=== PATIENT | male | born 1960 | race American Indian/Alaskan Native ===

== ENCOUNTER 2017-04-25 05:25 | Inpatient (IN) | payer SELFPAY ==
[2017-04-25 06:19] LABS: Eosinophils % (Auto) 2.7 % (0.0-4.3); Hematocrit 41.3 % (35.5-45.6); Hemoglobin 13.9 gm/dl (11.8-15.2); Mean Corpuscular HGB Conc 34 % (32-34); Mean Corpuscular Hemoglobin 33 pg (28-32); Mean Corpuscular Volume 97 fl (84-94); Platelet Count 345 K/mm3 (140-440); Red Blood Count 4.27 M/mm3 (3.65-5.03); Red Cell Distribution Width 11.9 % (13.2-15.2); White Blood Count 9.5 K/mm3 (4.5-11.0)
[2017-04-25 06:27] LABS: Calcium 9.4 mg/dL (8.4-10.2); Potassium 4.6 mmol/L (3.6-5.0)
[2017-04-25] MEDS ORDERED: NITRO-BID 2% TP ONE (08:14)
[2017-04-25] MEDS ORDERED: ASPIRIN PO ONE (08:15)
[2017-04-25 08:19] LABS: Creatine Kinase MB 2.9 ng/mL (0.0-4.0)
[2017-04-25 08:20] LABS: Creatine Kinase 372 units/L (55-170)
--- NOTE | 2017-04-25 08:22 | Emergency Department Report ---
HPI - General Chief Complaint: Weakness Time Seen by Provider: 04/25/17 07:59 - HPI HPI: Room 1 The patient is a 56-year-old male presenting with a chief complaint of diaphoresis chest pain and muscle spasms. The patient states last night at approximately 22:00 he had oral pain leading him to take Motrin and Ambesol. The patient states this morning at 04:00 and took his insulin when he came upstairs and noticed he was diaphoretic. The patient states he sat down and noticed muscle spasms in bilateral lower extremities. The patient states he developed substernal chest pain lasts approximately 30 minutes. EMS was called. Patient had a blood sugar of 282. The patient came to the ED and was administered IV fluids which she attributes to the resolution of his leg pain. Patient currently denies complaints stating that he "feel[s] good now." Patient states he's never had a stress test or cardiac catheterization Location: Chest, legs Duration: [See above] Quality: [See above] Severity: [See above] Modifying factors: [see above] Context: [see above] Mode of transportation: [not driving] ED Past Medical Hx - Past Medical History Previous Medical History?: Yes Hx Diabetes: Yes - Surgical History Past Surgical History?: No - Family History Family history: no significant - Social History Smoking Status: Current Some Day Smoker ED Review of Systems ROS: Stated complaint: GENERAL WEAKNESS Other details as noted in HPI Constitutional: diaphoresis Respiratory: denies: shortness of breath Cardiovascular: chest pain Gastrointestinal: denies: nausea, vomiting Musculoskeletal: myalgia Physical Exam - Physical Exam Vital Signs: Vital Signs 04/25/17 05:42 Temperature 98.0 F Pulse Rate 109 H Respiratory 20 Rate Blood Pressure 131/84 [Right] O2 Sat by Pulse 97 Oximetry Physical Exam: GENERAL: The patient is well-developed well-nourished male sitting on stretcher not appearing to be in acute distress. [] HEENT: Normocephalic. Atraumatic. Extraocular motions are intact. Patient has moist mucous membranes. NECK: Supple. Trachea midline CHEST/LUNGS: Clear to auscultation. There is no respiratory distress noted. HEART/CARDIOVASCULAR: Regular. There is tachycardia. There is no gallop rub or murmur. ABDOMEN: Abdomen is soft, nontender. Patient has normal bowel sounds. There is no abdominal distention. SKIN: There is no rash. There is no edema. There is no diaphoresis. NEURO: The patient is awake, alert, and oriented. The patient is cooperative. The patient has normal speech MUSCULOSKELETAL: There is no tenderness to palpation of bilateral calves. There is no evidence of acute injury. ED Course Vital Signs 04/25/17 05:42 Temperature 98.0 F Pulse Rate 109 H Respiratory 20 Rate Blood Pressure 131/84 [Right] O2 Sat by Pulse 97 Oximetry ED Medical Decision Making - Lab Data Result diagrams: 04/25/17 05:59 04/25/17 05:59 Laboratory Tests 04/25/17 04/25/17 04/25/17 05:59 05:59 05:59 WBC 9.5 RBC 4.27 Hgb 13.9 Hct 41.3 MCV 97 H MCH 33 H MCHC 34 RDW 11.9 L Plt Count 345 Lymph % (Auto) 21.5 Sharkey % (Auto) 9.1 H Eos % (Auto) 2.7 Baso % (Auto) 1.0 Lymph # 2.0 Sharkey # 0.9 H Eos # 0.3 Baso # 0.1 Seg Neutrophils % 65.7 Seg Neutrophils # 6.3 Sodium 139 Potassium 4.6 Chloride 97.0 L Carbon Dioxide 26 Anion Gap 21 BUN 17 Creatinine 1.5 Estimated GFR 58 BUN/Creatinine Ratio 11 Glucose 139 H Calcium 9.4 Magnesium 2.00 Total Creatine Kinase CK-MB (CK-2) CK-MB (CK-2) Rel Index Troponin T TSH 2.750 Free T4 1.16 04/25/17 05:59 WBC RBC Hgb Hct MCV MCH MCHC RDW Plt Count Lymph % (Auto) Sharkey % (Auto) Eos % (Auto) Baso % (Auto) Lymph # Sharkey # Eos # Baso # Seg Neutrophils % Seg Neutrophils # Sodium Potassium Chloride Carbon Dioxide Anion Gap BUN Creatinine Estimated GFR BUN/Creatinine Ratio Glucose Calcium Magnesium Total Creatine Kinase 372 H CK-MB (CK-2) 2.9 CK-MB (CK-2) Rel Index 0.7 Troponin T < 0.010 TSH Free T4 - EKG Data -: EKG Interpreted by Me EKG shows normal: sinus rhythm Rate: tachycardia (106 bpm) - EKG Data When compared to previous EKG there are: previous EKG unavailable Interpretation: nonspecific ST-T wave akash (biphasic T waves in leads V2, V3, V4) - Radiology Data Radiology results: image reviewed (chest x-ray) interpreted by me: Chest x-ray-no focal infiltrates, no pneumothorax - Differential Diagnosis ACS, GERD, pericarditis, rhabdomyolysis Critical care attestation.: If time is entered above; I have spent that time in minutes in the direct care of this critically ill patient, excluding procedure time. ED Disposition Clinical Impression: Chest pain, Diaphoresis, Biphasic anterior T wave inversion Disposition: OP ADMIT IP TO THIS HOSP Is pt being admited?: Yes Does the pt Need Aspirin: Yes Condition: Fair Instructions: Chest Pain (ED) Referrals: PRIMARY CARE, [Primary Care Provider] - 3-5 Days Time of Disposition: 09:02 (hospitalist paged)
--- NOTE | 2017-04-25 09:10 | XRay Report ---
AP CHEST: HISTORY: chest pain AP view of the chest demonstrates a normal mediastinal and cardiac contour with clear lungs and normal bony and soft tissue structures. IMPRESSION: Unremarkable AP chest.
[2017-04-25 09:58] LABS: Bacteria,Urine 1+ /HPF (Negative); Mucus,Urine FEW /HPF
[2017-04-25 09:59] LABS: Bilirubin,Urine Negative (Negative); Blood,Urine Small (Negative); Ketones,Urine Negative (Negative)
[2017-04-25 10:00] LABS: Leukocyte Esterase,Urine Moderate (Negative); Nitrite,Urine Negative (Negative); Urobilinogen,Urine < 2.0 mg/dL (<2.0)
[2017-04-25] MEDS ORDERED: DULCOLAX PR PRN (10:08)
[2017-04-25] MEDS ORDERED: TYLENOL PO PRN (10:08)
[2017-04-25] MEDS ORDERED: ZOFRAN IV PRN (10:08)
[2017-04-25] MEDS ORDERED: NITROSTAT SL PRN (10:13)
[2017-04-25] MEDS ORDERED: D50W (25GM) Syringe IV PRN (10:13)
--- NOTE | 2017-04-25 11:17 | Event Note ---
Date: 04/25/17 Cardio note dictated 1.Chest pain 2. Diabetes 3 Hyperlipidemia Will obtain cardiac w/u and follow Thank you Dr ambriz
--- NOTE | 2017-04-25 11:21 | History and Physical Report ---
<ALBERTO GILBERT - Last Filed: 05/09/17 08:24> History of Present Illness Date of examination: 04/25/17 Date of admission: 04/25/17 10:08 Chief complaint: 04/25/1017 History of present illness: Patient is a 56-year-old male with past medical history hypertension and diabetes mellitus who presents to the emergency department with a chief complaint of diaphoresis chest pain and bilateral knee pain. The pain began this morning at approx 4:00 am while the patient was walking at home noticed he was diaphoretic. The patient states he sat down and noticed muscle spasms in bilateral knee. The pain was described as aching and had a gradual onset. The pain continued to gradually increase in severity to an 8/10 today to the point cannot walk without pain. The pain was exacerbated with walking or standing. Patient also experienced left-sided chest pain. He states that the pain began right after the knee pain, intermittent left side chest pain. The pain was located over his substerna somewhat in the left pigastric area . Patient described as, tightness pain. The pain lasted for few minutes and he states that pain was radiating to left arm. Also the patient did experience some tingling and numbness in his left arm after the pain ceased. No exacerbation and no reliving factors. The painful episodes did not increase in intensity or severity during this time. The patient denies chest pain at present time. He denies shortness of breath, and vomiting during these episodes of pain. Patient reported nausea and diaphoresis including feeling clammy. Patient states he's never had a stress test or cardiac catheterization. Past History Past Medical History: diabetes, hypertension, hyperlipidemia Past Surgical History: No surgical history Social history: smoking. denies: alcohol abuse Family history: hypertension Medications and Allergies Allergies Allergy/AdvReac Type Severity Reaction Status Date / Time No Known Allergies Allergy Unverified 04/25/17 05:50 Home Medications Medication Instructions Recorded Confirmed Last Taken Type Aspirin EC [Aspirin Enteric Coated 81 mg PO QDAY #30 tablet.dr 04/26/17 Unknown Rx TAB] Ciprofloxacin HCl [Ciprofloxacin 500 mg PO BID 7 Days tablet 04/26/17 Unknown Rx TAB] Famotidine [Pepcid] 20 mg PO BID #60 tablet 04/26/17 Unknown Rx Fluconazole [Diflucan TAB] 100 mg PO QDAY #7 tablet 04/26/17 Unknown Rx Insulin Glargine,Hum.rec.anlog 10 units SUB-Q HS #3 insuln.pen 04/26/17 Unknown Rx [Lantus Solostar] Insulin Glargine,Hum.rec.anlog 15 units SUB-Q QAM #3 insuln.pen 04/26/17 Unknown Rx [Lantus Solostar] Active Meds: Active Medications Acetaminophen (Tylenol) 650 mg PO Q4H PRN PRN Reason: Pain MILD(1-3)/Fever >100.5/CHRISTIANSON Aspirin (Aspirin) 325 mg PO DAILY KATHY Bisacodyl (Dulcolax) 10 mg [place] QDAY PRN PRN Reason: Constipation unrelieved by [facility] Dextrose (D50w (25gm) Syringe) 50 ml IV PRN PRN PRN Reason: Hypoglycemia Enoxaparin Sodium (Lovenox) 40 mg SUB-Q QDAY KATHY Insulin Aspart (Novolog) 0 units SUB-Q AC KATHY PRN Reason: Protocol Insulin Aspart (Novolog) 0 units SUB-Q QHS KATHY PRN Reason: Protocol Metoprolol Succinate (Toprol Xl) 50 mg PO QDAY KATHY Miscellaneous Medication (Insulin Glargine,Hum.Rec.Anlog [Lantus Solostar]) 10 units SUB-Q HS KATHY Miscellaneous Medication (Insulin Glargine,Hum.Rec.Anlog [Lantus Solostar]) 15 units SUB-Q QAM KATHY Morphine Sulfate (Morphine) 2 mg IV Q4H PRN PRN Reason: Pain, Moderate (4-6) Nitroglycerin (Nitrostat) 0.4 mg SL .Q5MIN PRN PRN Reason: Chest Pain Ondansetron HCl (Zofran) 4 mg IV Q8H PRN PRN Reason: N/V unrelieved by Reglan Review of Systems Constitutional: no weight loss, no weight gain Ears, nose, mouth and throat: no nasal congestion, no nasal discharge, no sinus pressure Cardiovascular: chest pain, no rapid/irregular heart beat, no syncope, no lightheadedness, no shortness of breath Respiratory: no hemoptysis, no shortness of breath, no dyspnea on exertion Gastrointestinal: no constipation, no change in bowel habits, no hematemesis Genitourinary Male: no discharge, no urinary frequency, no urinary hesitancy, no nocturia Rectal: no incontinence, no bleeding Musculoskeletal: other (bilateral knee pain), no low back pain, no shooting leg pain, no leg numbness/tingling Integumentary: no redness, no sores, no wounds, no jaundice Neurological: no numbness, no tingling, no seizures, no syncope Psychiatric: no change in sleep habits, no sleep disturbances, no insomnia Endocrine: no excessive thirst, no polydipsia, no polyuria Hematologic/Lymphatic: no easy bruising, no easy bleeding Allergic/Immunologic: no urticaria, no allergic rhinitis Exam - Constitutional Vitals: Temp Pulse Resp BP Pulse Ox 98.0 F 98 H 18 115/73 97 04/25/17 05:42 04/25/17 10:30 04/25/17 10:30 04/25/17 10:30 04/25/17 10:30 General appearance: Present: no acute distress - EENT Eyes: Present: PERRL ENT: hearing intact - Neck Neck: Present: supple - Respiratory Respiratory effort: normal Respiratory: bilateral: CTA - Cardiovascular Rhythm: regular Heart Sounds: Present: S1 & S2 - Extremities Extremities: no ischemia - Abdominal General gastrointestinal: Present: soft, non-tender Male genitourinary: Present: deferred - Rectal Rectal Exam: deferred - Integumentary Integumentary: Present: clear, warm, dry - Musculoskeletal Musculoskeletal: strength equal bilaterally - Psychiatric Psychiatric: appropriate mood/affect - Neurologic Neurologic: moves all extremities - Allied Health Allied health notes reviewed: nursing Results - Labs CBC & Chem 7: 04/25/17 05:59 04/25/17 05:59 Labs: Laboratory Last Values WBC 9.5 K/mm3 (4.5-11.0) 04/25/17 05:59 RBC 4.27 M/mm3 (3.65-5.03) 04/25/17 05:59 Hgb 13.9 gm/dl (11.8-15.2) 04/25/17 05:59 Hct 41.3 % (35.5-45.6) 04/25/17 05:59 MCV 97 fl (84-94) H 04/25/17 05:59 MCH 33 pg (28-32) H 04/25/17 05:59 MCHC 34 % (32-34) 04/25/17 05:59 RDW 11.9 % (13.2-15.2) L 04/25/17 05:59 Plt Count 345 K/mm3 (140-440) 04/25/17 05:59 Lymph % (Auto) 21.5 % (13.4-35.0) 04/25/17 05:59 [place] % (Auto) 9.1 % (0.0-7.3) H 04/25/17 05:59 Eos % (Auto) 2.7 % (0.0-4.3) 04/25/17 05:59 Baso % (Auto) 1.0 % (0.0-1.8) 04/25/17 05:59 Lymph # 2.0 K/mm3 (1.2-5.4) 04/25/17 05:59 [place] # 0.9 K/mm3 (0.0-0.8) H 04/25/17 05:59 Eos # 0.3 K/mm3 (0.0-0.4) 04/25/17 05:59 Baso # 0.1 K/mm3 (0.0-0.1) 04/25/17 05:59 Seg Neutrophils % 65.7 % (40.0-70.0) 04/25/17 05:59 Seg Neutrophils # 6.3 K/mm3 (1.8-7.7) 04/25/17 05:59 Sodium 139 mmol/L (137-145) 04/25/17 05:59 Potassium 4.6 mmol/L (3.6-5.0) 04/25/17 05:59 Chloride 97.0 mmol/L (98-107) L 04/25/17 05:59 Carbon Dioxide 26 mmol/L (22-30) 04/25/17 05:59 Anion Gap 21 mmol/L 04/25/17 05:59 BUN 17 mg/dL (9-20) 04/25/17 05:59 Creatinine 1.5 mg/dL (0.8-1.5) 04/25/17 05:59 Estimated GFR 58 ml/min 04/25/17 05:59 BUN/Creatinine Ratio 11 % 04/25/17 05:59 Glucose 139 mg/dL (75-100) H 04/25/17 05:59 Calcium 9.4 mg/dL (8.4-10.2) 04/25/17 05:59 Magnesium 2.00 mg/dL (1.7-2.3) 04/25/17 05:59 Total Creatine Kinase 372 units/L (55-170) H 04/25/17 05:59 CK-MB (CK-2) 2.9 ng/mL (0.0-4.0) 04/25/17 05:59 CK-MB (CK-2) Rel Index 0.7 (0-4) 04/25/17 05:59 Troponin T < 0.010 ng/mL (0.00-0.029) 04/25/17 05:59 TSH 2.750 mlU/mL (0.270-4.200) 04/25/17 05:59 Free T4 1.16 ng/dL (0.76-1.46) 04/25/17 05:59 Urine Color Straw (Yellow) 04/25/17 Unknown Urine Turbidity Hazy (Clear) 04/25/17 Unknown Urine pH 5.0 (5.0-7.0) 04/25/17 Unknown Ur Specific [place] 1.015 (1.003-1.030) 04/25/17 Unknown Urine Protein 30 mg/dl mg/dL (Negative) 04/25/17 Unknown Urine Glucose (UA) >500 mg/dL (Negative) 04/25/17 Unknown Urine Ketones Negative mg/dL (Negative) 04/25/17 Unknown Urine Blood Small (Negative) A 04/25/17 Unknown Urine Nitrite Negative (Negative) 04/25/17 Unknown Ur Reducing Substances Not Reportable 04/25/17 Unknown Urine Bilirubin Negative (Negative) 04/25/17 Unknown Urine Ictotest Not Reportable 04/25/17 Unknown Urine Urobilinogen < 2.0 mg/dL (<2.0) 04/25/17 Unknown Ur Leukocyte Esterase Moderate (Negative) 04/25/17 Unknown Urine WBC (Auto) 47.0 /HPF (0.0-6.0) H 04/25/17 Unknown Urine RBC (Auto) 19.0 /HPF (0.0-6.0) 04/25/17 Unknown U Epithel Cells (Auto) 5.0 /HPF (0-13.0) 04/25/17 Unknown Urine Bacteria (Auto) 1+ /HPF (Negative) 04/25/17 Unknown Urine Mucus Few /HPF 04/25/17 Unknown Urine Yeast (Budding) 1+ /HPF 04/25/17 Unknown - Imaging and Cardiology Chest x-ray: image reviewed (unremarkable ) Assessment and Plan Assessment and plan: Patient is a 56-year-old male with past medical history hypertension and diabetes mellitus who presents to the emergency department with a chief complaint of diaphoresis chest pain and bilateral knee pain. Chest Pain We will admit to telemetry floor. EKG normal sinus nonspecific ST-T wave akash (biphasic T waves in leads V2, V3, V4 ) Negative cardiac enzyme X2 Start on aspirin Nitroglycerin when necessary Morphine ordered for pain Stress test ordered. Cardiology consult Diabetes mellitus Accu-Chek before meals and after Sliding-scale insulin/NovoLog We will obtain A1C Hypertension Stable now; patient not on BP medication we ill monitor him and start on antihypertensive medications if needed Closely monitor blood pressure Bilateral knee pain We will obtain Xray of the knee DVT prophylaxis Lovenox Advance Directives: Yes VTE prophylaxis?: Chemical Contraindication Mechanical VTE Prophylaxis: Treatment Not Indicated Plan of care discussed with patient/family: Yes <FLOYD JO - Last Filed: 05/10/17 09:05> History of Present Illness Date of admission: 04/25/17 10:08 Exam - Constitutional Vitals: Temp Pulse Resp BP Pulse Ox 98.2 F 104 H 18 117/77 94 04/26/17 04:15 04/26/17 05:00 04/26/17 04:15 04/26/17 04:15 04/26/17 07:44 Results - Labs CBC & Chem 7: 04/26/17 04:31 04/26/17 04:31 Labs: Laboratory Last Values WBC 9.8 K/mm3 (4.5-11.0) 04/26/17 04:31 RBC 3.96 M/mm3 (3.65-5.03) 04/26/17 04:31 Hgb 12.9 gm/dl (11.8-15.2) 04/26/17 04:31 Hct 38.0 % (35.5-45.6) 04/26/17 04:31 MCV 96 fl (84-94) H 04/26/17 04:31 MCH 32 pg (28-32) 04/26/17 04:31 MCHC 34 % (32-34) 04/26/17 04:31 RDW 12.0 % (13.2-15.2) L 04/26/17 04:31 Plt Count 335 K/mm3 (140-440) 04/26/17 04:31 Lymph % (Auto) 28.4 % (13.4-35.0) 04/26/17 04:31 [place] % (Auto) 7.2 % (0.0-7.3) 04/26/17 04:31 Eos % (Auto) 2.7 % (0.0-4.3) 04/26/17 04:31 Baso % (Auto) 0.4 % (0.0-1.8) 04/26/17 04:31 Lymph # 2.8 K/mm3 (1.2-5.4) 04/26/17 04:31 [place] # 0.7 K/mm3 (0.0-0.8) 04/26/17 04:31 Eos # 0.3 K/mm3 (0.0-0.4) 04/26/17 04:31 Baso # 0.0 K/mm3 (0.0-0.1) 04/26/17 04:31 Seg Neutrophils % 61.3 % (40.0-70.0) 04/26/17 04:31 Seg Neutrophils # 6.0 K/mm3 (1.8-7.7) 04/26/17 04:31 Sodium 137 mmol/L (137-145) 04/26/17 04:31 Potassium 4.2 mmol/L (3.6-5.0) 04/26/17 04:31 Chloride 97.5 mmol/L (98-107) L 04/26/17 04:31 Carbon Dioxide 25 mmol/L (22-30) 04/26/17 04:31 Anion Gap 19 mmol/L 04/26/17 04:31 BUN 13 mg/dL (9-20) 04/26/17 04:31 Creatinine 0.9 mg/dL (0.8-1.5) 04/26/17 04:31 Estimated GFR > 60 ml/min 04/26/17 04:31 BUN/Creatinine Ratio 14 % 04/26/17 04:31 Glucose 248 mg/dL (75-100) H 04/26/17 04:31 POC Glucose 260 (70-105) H 04/26/17 11:41 Hemoglobin A1c 12.2 % (4-6) H 04/26/17 04:31 Calcium 8.7 mg/dL (8.4-10.2) 04/26/17 04:31 Magnesium 2.00 mg/dL (1.7-2.3) 04/25/17 05:59 Total Creatine Kinase 372 units/L (55-170) H 04/25/17 05:59 CK-MB (CK-2) 2.9 ng/mL (0.0-4.0) 04/25/17 05:59 CK-MB (CK-2) Rel Index 0.7 (0-4) 04/25/17 05:59 Troponin T < 0.010 ng/mL (0.00-0.029) 04/25/17 11:44 TSH 2.750 mlU/mL (0.270-4.200) 04/25/17 05:59 Free T4 1.16 ng/dL (0.76-1.46) 04/25/17 05:59 Urine Color Straw (Yellow) 04/25/17 Unknown Urine Turbidity Hazy (Clear) 04/25/17 Unknown Urine pH 5.0 (5.0-7.0) 04/25/17 Unknown Ur Specific [place] 1.015 (1.003-1.030) 04/25/17 Unknown Urine Protein 30 mg/dl mg/dL (Negative) 04/25/17 Unknown Urine Glucose (UA) >500 mg/dL (Negative) 04/25/17 Unknown Urine Ketones Negative mg/dL (Negative) 04/25/17 Unknown Urine Blood Small (Negative) A 04/25/17 Unknown Urine Nitrite Negative (Negative) 04/25/17 Unknown Ur Reducing Substances Not Reportable 04/25/17 Unknown Urine Bilirubin Negative (Negative) 04/25/17 Unknown Urine Ictotest Not Reportable 04/25/17 Unknown Urine Urobilinogen < 2.0 mg/dL (<2.0) 04/25/17 Unknown Ur Leukocyte Esterase Moderate (Negative) 04/25/17 Unknown Urine WBC (Auto) 47.0 /HPF (0.0-6.0) H 04/25/17 Unknown Urine RBC (Auto) 19.0 /HPF (0.0-6.0) 04/25/17 Unknown U Epithel Cells (Auto) 5.0 /HPF (0-13.0) 04/25/17 Unknown Urine Bacteria (Auto) 1+ /HPF (Negative) 04/25/17 Unknown Urine Mucus Few /HPF 04/25/17 Unknown Urine Yeast (Budding) 1+ /HPF 04/25/17 Unknown Assessment and Plan Assessment and plan: I saw and evaluated the patient. I agree with the findings and the plan of care as documented in the Nurse Practitioner's~note,
[2017-04-25] MEDS: NOVOLOG SUB-Q SCH ×2 (13:22→17:13)
--- NOTE | 2017-04-25 13:55 | Consultation ---
HISTORY OF PRESENT ILLNESS: The patient is a 56-year-old gentleman who is originally from [place] who works as an mold worker, comes in complaining about chest discomfort and knee pains. The chest pain is described as a very brief pain and he had 2 episodes associated with some difficulty in breathing and diaphoresis, but no definite precipitation by any of his usual activities. No specific precipitating factors with chest pain. No prior myocardial infarction, congestive heart failure, rheumatic fever. The patient is known to have a longstanding history of diabetes and hyperlipidemia. He has stopped taking medications for hyperlipidemia. REVIEW OF SYSTEMS: HEAD, EYES, EARS, NOSE AND THROAT: No symptoms. ENDOCRINE: Known to have diabetes. RESPIRATORY: No history of recurrent pneumonia, bronchitis or pulmonary tuberculosis. GASTROINTESTINAL: No abdominal pain, nausea, or vomiting. Bowel habits have been regular. GENITOURINARY: No symptoms. CENTRAL NERVOUS SYSTEM: No history of cerebrovascular accident or convulsive disorder. HEMATOLOGY/ONCOLOGY: No symptoms. SKIN: No symptoms. LOCOMOTOR: The patient complains showed bilateral knee pains. PERSONAL HISTORY: Smokes about 1 pack every week. Nonalcoholic. FAMILY HISTORY: Positive for diabetes. Negative for coronary artery disease. PHYSICAL EXAMINATION: GENERAL: Adult male, well built, well nourished, in no acute distress. VITAL SIGNS: Blood pressure 115/73, pulse 98, respirations 18, pulse ox is 97. HEENT: Unremarkable. NECK: Supple. No thyromegaly. Both carotids are palpable and equal. Neck veins are flat. CHEST: Symmetrical. LUNGS: Clear. CARDIOVASCULAR: S1 and S2 are heard well. No S3. No significant murmurs are noted. ABDOMEN: Soft, nontender, no hepatosplenomegaly. EXTREMITIES: No significant edema or calf tenderness. LABORATORY DATA: EKG sinus rhythm, nonspecific T-wave changes. WBC 9.5, hemoglobin 13.9, hematocrit 41.3. Sodium 139, potassium 4.6, BUN 17, creatinine 1.5, blood sugar 139. Her troponin is normal. Free T4 is normal. IMPRESSION: 1. Chest pain, somewhat atypical. 2. Hyperlipidemia. 3. Diabetes. The patient is seen for cardiac evaluation. Chest pain itself is somewhat atypical. Because of his chest pain and difficulty in breathing, I will obtain a stress test and an echocardiogram. The patient will be monitored and followed closely with you. Thank you for allowing me to participate in the care of this gentleman. JOB# [id number] JACKIE/JEAN
[2017-04-25] MEDS: MORPHINE IV PRN ×2 (16:34→22:02)
[2017-04-25] MEDS ORDERED: LEVEMIR SUB-Q SCH (22:00)
[2017-04-25] MEDS ORDERED: NON-FORMULARY (Insulin Glargine,Hum.Rec.Anlog [Lantus Solostar] 10 UNITS) SUB-Q SCH (22:00)
[2017-04-25] MEDS ORDERED: NOVOLOG SUB-Q SCH (22:00)
[2017-04-26 04:46] VITALS: BP 117/77
[2017-04-26 05:46] LABS: Basophils % (Auto) 0.4 % (0.0-1.8); Eosinophils % (Auto) 2.7 % (0.0-4.3); Hemoglobin 12.9 gm/dl (11.8-15.2); Mean Corpuscular HGB Conc 34 % (32-34); Mean Corpuscular Hemoglobin 32 pg (28-32); Mean Corpuscular Volume 96 fl (84-94); Platelet Count 335 K/mm3 (140-440); Red Blood Count 3.96 M/mm3 (3.65-5.03); White Blood Count 9.8 K/mm3 (4.5-11.0)
[2017-04-26 05:50] LABS: Anion Gap 19 mmol/L; BUN/Creatinine Ratio 14; Blood Urea Nitrogen 13 mg/dL (9-20); Calcium 8.7 mg/dL (8.4-10.2); Carbon Dioxide 25 mmol/L (22-30); Chloride 97.5 mmol/L (98-107); Glucose 248 mg/dL (75-100); Potassium 4.2 mmol/L (3.6-5.0); Sodium 137 mmol/L (137-145)
[2017-04-26] MEDS: NOVOLOG SUB-Q SCH ×2 (08:12→11:52)
[2017-04-26] MEDS ORDERED: NON-FORMULARY (Insulin Glargine,Hum.Rec.Anlog [Lantus Solostar] 15 UNITS) SUB-Q SCH (10:00)
[2017-04-26] MEDS ORDERED: LOVENOX SUB-Q SCH (10:00)
[2017-04-26] MEDS ORDERED: TOPROL XL PO SCH (10:00)
[2017-04-26] MEDS ORDERED: LEVEMIR SUB-Q SCH (10:00)
[2017-04-26] MEDS ORDERED: ASPIRIN PO SCH (10:00)
[2017-04-26] MEDS ORDERED: LEVAQUIN 500MG/100ML 500 MG/100 ML BAG IV SCH (10:00)
--- NOTE | 2017-04-26 13:46 | Discharge Summary ---
Providers - Providers Date of Admission: 04/25/17 10:08 Date of discharge: 04/26/17 Attending physician: ASAEL SHEN 04/25/17 10:16 Consult to Physician [CONS] Routine Consulting Provider: DAVID MOORE Reason For Exam: abnormal EKG Place consult to:: Rabia Everett Notified:: Edwin notified her Phone number called:: yes Was contact made?: Yes Primary care physician: SAP PPM CONSULTANT Hospitalization Condition: Fair Disposition: DC-01 TO HOME OR SELFCARE Exam - Constitutional Vitals: Temp Pulse Resp BP Pulse Ox 98.2 F 104 H 18 117/77 94 04/26/17 04:15 04/26/17 05:00 04/26/17 04:15 04/26/17 04:15 04/26/17 07:44 Plan Activity: no restrictions Diet: low fat, low cholesterol, low salt, diabetic Additional Instructions: 1.Follow up with PCP or [facility] in 1 week Follow up with: PRIMARY CARE,MD [Primary Care Provider] - 3-5 Days Prescriptions: Aspirin EC [Aspirin Enteric Coated TAB] 81 mg PO QDAY #30 tablet. Famotidine [Pepcid] 20 mg PO BID #60 tablet Insulin Glargine,Hum.rec.anlog [Lantus Solostar] 15 units SUB-Q QAM #3 insuln.pen Insulin Glargine,Hum.rec.anlog [Lantus Solostar] 10 units SUB-Q HS #3 insuln.pen
--- NOTE | 2017-04-26 14:26 | Progress Note ---
Assessment and Plan Patient is doing well today. He is evaluated for chest pain. His nuclear stress test is noted to be negative for ischemia. Clinically cardiac status is stable. Case discussed with Dr. Chandler. - Patient Problems (1) Chest pain Current Visit: Yes Status: Acute Subjective Date of service: 04/26/17 Interval history: Patient is doing well today no significant chest pain. For stress test today. Objective Vital Signs Temp Pulse Resp BP Pulse Ox 04/26/17 07:44 94 04/26/17 05:00 104 H 04/26/17 04:15 98.2 F 96 H 18 117/77 100 04/26/17 00:01 97.8 F 111 H 18 110/68 100 04/25/17 22:02 20 04/25/17 21:00 111 H 04/25/17 19:53 98.1 F 115 H 18 130/87 95 04/25/17 17:02 98.7 F 107 H 18 135/87 98 - Physical Examination General: Appears Well Neck: Positive: neck supple Cardiac: Positive: Reg Rate and Rhythm Lungs: Positive: clear to auscultation Abdomen: Positive: Soft - Labs and Meds CBC 04/26/17 Range/Units 04:31 WBC 9.8 (4.5-11.0) K/mm3 RBC 3.96 (3.65-5.03) M/mm3 Hgb 12.9 (11.8-15.2) gm/dl Hct 38.0 (35.5-45.6) % Plt Count 335 (140-440) K/mm3 Lymph # 2.8 (1.2-5.4) K/mm3 [place] # 0.7 (0.0-0.8) K/mm3 Eos # 0.3 (0.0-0.4) K/mm3 Baso # 0.0 (0.0-0.1) K/mm3 Comprehensive Metabolic Panel 04/26/17 Range/Units 04:31 Sodium 137 (137-145) mmol/L Potassium 4.2 (3.6-5.0) mmol/L Chloride 97.5 L (98-107) mmol/L Carbon Dioxide 25 (22-30) mmol/L BUN 13 (9-20) mg/dL Creatinine 0.9 (0.8-1.5) mg/dL Glucose 248 H (75-100) mg/dL Calcium 8.7 (8.4-10.2) mg/dL
--- NOTE | 2017-05-15 04:19 | Treadmill Report ---
REFERRING PHYSICIAN: Dr. Sage. PROTOCOL: The patient was brought to the stress lab in a postoperative state, given 10 mCi of technetium 99m at rest. The patient underwent rest imaging. The patient underwent exercise stress test per standard protocol. At peak stress, the patient was given 28 mCi of technetium 99m. Shortly thereafter, the patient underwent stress imaging. Interpretation, mild GI artifact, no significant motion artifact. SPECT imaging examined carefully in horizontal long axis, vertical long axis, short axis views. There is normal homogenous uptake of radioisotope in all reported segments. No evidence of significant fixed or reversible perfusion defects suggestive of prior infarction or ischemia. Gated wall motion reveals normal systolic thickening, calculated ejection fraction of 59%. No TID. CONCLUSIONS: 1. Normal myocardial perfusion scan without evidence of active ischemia or prior infarction. 2. Normal left ventricular systolic performance without evidence of transient ischemic dilatation or stress-induced segmental wall motion abnormalities. 3. Stress portion of the test is reported separately. JOB# [id number] FABIAN/JEAN
== END 2017-04-26 15:18 | disposition home or self-care (01) | DRG 313 ==
LOC: ED 05:25 → 4A 10:08
PROVIDERS: ADMIT Family Medicine; ATTEND Internal Medicine
DX: R07.9 Chest pain, unspecified (principal); F17.200 Nicotine dependence, unspecified, uncomplicated; R61 Generalized hyperhidrosis; E78.5 Hyperlipidemia, unspecified; Z83.3 Family history of diabetes mellitus; Z79.4 Long term (current) use of insulin
CPT/HCPCS: 36415; 71010; 78452; 80048; 81001; 82550; 82553; 82962; 83036; 83735; 84439; 84443; 84484; 85025; 87086; 93005; 93010; 93017; 93306; 96374; 99285; A9502; J1650; J1815; J1818; J1956; J2270

== ENCOUNTER 2018-12-23 08:42 | Emergency (ER) | payer OTHER ==
[2018-12-23 09:28] LABS: Bilirubin,Urine NEG (Negative); Blood,Urine NEG (Negative); Color,Urine Straw (Yellow); Protein,Urine <15 mg/dL mg/dL (Negative); Urobilinogen,Urine < 2.0 mg/dL (<2.0)
[2018-12-23 09:42] LABS: Basophils # (Auto) 0.1 K/mm3 (0.0-0.1); Eosinophils # (Auto) 0.2 K/mm3 (0.0-0.4); Eosinophils % (Auto) 2.2 % (0.0-4.3); Hemoglobin 14.1 gm/dl (11.8-15.2); Lymphocytes # (Auto) 1.2 K/mm3 (1.2-5.4); Mean Corpuscular HGB Conc 34 % (32-34); Mean Corpuscular Volume 99 fl (84-94); Monocytes # (Auto) 0.5 K/mm3 (0.0-0.8); Platelet Count 275 K/mm3 (140-440); Red Blood Count 4.25 M/mm3 (3.65-5.03); Red Cell Distribution Width 12.5 % (13.2-15.2)
[2018-12-23 09:49] LABS: Alanine Aminotransferase 38 units/L (7-56); Albumin 3.7 g/dL (3.9-5); BUN/Creatinine Ratio 13; Blood Urea Nitrogen 13 mg/dL (9-20); Calcium 9.4 mg/dL (8.4-10.2); Hemolysis Index 7
[2018-12-23] MEDS ORDERED: ZOFRAN IV ONE (10:03)
[2018-12-23] MEDS ORDERED: NACL 0.9% 1000 ML 1,000 ML IV ONE ×2 (10:03→11:33)
[2018-12-23] MEDS ORDERED: MORPHINE IV ONE (10:03)
[2018-12-23] MEDS ORDERED: HumuLIN R IV ONE ×2 (10:03→12:58)
--- NOTE | 2018-12-23 10:07 | Emergency Department Report ---
ED Abdominal Pain HPI - General Chief Complaint: Abdominal Pain Stated Complaint: STOMACH PAIN Time Seen by Provider: 12/23/18 09:59 Source: patient Mode of arrival: Ambulatory Limitations: No Limitations - History of Present Illness Initial Comments: Patient is 58 years old male with history of diabetes on insulin. Patient presented to the ER complaining of abdominal pain that started 2 days ago after he fell and hit his abdomen. Patient stated that he lost his balance and time. Patient stated that since then he vomited twice. He denied any fever or chills or diarrhea. Patient also denied any chest pain or shortness of breath. Patient found to have a blood sugar of 559. Patient received normal saline, insulin 10 units, Zofran and morphine for pain. MD Complaint: abdominal pain -: days(s) (2) Location: LLQ, suprapubic Radiation: none Migration to: no migration Severity: moderate Severity scale (0 -10): 5 Quality: cramping - Related Data Previous Rx's Medication Instructions Recorded Last Taken Type Aspirin EC [Halfprin EC] 81 mg PO QDAY #30 tablet. 04/26/17 Unknown Rx Ciprofloxacin HCl [Ciprofloxacin 500 mg PO BID 7 Days tablet 04/26/17 Unknown Rx TAB] Famotidine [Pepcid] 20 mg PO BID #60 tablet 04/26/17 Unknown Rx Fluconazole [Diflucan TAB] 100 mg PO QDAY #7 tablet 04/26/17 Unknown Rx Insulin Glargine,Hum.rec.anlog 10 units SUB-Q HS #3 insuln.pen 04/26/17 Unknown Rx [Lantus Solostar] Insulin Glargine,Hum.rec.anlog 15 units SUB-Q QAM #3 insuln.pen 04/26/17 Unknown Rx [Lantus Solostar] Insulin Glargine [Lantus] 15 unit SUB-Q QHS #1 vial 12/01/18 Unknown Rx Sulfamethoxazole/Trimethoprim 1 each PO BID 7 Days #14 tablet 12/01/18 Unknown Rx [Bactrim DS TAB] cephALEXin [Keflex] 500 mg PO Q6HR 7 Days #28 capsule 12/01/18 Unknown Rx Allergies Allergy/AdvReac Type Severity Reaction Status Date / Time No Known Allergies Allergy Verified 12/01/18 12:05 ED Review of Systems ROS: Stated complaint: STOMACH PAIN Other details as noted in HPI Comment: All other systems reviewed and negative Constitutional: denies: chills, fever Respiratory: denies: cough, shortness of breath, SOB with exertion Cardiovascular: denies: chest pain, palpitations Gastrointestinal: abdominal pain, nausea, vomiting. denies: diarrhea, constipation, hematemesis, melena, hematochezia Musculoskeletal: denies: back pain Neurological: denies: headache, weakness, numbness, paresthesias, confusion, abnormal gait ED Past Medical Hx - Past Medical History Previous Medical History?: Yes Hx Diabetes: Yes - Surgical History Past Surgical History?: No - Social History Smoking Status: Current Every Day Smoker Substance Use Type: None - Medications Home Medications: Home Medications Medication Instructions Recorded Confirmed Last Taken Type Aspirin EC [Halfprin EC] 81 mg PO QDAY #30 tablet.dr 04/26/17 Unknown Rx Ciprofloxacin HCl [Ciprofloxacin 500 mg PO BID 7 Days tablet 04/26/17 Unknown Rx TAB] Famotidine [Pepcid] 20 mg PO BID #60 tablet 04/26/17 Unknown Rx Fluconazole [Diflucan TAB] 100 mg PO QDAY #7 tablet 04/26/17 Unknown Rx Insulin Glargine,Hum.rec.anlog 10 units SUB-Q HS #3 insuln.pen 04/26/17 Unknown Rx [Lantus Solostar] Insulin Glargine,Hum.rec.anlog 15 units SUB-Q QAM #3 insuln.pen 04/26/17 Unknown Rx [Lantus Solostar] Insulin Glargine [Lantus] 15 unit SUB-Q QHS #1 vial 12/01/18 Unknown Rx Sulfamethoxazole/Trimethoprim 1 each PO BID 7 Days #14 tablet 12/01/18 Unknown Rx [Bactrim DS TAB] cephALEXin [Keflex] 500 mg PO Q6HR 7 Days #28 capsule 12/01/18 Unknown Rx ED Physical Exam - General Limitations: No Limitations General appearance: alert, in no apparent distress - Head Head exam: Present: atraumatic, normocephalic, normal inspection - Eye Eye exam: Present: normal appearance, PERRL - ENT ENT exam: Present: normal exam, normal orophraynx, mucous membranes moist - Neck Neck exam: Present: normal inspection, full ROM. Absent: tenderness, meningismus, lymphadenopathy, thyromegaly - Respiratory Respiratory exam: Present: normal lung sounds bilaterally - Cardiovascular Cardiovascular Exam: Present: regular rate, normal rhythm, normal heart sounds - GI/Abdominal GI/Abdominal exam: Present: soft, normal bowel sounds. Absent: distended, tenderness, guarding, rebound, rigid, mass, bruit, pulsatile mass, hernia - Extremities Exam Extremities exam: Present: normal inspection, full ROM, normal capillary refill. Absent: tenderness, pedal edema, calf tenderness - Back Exam Back exam: Present: normal inspection, full ROM. Absent: tenderness, CVA tenderness (R), CVA tenderness (L), muscle spasm, paraspinal tenderness, vertebral tenderness - Neurological Exam Neurological exam: Present: alert, oriented X3, CN II-XII intact, normal gait, reflexes normal - Skin Skin exam: Present: warm, intact, normal color ED Course Vital Signs 12/23/18 12/23/18 12/23/18 08:48 09:57 12:07 Temperature 97.8 F Pulse Rate 100 H 93 H Respiratory 20 17 18 Rate Blood Pressure 110/78 Blood Pressure 111/74 [Left] O2 Sat by Pulse 98 97 Oximetry ED Medical Decision Making - Lab Data Result diagrams: 12/23/18 09:09 12/23/18 09:09 - Radiology Data Radiology results: report reviewed Referring Physician: SUDHAKAR MITTAL Patient Name: ADRI WILSON Date of : 1960 Sex: Male Report Date: 2018-12-23 Report Status: [place] [address] Cat Scan Report Signed Patient: ADRI WILSON MR#: [id number] : 1960 Acct:[id number] Age/Sex: 58 / M ADM Date: 12/23/18 Loc: ED Attending Dr: Ordering Physician: SUDHAKAR MITTAL Date of Service: 12/23/18 Procedure(s): CT abdomen pelvis w con Accession Number(s): [id number] cc: SUDHAKAR MITTAL CT ABDOMEN AND PELVIS WITH CONTRAST HISTORY: Diffuse abdominal pain COMPARISON: None. TECHNIQUE: Axial CT images were obtained through the abdomen and pelvis after 100 cc of Omnipaque 300 intravenously. Sagittal and coronal reformatted images. All CT scans at this location are performed using CT dose reduction for ALARA by means of automated exposure control. FINDINGS: CT ABDOMEN: Lung Bases: Clear. Liver: No significant abnormality. Biliary: No significant abnormality. Spleen: No significant abnormality. Unenlarged. Pancreas: No significant abnormality. Adrenals: No significant abnormality. Kidneys: There are several tiny bilateral renal cysts. A 5 mm calyceal stone is noted at the inferior pole of the right kidney. No hydronephrosis. Lymphatics: No lymphadenopathy. Vasculature: No significant abnormality. Bowel/Peritoneum: There is moderate to large stool throughout the length of the colon. No evidence for bowel obstruction or focal inflammation. The appendix is not confidently identified. CT PELVIS: : No significant abnormality. Osseous Structures: No significant abnormality. Additional Findings: None IMPRESSION: No acute process is identified. Fecal retention. Simple renal cysts. 5 mm right renal stone, nonobstructing. Signer Name: Murali Barker Jr, MD Signed: 12/23/2018 11:30 AM Workstation Name: [id number] Transcribed By: TTR Dictated By: MURALI BARKER JR, MD Electronically Authenticated By: MURALI BARKER JR, MD Signed Date/Time: 12/23/18 1130 DD/ 1128 TD/TT: - Medical Decision Making Patient is 58 years old male with history of diabetes on insulin. Patient presented to the ER complaining of abdominal pain that started 2 days ago after he fell and hit his abdomen. Patient stated that he lost his balance and time. Patient stated that since then he vomited twice. He denied any fever or chills or diarrhea. Patient also denied any chest pain or shortness of breath. Patient found to have a blood sugar of 559. Patient received normal saline, insulin 10 units, Zofran and morphine for pain. Patient's CT abdomen and pelvis is unremarkable except for fecal retention. Patient received 15 units of regular insulin IV. Patient convalesced sugar is 282. Patient stated that he is feeling much better. Patient advised to follow- up with his primary care physician in the next 2-3 days. Patient also counseled about compliant with his medication. Patient advised to return to the ER if symptoms are not improved. Critical care attestation.: If time is entered above; I have spent that time in minutes in the direct care of this critically ill patient, excluding procedure time. ED Disposition Clinical Impression: Hyperglycemia, Abdominal pain Disposition: DC-01 TO HOME OR SELFCARE Is pt being admited?: No Condition: Stable Instructions: Abdominal Pain (ED), Diabetic Hyperglycemia (ED) Referrals: PRIMARY CARE,MD [Primary Care Provider] - 3-5 Days
--- NOTE | 2018-12-23 11:34 | Cat Scan Report ---
CT ABDOMEN AND PELVIS WITH CONTRAST HISTORY: Diffuse abdominal pain COMPARISON: None. TECHNIQUE: Axial CT images were obtained through the abdomen and pelvis after 100 cc of Omnipaque 300 intravenously. Sagittal and coronal reformatted images. All CT scans at this location are performed using CT dose reduction for ALARA by means of automated exposure control. FINDINGS: CT ABDOMEN: Lung Bases: Clear. Liver: No significant abnormality. Biliary: No significant abnormality. Spleen: No significant abnormality. Unenlarged. Pancreas: No significant abnormality. Adrenals: No significant abnormality. Kidneys: There are several tiny bilateral renal cysts. A 5 mm calyceal stone is noted at the inferior pole of the right kidney. No hydronephrosis. Lymphatics: No lymphadenopathy. Vasculature: No significant abnormality. Bowel/Peritoneum: There is moderate to large stool throughout the length of the colon. No evidence fo r bowel obstruction or focal inflammation. The appendix is not confidently identified. CT PELVIS: : No significant abnormality. Osseous Structures: No significant abnormality. Additional Findings: None IMPRESSION: No acute process is identified. Fecal retention. Simple renal cysts. 5 mm right renal stone, nonobstructing. Signer Name: Murali Arnold Jr, MD Signed: 12/23/2018 11:30 AM Workstation Name: [id number]
[2018-12-23 12:08] VITALS: BP 111/74
[2018-12-23] MEDS ORDERED: HumuLIN R ONE (13:01)
== END 2018-12-23 14:04 | disposition home or self-care (01) ==
LOC: ED 08:42
DX: R10.32 Left lower quadrant pain (principal); E11.65 Type 2 diabetes mellitus with hyperglycemia; F17.200 Nicotine dependence, unspecified, uncomplicated; Z79.4 Long term (current) use of insulin
CPT/HCPCS: 36415; 74177; 80053; 81001; 82962; 83690; 85025; 96361; 96374; 96375; 96376; 99284; J2270; J2405; J7030; Q9967; J1815

== ENCOUNTER 2019-02-25 12:11 | Emergency (ER) | payer SELFPAY ==
[2019-02-25] MEDS ORDERED: NACL 0.9% 1000 ML 1,000 ML IV ONE ×2 (12:52→14:41)
--- NOTE | 2019-02-25 12:52 | Emergency Department Report ---
HPI - General Chief Complaint: Abdominal Pain Time Seen by Provider: 02/25/19 12:51 - HPI HPI: 58 YO AA MALE COMES TO ER WITH ABD PAIN AND VOMITING FOR 1 DAYS. ALSO ENDORSES A/C CONSTIPATION. NO PCP RX LANTUS PSH NONE PMH DM LIVES ALONE THIN MALE. NOT ACTIVELY VOMITING. HAS BEEN TREATED IN ER IN PAST FOR GERD. NOT ON PPI. ED Past Medical Hx - Past Medical History Hx Diabetes: Yes Hx GERD: Yes - Surgical History Past Surgical History?: No - Family History Family history: no significant - Social History Smoking Status: Former Smoker Substance Use Type: None - Medications Home Medications: Home Medications Medication Instructions Recorded Confirmed Last Taken Type Aspirin EC [Halfprin EC] 81 mg PO QDAY #30 tablet. 04/26/17 Unknown Rx Insulin Glargine,Hum.rec.anlog 15 units SUB-Q QAM #3 insuln.pen 04/26/17 Unknown Rx [Lantus Solostar] Insulin Glargine [Lantus] 15 unit SUB-Q QHS #1 vial 12/01/18 Unknown Rx Ondansetron [Zofran Odt] 4 mg PO Q8HR PRN #10 tab.rapdis 02/25/19 Unknown Rx Pantoprazole [Protonix] 40 mg PO QDAY #30 tablet 02/25/19 Unknown Rx ED Review of Systems ROS: Stated complaint: ABD PAIN Other details as noted in HPI Comment: All other systems reviewed and negative Physical Exam - Physical Exam Vital Signs: Vital Signs 02/25/19 12:16 Temperature 97.9 F Pulse Rate 108 H Respiratory 20 Rate Blood Pressure 107/70 O2 Sat by Pulse 96 Oximetry Physical Exam: ALERT AND ORIENTED NO FOCAL DEF ABD SNT NO CVA TENDERNESS S1S2 HR 90 LUNGS CTA AMBULATORY TO ER ED Course Vital Signs 02/25/19 12:16 Temperature 97.9 F Pulse Rate 108 H Respiratory 20 Rate Blood Pressure 107/70 O2 Sat by Pulse 96 Oximetry ED Medical Decision Making - Lab Data Result diagrams: 02/25/19 12:46 02/25/19 12:46 - Radiology Data Radiology results: report reviewed, image reviewed - Medical Decision Making Labs 02/25/19 02/25/19 02/25/19 12:27 12:46 12:46 WBC 14.0 H RBC 4.40 Hgb 14.2 Hct 42.8 MCV 97 H MCH 32 MCHC 33 RDW 12.3 L Seg Neutrophils % Wood Heel Attacher VBG pH Sodium 133 L Potassium 5.0 Chloride 87.9 L Carbon Dioxide 24 Anion Gap 26 BUN 17 Creatinine 1.0 Estimated GFR > 60 BUN/Creatinine Ratio 17 Glucose 415 H POC Glucose 365 H Calcium 9.8 Total Bilirubin 1.80 H AST 201 H ALT 94 H Alkaline Phosphatase 288 H Total Protein 7.9 Albumin 4.0 Albumin/Globulin Ratio 1.0 Lipase 12 L Urine Color Urine Turbidity Urine pH Ur Specific [place] Urine Protein Urine Glucose (UA) Urine Ketones Urine Blood Urine Nitrite Urine Bilirubin Urine Urobilinogen Ur Leukocyte Esterase Urine WBC (Auto) Urine RBC (Auto) U Epithel Cells (Auto) Urine Mucus Urine Yeast (Budding) 02/25/19 02/25/19 02/25/19 12:55 15:16 Unknown WBC RBC Hgb Hct MCV MCH MCHC RDW Seg Neutrophils % VBG pH 7.371 Sodium Potassium Chloride Carbon Dioxide Anion Gap BUN Creatinine Estimated GFR BUN/Creatinine Ratio Glucose POC Glucose 302 H Calcium Total Bilirubin AST ALT Alkaline Phosphatase Total Protein Albumin Albumin/Globulin Ratio Lipase Urine Color Yellow Urine Turbidity Clear Urine pH 5.0 Ur Specific [place] 1.030 Urine Protein 30 mg/dl Urine Glucose (UA) >=500 Urine Ketones 20 Urine Blood Neg Urine Nitrite Neg Urine Bilirubin Neg Urine Urobilinogen < 2.0 Ur Leukocyte Esterase Neg Urine WBC (Auto) 4.0 Urine RBC (Auto) 3.0 U Epithel Cells (Auto) 5.0 Urine Mucus Few Urine Yeast (Budding) 1+ Vital Signs 02/25/19 12:16 Temperature 97.9 F Pulse Rate 108 H Respiratory 20 Rate Blood Pressure 107/70 O2 Sat by Pulse 96 Oximetry LABS NOTED A/C CONSTIPATION DM- TAKING INSULIN PH NORMAL TAKING INSULIN NS IN ER ZOFRAN IV PROTONIX IV TAKING PO PIP GIVEN PRIOR TO SCAN RESULTS MG CITRATE FOR CONSTIPATION. WE DISCUSSED HIGH FIBER DIET. CT SCAN NOTED PT HAS NOT HAD EGD OR COLONOSCOPY. DC HOME WITH PCP AND GI FOLLOW UP. PT VERBALIZES UNDERSTANDING. I EXPLAINED TO HIM THAT HE NEEDS TO FOLLOW UP TO BE SURE HIS LFTS IMPROVE. HE HAD NO ABD PAIN ON PALP. HE HAS HAD NO ACTIVE N/V IN ER. Critical care attestation.: If time is entered above; I have spent that time in minutes in the direct care of this critically ill patient, excluding procedure time. ED Disposition Clinical Impression: GERD (gastroesophageal reflux disease), Abdominal pain, Diabetes mellitus type 2 in obese, Hyperglycemia, Constipation Disposition: DC-01 TO HOME OR SELFCARE Is pt being admited?: No Does the pt Need Aspirin: No Condition: Stable Additional Instructions: DIABETIC DIET HYDRATE WELL WITH WATER MEDS ORDERED TODAY HIGH FIBER DIET FOLLOW UP WITH GI REFERRAL BELOW CALL [facility] AND MAKE APPOINTMENT FOLLOW UP PCP REFERRALS BELOW CONTINUE YOUR HOME MEDS Prescriptions: Pantoprazole [Protonix] 40 mg PO QDAY #30 tablet Ondansetron [Zofran Odt] 4 mg PO Q8HR PRN #10 tab.rapdis PRN Reason: Vomiting Referrals: [facility] [Outside] - 3-5 Days DYLLAN LINCOLN MD [Staff Physician] - 3-5 Days SRIRAM SOUSA MD [Staff Physician] - 3-5 Days OBEY VELAZQUEZ MD [Staff Physician] - 3-5 Days Time of Disposition: 15:12
[2019-02-25 13:11] LABS: Hematocrit 42.8 % (35.5-45.6); Hemoglobin 14.2 gm/dl (11.8-15.2); Mean Corpuscular HGB Conc 33 % (32-34); Mean Corpuscular Volume 97 fl (84-94); Red Cell Distribution Width 12.3 % (13.2-15.2)
[2019-02-25] MEDS ORDERED: HumuLIN R IV ONE (13:14)
[2019-02-25] MEDS ORDERED: ZOFRAN IV ONE (13:14)
[2019-02-25] MEDS ORDERED: PROTONIX IV ONE (13:15)
[2019-02-25 13:31] LABS: Alanine Aminotransferase 94 units/L (7-56); BUN/Creatinine Ratio 17; Blood Urea Nitrogen 17 mg/dL (9-20); Calcium 9.8 mg/dL (8.4-10.2); Hemolysis Index 2
[2019-02-25 14:04] LABS: Bilirubin,Urine NEG (Negative); Blood,Urine NEG (Negative); Color,Urine Yellow (Yellow); Mucus,Urine FEW /HPF; Urobilinogen,Urine < 2.0 mg/dL (<2.0)
[2019-02-25] MEDS ORDERED: FLAGYL 500 MG/100 ML 500 MG/100 ML BAG IV ONE (14:40)
[2019-02-25] MEDS ORDERED: ZOSYN/NS 4.5GM/100ML 4.5 GM/100 ML VIAL IV ONE (14:41)
--- NOTE | 2019-02-25 15:03 | Cat Scan Report ---
CT ABDOMEN AND PELVIS WITH CONTRAST HISTORY: Abnormal pain with vomiting. COMPARISON: 12/23/2018 TECHNIQUE: Routine abdominal and pelvic CT exam performed following intravenous contrast administrat ion. 100 cc of Omnipaque 300 was injected intravenously without incident. Consent was obtained prior to the administration of contrast. All CT scans at this location are performed using CT dose reductio n for ALARA by means of automated exposure control. FINDINGS: CT ABDOMEN: Lung Bases: No significant abnormality. Liver: No significant abnormality. Biliary: No significant abnormality. Stomach and duodenum: Prominent enlarged gastric folds are more prominent than on the last exam. Prom inent duodenal folds. No mass or ulcer identified. Spleen: No significant abnormality. Unenlarged. Pancreas: No significant abnormality. Adrenals: No significant abnormality. Kidneys: Small bilateral benign cysts. A nonobstructive 4 mm right lower pole renal calculus. The douglas al collecting systems and ureters are nondilated. Lymphatics: No lymphadenopathy. Vasculature: No significant abnormality. Bowel/Peritoneum: No significant abnormality. No free air. No free fluid. A large volume of stool thr oughout the colon. Appendix not visualized. No pericecal inflammation. CT PELVIC: : Urinary bladder is distended. No bladder calculus or mass. Normal prostate, rectum and sigmoid co sosa. Lymphatics: No lymphadenopathy. Osseous Structures: No aggressive appearing osseous lesions. Additional Findings: None IMPRESSION: 1. Enlargement of the gastric and duodenal folds suggest possible gastritis and duodenitis. 2. No signs of pancreatitis or appendicitis. 3. A nonobstructive right lower pole 4 mm calculus. 4. Distended urinary bladder and otherwise negative pelvis. Signer Name: Jovon Ling MD Signed: 02/25/2019 2:58 PM Workstation Name: [id number]
[2019-02-25] MEDS ORDERED: CITRATE OF MAGNESIA PO ONE (15:10)
[2019-02-25 16:13] VITALS: BP 106/78
[2019-02-25 16:34] LABS: Basophils % (Manual) 0 % (0.0-1.8); Eosinophils % (Manual) 0 % (0.0-4.3); Total Cells Counted 100
[2019-02-25 16:35] LABS: Platelet Estimate Consistent w Auto; RBC Morphology Normal
[2019-02-27 09:22] LABS: Platelet Count 306 K/mm3 (140-440)
== END 2019-02-25 16:08 | disposition home or self-care (01) ==
LOC: ED 12:11
DX: K21.9 Gastro-esophageal reflux disease without esophagitis (principal); R11.10 Vomiting, unspecified; E11.65 Type 2 diabetes mellitus with hyperglycemia; K59.00 Constipation, unspecified; Z79.899 Other long term (current) drug therapy
CPT/HCPCS: 36415; 74177; 80053; 81001; 82805; 82962; 83690; 85007; 85025; 96361; 96365; 96367; 96375; 99284; C9113; J2405; J2543; J7030; Q9967; J1815

== ENCOUNTER 2019-09-16 18:31 | Inpatient (IN) | payer SELFPAY ==
[2019-09-16] MEDS ORDERED: SODIUM CHLORIDE 0.9% 500 ML 500 ML IV ONE (18:50)
[2019-09-16 19:10] LABS: Hematocrit 35.1 % (35.5-45.6); Hemoglobin 10.9 gm/dl (11.8-15.2); Mean Corpuscular HGB Conc 31 % (32-34); Mean Corpuscular Volume 104 fl (84-94); Platelet Count 507 K/mm3 (140-440); Red Blood Count 3.39 M/mm3 (3.65-5.03)
[2019-09-16 19:21] LABS: INR 1.03 (0.87-1.13)
[2019-09-16 19:26] LABS: Alanine Aminotransferase 14 units/L (7-56); Albumin 2.7 g/dL (3.9-5); BUN/Creatinine Ratio 29; Blood Urea Nitrogen 26 mg/dL (9-20); Calcium 8.8 mg/dL (8.4-10.2); Hemolysis Index 0
--- NOTE | 2019-09-16 19:35 | XRay Report ---
CHEST 2 VIEWS INDICATION / CLINICAL INFORMATION: MAIN: possible Sepsis; pt c/o possible infection to right foot. + discoloration noted to right foot. + drainage per pt. pt also c/o elevated blood sugar. + increased thirst. foot hot to touch. BG > 500 . . COMPARISON: Chest radiograph 04/25/2017 FINDINGS: SUPPORT DEVICES: None. HEART / MEDIASTINUM: No significant abnormality. LUNGS / PLEURA: No significant pulmonary or pleural abnormality. No pneumothorax. ADDITIONAL FINDINGS: No significant additional findings. IMPRESSION: No acute finding. Signer Name: Blu Solorio MD Signed: 09/16/2019 7:30 PM Workstation Name: [id number]
[2019-09-16] MEDS ORDERED: SODIUM CHLORIDE 0.9% 1000 ML 1,000 ML ONE (19:50)
[2019-09-16] MEDS ORDERED: SODIUM CHLORIDE 0.9% 1000 ML 1,000 ML IV ONE ×2 (19:53→21:34)
[2019-09-16] MEDS ORDERED: VANCOMYCIN/NS 1 GM/250 ML 1 GM/250 ML BAG IV ONE (20:21)
--- NOTE | 2019-09-16 20:30 | Emergency Department Report ---
HPI - General Chief Complaint: Extremity Injury, Lower Time Seen by Provider: 09/16/19 20:02 - HPI HPI: 58-year-old -[place] male presents to the emergency department with the complaints of a possible right foot infection and elevated blood sugar. Regarding the patient's foot, he says that it was puffy with some type of a blister 2 days ago. At that time he decided to try and peel some of the skin off. Since that time it has started to ulcerate, he has 2 gangrenous necrotic appearing toes (2nd and 4th), and there is purulent discharge coming from the ball of the foot. He denies much pain to this area. The patient does have a history of insulin-dependent diabetes but admits he is not taking his insulin compliantly. He admits to some increased thirst and increased urination. He denies any fever. He has not taken anything for his symptoms prior to presentation today. ED Past Medical Hx - Past Medical History Previous Medical History?: Yes Hx Diabetes: Yes Hx GERD: Yes - Surgical History Past Surgical History?: No - Social History Smoking Status: Never Smoker Substance Use Type: None - Medications Home Medications: Home Medications Medication Instructions Recorded Confirmed Last Taken Type Aspirin EC [Halfprin EC] 81 mg PO QDAY #30 tablet. 04/26/17 Unknown Rx Insulin Glargine,Hum.rec.anlog 15 units SUB-Q QAM #3 insuln.pen 04/26/17 Unknown Rx [Lantus Solostar] Insulin Glargine [Lantus] 15 unit SUB-Q QHS #1 vial 12/01/18 Unknown Rx Ondansetron [Zofran Odt] 4 mg PO Q8HR PRN #10 tab.rapdis 02/25/19 Unknown Rx Pantoprazole [Protonix] 40 mg PO QDAY #30 tablet 02/25/19 Unknown Rx ED Review of Systems ROS: Stated complaint: ELEV GLUCOSE Other details as noted in HPI Comment: All other systems reviewed and negative Constitutional: denies: chills, fever Eyes: denies: eye pain, vision change ENT: denies: ear pain, throat pain Respiratory: denies: cough, shortness of breath Cardiovascular: denies: chest pain, palpitations Endocrine: increased thirst, increased urine Gastrointestinal: denies: abdominal pain, vomiting Genitourinary: frequency. denies: dysuria, discharge Musculoskeletal: joint swelling. denies: back pain Skin: lesions, change in color Neurological: denies: headache, weakness Physical Exam - Physical Exam Vital Signs: Vital Signs 09/16/19 09/16/19 09/16/19 18:41 18:43 19:55 Temperature 98.3 F 98.6 F Pulse Rate 110 H 104 H Respiratory 18 20 25 H Rate Blood Pressure 95/59 95/59 Blood Pressure [left arm] O2 Sat by Pulse 98 64 L Oximetry 09/16/19 19:56 Temperature Pulse Rate Respiratory Rate Blood Pressure Blood Pressure 118/78 [left arm] O2 Sat by Pulse Oximetry Physical Exam: GENERAL: The patient is well-developed well-nourished. HENT: Normocephalic. Atraumatic. Patient has moist mucous membranes. EYES: Extraocular motions are intact. NECK: Supple. Trachea is midline. CHEST/LUNGS: Clear to auscultation. There is no respiratory distress noted. HEART/CARDIOVASCULAR: Regular. There is mild tachycardia. There is no murmur. ABDOMEN: Abdomen is soft, nontender. Patient has normal bowel sounds. SKIN: There is an ulceration of the right dorsal mid and forefoot. The second and fourth toes of the right foot are black and necrotic appearing. The distal plantar right foot is boggy, erythematous and the skin is cracking with purulent discharge. NEURO: The patient is awake, alert, and oriented. The patient is cooperative. The patient has no focal neurologic deficits. Normal speech. MUSCULOSKELETAL: Right-sided dorsalis pedis pulse auscultated with pencil Doppler. He is able to move the foot and toes of the affected right foot. ED Course Vital Signs 09/16/19 09/16/19 09/16/19 18:41 18:43 19:55 Temperature 98.3 F 98.6 F Pulse Rate 110 H 104 H Respiratory 18 20 25 H Rate Blood Pressure 95/59 95/59 Blood Pressure [left arm] O2 Sat by Pulse 98 64 L Oximetry 09/16/19 19:56 Temperature Pulse Rate Respiratory Rate Blood Pressure Blood Pressure 118/78 [left arm] O2 Sat by Pulse Oximetry ED Medical Decision Making - Lab Data Result diagrams: 09/16/19 18:58 09/17/19 01:27 - Radiology Data Radiology results: report reviewed, image reviewed interpreted by me: Chest x-ray does not show any acute process. There are no pleural effusions, obvious pneumonia and there is no pneumothorax. RIGHT FOOT 3 VIEW(S) INDICATION / CLINICAL INFORMATION: Right foot infection is suspected, discoloration and drainage. Patient is diabetic. COMPARISON: None available. FINDINGS: BONES / JOINT(S): No acute fracture or subluxation. Mild/moderate changes of osteoarthrosis at multiple MTP and interphalangeal joints. No clear radiographic changes of acute osteomyelitis. SOFT TISSUES: Numerous small foci of soft tissue gas are present in the forefoot, greatest dorsally and over the fourth toe. ADDITIONAL FINDINGS: None. IMPRESSION: 1. Findings are highly suspicious for a soft tissue infection. 2. No radiographic changes of acute osteomyelitis are present at this time. MRI is able to detect acute osteomyelitis earlier and may be performed if indicated. CTA right lower extremity with contrast INDICATION : MAIN: right foot gangrene, [id number] 100ml . TECHNIQUE: Axial imaging performed through the right lower extremity, with contrast bolus timing set to maximize opacification of the branch arteries of the right lower extremity. 3-plane MIP reformatted images were obtained. All CT scans at this location are performed using CT dose reduction for ALARA by means of automated exposure control. 100 mL of intravenous contrast administered. COMPARISON: FINDINGS: Bolus: Contrast bolus timing is adequate. Arteries: The popliteal and trifurcate arteries are all widely patent with no occlusion or significant atherosclerotic disease. A normal three-vessel runoff is present extending into the foot. Soft tissues: There is diffuse soft tissue swelling in the foot with subcutaneous emphysema extending into the forefoot. Bones: The bones of the second through fourth toes appear sli ghtly mottled, with similar appearance involving the head of the fourth metatarsal where there is also surrounding soft tissue gas. No frieda bone destruction identified. There are degenerative changes throughout the foot with no acute osseous abnormality identified. IMPRESSION: 1. Normal arteries with three-vessel runoff into the foot. 2. Abnormal soft tissues with subcutaneous gas and proximal mild appearance of the bones which may reflect evolving osteomyelitis, although there is no frieda bone destruction at this time. No obvious abscess formation but there is clearly a severe infectious process extending into the foot and immediate surgical consultation is recommended. - Medical Decision Making This patient presents with 2 main issues. Regarding the patient's diabetes and hyperglycemia, the patient is an early diabetic ketoacidosis. His blood sugar is close to 1000. There is an elevation in his anion gap. Currently he does not have any venous acidosis but there are some serum ketones found. The patient started receiving some IV fluid resuscitation as he was initially made a code sepsis, and has received more secondary to the hyperglycemia. He has been started on a insulin drip. Regarding the patient's right foot infection. He has ulceration to the dorsum of the foot. He has 2 necrotic appearing toes. The plantar portion of the foot is boggy, erythematous with purulent discharge. An x-ray was done that shows concern for a soft tissue infection. CT angiography of the right lower extremity did not show any arterial occlusion but once again shows a soft tissue infection and possibly a start of osteomyelitis. The patient was started empirically on vancomycin and Zosyn. He will be admitted to the hospital for further evaluation and treatment and was accepted for admission by the hospitalist, Dr. Dunne. Critical Care Time: Yes Critical care time in (mins) excluding proc time.: 40 Critical care attestation.: If time is entered above; I have spent that time in minutes in the direct care of this critically ill patient, excluding procedure time. Due to the immediate potential for life-threatening deterioration due to underlying metabolic and endocrine conditions, as well as this right foot soft tissue infection, I spent 40 minutes of critical care time with the patient. Critical Care Time: 40 minutes ED Disposition Clinical Impression: Gangrene of right foot Diabetic ketoacidosis Qualifiers: Diabetes mellitus type: type 1 Diabetes mellitus complication detail: without coma Qualified Code(s): E10.10 - Type 1 diabetes mellitus with ketoacidosis without coma Disposition: 09 OP ADMIT IP TO THIS HOSP Is pt being admited?: Yes Condition: Serious Time of Disposition: 23:31
--- NOTE | 2019-09-16 20:58 | XRay Report ---
RIGHT FOOT 3 VIEW(S) INDICATION / CLINICAL INFORMATION: Right foot infection is suspected, discoloration and drainage. Patient is diabetic. COMPARISON: None available. FINDINGS: BONES / JOINT(S): No acute fracture or subluxation. Mild/moderate changes of osteoarthrosis at multip le MTP and interphalangeal joints. No clear radiographic changes of acute osteomyelitis. SOFT TISSUES: Numerous small foci of soft tissue gas are present in the forefoot, greatest dorsally a nd over the fourth toe. ADDITIONAL FINDINGS: None. IMPRESSION: 1. Findings are highly suspicious for a soft tissue infection. 2. No radiographic changes of acute osteomyelitis are present at this time. MRI is able to detect acu te osteomyelitis earlier and may be performed if indicated. Signer Name: Blu Solorio MD Signed: 09/16/2019 8:54 PM Workstation Name: [id number]
[2019-09-16] MEDS ORDERED: INSULIN REGULAR, HUMAN 100 UNITS in SODIUM CHLORIDE 0.9% 99 ML IV SCH (21:00)
[2019-09-16 21:07] LABS: BUN/Creatinine Ratio 27; Blood Urea Nitrogen 24 mg/dL (9-20); Calcium 8.3 mg/dL (8.4-10.2); Hemolysis Index 3
[2019-09-16 21:13] LABS: Basophils % (Manual) 0 % (0.0-1.8); Eosinophils % (Manual) 0 % (0.0-4.3); RBC Morphology Normal; Total Cells Counted 100
[2019-09-16 21:31] LABS: Bacteria,Urine 1+ /HPF (Negative); Bilirubin,Urine NEG (Negative); Blood,Urine NEG (Negative); Color,Urine Colorless (Yellow); Mucus,Urine FEW /HPF; Protein,Urine <15 mg/dL mg/dL (Negative); Urobilinogen,Urine < 2.0 mg/dL (<2.0)
--- NOTE | 2019-09-16 23:20 | Cat Scan Report ---
CTA right lower extremity with contrast INDICATION : MAIN: right foot gangrene, [id number] 100ml . TECHNIQUE: Axial imaging performed through the right lower extremity, with contrast bolus timing set to maximize opacification of the branch arteries of the right lower extremity. 3-plane MIP reformatt ed images were obtained. All CT scans at this location are performed using CT dose reduction for ALA RA by means of automated exposure control. 100 mL of intravenous contrast administered. COMPARISON: FINDINGS: Bolus: Contrast bolus timing is adequate. Arteries: The popliteal and trifurcate arteries are all widely patent with no occlusion or significan t atherosclerotic disease. A normal three-vessel runoff is present extending into the foot. Soft tissues: There is diffuse soft tissue swelling in the foot with subcutaneous emphysema extendin g into the forefoot. Bones: The bones of the second through fourth toes appear slightly mottled, with similar appearance involving the head of the fourth metatarsal where there is also surrounding soft tissue gas. No frieda bone destruction identified. There are degenerative changes throughout the foot with no acute osseou s abnormality identified. IMPRESSION: 1. Normal arteries with three-vessel runoff into the foot. 2. Abnormal soft tissues with subcutaneous gas and proximal mild appearance of the bones which may re flect evolving osteomyelitis, although there is no frieda bone destruction at this time. No obvious ab scess formation but there is clearly a severe infectious process extending into the foot and immediat e surgical consultation is recommended. Signer Name: Vu Alberto MD Signed: 09/16/2019 11:15 PM Workstation Name: [id number]
[2019-09-16 23:23] LABS: BUN/Creatinine Ratio 28; Blood Urea Nitrogen 22 mg/dL (9-20); Calcium 8.4 mg/dL (8.4-10.2); Hemolysis Index 7
[2019-09-16] MEDS ORDERED: PIPERACIL/TAZOBACTA 4.5/NS 100 4.5 GM/100 ML VIAL IV ONE (23:30)
[2019-09-17] MEDS ORDERED: SODIUM CHLORIDE 0.9% 1000 ML 1,000 ML IV SCH ×2 (00:30→14:15)
--- NOTE | 2019-09-17 00:41 | History and Physical Report ---
History of Present Illness Date of examination: 09/16/19 Date of admission: 09/16/19 23:31 Chief complaint: Elevated blood glucose Right foot pain History of present illness: 58-year-old -[place] male with known history of diabetes mellitus presenting to the emergency room today complaining of elevated blood glucose and right foot pain which has been ongoing for the past 2 days. Patient states that his right foot was swollen and puffy with some blisters few days ago and therefore decided to pull of the skin. Thereafter started having some purulent discharge and ulceration over the right foot. He denies any fall or trauma to the foot. He denies any fever or chills, no nausea vomiting and no abdominal pain. Patient admits that he has not been quite compliant with his medications. He has had increased thirst and increased urination lately. Work-up in the emergency room including CT of the right foot were concerning for for possible early osteomyelitis. Past History Past Medical History: diabetes, GERD Past Surgical History: No surgical history Social history: no significant social history Medications and Allergies Allergies Allergy/AdvReac Type Severity Reaction Status Date / Time No Known Allergies Allergy Verified 12/01/18 12:05 Home Medications Medication Instructions Recorded Confirmed Last Taken Type Aspirin EC [Halfprin EC] 81 mg PO QDAY #30 tablet. 04/26/17 Unknown Rx Insulin Glargine,Hum.rec.anlog 15 units SUB-Q QAM #3 insuln.pen 04/26/17 U nknown Rx [Lantus Solostar] Insulin Glargine [Lantus] 15 unit SUB-Q QHS #1 vial 12/01/18 Unknown Rx Ondansetron [Zofran Odt] 4 mg PO Q8HR PRN #10 tab.rapdis 02/25/19 Unknown Rx Pantoprazole [Protonix] 40 mg PO QDAY #30 tablet 02/25/19 Unknown Rx Active Meds: Active Medications Insulin Human Regular 100 (units/ Sodium Chloride) 100 mls @ 1 mls/hr IV TITR KATHY; Protocol Last Admin: 09/16/19 21:12 Dose: 8 units/hr, 8 mls/hr Documented by: Sodium Chloride (Nacl 0.9% 1000 Ml) 1,000 mls @ 250 mls/hr IV ONCE ONE Stop: 09/17/19 01:33 Last Admin: 09/16/19 23:32 Dose: 250 mls/hr Documented by: Sodium Chloride (Nacl 0.9% 1000 Ml) 1,000 mls @ 150 mls/hr IV DIRECT KATHY Potassium Chloride/Dextrose/Sod Cl (D5w/0.45% Nacl/Kcl 20 Meq) 20 meq in 1,000 mls @ 125 mls/hr IV DIRECT KATHY Sodium Chloride (Sodium Chloride Flush Syringe 10 Ml) 10 ml IV BID KATHY Sodium Chloride (Sodium Chloride Flush Syringe 10 Ml) 10 ml IV PRN PRN PRN Reason: LINE FLUSH Review of Systems Constitutional: no fever, no chills Ears, nose, mouth and throat: no headache, no vertigo Cardiovascular: no chest pain, no orthopnea, no palpitations Respiratory: no cough, no shortness of breath Gastrointestinal: no abdominal pain, no nausea, no vomiting, no diarrhea, no constipation Genitourinary Male: no dysuria, no hematuria Musculoskeletal: no neck pain, no low back pain Integumentary: blisters (On right foot), color changes (Over right foot), no francois h, no pruritis Neurological: no weakness, no headaches, no confusion Exam - Constitutional Vitals: Temp Pulse Resp BP Pulse Ox 98.6 F 105 H 19 119/75 97 09/16/19 18:43 09/16/19 22:00 09/16/19 22:00 09/16/19 22:00 09/16/19 22:00 General appearance: Present: no acute distress, well-nourished - EENT Eyes: Present: PERRL, EOM intact ENT: hearing intact, clear oral mucosa, dentition normal - Neck Neck: Present: supple, normal ROM - Respiratory Respiratory effort: normal Respiratory: bilateral: CTA - Cardiovascular Rhythm: regular Heart Sounds: Present: S1 & S2 - Extremities Extremities: pulses intact, No edema, Full ROM Extremity abnormal: ulceration (Appears gangrenous, no tenderness, open wound on the dorsum of the right foot with some puslike discharge between the second and the third toe) - Abdominal General gastrointestinal: Present: soft, non-tender, non-distended, normal bowel sounds - Integumentary Integumentary: Present: clear, warm, dry - Musculoskeletal Musculoskeletal: strength equal bilaterally - Psychiatric Psychiatric: appropriate mood/affect, intact judgment & insight, cooperative - Neurologic Neurologic: CNII-XII intact, moves all extremities Results - Labs CBC & Chem 7: 09/16/19 18:58 09/17/19 04:39 Labs: Abnormal lab results 09/16/19 09/16/19 09/16/19 Range/Units 18:58 18:58 19:02 WBC 16.8 H (4.5-11.0) K/mm3 RBC 3.39 L (3.65-5.03) M/mm3 Hgb 10.9 L (11.8-15.2) gm/dl Hct 35.1 L (35.5-45.6) % MCV 104 H (84-94) fl MCHC 31 L (32-34) % RDW 13.0 L (13.2-15.2) % Plt Count 507 H (140-440) K/mm3 Seg Neuts % (Manual) 92.0 H (40.0-70.0) % Lymphocytes % (Manual) 4.0 L (13.4-35.0) % Seg Neutrophils # Man 15.5 H (1.8-7.7) K/mm3 Lymphocytes # (Manual) 0.7 L (1.2-5.4) K/mm3 Sodium 126 L (137-145) mmol/L Chloride 80.3 L (98-107) mmol/L BUN 26 H (9-20) mg/dL Glucose 997 H* (75-100) mg/dL POC Glucose > 500 H (70-105) Calcium (8.4-10.2) mg/dL Alkaline Phosphatase 192 H (35-129) units/L Albumin 2.7 L (3.9-5) g/dL 09/16/19 09/16/19 Range/Units 20:36 22:53 WBC (4.5-11.0) K/mm3 RBC (3.65-5.03) M/mm3 Hgb (11.8-15.2) gm/dl Hct (35.5-45.6) % MCV (84-94) fl MCHC (32-34) % RDW (13.2-15.2) % Plt Count (140-440) K/mm3 Seg Neuts % (Manual) (40.0-70.0) % Lymphocytes % (Manual) (13.4-35.0) % Seg Neutrophils # Man (1.8-7.7) K/mm3 Lymphocytes # (Manual) (1.2-5.4) K/mm3 Sodium 126 L 128 L (137-145) mmol/L Chloride 85.4 L 84.9 L (98-107) mmol/L BUN 24 H 22 H (9-20) mg/dL Glucose 1054 H* 758 H* (75-100) mg/dL POC Glucose (70-105) Calcium 8.3 L (8.4-10.2) mg/dL Alkaline Phosphatase (35-129) units/L Albumin (3.9-5) g/dL Assessment and Plan - Patient Problems (1) Diabetic ketoacidosis Current Visit: Yes Status: Acute Qualifiers: Diabetes mellitus type: type 1 Diabetes mellitus complication detail: wit maceyut coma Qualified Code(s): E10.10 - Type 1 diabetes mellitus with ketoa cidosis without coma Plan to address problem: Patient has been placed on IV fluid and insulin drip. Will monitor blood glucose closely. We will also check hemoglobin A1c and get dietary consult prior to discharge. (2) Gangrene of right foot Current Visit: Yes Status: Acute Plan to address problem: Patient has been placed on empiric IV antibiotics. We also place a consult to wound care and foot surgeon for further evaluation and recommendation. (3) GERD (gastroesophageal reflux disease) Current Visit: No Status: Acute Plan to address problem: We will resume routine home medications once reconciled. (4) DVT prophylaxis Current Visit: Yes Status: Acute Plan to address problem: Patient will be placed on subcutaneous heparin. (5) Full code status Current Visit: Yes Status: Acute
[2019-09-17] MEDS ORDERED: PIPERACIL/TAZOBACTA 4.5/NS 100 4.5 GM/100 ML VIAL IV ONE ×2 (00:46→06:58)
[2019-09-17] MEDS ORDERED: D5W/0.45% NACL/KCL 20 MEQ 20 MEQ/1,000 ML BAG IV SCH (01:00)
[2019-09-17] MEDS ORDERED: VANCOMYCIN PHARMACY TO DOSE IV SCH (02:00)
[2019-09-17 02:06] LABS: BUN/Creatinine Ratio 26; Blood Urea Nitrogen 18 mg/dL (9-20); Calcium 8.4 mg/dL (8.4-10.2); Hemolysis Index 17
[2019-09-17] MEDS ORDERED: SODIUM CHLORIDE 0.9% 1000 ML 1,000 ML ONE (02:29)
[2019-09-17 04:05] LABS: BUN/Creatinine Ratio 23; Blood Urea Nitrogen 16 mg/dL (9-20); Calcium 8.8 mg/dL (8.4-10.2); Hemolysis Index 7
[2019-09-17] MEDS ORDERED: D5W/0.45% NACL/KCL 20 MEQ 20 MEQ/1,000 ML BAG IV ONE (04:29)
[2019-09-17 05:11] LABS: BUN/Creatinine Ratio 21; Blood Urea Nitrogen 15 mg/dL (9-20); Calcium 8.7 mg/dL (8.4-10.2); Hemolysis Index 10
[2019-09-17 05:43] LABS: Chol/HDL Ratio 5.75 %
[2019-09-17] MEDS ORDERED: PIPERACILLIN/TAZOBACTAM 3.375 3.375 GM/50 ML BAG IV SCH (06:00)
[2019-09-17] MEDS ORDERED: PIPERACIL/TAZOBACTA 4.5/NS 100 4.5 GM/100 ML VIAL IV SCH (07:00)
[2019-09-17 08:06] LABS: BUN/Creatinine Ratio 22; Blood Urea Nitrogen 13 mg/dL (9-20); Calcium 8.7 mg/dL (8.4-10.2); Hemolysis Index 74
[2019-09-17] MEDS ORDERED: VANCOMYCIN/NS 1 GM/250 ML 1 GM/250 ML BAG IV SCH (09:00)
[2019-09-17 09:07] LABS: BUN/Creatinine Ratio 26; Blood Urea Nitrogen 13 mg/dL (9-20); Calcium 8.7 mg/dL (8.4-10.2); Hemolysis Index 3
--- NOTE | 2019-09-17 11:20 | Progress Note ---
Assessment and Plan Assessment and plan: DKA. Patient will be continued on IV insulin drip. We will transition to long- acting insulin once patient's anion gap is closed. Follow-up hemoglobin A1c. Right foot gangrene/osteomyelitis. Continue IV antibiotics. Wound care consultation. CTA reveals abnormal soft tissues with subcutaneous gas and proximal mild appearance of the bones which reflect evolving osteomyelitis. Podiatry consultation pending. ID will also be consulted. Sepsis. Patient meets criteria given the leukocytosis, tachycardia and above diagnosis. Follow-up wound and blood culture. Gastroesophageal reflux disease. Continue home medications. History Interval history: No new issues overnight. Hospitalist Physical - Constitutional Vitals: Temp Pulse Resp BP Pulse Ox 98.6 F 85 17 99/67 97 09/16/19 18:43 09/17/19 08:48 09/17/19 08:48 09/17/19 08:48 09/17/19 08:48 General appearance: Present: no acute distress, well-nourished - EENT Eyes: Present: PERRL, EOM intact ENT: hearing intact, clear oral mucosa, dentition normal - Neck Neck: Present: supple, normal ROM - Respiratory Respiratory effort: normal Respiratory: bilateral: CTA - Cardiovascular Rhythm: regular Heart Sounds: Present: S1 & S2. Absent: gallop, rub - Extremities Extremities: abnormal (Appears gangrenous, no tenderness, open wound on the dorsum of the right foot with some puslike discharge between the second and the third toe) - Abdominal General gastrointestinal: soft, non-tender, non-distended, normal bowel sounds - Integumentary Integumentary: Present: clear, warm, dry - Neurologic Neurologic: CNII-XII intact, moves all extremities Results - Labs CBC & Chem 7: 09/16/19 18:58 09/17/19 08:33 Labs: Laboratory Last Values WBC 16.8 K/mm3 (4.5-11.0) H 09/16/19 18:58 RBC 3.39 M/mm3 (3.65-5.03) L 09/16/19 18:58 Hgb 10.9 gm/dl (11.8-15.2) L 09/16/19 18:58 Hct 35.1 % (35.5-45.6) L 09/16/19 18:58 MCV 104 fl (84-94) H 09/16/19 18:58 MCH 32 pg (28-32) 09/16/19 18:58 MCHC 31 % (32-34) L 09/16/19 18:58 RDW 13.0 % (13.2-15.2) L 09/16/19 18:58 Plt Count 507 K/mm3 (140-440) H 20 18:58 Add Manual Diff Complete 09/16/19 18:58 Total Counted 100 09/16/19 18:58 Seg Neutrophils % Oyster Sorter 09/16/19 18:58 Seg Neuts % (Manual) 92.0 % (40.0-70.0) H 09/16/19 18:58 Band Neutrophils % 0 % 09/16/19 18:58 Lymphocytes % (Manual) 4.0 % (13.4-35.0) L 09/16/19 18:58 Reactive Lymphs % (Man) 0 % 09/16/19 18:58 Monocytes % (Manual) 4.0 % (0.0-7.3) 09/16/19 18:58 Eosinophils % (Manual) 0 % (0.0-4.3) 09/16/19 18:58 Basophils % (Manual) 0 % (0.0-1.8) 09/16/19 18:58 Metamyelocytes % 0 % 09/16/19 18:58 Myelocytes % 0 % 09/16/19 18:58 Promyelocytes % 0 % 09/16/19 18:58 Blast Cells % 0 % 09/16/19 18:58 Nucleated RBC % Not Reportable 09/16/19 18:58 Seg Neutrophils # Man 15.5 K/mm3 (1.8-7.7) H 09/16/19 18:58 Band Neutrophils # 0.0 K/mm3 09/16/19 18:58 Lymphocytes # (Manual) 0.7 K/mm3 (1.2-5.4) L 09/16/19 18:58 Abs React Lymphs (Man) 0.0 K/mm3 09/16/19 18:58 Monocytes # (Manual) 0.7 K/mm3 (0.0-0.8) 09/16/19 18:58 Eosinophils # (Manual) 0.0 K/mm3 (0.0-0.4) 09/16/19 18:58 Basophils # (Manual) 0.0 K/mm3 (0.0-0.1) 09/16/19 18:58 Metamyelocytes # 0.0 K/mm3 09/16/19 18:58 Myelocytes # 0.0 K/mm3 09/16/19 18:58 Promyelocytes # 0.0 K/mm3 09/16/19 18:58 Blast Cells # 0.0 K/mm3 09/16/19 18:58 WBC Morphology Not Reportable 09/16/19 18:58 Hypersegmented Neuts Not Reportable 09/16/19 18:58 Hyposegmented Neuts Not Reportable 09/16/19 18:58 Hypogranular Neuts Not Reportable 09/16/19 18:58 Smudge Cells Not Reportable 09/16/19 18:58 Toxic Granulation Not Reportable 09/16/19 18:58 Toxic Vacuolation Not Reportable 09/16/19 18:58 Dohle Bodies Not Reportable 09/16/19 18:58 Pelger-Huet Anomaly Not Reportable 09/16/19 18:58 Narcisa Rods Not Reportable 09/16/19 18:58 Platelet Estimate Not Reportable 09/16/19 18:58 Clumped Platelets Not Reportable 09/16/19 18:58 Plt Clumps, EDTA Not Reportable 09/16/19 18:58 Large Platelets Not Reportable 09/16/19 18:58 Giant Platelets Not Reportable 09/16/19 18:58 Platelet Satelliting Not Reportable 09/16/19 18:58 Plt Morphology Comment Not Reportable 09/16/19 18:58 RBC Morphology Normal 09/16/19 18:58 Dimorphic RBCs Not Reportable 09/16/19 18:58 Polychromasia Not Reportable 09/16/19 18:58 Hypochromasia Not Reportable 09/16/19 18:58 Poikilocytosis Not Reportable 09/16/19 18:58 Anisocytosis Not Reportable 09/16/19 18:58 Microcytosis Not Reportable 09/16/19 18:58 Macrocytosis Not Reportable 09/16/19 18:58 Spherocytes Not Reportable 09/16/19 18:58 Pappenheimer Bodies Not Reportable 09/16/19 18:58 Sickle Cells Not Reportable 09/16/19 18:58 Target Cells Not Reportable 09/16/19 18:58 Tear Drop Cells Not Reportable 09/16/19 18:58 Ovalocytes Not Reportable 09/16/19 18:58 Helmet Cells Not Reportable 09/16/19 18:58 [place] Bodies Not Reportable 09/16/19 18:58 [place] Rings Not Reportable 09/16/19 18:58 [place] Cells Not Reportable 09/16/19 18:58 Bite Cells Not Reportable 09/16/19 18:58 Crenated Cell Not Reportable 09/16/19 18:58 Elliptocytes Not Reportable 09/16/19 18:58 Acanthocytes (Spur) Not Reportable 09/16/19 18:58 Rouleaux Not Reportable 09/16/19 18:58 Hemoglobin C Crystals Not Reportable 09/16/19 18:58 Schistocytes Not Reportable 09/16/19 18:58 Malaria parasites Not Reportable 09/16/19 18:58 Kyle Bodies Not Reportable 09/16/19 18:58 Hem Pathologist Commnt No 09/16/19 18:58 PT 13.3 Sec. (12.2-14.9) 09/16/19 18:58 INR 1.03 (0.87-1.13) 09/16/19 18:58 VBG pH 7.360 (7.320-7.420) 09/16/19 18:58 Sodium 138 mmol/L (137-145) 09/17/19 08:33 Potassium 3.5 mmol/L (3.6-5.0) L 09/17/19 08:33 Chloride 98.8 mmol/L (98-107) 09/17/19 08:33 Carbon Dioxide 29 mmol/L (22-30) 09/17/19 08:33 Anion Gap 14 mmol/L 09/17/19 08:33 BUN 13 mg/dL (9-20) 09/17/19 08:33 Creatinine 0.5 mg/dL (0.8-1.5) L 09/17/19 08:33 Estimated GFR > 60 ml/min 09/17/19 08:33 BUN/Creatinine Ratio 26 % 09/17/19 08:33 Glucose 147 mg/dL (75-100) H 09/17/19 08:33 POC Glucose 177 (70-105) H 09/17/19 10:17 Hemoglobin A1c 14.7 % (4-6) H 09/17/19 01:27 Ketones Quantitative Small (Negative) 09/16/19 21:55 Lactic Acid 1.50 mmol/L (0.7-2.0) 09/16/19 21:49 Calcium 8.7 mg/dL (8.4-10.2) 09/17/19 08:33 Phosphorus 1.90 mg/dL (2.5-4.5) L 09/17/19 01:27 Magnesium 2.30 mg/dL (1.7-2.3) 09/17/19 01:27 Total Bilirubin 0.60 mg/dL (0.1-1.2) 09/16/19 18:58 AST 12 units/L (5-40) 09/16/19 18:58 ALT 14 units/L (7-56) 09/16/19 18:58 Alkaline Phosphatase 192 units/L (35-129) H 09/16/19 18:58 Total Protein 7.7 g/dL (6.3-8.2) 09/16/19 18:58 Albumin 2.7 g/dL (3.9-5) L 09/16/19 18:58 Albumin/Globulin Ratio 0.5 % 09/16/19 18:58 Triglycerides 189 mg/dL (2-149) H 09/17/19 01:27 Cholesterol 167 mg/dL (50-199) 09/17/19 01:27 LDL Cholesterol Direct 97 mg/dL (50-130) 09/17/19 01:27 HDL Cholesterol 29 mg/dL (40-59) L 09/17/19 01:27 Cholesterol/HDL Ratio 5.75 % 09/17/19 01:27 Urine Color Colorless (Yellow) 09/16/19 Unknown Urine Turbidity Clear (Clear) 09/16/19 Unknown Urine pH 5.0 (5.0-7.0) 09/16/19 Unknown Ur Specific [place] 1.025 (1.003-1.030) 09/16/19 Unknown Urine Protein <15 mg/dl mg/dL (Negative) 09/16/19 Unknown Urine Glucose (UA) >=500 mg/dL (Negative) 09/16/19 Unknown Urine Ketones 20 mg/dL (Negative) 09/16/19 Unknown Urine Blood Neg (Negative) 09/16/19 Unknown Urine Nitrite Neg (Negative) 09/16/19 Unknown Urine Bilirubin Neg (Negative) 09/16/19 Unknown Urine Urobilinogen < 2.0 mg/dL (<2.0) 09/16/19 Unknown Ur Leukocyte Esterase Neg (Negative) 09/16/19 Unknown Urine WBC (Auto) 1.0 /HPF (0.0-6.0) 09/16/19 Unknown Urine RBC (Auto) 7.0 /HPF (0.0-6.0) 09/16/19 Unknown Urine Bacteria (Auto) 1+ /HPF (Negative) 09/16/19 Unknown Urine Mucus Few /HPF 09/16/19 Unknown Urine Yeast (Budding) Few /HPF 09/16/19 Unknown Microbiology: Microbiology 09/16/19 18:58 Peripheral/Venous Blood Culture - Preliminary Culture in Progress 09/16/19 19:05 Peripheral/Venous Blood Culture - Preliminary Culture in Progress Ramirez/IV: IV Catheter Type [right ac] Peripheral IV Active Medications - Current Medications Current Medications: Generic Name Dose Route Start Last Admin Trade Name Freq PRN Reason Stop Dose Admin Heparin Sodium (Porcine) 5,000 unit 09/17/19 14:00 Heparin SUB-Q Q8HR KATHY Insulin Human Regular 100 100 mls @ 1 mls/hr 09/16/19 21:00 09/17/19 10:16 units/ Sodium Chloride IV 2.5 units/hr TITR KATHY 2.5 mls/hr Titration Protocol 1 UNITS/HR Sodium Chloride 1,000 mls @ 150 mls/hr 09/17/19 00:30 09/17/19 02:30 Nacl 0.9% 1000 Ml IV 150 mls/hr DIRECT KATHY Administration Potassium Chloride/Dextrose/Sod Cl 20 meq in 1,000 mls @ 125 mls/hr 09/17/19 01:00 09/17/19 04:28 D5w/0.45% Nacl/Kcl 20 Meq IV 125 mls/hr DIRECT KATHY Administration Piperacillin Sod/Tazobactam Sod 4.5 gm in 100 mls @ 200 mls/hr 09/17/19 07:00 09/17/19 07:03 Zosyn/Ns 4.5gm/100ml IV 200 mls/hr Q8HR KATHY Administration Protocol Vancomycin HCl 1 gm in 250 mls @ 166.667 mls/hr 09/17/19 09:00 09/17/19 09:27 Vancomycin/Ns 1 Gm/250 Ml IV 166.667 mls/hr Q12H KATHY Administration Sodium Chloride 10 ml 09/17/19 10:00 Sodium Chloride Flush Syringe 10 Ml IV BID KATHY Sodium Chloride 10 ml 09/17/19 00:21 Sodium Chloride Flush Syringe 10 Ml IV PRN PRN LINE FLUSH Nutrition/Malnutrition Assess - Dietary Evaluation Nutrition/Malnutrition Findings: Nutrition Notes Start: 09/17/19 09:39 Freq: Status: Active Protocol: Document 09/17/19 09:39 LM (Rec: 09/17/19 09:41 LM [id number]) Nutrition Notes Need for Assessment generated from: MD Order Initial or Follow up Brief Note Current Diagnosis Diabetes Other Pertinent Diagnosis DKA, gangrene of R foot, GERD Current Diet NPO Height 6 ft 4 in Weight 58.967 kg [place] Body Weight (kg) 91.81 BMI 15.8 Subjective/Other Information MD consult for diet education and poor oral intakes. Screen for low BMI. Pt in ED. Nutrition Intervention Follow-Up By: 09/18/19 Additional Comments F/U for assessment, diet ed
--- NOTE | 2019-09-17 12:16 | Consultation ---
History of Present Illness Consult date: 09/17/19 Reason for consult: other (critical care) Past History Past Medical History: diabetes, GERD Past Surgical History: No surgical history Social history: no significant social history Medications and Allergies Allergies Allergy/AdvReac Type Severity Reaction Status Date / Time No Known Allergies Allergy Verified 12/01/18 12:05 Home Medications Medication Instructions Recorded Confirmed Last Taken Type Aspirin EC [Halfprin EC] 81 mg PO QDAY #30 tablet. 04/26/17 Unknown Rx Insulin Glargine,Hum.rec.anlog 15 units SUB-Q QAM #3 insuln.pen 04/26/17 Unknown Rx [Lantus Solostar] Insulin Glargine [Lantus] 15 unit SUB-Q QHS #1 vial 12/01/18 Unknown Rx Ondansetron [Zofran Odt] 4 mg PO Q8HR PRN #10 tab.rapdis 02/25/19 Unknown Rx Pantoprazole [Protonix] 40 mg PO QDAY #30 tablet 02/25/19 Unknown Rx Active Meds: Active Medications Heparin Sodium (Porcine) (Heparin) 5,000 unit SUB-Q Q8HR KATHY Insulin Human Regular 100 (units/ Sodium Chloride) 100 mls @ 1 mls/hr IV TITR KATHY; Protocol Last Titration: 09/17/19 11:26 Dose: 1.5 units/hr, 1.5 mls/hr Documented by: Sodium Chloride (Nacl 0.9% 1000 Ml) 1,000 mls @ 150 mls/hr IV DIRECT KATHY Last Admin: 09/17/19 02:30 Dose: 150 mls/hr Documented by: Potassium Chloride/Dextrose/Sod Cl (D5w/0.45% Nacl/Kcl 20 Meq) 20 meq in 1,000 mls @ 125 mls/hr IV DIRECT KATHY Last Admin: 09/17/19 04:28 Dose: 125 mls/hr Documented by: Piperacillin Sod/Tazobactam Sod (Zosyn/Ns 4.5gm/100ml) 4.5 gm in 100 mls @ 200 mls/hr IV Q8HR KATHY; Protocol Last Admin: 09/17/19 07:03 Dose: 200 mls/hr Documented by: Vancomycin HCl (Vancomycin/Ns 1 Gm/250 Ml) 1 gm in 250 mls @ 166.667 mls/hr IV Q12H KATHY Last Admin: 09/17/19 09:27 Dose: 166.667 mls/hr Documented by: Sodium Chloride (Sodium Chloride Flush Syringe 10 Ml) 10 ml IV BID KATHY Sodium Chloride (Sodium Chloride Flush Syringe 10 Ml) 10 ml IV PRN PRN PRN Reason: LINE FLUSH Physical Examination Vital signs: Vital Signs Temp Pulse Resp BP Pulse Ox 98.3 F 110 H 18 95/59 98 09/16/19 18:41 09/16/19 18:41 09/16/19 18:41 09/16/19 18:41 09/16/19 18:41 Results - Laboratory Findings CBC and BMP: 09/16/19 18:58 09/17/19 08:33 PT/INR, D-dimer PT 13.3 Sec. (12.2-14.9) 09/16/19 18:58 INR 1.03 (0.87-1.13) 09/16/19 18:58 Abnormal lab findings: Abnormal Labs 09/16/19 09/16/19 09/16/19 18:58 18:58 19:02 WBC 16.8 H RBC 3.39 L Hgb 10.9 L Hct 35.1 L MCV 104 H MCHC 31 L RDW 13.0 L Plt Count 507 H Seg Neuts % (Manual) 92.0 H Lymphocytes % (Manual) 4.0 L Seg Neutrophils # Man 15.5 H Lymphocytes # (Manual) 0.7 L Sodium 126 L Potassium Chloride 80.3 L Carbon Dioxide BUN 26 H Creatinine Glucose 997 H* POC Glucose > 500 H Hemoglobin A1c Calcium Phosphorus Alkaline Phosphatase 192 H Albumin 2.7 L Triglycerides HDL Cholesterol 09/16/19 09/16/19 09/17/19 20:36 22:53 00:59 WBC RBC Hgb Hct MCV MCHC RDW Plt Count Seg Neuts % (Manual) Lymphocytes % (Manual) Seg Neutrophils # Man Lymphocytes # (Manual) Sodium 126 L 128 L Potassium Chloride 85.4 L 84.9 L Carbon Dioxide BUN 24 H 22 H Creatinine Glucose 1054 H* 758 H* POC Glucose > 500 H Hemoglobin A1c Calcium 8.3 L Phosphorus Alkaline Phosphatase Albumin Triglycerides HDL Cholesterol 09/17/19 09/17/19 09/17/19 01:27 01:27 01:27 WBC RBC Hgb Hct MCV MCHC RDW Plt Count Seg Neuts % (Manual) Lymphocytes % (Manual) Seg Neutrophils # Man Lymphocytes # (Manual) Sodium Potassium Chloride Carbon Dioxide BUN Creatinine Glucose POC Glucose Hemoglobin A1c 14.7 H Calcium Phosphorus 1.90 L Alkaline Phosphatase Albumin Triglycerides 189 H HDL Cholesterol 29 L 09/17/19 09/17/19 09/17/19 01:27 03:01 03:28 WBC RBC Hgb Hct MCV MCHC RDW Plt Count Seg Neuts % (Manual) Lymphocytes % (Manual) Seg Neutrophils # Man Lymphocytes # (Manual) Sodium 135 L D Potassium Chloride 93.0 L 95.9 L Carbon Dioxide 31 H BUN Creatinine 0.7 L 0.7 L Glucose 469 H 346 H POC Glucose 321 H Hemoglobin A1c Calcium Phosphorus Alkaline Phosphatase Albumin Triglycerides HDL Cholesterol 09/17/19 09/17/19 09/17/19 04:36 04:39 05:37 WBC RBC Hgb Hct MCV MCHC RDW Plt Count Seg Neuts % (Manual) Lymphocytes % (Manual) Seg Neutrophils # Man Lymphocytes # (Manual) Sodium Potassium Chloride Carbon Dioxide BUN Creatinine 0.7 L Glucose 189 H POC Glucose 229 H 183 H Hemoglobin A1c Calcium Phosphorus Alkaline Phosphatase Albumin Triglycerides HDL Cholesterol 09/17/19 09/17/19 09/17/19 06:51 07:08 08:01 WBC RBC Hgb Hct MCV MCHC RDW Plt Count Seg Neuts % (Manual) Lymphocytes % (Manual) Seg Neutrophils # Man Lymphocytes # (Manual) Sodium Potassium Chloride Carbon Dioxide 31 H BUN Creatinine 0.6 L Glucose 149 H POC Glucose 162 H 161 H Hemoglobin A1c Calcium Phosphorus Alkaline Phosphatase Albumin Triglycerides HDL Cholesterol 09/17/19 09/17/19 09/17/19 08:33 09:08 09:10 WBC RBC Hgb Hct MCV MCHC RDW Plt Count Seg Neuts % (Manual) Lymphocytes % (Manual) Seg Neutrophils # Man Lymphocytes # (Manual) Sodium Potassium 3.5 L Chloride Carbon Dioxide BUN Creatinine 0.5 L Glucose 147 H POC Glucose 466 H 134 H Hemoglobin A1c Calcium Phosphorus Alkaline Phosphatase Albumin Triglycerides HDL Cholesterol 09/17/19 09/17/19 09/17/19 10:17 11:27 11:34 WBC RBC Hgb Hct MCV MCHC RDW Plt Count Seg Neuts % (Manual) Lymphocytes % (Manual) Seg Neutrophils # Man Lymphocytes # (Manual) Sodium Potassium Chloride Carbon Dioxide BUN Creatinine Glucose POC Glucose 177 H 360 H 139 H Hemoglobin A1c Calcium Phosphorus Alkaline Phosphatase Albumin Triglycerides HDL Cholesterol
[2019-09-17 12:19] VITALS: BP 113/77
[2019-09-17 13:18] LABS: BUN/Creatinine Ratio 24; Blood Urea Nitrogen 12 mg/dL (9-20); Calcium 8.7 mg/dL (8.4-10.2); Hemolysis Index 11
[2019-09-17] MEDS ORDERED: HEPARIN 5,000 UNIT/1 ML VIAL SUB-Q SCH (14:00)
--- NOTE | 2019-09-17 14:28 | Consultation ---
History of Present Illness Consult date: 09/17/19 - History of present illness History of present illness: 58 yo non-compliant diabetic male with 2 day h/o right foot pain and drainage. No fever or chills. He continues to smoke. Past History Past Medical History: diabetes, GERD Past Surgical History: No surgical history Social history: no significant social history Medications and Allergies Allergies Allergy/AdvReac Type Severity Reaction Status Date / Time No Known Allergies Allergy Verified 12/01/18 12:05 Home Medications Medication Instructions Recorded Confirmed Last Taken Type Aspirin EC [Halfprin EC] 81 mg PO QDAY #30 tablet. 04/26/17 Unknown Rx Insulin Glargine,Hum.rec.anlog 15 units SUB-Q QAM #3 insuln.pen 04/26/17 Unknown Rx [Lantus Solostar] Insulin Glargine [Lantus] 15 unit SUB-Q QHS #1 vial 12/01/18 Unknown Rx Ondansetron [Zofran Odt] 4 mg PO Q8HR PRN #10 tab.rapdis 02/25/19 Unknown Rx Pantoprazole [Protonix] 40 mg PO QDAY #30 tablet 02/25/19 Unknown Rx Active Meds: Active Medications Heparin Sodium (Porcine) (Heparin) 5,000 unit SUB-Q Q8HR KATHY Sodium Chloride (Nacl 0.9% 1000 Ml) 1,000 mls @ 150 mls/hr IV DIRECT KATHY Last Admin: 09/17/19 02:30 Dose: 150 mls/hr Documented by: Potassium Chloride/Dextrose/Sod Cl (D5w/0.45% Nacl/Kcl 20 Meq) 20 meq in 1,000 mls @ 125 mls/hr IV DIRECT KATHY Last Admin: 09/17/19 04:28 Dose: 125 mls/hr Documented by: Piperacillin Sod/Tazobactam Sod (Zosyn/Ns 4.5gm/100ml) 4.5 gm in 100 mls @ 200 mls/hr IV Q8HR KATHY; Protocol Last Admin: 09/17/19 07:03 Dose: 200 mls/hr Documented by: Vancomycin HCl (Vancomycin/Ns 1 Gm/250 Ml) 1 gm in 250 mls @ 166.667 mls/hr IV Q12H KATHY Last Admin: 09/17/19 09:27 Dose: 166.667 mls/hr Documented by: Sodium Chloride (Nacl 0.9% 1000 Ml) 1,000 mls @ 75 mls/hr IV DIRECT KATHY Sodium Chloride (Sodium Chloride Flush Syringe 10 Ml) 10 ml IV BID KATHY Sodium Chloride (Sodium Chloride Flush Syringe 10 Ml) 10 ml IV PRN PRN PRN Reason: LINE FLUSH Review of Systems All systems: negative (none) Exam Vital Signs Temp Pulse Resp BP Pulse Ox 98.3 F 110 H 18 95/59 98 09/16/19 18:41 09/16/19 18:41 09/16/19 18:41 09/16/19 18:41 09/16/19 18:41 - General physical appearance Positive: well developed, well nourished, no distress - Eyes Positive: PERRL, normal occular movement - ENT Positive: normal pinna, normal nares, normal mucosa, no hearing loss, no congestion - Neck Positive: no masses, no bruits, trachea midline, no venous distension - Respiratory Positive: normal expansion, normal respiratory effort, clear to auscultation - Cardiovascular Rhythm: regular Heart Sounds: Present: S1 & S2. Absent: rub, click - Abdomen Abdomen: Present: soft, bowel sounds normal. Absent: tender, distended Hernia: none - Genitourinary Male Genitourinary: deferred - Integumentary other (The right mid-forefoot is gangrenous and the 2nd through 4th toes are involved with wet gangrene. I cannot palpate the right DP pulse. ) - Neurologic Neurologic: alert and oriented to time, place and person, motor strength and sensation are grossly intact - Psychiatric Psychiatric: appropriate mood/affect, intact judgment & insight Results - Labs 09/16/19 18:58 09/17/19 12:28 Abnormal lab results 09/16/19 09/16/19 09/16/19 Range/Units 18:58 18:58 19:02 WBC 16.8 H (4.5-11.0) K/mm3 RBC 3.39 L (3.65-5.03) M/mm3 Hgb 10.9 L (11.8-15.2) gm/dl Hct 35.1 L (35.5-45.6) % MCV 104 H (84-94) fl MCHC 31 L (32-34) % RDW 13.0 L (13.2-15.2) % Plt Count 507 H (140-440) K/mm3 Seg Neuts % (Manual) 92.0 H (40.0-70.0) % Lymphocytes % (Manual) 4.0 L (13.4-35.0) % Seg Neutrophils # Man 15.5 H (1.8-7.7) K/mm3 Lymphocytes # (Manual) 0.7 L (1.2-5.4) K/mm3 Sodium 126 L (137-145) mmol/L Potassium (3.6-5.0) mmol/L Chloride 80.3 L (98-107) mmol/L Carbon Dioxide (22-30) mmol/L BUN 26 H (9-20) mg/dL Creatinine (0.8-1.5) mg/dL Glucose 997 H* (75-100) mg/dL POC Glucose > 500 H (70-105) Hemoglobin A1c (4-6) % Calcium (8.4-10.2) mg/dL Phosphorus (2.5-4.5) mg/dL Alkaline Phosphatase 192 H (35-129) units/L Albumin 2.7 L (3.9-5) g/dL Triglycerides (2-149) mg/dL HDL Cholesterol (40-59) mg/dL 09/16/19 09/16/19 09/17/19 Range/Units 20:36 22:53 00:59 WBC (4.5-11.0) K/mm3 RBC (3.65-5.03) M/mm3 Hgb (11.8-15.2) gm/dl Hct (35.5-45.6) % MCV (84-94) fl MCHC (32-34) % RDW (13.2-15.2) % Plt Count (140-440) K/mm3 Seg Neuts % (Manual) (40.0-70.0) % Lymphocytes % (Manual) (13.4-35.0) % Seg Neutrophils # Man (1.8-7.7) K/mm3 Lymphocytes # (Manual) (1.2-5.4) K/mm3 Sodium 126 L 128 L (137-145) mmol/L Potassium (3.6-5.0) mmol/L Chloride 85.4 L 84.9 L (98-107) mmol/L Carbon Dioxide (22-30) mmol/L BUN 24 H 22 H (9-20) mg/dL Creatinine (0.8-1.5) mg/dL Glucose 1054 H* 758 H* (75-100) mg/dL POC Glucose > 500 H (70-105) Hemoglobin A1c (4-6) % Calcium 8.3 L (8.4-10.2) mg/dL Phosphorus (2.5-4.5) mg/dL Alkaline Phosphatase (35-129) units/L Albumin (3.9-5) g/dL Triglycerides (2-149) mg/dL HDL Cholesterol (40-59) mg/dL 09/17/19 09/17/19 09/17/19 Range/Units 01:27 01:27 01:27 WBC (4.5-11.0) K/mm3 RBC (3.65-5.03) M/mm3 Hgb (11.8-15.2) gm/dl Hct (35.5-45.6) % MCV (84-94) fl MCHC (32-34) % RDW (13.2-15.2) % Plt Count (140-440) K/mm3 Seg Neuts % (Manual) (40.0-70.0) % Lymphocytes % (Manual) (13.4-35.0) % Seg Neutrophils # Man (1.8-7.7) K/mm3 Lymphocytes # (Manual) (1.2-5.4) K/mm3 Sodium (137-145) mmol/L Potassium (3.6-5.0) mmol/L Chloride (98-107) mmol/L Carbon Dioxide (22-30) mmol/L BUN (9-20) mg/dL Creatinine (0.8-1.5) mg/dL Glucose (75-100) mg/dL POC Glucose (70-105) Hemoglobin A1c 14.7 H (4-6) % Calcium (8.4-10.2) mg/dL Phosphorus 1.90 L (2.5-4.5) mg/dL Alkaline Phosphatase (35-129) units/L Albumin (3.9-5) g/dL Triglycerides 189 H (2-149) mg/dL HDL Cholesterol 29 L (40-59) mg/dL 09/17/19 09/17/19 09/17/19 Range/Units 01:27 03:01 03:28 WBC (4.5-11.0) K/mm3 RBC (3.65-5.03) M/mm3 Hgb (11.8-15.2) gm/dl Hct (35.5-45.6) % MCV (84-94) fl MCHC (32-34) % RDW (13.2-15.2) % Plt Count (140-440) K/mm3 Seg Neuts % (Manual) (40.0-70.0) % Lymphocytes % (Manual) (13.4-35.0) % Seg Neutrophils # Man (1.8-7.7) K/mm3 Lymphocytes # (Manual) (1.2-5.4) K/mm3 Sodium 135 L D (137-145) mmol/L Potassium (3.6-5.0) mmol/L Chloride 93.0 L 95.9 L (98-107) mmol/L Carbon Dioxide 31 H (22-30) mmol/L BUN (9-20) mg/dL Creatinine 0.7 L 0.7 L (0.8-1.5) mg/dL Glucose 469 H 346 H (75-100) mg/dL POC Glucose 321 H (70-105) Hemoglobin A1c (4-6) % Calcium (8.4-10.2) mg/dL Phosphorus (2.5-4.5) mg/dL Alkaline Phosphatase (35-129) units/L Albumin (3.9-5) g/dL Triglycerides (2-149) mg/dL HDL Cholesterol (40-59) mg/dL 09/17/19 09/17/19 09/17/19 Range/Units 04:36 04:39 05:37 WBC (4.5-11.0) K/mm3 RBC (3.65-5.03) M/mm3 Hgb (11.8-15.2) gm/dl Hct (35.5-45.6) % MCV (84-94) fl MCHC (32-34) % RDW (13.2-15.2) % Plt Count (140-440) K/mm3 Seg Neuts % (Manual) (40.0-70.0) % Lymphocytes % (Manual) (13.4-35.0) % Seg Neutrophils # Man (1.8-7.7) K/mm3 Lymphocytes # (Manual) (1.2-5.4) K/mm3 Sodium (137-145) mmol/L Potassium (3.6-5.0) mmol/L Chloride (98-107) mmol/L Carbon Dioxide (22-30) mmol/L BUN (9-20) mg/dL Creatinine 0.7 L (0.8-1.5) mg/dL Glucose 189 H (75-100) mg/dL POC Glucose 229 H 183 H (70-105) Hemoglobin A1c (4-6) % Calcium (8.4-10.2) mg/dL Phosphorus (2.5-4.5) mg/dL Alkaline Phosphatase (35-129) units/L Albumin (3.9-5) g/dL Triglycerides (2-149) mg/dL HDL Cholesterol (40-59) mg/dL 09/17/19 09/17/19 09/17/19 Range/Units 06:51 07:08 08:01 WBC (4.5-11.0) K/mm3 RBC (3.65-5.03) M/mm3 Hgb (11.8-15.2) gm/dl Hct (35.5-45.6) % MCV (84-94) fl MCHC (32-34) % RDW (13.2-15.2) % Plt Count (140-440) K/mm3 Seg Neuts % (Manual) (40.0-70.0) % Lymphocytes % (Manual) (13.4-35.0) % Seg Neutrophils # Man (1.8-7.7) K/mm3 Lymphocytes # (Manual) (1.2-5.4) K/mm3 Sodium (137-145) mmol/L Potassium (3.6-5.0) mmol/L Chloride (98-107) mmol/L Carbon Dioxide 31 H (22-30) mmol/L BUN (9-20) mg/dL Creatinine 0.6 L (0.8-1.5) mg/dL Glucose 149 H (75-100) mg/dL POC Glucose 162 H 161 H (70-105) Hemoglobin A1c (4-6) % Calcium (8.4-10.2) mg/dL Phosphorus (2.5-4.5) mg/dL Alkaline Phosphatase (35-129) units/L Albumin (3.9-5) g/dL Triglycerides (2-149) mg/dL HDL Cholesterol (40-59) mg/dL 09/17/19 09/17/19 09/17/19 Range/Units 08:33 09:08 09:10 WBC (4.5-11.0) K/mm3 RBC (3.65-5.03) M/mm3 Hgb (11.8-15.2) gm/dl Hct (35.5-45.6) % MCV (84-94) fl MCHC (32-34) % RDW (13.2-15.2) % Plt Count (140-440) K/mm3 Seg Neuts % (Manual) (40.0-70.0) % Lymphocytes % (Manual) (13.4-35.0) % Seg Neutrophils # Man (1.8-7.7) K/mm3 Lymphocytes # (Manual) (1.2-5.4) K/mm3 Sodium (137-145) mmol/L Potassium 3.5 L (3.6-5.0) mmol/L Chloride (98-107) mmol/L Carbon Dioxide (22-30) mmol/L BUN (9-20) mg/dL Creatinine 0.5 L (0.8-1.5) mg/dL Glucose 147 H (75-100) mg/dL POC Glucose 466 H 134 H (70-105) Hemoglobin A1c (4-6) % Calcium (8.4-10.2) mg/dL Phosphorus (2.5-4.5) mg/dL Alkaline Phosphatase (35-129) units/L Albumin (3.9-5) g/dL Triglycerides (2-149) mg/dL HDL Cholesterol (40-59) mg/dL 09/17/19 09/17/19 09/17/19 Range/Units 10:17 11:27 11:34 WBC (4.5-11.0) K/mm3 RBC (3.65-5.03) M/mm3 Hgb (11.8-15.2) gm/dl Hct (35.5-45.6) % MCV (84-94) fl MCHC (32-34) % RDW (13.2-15.2) % Plt Count (140-440) K/mm3 Seg Neuts % (Manual) (40.0-70.0) % Lymphocytes % (Manual) (13.4-35.0) % Seg Neutrophils # Man (1.8-7.7) K/mm3 Lymphocytes # (Manual) (1.2-5.4) K/mm3 Sodium (137-145) mmol/L Potassium (3.6-5.0) mmol/L Chloride (98-107) mmol/L Carbon Dioxide (22-30) mmol/L BUN (9-20) mg/dL Creatinine (0.8-1.5) mg/dL Glucose (75-100) mg/dL POC Glucose 177 H 360 H 139 H (70-105) Hemoglobin A1c (4-6) % Calcium (8.4-10.2) mg/dL Phosphorus (2.5-4.5) mg/dL Alkaline Phosphatase (35-129) units/L Albumin (3.9-5) g/dL Triglycerides (2-149) mg/dL HDL Cholesterol (40-59) mg/dL 09/17/19 09/17/19 09/17/19 Range/Units 12:28 13:03 13:07 WBC (4.5-11.0) K/mm3 RBC (3.65-5.03) M/mm3 Hgb (11.8-15.2) gm/dl Hct (35.5-45.6) % MCV (84-94) fl MCHC (32-34) % RDW (13.2-15.2) % Plt Count (140-440) K/mm3 Seg Neuts % (Manual) (40.0-70.0) % Lymphocytes % (Manual) (13.4-35.0) % Seg Neutrophils # Man (1.8-7.7) K/mm3 Lymphocytes # (Manual) (1.2-5.4) K/mm3 Sodium (137-145) mmol/L Potassium (3.6-5.0) mmol/L Chloride (98-107) mmol/L Carbon Dioxide (22-30) mmol/L BUN (9-20) mg/dL Creatinine 0.5 L (0.8-1.5) mg/dL Glucose 118 H (75-100) mg/dL POC Glucose 289 H 123 H (70-105) Hemoglobin A1c (4-6) % Calcium (8.4-10.2) mg/dL Phosphorus (2.5-4.5) mg/dL Alkaline Phosphatase (35-129) units/L Albumin (3.9-5) g/dL Triglycerides (2-149) mg/dL HDL Cholesterol (40-59) mg/dL Diabetes panel 09/16/19 09/16/19 09/16/19 Range/Units 18:58 20:36 22:53 Sodium 126 L 126 L 128 L (137-145) mmol/L Potassium 4.8 4.7 4.2 (3.6-5.0) mmol/L Chloride 80.3 L 85.4 L 84.9 L (98-107) mmol/L Carbon Dioxide 24 24 27 (22-30) mmol/L BUN 26 H 24 H 22 H (9-20) mg/dL Creatinine 0.9 0.9 0.8 (0.8-1.5) mg/dL Glucose 997 H* 1054 H* 758 H* (75-100) mg/dL Hemoglobin A1c (4-6) % Calcium 8.8 8.3 L 8.4 (8.4-10.2) mg/dL AST 12 (5-40) units/L ALT 14 (7-56) units/L Alkaline Phosphatase 192 H (35-129) units/L Total Protein 7.7 (6.3-8.2) g/dL Albumin 2.7 L (3.9-5) g/dL Triglycerides (2-149) mg/dL HDL Cholesterol (40-59) mg/dL 09/17/19 09/17/19 09/17/19 Range/Units 01:27 01:27 01:27 Sodium 135 L D (137-145) mmol/L Potassium 3.8 (3.6-5.0) mmol/L Chloride 93.0 L (98-107) mmol/L Carbon Dioxide 30 (22-30) mmol/L BUN 18 (9-20) mg/dL Creatinine 0.7 L (0.8-1.5) mg/dL Glucose 469 H (75-100) mg/dL Hemoglobin A1c 14.7 H (4-6) % Calcium 8.4 (8.4-10.2) mg/dL AST (5-40) units/L ALT (7-56) units/L Alkaline Phosphatase (35-129) units/L Total Protein (6.3-8.2) g/dL Albumin (3.9-5) g/dL Triglycerides 189 H (2-149) mg/dL HDL Cholesterol 29 L (40-59) mg/dL 09/17/19 09/17/19 09/17/19 Range/Units 03:01 04:39 07:08 Sodium 138 140 140 (137-145) mmol/L Potassium 3.7 3.7 4.0 (3.6-5.0) mmol/L Chloride 95.9 L 98.5 99.4 (98-107) mmol/L Carbon Dioxide 31 H 29 31 H (22-30) mmol/L BUN 16 15 13 (9-20) mg/dL Creatinine 0.7 L 0.7 L 0.6 L (0.8-1.5) mg/dL Glucose 346 H 189 H 149 H (75-100) mg/dL Hemoglobin A1c (4-6) % Calcium 8.8 8.7 8.7 (8.4-10.2) mg/dL AST (5-40) units/L ALT (7-56) units/L Alkaline Phosphatase (35-129) units/L Total Protein (6.3-8.2) g/dL Albumin (3.9-5) g/dL Triglycerides (2-149) mg/dL HDL Cholesterol (40-59) mg/dL 09/17/19 09/17/19 Range/Units 08:33 12:28 Sodium 138 139 (137-145) mmol/L Potassium 3.5 L 3.6 (3.6-5.0) mmol/L Chloride 98.8 101.0 (98-107) mmol/L Carbon Dioxide 29 29 (22-30) mmol/L BUN 13 12 (9-20) mg/dL Creatinine 0.5 L 0.5 L (0.8-1.5) mg/dL Glucose 147 H 118 H (75-100) mg/dL Hemoglobin A1c (4-6) % Calcium 8.7 8.7 (8.4-10.2) mg/dL AST (5-40) units/L ALT (7-56) units/L Alkaline Phosphatase (35-129) units/L Total Protein (6.3-8.2) g/dL Albumin (3.9-5) g/dL Triglycerides (2-149) mg/dL HDL Cholesterol (40-59) mg/dL Calcium panel 09/16/19 09/16/19 09/16/19 Range/Units 18:58 20:36 22:53 Calcium 8.8 8.3 L 8.4 (8.4-10.2) mg/dL Phosphorus (2.5-4.5) mg/dL Albumin 2.7 L (3.9-5) g/dL 09/17/19 09/17/19 09/17/19 Range/Units 01:27 01:27 03:01 Calcium 8.4 8.8 (8.4-10.2) mg/dL Phosphorus 1.90 L (2.5-4.5) mg/dL Albumin (3.9-5) g/dL 09/17/19 09/17/19 09/17/19 Range/Units 04:39 07:08 08:33 Calcium 8.7 8.7 8.7 (8.4-10.2) mg/dL Phosphorus (2.5-4.5) mg/dL Albumin (3.9-5) g/dL 09/17/19 Range/Units 12:28 Calcium 8.7 (8.4-10.2) mg/dL Phosphorus (2.5-4.5) mg/dL Albumin (3.9-5) g/dL Pituitary panel 09/16/19 09/16/19 09/16/19 Range/Units 18:58 20:36 22:53 Sodium 126 L 126 L 128 L (137-145) mmol/L Potassium 4.8 4.7 4.2 (3.6-5.0) mmol/L Chloride 80.3 L 85.4 L 84.9 L (98-107) mmol/L Carbon Dioxide 24 24 27 (22-30) mmol/L BUN 26 H 24 H 22 H (9-20) mg/dL Creatinine 0.9 0.9 0.8 (0.8-1.5) mg/dL Glucose 997 H* 1054 H* 758 H* (75-100) mg/dL Calcium 8.8 8.3 L 8.4 (8.4-10.2) mg/dL 09/17/19 09/17/19 09/17/19 Range/Units 01:27 03:01 04:39 Sodium 135 L D 138 140 (137-145) mmol/L Potassium 3.8 3.7 3.7 (3.6-5.0) mmol/L Chloride 93.0 L 95.9 L 98.5 (98-107) mmol/L Carbon Dioxide 30 31 H 29 (22-30) mmol/L BUN 18 16 15 (9-20) mg/dL Creatinine 0.7 L 0.7 L 0.7 L (0.8-1.5) mg/dL Glucose 469 H 346 H 189 H (75-100) mg/dL Calcium 8.4 8.8 8.7 (8.4-10.2) mg/dL 09/17/19 09/17/19 09/17/19 Range/Units 07:08 08:33 12:28 Sodium 140 138 139 (137-145) mmol/L Potassium 4.0 3.5 L 3.6 (3.6-5.0) mmol/L Chloride 99.4 98.8 101.0 (98-107) mmol/L Carbon Dioxide 31 H 29 29 (22-30) mmol/L BUN 13 13 12 (9-20) mg/dL Creatinine 0.6 L 0.5 L 0.5 L (0.8-1.5) mg/dL Glucose 149 H 147 H 118 H (75-100) mg/dL Calcium 8.7 8.7 8.7 (8.4-10.2) mg/dL Adrenal panel 09/16/19 09/16/19 09/16/19 Range/Units 18:58 20:36 22:53 Sodium 126 L 126 L 128 L (137-145) mmol/L Potassium 4.8 4.7 4.2 (3.6-5.0) mmol/L Chloride 80.3 L 85.4 L 84.9 L (98-107) mmol/L Carbon Dioxide 24 24 27 (22-30) mmol/L BUN 26 H 24 H 22 H (9-20) mg/dL Creatinine 0.9 0.9 0.8 (0.8-1.5) mg/dL Glucose 997 H* 1054 H* 758 H* (75-100) mg/dL Calcium 8.8 8.3 L 8.4 (8.4-10.2) mg/dL Total Bilirubin 0.60 (0.1-1.2) mg/dL AST 12 (5-40) units/L ALT 14 (7-56) units/L Alkaline Phosphatase 192 H (35-129) units/L Total Protein 7.7 (6.3-8.2) g/dL Albumin 2.7 L (3.9-5) g/dL 09/17/19 09/17/19 09/17/19 Range/Units 01:27 03:01 04:39 Sodium 135 L D 138 140 (137-145) mmol/L Potassium 3.8 3.7 3.7 (3.6-5.0) mmol/L Chloride 93.0 L 95.9 L 98.5 (98-107) mmol/L Carbon Dioxide 30 31 H 29 (22-30) mmol/L BUN 18 16 15 (9-20) mg/dL Creatinine 0.7 L 0.7 L 0.7 L (0.8-1.5) mg/dL Glucose 469 H 346 H 189 H (75-100) mg/dL Calcium 8.4 8.8 8.7 (8.4-10.2) mg/dL Total Bilirubin (0.1-1.2) mg/dL AST (5-40) units/L ALT (7-56) units/L Alkaline Phosphatase (35-129) units/L Total Protein (6.3-8.2) g/dL Albumin (3.9-5) g/dL 09/17/19 09/17/19 09/17/19 Range/Units 07:08 08:33 12:28 Sodium 140 138 139 (137-145) mmol/L Potassium 4.0 3.5 L 3.6 (3.6-5.0) mmol/L Chloride 99.4 98.8 101.0 (98-107) mmol/L Carbon Dioxide 31 H 29 29 (22-30) mmol/L BUN 13 13 12 (9-20) mg/dL Creatinine 0.6 L 0.5 L 0.5 L (0.8-1.5) mg/dL Glucose 149 H 147 H 118 H (75-100) mg/dL Calcium 8.7 8.7 8.7 (8.4-10.2) mg/dL Total Bilirubin (0.1-1.2) mg/dL AST (5-40) units/L ALT (7-56) units/L Alkaline Phosphatase (35-129) units/L Total Protein (6.3-8.2) g/dL Albumin (3.9-5) g/dL - Imaging Additional studies: See CT of RLE. A1c today was 14.7. Assessment and Plan - Patient Problems (1) Gangrene of right foot Current Visit: Yes Status: Acute Plan to address problem: 1) I recommended, at a minimum, amputation of the right 2nd through 4th toes with a BKA actually being a better option. Pt adamantly refuses any consideration of amputation and says that he will sign out AMA and go to [facility] where he expects [facility] will "get the skin to grow back" on his foot. I have paged Dr. Koenig to inform him of the pt's decision. If the pt decides to stay at [facility], he will need broad spectrum IV antibiotics and RLE arterial dopplers. A vascular consultation will be necessary if indicated by the dopplers. Please let me know if the pt changes his mind regarding amputation. He is very aware that the foot infection could spread up his leg resulting in the possibility of AKA or even .
--- NOTE | 2019-09-21 13:23 | Discharge Summary ---
Providers - Providers Date of Admission: 09/16/19 23:31 Date of discharge: 09/21/19 Attending physician: PRASANNA TITUS 09/17/19 00:22 Consult to Dietitian/Nutrition [CONS] Routine Physician Instructions: Reason For Exam: DKA Reason for Consult: Nutrition Recommendations Reason for Consult: Poor oral intake Consult to Physician [CONS] Routine Comment: Consulting Provider: CAROL MCFARLANE Physician Instructions: Reason For Exam: ?FOOT GANGRENE 09/17/19 00:34 Consult to Wound/ET Nurse [CONS] Routine Reason For Exam: wound eval ON RIGHT FOOT 09/17/19 02:27 Consult to Physician [CONS] Routine Comment: Spoke with Dr. Escobar @ 030 Consulting Provider: JERRELL ESCOBAR Physician Instructions: Reason For Exam: critical care management 09/17/19 11:20 Consult to Physician [CONS] Routine Comment: Consulting Provider: OLIVIA SCHMIDT Physician Instructions: Reason For Exam: osteo 09/17/19 14:00 Consult to Physician [CONS] Routine Comment: Consulting Provider: JAZZMINE MORENO Physician Instructions: evaluate for possible debridement Reason For Exam: right foot and toes gangrene Primary care physician: LAND DEVELOPER Hospitalization Reason for admission: gangrene, sepsis, osteo Condition: Serious Hospital course: 58-year-old -[place] male with known history of diabetes mellitus presenting to the emergency room today complaining of elevated blood glucose and right foot pain which has been ongoing for the past 2 days [employer]CR[employer]IST. Patient was admitted with diagnosis of sepsis secondary to right foot gangrene/osteomyelitis and DKA. Patient was initiated on IV insulin drip and received IV fluid hydration. Patient was seen by podiatry/surgery in consultation and recommendations were to have further debridement and possible amputation. Patient however refused the surgery and treatment otherwise. Patient left AMA. The patient was counseled extensively by the surgeon and nursing with regards to risk of leaving including . Patient voiced understanding but still left AMA. Dedicated discharge time 35 minutes Disposition: DC-07 LEFT AGAINST MED ADVICE Core Measure Documentation - Palliative Care Palliative Care/ Comfort Measures: Not Applicable - Core Measures Any of the following diagnoses?: none Exam - Constitutional Vitals: Temp Pulse Resp BP Pulse Ox 98.6 F 86 16 113/77 98 09/16/19 18:43 09/17/19 12:18 09/17/19 12:18 09/17/19 12:18 09/17/19 12:18 Plan Forms: AMA Form
== END 2019-09-17 15:00 | disposition left against medical advice (07) | DRG 871 ==
LOC: ED 18:31 → CC1 23:31
PROVIDERS: ADMIT Internal Medicine Geriatric Medicine; ATTEND Hospitalist
DX: A41.9 Sepsis, unspecified organism (principal); E10.10 Type 1 diabetes mellitus with ketoacidosis without coma; M86.9 Osteomyelitis, unspecified; E10.52 Type 1 diabetes mellitus with diabetic peripheral angiopathy with gangrene; I70.261 Atherosclerosis of native arteries of extremities with gangrene, right leg; K21.9 Gastro-esophageal reflux disease without esophagitis
CPT/HCPCS: 36415; 71046; 80048; 80053; 80061; 81001; 82010; 82140; 82805; 82962; 83036; 83735; 84100; 85007; 85025; 85610; 87040; 87086; 93005; G0378; J1815; J2543; J3370; J7030; J7040; Q9967

== ENCOUNTER 2019-09-23 17:13 | Inpatient (IN) | payer SELFPAY ==
[2019-09-23] MEDS ORDERED: SODIUM CHLORIDE 0.9% 1000 ML 1,000 ML ONE (17:25)
[2019-09-23] MEDS ORDERED: VANCOMYCIN 1,500 MG in SODIUM CHLORIDE 0.9% 500 ML 500 ML IV ONE (17:32)
[2019-09-23] MEDS ORDERED: SODIUM CHLORIDE 0.9% 1000 ML IV SOLN IV ONE (17:32)
[2019-09-23] MEDS ORDERED: CEFEPIME/NS 2 GM/100 ML 2 GM/100 ML BAG IV ONE (17:43)
[2019-09-23] MEDS: CEFEPIME/NS 2 GM/100 ML 2 GM/100 ML BAG IV SCH (17:49)
[2019-09-23 17:59] LABS: Hematocrit 30.9 % (35.5-45.6); Hemoglobin 8.6 gm/dl (11.8-15.2); Mean Corpuscular HGB Conc 28 % (32-34); Mean Corpuscular Volume 115 fl (84-94); Platelet Count 853 K/mm3 (140-440); Red Cell Distribution Width 15.4 % (13.2-15.2)
[2019-09-23] MEDS ORDERED: VANCOMYCIN PHARMACY TO DOSE IV SCH (18:00)
[2019-09-23 18:15] LABS: Alanine Aminotransferase 11 units/L (7-56); Albumin 2.1 g/dL (3.9-5); BUN/Creatinine Ratio 37; Blood Urea Nitrogen 55 mg/dL (9-20); Calcium 9.7 mg/dL (8.4-10.2); Hemolysis Index 50
--- NOTE | 2019-09-23 18:22 | XRay Report ---
CHEST 1 VIEW 09/23/2019 5:49 PM INDICATION / CLINICAL INFORMATION: found unresponsive, hypoxia. COMPARISON: Chest x-ray on 09/16/2019. FINDINGS: SUPPORT DEVICES: None. HEART / MEDIASTINUM: No significant abnormality. LUNGS / PLEURA: No significant pulmonary or pleural abnormality. No pneumothorax. ADDITIONAL FINDINGS: No significant additional findings. IMPRESSION: 1. No acute findings. Signer Name: Andres Rodarte MD Signed: 09/23/2019 6:18 PM Workstation Name: [id number]
[2019-09-23 18:35] LABS: Band Neutrophils # (Manual) 0.6 K/mm3; Basophils % (Manual) 0 % (0.0-1.8); Eosinophils % (Manual) 0 % (0.0-4.3); Total Cells Counted 100
[2019-09-23 18:36] LABS: Anisocytosis 1+; Burr Cells 2+; Macrocytosis 1+; Platelet Estimate Consistent w Auto; Poikilocytosis 2+; Toxic Granulation 1+; Toxic Vacuolation 1+
[2019-09-23] MEDS ORDERED: SODIUM CHLORIDE 0.9% 1000 ML 1,000 ML IV ONE ×3 (18:47→19:38)
[2019-09-23] MEDS ORDERED: SODIUM BICARB 8.4% 50 MEQ/50 ML SYRINGE IV ONE (18:48)
--- NOTE | 2019-09-23 18:51 | Emergency Department Report ---
- Central Line Placement Left Femoral Consent Obtained: emergent situation Time Out Performed: Yes Patient Placed on Monitor/Pulse Ox: Yes MD Prep: mask, gown, gloves Central Line Prep: Chlorhexidine scrub Local Anesthesia Used: Lidocaine 1% Amount of Anesthesia Used (mls): 5 Ultrasound Used for Placement: No Central Line Lumen Inserted: triple Bloods Obtained for Lab: Yes Central Line Position: good blood return, sutured in place with nyl Dressing Applied: Tegaderm Post Procedure X-Ray: pneumothorax seen Complications: none Additional Comments: pt with hypotension, significant dehydration, Dka, and septic shock. CVL placed for aggressive fluid resuscitation, pressors, and an insulin drip
[2019-09-23 18:58] LABS: Bilirubin,Urine NEG (Negative); Blood,Urine MOD (Negative); Color,Urine Yellow (Yellow); Hyaline Casts,Urine 2 /LPF; Mucus,Urine FEW /HPF
[2019-09-23] MEDS ORDERED: INSULIN REGULAR, HUMAN 100 UNITS in SODIUM CHLORIDE 0.9% 99 ML IV SCH ×2 (19:00→23:00)
[2019-09-23] MEDS ORDERED: D5W/0.45% NACL/KCL 20 MEQ 20 MEQ/1,000 ML BAG IV SCH (19:00)
--- NOTE | 2019-09-23 19:12 | Emergency Department Report ---
ED General Adult HPI - General Chief complaint: Altered Mental Status Stated complaint: ALTERED MENTAL STATUS Time Seen by Provider: 09/23/19 17:31 Source: patient, EMS Mode of arrival: Stretcher Limitations: Altered Mental Status - History of Present Illness Initial comments: Patient is a 59-year-old F [place] male who has a past medical history of di abetes who is presenting with altered mental status. Police found the patient in his home lying in the bathroom. They went there on a well check. Paramedics were called and he was transported to our hospital. Patient is moaning not responding purposefully. He is moving all extremities. No other history is known. - Related Data Previous Rx's Medication Instructions Recorded Last Taken Type Aspirin EC [Halfprin EC] 81 mg PO QDAY #30 tablet. 04/26/17 Unknown Rx Insulin Glargine,Hum.rec.anlog 15 units SUB-Q QAM #3 insuln.pen 04/26/17 Unknown Rx [Lantus Solostar] Insulin Glargine [Lantus] 15 unit SUB-Q QHS #1 vial 12/01/18 Unknown Rx Ondansetron [Zofran Odt] 4 mg PO Q8HR PRN #10 tab.rapdis 02/25/19 Unknown Rx Pantoprazole [Protonix] 40 mg PO QDAY #30 tablet 02/25/19 Unknown Rx Allergies Allergy/AdvReac Type Severity Reaction Status Date / Time No Known Allergies Allergy Verified 12/01/18 12:05 ED Review of Systems ROS: Stated complaint: ALTERED MENTAL STATUS Other details as noted in HPI Comment: Unobtainable due to pts medical conditions ED Past Medical Hx - Past Medical History Previous Medical History?: Yes Hx Diabetes: Yes Hx GERD: Yes - Social History Smoking Status: Never Smoker Substance Use Type: None - Medications Home Medications: Home Medications Medication Instructions Recorded Confirmed Last Taken Type Aspirin EC [Halfprin EC] 81 mg PO QDAY #30 tablet. 04/26/17 Unknown Rx Insulin Glargine,Hum.rec.anlog 15 units SUB-Q QAM #3 insuln.pen 04/26/17 Unknown Rx [Lantus Solostar] Insulin Glargine [Lantus] 15 unit SUB-Q QHS #1 vial 12/01/18 Unknown Rx Ondansetron [Zofran Odt] 4 mg PO Q8HR PRN #10 tab.rapdis 02/25/19 Unknown Rx Pantoprazole [Protonix] 40 mg PO QDAY #30 tablet 02/25/19 Unknown Rx ED Physical Exam - General Limitations: Altered Mental Status General appearance: lethargic, in distress, cachectic - Head Head exam: Present: atraumatic, normocephalic - Eye Eye exam: Present: normal appearance, PERRL, EOMI - ENT ENT exam: Present: mucous membranes dry - Neck Neck exam: Present: normal inspection - Respiratory Respiratory exam: Present: normal lung sounds bilaterally. Absent: respiratory distress, rales - Cardiovascular Cardiovascular Exam: Present: regular rate, normal rhythm. Absent: systolic murmur, diastolic murmur, rubs, gallop - GI/Abdominal GI/Abdominal exam: Present: soft, normal bowel sounds. Absent: distended, tenderness - Rectal Rectal exam: Present: deferred - Extremities Exam Extremities exam: Present: normal inspection, other (Patient has hyperpigmentation and swelling to the right foot with completed dry gangrene to the second digit) - Back Exam Back exam: Present: normal inspection - Neurological Exam Neurological exam: Present: alert, oriented X3 - Psychiatric Psychiatric exam: Present: normal affect, normal mood - Skin Skin exam: Present: warm, dry, intact, normal color. Absent: rash ED Course Vital Signs 09/23/19 09/23/19 09/23/19 17:17 17:24 17:26 Temperature 99.1 F Pulse Rate 60 Respiratory 11 L 14 Rate Blood Pressure O2 Sat by Pulse 100 Oximetry 09/23/19 09/23/19 09/23/19 17:27 17:28 17:30 Temperature Pulse Rate 60 60 60 Respiratory 13 14 11 L Rate Blood Pressure 70/41 70/41 68/39 O2 Sat by Pulse 100 100 100 Oximetry 09/23/19 09/23/19 09/23/19 17:32 17:34 17:35 Temperature Pulse Rate 61 58 L Respiratory 12 12 14 Rate Blood Pressure 68/39 68/39 O2 Sat by Pulse 100 100 100 Oximetry 09/23/19 09/23/19 09/23/19 17:36 17:38 17:40 Temperature Pulse Rate 59 L 56 L 56 L Respiratory 13 14 12 Rate Blood Pressure 68/39 68/39 68/39 O2 Sat by Pulse 100 84 Oximetry 09/23/19 09/23/19 09/23/19 17:42 17:44 17:46 Temperature Pulse Rate 56 L 56 L 56 L Respiratory 13 13 13 Rate Blood Pressure 68/39 68/39 68/29 O2 Sat by Pulse Oximetry 09/23/19 09/23/19 09/23/19 17:48 17:50 17:55 Temperature Pulse Rate 57 L 56 L 55 L Respiratory 13 12 15 Rate Blood Pressure 68/29 72/35 62/31 O2 Sat by Pulse 100 100 Oximetry 09/23/19 09/23/19 09/23/19 18:01 18:05 18:10 Temperature Pulse Rate Respiratory Rate Blood Pressure 63/22 66/34 68/33 O2 Sat by Pulse Oximetry 09/23/19 18:15 Temperature Pulse Rate 56 L Respiratory 14 Rate Blood Pressure 72/36 O2 Sat by Pulse Oximetry - Reevaluation(s) Reevaluation #1: 09/23/19 19:08 The patient's arrival he was altered and hypotensive. Patient was started on sepsis protocol. Broad-spectrum antibiotics been given patient was started on fluids. ED Medical Decision Making - Lab Data Result diagrams: 09/23/19 17:32 09/23/19 17:32 Lab Results 09/23/19 09/23/19 09/23/19 Range/Units 17:25 17:32 17:32 WBC 30.8 H (4.5-11.0) K/mm3 RBC 2.70 L (3.65-5.03) M/mm3 Hgb 8.6 L (11.8-15.2) gm/dl Hct 30.9 L (35.5-45.6) % MCV 115 H (84-94) fl MCH 32 (28-32) pg MCHC 28 L (32-34) % RDW 15.4 H (13.2-15.2) % Plt Count 853 H (140-440) K/mm3 Lymph % (Auto) Sub Arc Operator Beadle % (Auto) Sub Arc Operator Eos % (Auto) Sub Arc Operator Baso % (Auto) Sub Arc Operator Lymph # Sub Arc Operator Beadle # Sub Arc Operator Eos # Sub Arc Operator Baso # Sub Arc Operator Add Manual Diff Complete Total Counted 100 Seg Neutrophils % Sub Arc Operator Seg Neuts % (Manual) 88.0 H (40.0-70.0) % Band Neutrophils % 2.0 % Lymphocytes % (Manual) 5.0 L (13.4-35.0) % Reactive Lymphs % (Man) 0 % Monocytes % (Manual) 1.0 (0.0-7.3) % Eosinophils % (Manual) 0 (0.0-4.3) % Basophils % (Manual) 0 (0.0-1.8) % Metamyelocytes % 4.0 % Myelocytes % 0 % Promyelocytes % 0 % Blast Cells % 0 % Nucleated RBC % Not Reportable Seg Neutrophils # Sub Arc Operator Seg Neutrophils # Man 27.1 H (1.8-7.7) K/mm3 Band Neutrophils # 0.6 K/mm3 Lymphocytes # (Manual) 1.5 (1.2-5.4) K/mm3 Abs React Lymphs (Man) 0.0 K/mm3 Monocytes # (Manual) 0.3 (0.0-0.8) K/mm3 Eosinophils # (Manual) 0.0 (0.0-0.4) K/mm3 Basophils # (Manual) 0.0 (0.0-0.1) K/mm3 Metamyelocytes # 1.2 K/mm3 Myelocytes # 0.0 K/mm3 Promyelocytes # 0.0 K/mm3 Blast Cells # 0.0 K/mm3 WBC Morphology Not Reportable Hypersegmented Neuts Not Reportable Hyposegmented Neuts Not Reportable Hypogranular Neuts Not Reportable Smudge Cells Not Reportable Toxic Granulation 1+ Toxic Vacuolation 1+ Dohle Bodies Not Reportable Pelger-Huet Anomaly Not Reportable Narcisa Rods Not Reportable Platelet Estimate Consistent w auto Clumped Platelets Not Reportable Plt Clumps, EDTA Not Reportable Large Platelets Not Reportable Giant Platelets Not Reportable Platelet Satelliting Not Reportable Plt Morphology Comment Not Reportable RBC Morphology Not Reportable Dimorphic RBCs Not Reportable Polychromasia Not Reportable Hypochromasia Not Reportable Poikilocytosis 2+ Anisocytosis 1+ Microcytosis Not Reportable Macrocytosis 1+ Spherocytes Not Reportable Pappenheimer Bodies Not Reportable Sickle Cells Not Reportable Target Cells Not Reportable Tear Drop Cells Not Reportable Ovalocytes Not Reportable Helmet Cells Not Reportable Dougherty-[place] Bodies Not Reportable Grant Rings Not Reportable Aylin Cells 2+ Bite Cells Not Reportable Crenated Cell Not Reportable Elliptocytes Not Reportable Acanthocytes (Spur) Not Reportable Rouleaux Not Reportable Hemoglobin C Crystals Not Reportable Schistocytes Not Reportable Malaria parasites Not Reportable Kyle Bodies Not Reportable Hem Pathologist Commnt No APTT (24.2-36.6) Sec. VBG pH (7.320-7.420) Sodium (137-145) mmol/L Potassium (3.6-5.0) mmol/L Chloride (98-107) mmol/L Carbon Dioxide (22-30) mmol/L Anion Gap mmol/L BUN (9-20) mg/dL Creatinine (0.8-1.5) mg/dL Estimated GFR ml/min BUN/Creatinine Ratio % Glucose (75-100) mg/dL Lactic Acid 2.80 H* (0.7-2.0) mmol/L Calcium (8.4-10.2) mg/dL Total Bilirubin (0.1-1.2) mg/dL AST (5-40) units/L ALT (7-56) units/L Alkaline Phosphatase (35-129) units/L Troponin T (0.00-0.029) ng/mL Total Protein (6.3-8.2) g/dL Albumin (3.9-5) g/dL Albumin/Globulin Ratio % Urine Color Yellow (Yellow) Urine Turbidity Clear (Clear) Urine pH 5.0 (5.0-7.0) Ur Specific [place] 1.018 (1.003-1.030) Urine Protein 30 mg/dl (Negative) mg/dL Urine Glucose (UA) >=500 (Negative) mg/dL Urine Ketones 80 (Negative) mg/dL Urine Blood Mod (Negative) Urine Nitrite Neg (Negative) Urine Bilirubin Neg (Negative) Urine Urobilinogen 2.0 (<2.0) mg/dL Ur Leukocyte Esterase Neg (Negative) Urine WBC (Auto) 1.0 (0.0-6.0) /HPF Urine RBC (Auto) 3.0 (0.0-6.0) /HPF U Epithel Cells (Auto) 1.0 (0-13.0) /HPF Hyaline Casts 2 /LPF Urine Mucus Few /HPF 09/23/19 09/23/19 09/23/19 Range/Units 17:32 17:32 17:57 WBC (4.5-11.0) K/mm3 RBC (3.65-5.03) M/mm3 Hgb (11.8-15.2) gm/dl Hct (35.5-45.6) % MCV (84-94) fl MCH (28-32) pg MCHC (32-34) % RDW (13.2-15.2) % Plt Count (140-440) K/mm3 Lymph % (Auto) Beadle % (Auto) Eos % (Auto) Baso % (Auto) Lymph # Beadle # Eos # Baso # Add Manual Diff Total Counted Seg Neutrophils % Seg Neuts % (Manual) (40.0-70.0) % Band Neutrophils % % Lymphocytes % (Manual) (13.4-35.0) % Reactive Lymphs % (Man) % Monocytes % (Manual) (0.0-7.3) % Eosinophils % (Manual) (0.0-4.3) % Basophils % (Manual) (0.0-1.8) % Metamyelocytes % % Myelocytes % % Promyelocytes % % Blast Cells % % Nucleated RBC % Seg Neutrophils # Seg Neutrophils # Man (1.8-7.7) K/mm3 Band Neutrophils # K/mm3 Lymphocytes # (Manual) (1.2-5.4) K/mm3 Abs React Lymphs (Man) K/mm3 Monocytes # (Manual) (0.0-0.8) K/mm3 Eosinophils # (Manual) (0.0-0.4) K/mm3 Basophils # (Manual) (0.0-0.1) K/mm3 Metamyelocytes # K/mm3 Myelocytes # K/mm3 Promyelocytes # K/mm3 Blast Cells # K/mm3 WBC Morphology Hypersegmented Neuts Hyposegmented Neuts Hypogranular Neuts Smudge Cells Toxic Granulation Toxic Vacuolation Dohle Bodies Pelger-Huet Anomaly Narcisa Rods Platelet Estimate Clumped Platelets Plt Clumps, EDTA Large Platelets Giant Platelets Platelet Satelliting Plt Morphology Comment RBC Morphology Dimorphic RBCs Polychromasia Hypochromasia Poikilocytosis Anisocytosis Microcytosis Macrocytosis Spherocytes Pappenheimer Bodies Sickle Cells Target Cells Tear Drop Cells Ovalocytes Helmet Cells Dougherty-[place] Bodies Grant Rings Aylin Cells Bite Cells Crenated Cell Elliptocytes Acanthocytes (Spur) Rouleaux Hemoglobin C Crystals Schistocytes Malaria parasites Kyle Bodies Hem Pathologist Commnt APTT 33.7 (24.2-36.6) Sec. VBG pH 6.931 L* (7.320-7.420) Sodium 151 H (137-145) mmol/L Potassium 4.5 (3.6-5.0) mmol/L Chloride 97.7 L (98-107) mmol/L Carbon Dioxide 5 L* (22-30) mmol/L Anion Gap 53 mmol/L BUN 55 H (9-20) mg/dL Creatinine 1.5 (0.8-1.5) mg/dL Estimated GFR 58 ml/min BUN/Creatinine Ratio 37 % Glucose 702 H* (75-100) mg/dL Lactic Acid (0.7-2.0) mmol/L Calcium 9.7 (8.4-10.2) mg/dL Total Bilirubin 0.50 (0.1-1.2) mg/dL AST 29 (5-40) units/L ALT 11 (7-56) units/L Alkaline Phosphatase 251 H (35-129) units/L Troponin T < 0.010 (0.00-0.029) ng/mL Total Protein 8.0 (6.3-8.2) g/dL Albumin 2.1 L (3.9-5) g/dL Albumin/Globulin Ratio 0.4 % Urine Color (Yellow) Urine Turbidity (Clear) Urine pH (5.0-7.0) Ur Specific [place] (1.003-1.030) Urine Protein (Negative) mg/dL Urine Glucose (UA) (Negative) mg/dL Urine Ketones (Negative) mg/dL Urine Blood (Negative) Urine Nitrite (Negative) Urine Bilirubin (Negative) Urine Urobilinogen (<2.0) mg/dL Ur Leukocyte Esterase (Negative) Urine WBC (Auto) (0.0-6.0) /HPF Urine RBC (Auto) (0.0-6.0) /HPF U Epithel Cells (Auto) (0-13.0) /HPF Hyaline Casts /LPF Urine Mucus /HPF - EKG Data -: EKG Interpreted by Id - EKG Data 09/23/19 19:09 EKG shows a sinus rhythm rate of 60. Rillito is normal intervals show a prolonged QT. There is no evidence of any ST segment elevation or depression. Time of interpretation 1730 - Radiology Data [facility] [address] [place] [address] XRay Report Signed Patient: ADRI WILSON MR#: [id number] : 1960 Acct:[id number] Age/Sex: 59 / M ADM Date: 09/23/19 Loc: ED Attending Dr: Ordering Physician: URBANO RIVERA MD Date of Service: 09/23/19 Procedure(s): XR chest 1V ap Accession Number(s): [id number] cc: URBANO RIVERA MD Fluoro Time In Minutes: CHEST 1 VIEW 09/23/2019 5:49 PM INDICATION / CLINICAL INFORMATION: found unresponsive, hypoxia. COMPARISON: Chest x-ray on 09/16/2019. FINDINGS: SUPPORT DEVICES: None. HEART / MEDIASTINUM: No significant abnormality. LUNGS / PLEURA: No significant pulmonary or pleural abnormality. No pneumothorax. ADDITIONAL FINDINGS: No significant additional findings. IMPRESSION: 1. No acute findings. Signer Name: Andres Rodarte MD Signed: 09/23/2019 6:18 PM Workstation Name: [id number] Transcribed By: MEET Dictated By: Andres Rodarte MD Electronically Authenticated By: Andres Rodarte MD Signed Date/Time: 09/23/19 1818 - Medical Decision Making Patient was found to be in diabetic ketoacidosis. Patient was given initial 2 L of normal saline and additional 2 been added. Patient had a central line placed. Patient be started on Levophed since his blood pressure did not adequately increase after the first 2 L bolus. Patient does have ketones in his urine and he is severely acidotic. Patient given amp of sodium bicarb and will be started on insulin drip. Patient does have a possible source of infection for his sepsis as his right foot does appear to be infected. Critical Care Time: Yes (40) Critical care attestation.: If time is entered above; I have spent that time in minutes in the direct care of this critically ill patient, excluding procedure time. ED Disposition Clinical Impression: Septic shock, DKA (diabetic ketoacidoses), Gangrene of right foot, Acute renal failure Disposition: OP ADMIT IP TO THIS HOSP Is pt being admited?: Yes Does the pt Need Aspirin: No Condition: Stable Instructions: Diabetic Ketoacidosis (ED) Referrals: PRIMARY CARE, [Primary Care Provider] - 3-5 Days Time of Disposition: 19:14
[2019-09-23] MEDS: NORepinephrine/NS 4 MG-250 ML 4 MG/250 ML BAG IV SCH (19:25)
[2019-09-23 20:06] LABS: BUN/Creatinine Ratio 36; Blood Urea Nitrogen 51 mg/dL (9-20); Calcium 8.4 mg/dL (8.4-10.2); Hemolysis Index 4
[2019-09-23] MEDS ORDERED: SODIUM CHLORIDE 0.9% 1000 ML 1,000 ML IV SCH (20:30)
[2019-09-23 22:01] LABS: BUN/Creatinine Ratio 38; Blood Urea Nitrogen 50 mg/dL (9-20); Calcium 8.3 mg/dL (8.4-10.2); Hemolysis Index 10
[2019-09-23] MEDS ORDERED: ONDANSETRON 4 MG ODT TAB PO PRN (22:50)
[2019-09-23] MEDS ORDERED: oxyCODONE /ACETAMINOPHEN 5-325MG TAB PO PRN (22:51)
[2019-09-23] MEDS ORDERED: HYDROmorphone 1 MG/1 ML INJ IV PRN (22:51)
[2019-09-23] MEDS ORDERED: ACETAMINOPHEN 325 MG TAB PO PRN (22:51)
[2019-09-23] MEDS ORDERED: ONDANSETRON 4 MG/2 ML INJ IV PRN (22:51)
--- NOTE | 2019-09-23 22:56 | Event Note ---
Date: 09/23/19 See H/p in reports DKA Rt foot gangrene
[2019-09-23] MEDS ORDERED: SODIUM CHLORIDE 0.45% 1000 ML 1,000 ML IV SCH (23:00)
[2019-09-23 23:41] LABS: BUN/Creatinine Ratio 41; Blood Urea Nitrogen 49 mg/dL (9-20); Calcium 8.1 mg/dL (8.4-10.2); Hemolysis Index 8
[2019-09-24] MEDS ORDERED: POTASSIUM CHLORIDE 10 MEQ 10 MEQ/100 ML BAG IV ONE ×2 (00:11→01:35)
[2019-09-24] MEDS ORDERED: SODIUM CHLORIDE 0.9% 1000 ML 1,000 ML ONE ×2 (00:12→06:40)
[2019-09-24] MEDS: POTASSIUM CHLORIDE 10 MEQ 10 MEQ/100 ML BAG IV SCH ×4 (00:15→03:41)
[2019-09-24] MEDS ORDERED: NORepinephrine/NS 4 MG-250 ML 4 MG/250 ML BAG IV ONE ×3 (00:19→09:55)
[2019-09-24] MEDS: NORepinephrine/NS 4 MG-250 ML 4 MG/250 ML BAG IV SCH ×3 (00:29→10:00)
[2019-09-24 01:29] LABS: BUN/Creatinine Ratio 40; Blood Urea Nitrogen 48 mg/dL (9-20); Calcium 8.2 mg/dL (8.4-10.2); Hemolysis Index 11
[2019-09-24] MEDS ORDERED: CEFEPIME/NS 2 GM/100 ML 2 GM/100 ML BAG IV ONE ×2 (01:40→11:06)
[2019-09-24] MEDS: CEFEPIME/NS 2 GM/100 ML 2 GM/100 ML BAG IV SCH ×3 (01:41→17:00)
[2019-09-24] MEDS ORDERED: POTASSIUM CHLORIDE 10 MEQ 20 MEQ/200 ML BAG IV ONE (02:00)
[2019-09-24 03:32] LABS: BUN/Creatinine Ratio 39; Blood Urea Nitrogen 47 mg/dL (9-20); Calcium 7.8 mg/dL (8.4-10.2); Hemolysis Index 9
[2019-09-24] MEDS ORDERED: ACETAMINOPHEN 325 MG RECT SUPP PR ONE (05:51)
[2019-09-24] MEDS: ACETAMINOPHEN 650 MG RECT SUPP PR ONE ×2 (05:56→05:58)
[2019-09-24] MEDS: SODIUM CHLORIDE 0.9% 500 ML 500 ML IV ONE ×2 (05:56→05:59)
[2019-09-24 06:29] LABS: BUN/Creatinine Ratio 35; Blood Urea Nitrogen 45 mg/dL (9-20); Calcium 7.8 mg/dL (8.4-10.2); Hemolysis Index 2
[2019-09-24] MEDS ORDERED: SODIUM CHLORIDE 0.45% 1000 ML 1,000 ML IV ONE (07:32)
[2019-09-24] MEDS ORDERED: INSULIN NPH/REGULAR 70/30 INJ SUB-Q SCH (08:00)
--- NOTE | 2019-09-24 08:29 | Consultation ---
History of Present Illness - Reason for Consult Consult date: 09/24/19 Right foot gangrene - History of Present Illness Patient with a history of peripheral vascular disease, diabetes and right foot gangrene who previously presented 1 week ago for evaluation. The patient left AMA stating that he was going to [place] however, no interventions have been performed on his right foot. Patient has a large gangrenous eschar extending across the dorsum of the foot from the midfoot distally. The toes are nonviable. Between the digits, there is serosanguineous exudate. Patient is altered mental status and unable to interact, only moaning. CT performed 1 week ago demonstrates gas extending to the metatarsals. Past History Past Medical History: diabetes, PVD Medications and Allergies Allergies Allergy/AdvReac Type Severity Reaction Status Date / Time No Known Allergies Allergy Verified 12/01/18 12:05 Home Medications Medication Instructions Recorded Confirmed Last Taken Type Aspirin EC [Halfprin EC] 81 mg PO QDAY #30 tablet. 04/26/17 Unknown Rx Insulin Glargine,Hum.rec.anlog 15 units SUB-Q QAM #3 insuln.pen 04/26/17 Unknown Rx [Lantus Solostar] Insulin Glargine [Lantus] 15 unit SUB-Q QHS #1 vial 12/01/18 Unknown Rx Ondansetron [Zofran Odt] 4 mg PO Q8HR PRN #10 tab.rapdis 02/25/19 Unknown Rx Pantoprazole [Protonix] 40 mg PO QDAY #30 tablet 02/25/19 Unknown Rx Active Meds: Active Medications Acetaminophen (Tylenol) 650 mg PO Q4H PRN PRN Reason: Pain MILD(1-3)/Fever >100.5/[facility] Aspirin (Halfprin Ec) 81 mg PO QDAY KATHY Hydromorphone HCl (Dilaudid) 0.5 mg IV Q3H PRN PRN Reason: Pain , Severe (7-10) Cefepime HCl (Cefepime/Ns 2 Gm/100 Ml) 2 gm in 100 mls @ 200 mls/hr IV Q8H KATHY; Protocol Last Admin: 09/24/19 01:41 Dose: 200 mls/hr Documented by: Vancomycin HCl (Vancomycin/Ns 1 Gm/250 Ml) 1 gm in 250 mls @ 166.667 mls/hr IV Q24H KATHY Norepinephrine (Levophed Drip 4 Mg/Ns 250 Ml) 4 mg in 250 mls @ 7.5 mls/hr IV TITR KATHY; Protocol Last Admin: 09/24/19 04:18 Dose: 3.73 mcg/min, 14 mls/hr Documented by: Insulin Human Regular 100 (units/ Sodium Chloride) 100 mls @ 1 mls/hr IV TITR KATHY; Protocol Last Titration: 09/24/19 08:02 Dose: 3 units/hr, 3 mls/hr Documented by: Sodium Chloride (Nacl 0.45% 1000 Ml) 1,000 mls @ 150 mls/hr IV DIRECT KATHY Last Admin: 09/24/19 00:32 Dose: 150 mls/hr Documented by: Insulin Human Isoph/Insulin Regular (Humulin 70/30) 15 unit SUB-Q BIDDIAB KATHY Ondansetron HCl (Zofran Odt) 4 mg PO Q8H PRN PRN Reason: Vomiting Ondansetron HCl (Zofran) 4 mg IV Q8H PRN PRN Reason: Nausea And Vomiting Oxycodone/Acetaminophen (Percocet 5/325) 1 tab PO Q6H PRN PRN Reason: Pain, Moderate (4-6) Pantoprazole Sodium (Protonix) 40 mg PO QDAY KATHY Sodium Chloride (Sodium Chloride Flush Syringe 10 Ml) 10 ml IV BID KATHY Sodium Chloride (Sodium Chloride Flush Syringe 10 Ml) 10 ml IV PRN PRN PRN Reason: LINE FLUSH Review of Systems ROS unobtainable: due to mental status Exam - Constitutional Vitals: Temp Pulse Resp BP Pulse Ox 99.4 F 113 H 26 H 113/71 100 09/24/19 07:39 09/24/19 07:39 09/24/19 07:39 09/24/19 07:39 09/24/19 07:39 General appearance: Present: mild distress - Neck Neck: Present: normal ROM - Respiratory Respiratory effort: normal - Extremities Extremities: abnormal Peripheral Pulses: abnormal (Patient with palpable femoral pulses bilaterally. Unable to palpate his popliteal or pedal pulses.) - Abdominal General gastrointestinal: Present: deferred - Rectal Rectal Exam: deferred - Neurologic Neurologic: moves all extremities Results - Labs CBC & Chem 7: 09/23/19 17:32 09/24/19 05:25 Labs: Abnormal lab results 09/23/19 09/23/19 09/23/19 Range/Units 17:25 17:32 17:32 WBC 30.8 H (4.5-11.0) K/mm3 RBC 2.70 L (3.65-5.03) M/mm3 Hgb 8.6 L (11.8-15.2) gm/dl Hct 30.9 L (35.5-45.6) % MCV 115 H (84-94) fl MCHC 28 L (32-34) % RDW 15.4 H (13.2-15.2) % Plt Count 853 H (140-440) K/mm3 Seg Neuts % (Manual) 88.0 H (40.0-70.0) % Lymphocytes % (Manual) 5.0 L (13.4-35.0) % Seg Neutrophils # Man 27.1 H (1.8-7.7) K/mm3 VBG pH (7.320-7.420) Sodium 151 H (137-145) mmol/L Chloride 97.7 L (98-107) mmol/L Carbon Dioxide 5 L* (22-30) mmol/L BUN 55 H (9-20) mg/dL Glucose 702 H* (75-100) mg/dL POC Glucose (70-105) Hemoglobin A1c (4-6) % Lactic Acid 2.80 H* (0.7-2.0) mmol/L Calcium (8.4-10.2) mg/dL Phosphorus (2.5-4.5) mg/dL Alkaline Phosphatase 251 H (35-129) units/L Albumin 2.1 L (3.9-5) g/dL 09/23/19 09/23/19 09/23/19 Range/Units 17:57 19:24 19:24 WBC (4.5-11.0) K/mm3 RBC (3.65-5.03) M/mm3 Hgb (11.8-15.2) gm/dl Hct (35.5-45.6) % MCV (84-94) fl MCHC (32-34) % RDW (13.2-15.2) % Plt Count (140-440) K/mm3 Seg Neuts % (Manual) (40.0-70.0) % Lymphocytes % (Manual) (13.4-35.0) % Seg Neutrophils # Man (1.8-7.7) K/mm3 VBG pH 6.931 L* (7.320-7.420) Sodium (137-145) mmol/L Chloride (98-107) mmol/L Carbon Dioxide (22-30) mmol/L BUN (9-20) mg/dL Glucose (75-100) mg/dL POC Glucose (70-105) Hemoglobin A1c (4-6) % Lactic Acid 2.10 H* (0.7-2.0) mmol/L Calcium (8.4-10.2) mg/dL Phosphorus 6.90 H (2.5-4.5) mg/dL Alkaline Phosphatase (35-129) units/L Albumin (3.9-5) g/dL 09/23/19 09/23/19 09/23/19 Range/Units 19:24 20:15 21:00 WBC (4.5-11.0) K/mm3 RBC (3.65-5.03) M/mm3 Hgb (11.8-15.2) gm/dl Hct (35.5-45.6) % MCV (84-94) fl MCHC (32-34) % RDW (13.2-15.2) % Plt Count (140-440) K/mm3 Seg Neuts % (Manual) (40.0-70.0) % Lymphocytes % (Manual) (13.4-35.0) % Seg Neutrophils # Man (1.8-7.7) K/mm3 VBG pH (7.320-7.420) Sodium 152 H 151 H (137-145) mmol/L Chloride 107.8 H (98-107) mmol/L Carbon Dioxide 3 L* 5 L* (22-30) mmol/L BUN 51 H 50 H (9-20) mg/dL Glucose 670 H* 557 H* (75-100) mg/dL POC Glucose > 500 H (70-105) Hemoglobin A1c (4-6) % Lactic Acid (0.7-2.0) mmol/L Calcium 8.3 L (8.4-10.2) mg/dL Phosphorus (2.5-4.5) mg/dL Alkaline Phosphatase (35-129) units/L Albumin (3.9-5) g/dL 09/23/19 09/23/19 09/23/19 Range/Units 21:15 21:34 22:52 WBC (4.5-11.0) K/mm3 RBC (3.65-5.03) M/mm3 Hgb (11.8-15.2) gm/dl Hct (35.5-45.6) % MCV (84-94) fl MCHC (32-34) % RDW (13.2-15.2) % Plt Count (140-440) K/mm3 Seg Neuts % (Manual) (40.0-70.0) % Lymphocytes % (Manual) (13.4-35.0) % Seg Neutrophils # Man (1.8-7.7) K/mm3 VBG pH (7.320-7.420) Sodium (137-145) mmol/L Chloride (98-107) mmol/L Carbon Dioxide (22-30) mmol/L BUN (9-20) mg/dL Glucose (75-100) mg/dL POC Glucose > 500 H 490 H (70-105) Hemoglobin A1c (4-6) % Lactic Acid 2.20 H* (0.7-2.0) mmol/L Calcium (8.4-10.2) mg/dL Phosphorus (2.5-4.5) mg/dL Alkaline Phosphatase (35-129) units/L Albumin (3.9-5) g/dL 09/23/19 09/23/19 09/23/19 Range/Units 22:58 22:58 23:05 WBC (4.5-11.0) K/mm3 RBC (3.65-5.03) M/mm3 Hgb (11.8-15.2) gm/dl Hct (35.5-45.6) % MCV (84-94) fl MCHC (32-34) % RDW (13.2-15.2) % Plt Count (140-440) K/mm3 Seg Neuts % (Manual) (40.0-70.0) % Lymphocytes % (Manual) (13.4-35.0) % Seg Neutrophils # Man (1.8-7.7) K/mm3 VBG pH (7.320-7.420) Sodium 151 H (137-145) mmol/L Chloride 108.0 H (98-107) mmol/L Carbon Dioxide 5 L* (22-30) mmol/L BUN 49 H (9-20) mg/dL Glucose 510 H* (75-100) mg/dL POC Glucose (70-105) Hemoglobin A1c 14.0 H (4-6) % Lactic Acid (0.7-2.0) mmol/L Calcium 8.1 L (8.4-10.2) mg/dL Phosphorus 5.60 H (2.5-4.5) mg/dL Alkaline Phosphatase (35-129) units/L Albumin (3.9-5) g/dL 09/24/19 09/24/19 09/24/19 Range/Units 00:22 00:34 01:24 WBC (4.5-11.0) K/mm3 RBC (3.65-5.03) M/mm3 Hgb (11.8-15.2) gm/dl Hct (35.5-45.6) % MCV (84-94) fl MCHC (32-34) % RDW (13.2-15.2) % Plt Count (140-440) K/mm3 Seg Neuts % (Manual) (40.0-70.0) % Lymphocytes % (Manual) (13.4-35.0) % Seg Neutrophils # Man (1.8-7.7) K/mm3 VBG pH (7.320-7.420) Sodium 153 H (137-145) mmol/L Chloride 109.4 H (98-107) mmol/L Carbon Dioxide 7 L* (22-30) mmol/L BUN 48 H (9-20) mg/dL Glucose 461 H (75-100) mg/dL POC Glucose 453 H 418 H (70-105) Hemoglobin A1c (4-6) % Lactic Acid (0.7-2.0) mmol/L Calcium 8.2 L (8.4-10.2) mg/dL Phosphorus (2.5-4.5) mg/dL Alkaline Phosphatase (35-129) units/L Albumin (3.9-5) g/dL 09/24/19 09/24/19 09/24/19 Range/Units 02:54 03:02 04:04 WBC (4.5-11.0) K/mm3 RBC (3.65-5.03) M/mm3 Hgb (11.8-15.2) gm/dl Hct (35.5-45.6) % MCV (84-94) fl MCHC (32-34) % RDW (13.2-15.2) % Plt Count (140-440) K/mm3 Seg Neuts % (Manual) (40.0-70.0) % Lymphocytes % (Manual) (13.4-35.0) % Seg Neutrophils # Man (1.8-7.7) K/mm3 VBG pH (7.320-7.420) Sodium 155 H (137-145) mmol/L Chloride 114.8 H (98-107) mmol/L Carbon Dioxide 10 L (22-30) mmol/L BUN 47 H (9-20) mg/dL Glucose 337 H (75-100) mg/dL POC Glucose 357 H 380 H (70-105) Hemoglobin A1c (4-6) % Lactic Acid (0.7-2.0) mmol/L Calcium 7.8 L (8.4-10.2) mg/dL Phosphorus (2.5-4.5) mg/dL Alkaline Phosphatase (35-129) units/L Albumin (3.9-5) g/dL 09/24/19 09/24/19 09/24/19 Range/Units 05:25 05:34 07:00 WBC (4.5-11.0) K/mm3 RBC (3.65-5.03) M/mm3 Hgb (11.8-15.2) gm/dl Hct (35.5-45.6) % MCV (84-94) fl MCHC (32-34) % RDW (13.2-15.2) % Plt Count (140-440) K/mm3 Seg Neuts % (Manual) (40.0-70.0) % Lymphocytes % (Manual) (13.4-35.0) % Seg Neutrophils # Man (1.8-7.7) K/mm3 VBG pH (7.320-7.420) Sodium 156 H (137-145) mmol/L Chloride 119.5 H (98-107) mmol/L Carbon Dioxide 15 L (22-30) mmol/L BUN 45 H (9-20) mg/dL Glucose 275 H (75-100) mg/dL POC Glucose 296 H 257 H (70-105) Hemoglobin A1c (4-6) % Lactic Acid (0.7-2.0) mmol/L Calcium 7.8 L (8.4-10.2) mg/dL Phosphorus (2.5-4.5) mg/dL Alkaline Phosphatase (35-129) units/L Albumin (3.9-5) g/dL 09/24/19 Range/Units 08:11 WBC (4.5-11.0) K/mm3 RBC (3.65-5.03) M/mm3 Hgb (11.8-15.2) gm/dl Hct (35.5-45.6) % MCV (84-94) fl MCHC (32-34) % RDW (13.2-15.2) % Plt Count (140-440) K/mm3 Seg Neuts % (Manual) (40.0-70.0) % Lymphocytes % (Manual) (13.4-35.0) % Seg Neutrophils # Man (1.8-7.7) K/mm3 VBG pH (7.320-7.420) Sodium (137-145) mmol/L Chloride (98-107) mmol/L Carbon Dioxide (22-30) mmol/L BUN (9-20) mg/dL Glucose (75-100) mg/dL POC Glucose 199 H (70-105) Hemoglobin A1c (4-6) % Lactic Acid (0.7-2.0) mmol/L Calcium (8.4-10.2) mg/dL Phosphorus (2.5-4.5) mg/dL Alkaline Phosphatase (35-129) units/L Albumin (3.9-5) g/dL Assessment and Plan Patient need to be evaluated by wound care for possible amputation. We will obtain a arterial duplex of his legs to determine the level at which the amputation would be viable and if any arterial intervention would be necessary prior to amputation. Patient currently septic and on pressors.
[2019-09-24] MEDS ORDERED: FAMOTIDINE 20 MG/2 ML INJ IV SCH (10:00)
[2019-09-24] MEDS ORDERED: ASPIRIN EC 81 MG TAB PO SCH (10:00)
[2019-09-24] MEDS ORDERED: D5W/0.45% NACL/KCL 20 MEQ 20 MEQ/1,000 ML BAG IV ONE (10:12)
[2019-09-24] MEDS: PANTOPRAZOLE 40 MG TAB PO SCH (10:46)
--- NOTE | 2019-09-24 11:08 | History and Physical Report ---
CHIEF COMPLAINT: Altered mental status for 1 day. HISTORY OF PRESENT ILLNESS: A 59-year-old -[place] male with history of diabetes and GERD, sent in for altered mental status. The patient was long lying in the bathroom. Police went on the well check because the family informed them to check on him. The patient is moaning and not responding properly. Moving all extremities. Very lethargic. No history could be gained. The patient lives alone. The patient is on insulin, but has not been taking insulin as per family. PAST MEDICAL HISTORY: Significant for insulin-dependent diabetes and GERD. SOCIAL HISTORY: Does not smoke. PAST SURGICAL HISTORY: Not available. FAMILY HISTORY: Hypertension. REVIEW OF SYSTEMS: Significant for altered mental status and confusion. CURRENT MEDICATIONS: Lantus 15 units b.i.d. Aspirin 81 mg once a day. Pantoprazole 40 mg once a day. PHYSICAL EXAMINATION: GENERAL: Elderly male, cachectic and disheveled, confused. VITAL SIGNS: Initial temperature was 99.1, later it was 100.3. Pulse was 106 and initial blood pressure was 70/41. HEENT: Dry mucous membranes. NECK: Supple, no lymphadenopathy, no thyromegaly. LUNGS: Clear to auscultation and percussion. Good air entry. CARDIOVASCULAR: S1, S2 heard. No gallop, no murmur, no rub. Apical impulse in left fifth intercostal space and midclavicular line. ABDOMEN: Soft and benign. No hepatosplenomegaly. No guarding, no rigidity. Hernial orifices are normal. EXTREMITIES: Right foot gangrene present. The entire foot after the mid tarsal joints is gangrenous. Dry gangrene. Left foot, discoloration of the dorsum of the foot present, but no gangrene. No open wounds. CENTRAL NERVOUS SYSTEM: Altered sensorium and confused, unable to answer questions properly. LABORATORY DATA: Significant for white count of 30,800, H and H of 8.6 and 30.9, platelet count is 853,000. Venous pH is 6.93. Sodium is 152, potassium is 4.3, bicarbonate is 3.1, glucose is 670. Lactic acid is 2.30. Phosphorus is 6.9. AST and ALT are normal. Albumin is 2.1. Urine shows ketones of 80. Glucose more than 500. Chest x-ray shows no acute findings. ASSESSMENT AND PLAN: 1. Acute encephalopathy secondary to diabetic ketoacidosis and sepsis. Treat the sepsis and DKA. IV antibiotics for now. IV insulin and DKA protocol. 2. Sepsis with hypotension. IV pressors and IV fluids. IV antibiotics. ID consult requested for antibiotic choice. 3. Right foot gangrene. Vascular Surgery consult requested. The patient may end up needing TMA or BKA. 4. Diabetic ketoacidosis. DKA protocol initiated. 5. Metabolic acidosis, severe. Elevated lactic acid secondary to sepsis. 6. Severe malnutrition. Dietitian consult requested. 7. Deep venous thrombosis prophylaxis. Heparin 5000 q. 12. 8. Hypernatremia. Half normal saline initiated. Critical care consult and ID consult and Vascular Surgery consult requested. In summary, the patient has acute encephalopathy, sepsis, DKA, right foot gangrene, metabolic acidosis, elevated lactic acid, hypernatremia. Critical care time is 48 minutes. The high probability OF a clinically significant sudden or life-threatening deterioration of the cardiorespiratory system and endocrine system required my full and direct attention, intervention and postoperative management. The aggregate critical care time was 48 minutes. The time is in addition to time spent performing reported procedures but includes the followin: Data review and interpretation 2: Patient assessment and monitoring of vital signs 3: Documentation 4:: Medication orders and management JOB# [id number] CASA/JEAN FARIA
--- NOTE | 2019-09-24 12:57 | Consultation ---
History of Present Illness - Reason for Consult Consult date: 09/24/19 right foot gangrene Requesting physician: SEMAJ MUÑIZ - History of Present Illness 59 years old male with history of diabetes, peripheral artery disease and right foot gas gangrene, was recently admitted from 09/15/2021 - 09/21/2019 and left AMA after refusing amputation, readmitted on 09/23/2019 due to be found unresponsive on his bathroom. Police found the patient on the floor off the bathroom. Patient is currently very altered, lethargic, unable to provide any history. Of note, he was evaluated by Dr. Claudio during recent admission and was recommended to have amputation. CTA capital right leg showed normal arteries but abnormal soft tissue edema with gas as well as possible early osteomyelitis from the second to the fourth toes. On arrival, temperature 99.1, went up to 101. HR 60, RR 11, O2 sat 100, BP 70/41. Initial WBC 30.8. Hemoglobin 8.6. Platelets 853. Creatinine 1.5. Sodium 151. Glucose 702. Lactate 2.8. Urinalysis negative. Chest x-ray no infiltrates. Review of Systems: Unable to obtain Past History Past Medical History: diabetes, PVD Medications and Allergies Allergies Allergy/AdvReac Type Severity Reaction Status Date / Time No Known Allergies Allergy Verified 12/01/18 12:05 Home Medications Medication Instructions Recorded Confirmed Last Taken Type Aspirin EC [Halfprin EC] 81 mg PO QDAY #30 tablet. 04/26/17 Unknown Rx Insulin Glargine,Hum.rec.anlog 15 units SUB-Q QAM #3 insuln.pen 04/26/17 Unknown Rx [Lantus Solostar] Insulin Glargine [Lantus] 15 unit SUB-Q QHS #1 vial 12/01/18 Unknown Rx Ondansetron [Zofran Odt] 4 mg PO Q8HR PRN #10 tab.rapdis 02/25/19 Unknown Rx Pantoprazole [Protonix] 40 mg PO QDAY #30 tablet 02/25/19 Unknown Rx Active Meds: Active Medications Acetaminophen (Tylenol) 650 mg PO Q4H PRN PRN Reason: Pain MILD(1-3)/Fever >100.5/CHRISTIANSON Aspirin (Halfprin Ec) 81 mg PO QDAY KATHY Last Admin: 09/24/19 10:46 Dose: Not Given Documented by: Hydromorphone HCl (Dilaudid) 0.5 mg IV Q3H PRN PRN Reason: Pain , Severe (7-10) Cefepime HCl (Cefepime/Ns 2 Gm/100 Ml) 2 gm in 100 mls @ 200 mls/hr IV Q8H KATHY; Protocol Last Admin: 09/24/19 10:10 Dose: 200 mls/hr Documented by: Vancomycin HCl (Vancomycin/Ns 1 Gm/250 Ml) 1 gm in 250 mls @ 166.667 mls/hr IV Q24H KATHY Norepinephrine (Levophed Drip 4 Mg/Ns 250 Ml) 4 mg in 250 mls @ 7.5 mls/hr IV TITR KATHY; Protocol Last Admin: 09/24/19 10:00 Dose: 14 mcg/min, 52.5 mls/hr Documented by: Insulin Human Regular 100 (units/ Sodium Chloride) 100 mls @ 1 mls/hr IV TITR KATHY; Protocol Last Titration: 09/24/19 12:03 Dose: 0 units/hr, 0 mls/hr Documented by: Sodium Chloride (Nacl 0.45% 1000 Ml) 1,000 mls @ 150 mls/hr IV DIRECT KATHY Last Admin: 09/24/19 00:32 Dose: 150 mls/hr Documented by: Clindamycin HCl (Cleocin 900 Mg/50 Ml) 900 mg in 50 mls @ 100 mls/hr IV Q8H KATHY; Protocol Last Admin: 09/24/19 10:13 Dose: 100 mls/hr Documented by: Insulin Human Isoph/Insulin Regular (Humulin 70/30) 15 unit SUB-Q BIDDIAB KATHY Ondansetron HCl (Zofran Odt) 4 mg PO Q8H PRN PRN Reason: Vomiting Ondansetron HCl (Zofran) 4 mg IV Q8H PRN PRN Reason: Nausea And Vomiting Oxycodone/Acetaminophen (Percocet 5/325) 1 tab PO Q6H PRN PRN Reason: Pain, Moderate (4-6) Pantoprazole Sodium (Protonix) 40 mg PO QDAY KATHY Last Admin: 09/24/19 10:46 Dose: Not Given Documented by: Sodium Chloride (Sodium Chloride Flush Syringe 10 Ml) 10 ml IV BID KATHY Last Admin: 09/24/19 10:47 Dose: 10 ml Documented by: Sodium Chloride (Sodium Chloride Flush Syringe 10 Ml) 10 ml IV PRN PRN PRN Reason: LINE FLUSH Physical Examination - Physical Exam Narrative exam: General appearance: Lethargic, nonverbal, in no acute distress Eyes: anicteric sclerae, moist conjunctivae; no lid-lag; PERRLA HENT: Atraumatic; oropharynx limited Lungs: CTA bilaterally CV: RRR Abdomen: Soft, non-tender Extremities: Right foot edema and Marked right foot discoloration with eschar there on fourth toes Skin: No rash. Psych: Nonagitated Neuro: Lethargic - Constitutional Vitals: Vital Signs Temp Pulse Resp BP Pulse Ox 99.4 F 107 H 16 122/77 100 09/24/19 07:39 09/24/19 10:45 09/24/19 10:45 09/24/19 10:45 09/24/19 10:00 Temperature -Last 24 Hours Temperature 99.4 F Temperature 101.3 F Temperature 98.3 F Temperature 93.3 F Temperature 89.5 F Temperature 84.5 F Temperature 92.8 F Temperature 99.1 F Results - Labs CBC & Chem 7: 09/23/19 17:32 09/24/19 05:25 Labs: Abnormal lab results 09/23/19 09/23/19 09/23/19 Range/Units 17:25 17:32 17:32 WBC 30.8 H (4.5-11.0) K/mm3 RBC 2.70 L (3.65-5.03) M/mm3 Hgb 8.6 L (11.8-15.2) gm/dl Hct 30.9 L (35.5-45.6) % MCV 115 H (84-94) fl MCHC 28 L (32-34) % RDW 15.4 H (13.2-15.2) % Plt Count 853 H (140-440) K/mm3 Seg Neuts % (Manual) 88.0 H (40.0-70.0) % Lymphocytes % (Manual) 5.0 L (13.4-35.0) % Seg Neutrophils # Man 27.1 H (1.8-7.7) K/mm3 VBG pH (7.320-7.420) Sodium 151 H (137-145) mmol/L Chloride 97.7 L (98-107) mmol/L Carbon Dioxide 5 L* (22-30) mmol/L BUN 55 H (9-20) mg/dL Glucose 702 H* (75-100) mg/dL POC Glucose (70-105) Hemoglobin A1c (4-6) % Lactic Acid 2.80 H* (0.7-2.0) mmol/L Calcium (8.4-10.2) mg/dL Phosphorus (2.5-4.5) mg/dL Alkaline Phosphatase 251 H (35-129) units/L Albumin 2.1 L (3.9-5) g/dL 09/23/19 09/23/19 09/23/19 Range/Units 17:57 19:24 19:24 WBC (4.5-11.0) K/mm3 RBC (3.65-5.03) M/mm3 Hgb (11.8-15.2) gm/dl Hct (35.5-45.6) % MCV (84-94) fl MCHC (32-34) % RDW (13.2-15.2) % Plt Count (140-440) K/mm3 Seg Neuts % (Manual) (40.0-70.0) % Lymphocytes % (Manual) (13.4-35.0) % Seg Neutrophils # Man (1.8-7.7) K/mm3 VBG pH 6.931 L* (7.320-7.420) Sodium (137-145) mmol/L Chloride (98-107) mmol/L Carbon Dioxide (22-30) mmol/L BUN (9-20) mg/dL Glucose (75-100) mg/dL POC Glucose (70-105) Hemoglobin A1c (4-6) % Lactic Acid 2.10 H* (0.7-2.0) mmol/L Calcium (8.4-10.2) mg/dL Phosphorus 6.90 H (2.5-4.5) mg/dL Alkaline Phosphatase (35-129) units/L Albumin (3.9-5) g/dL 09/23/19 09/23/19 09/23/19 Range/Units 19:24 20:15 21:00 WBC (4.5-11.0) K/mm3 RBC (3.65-5.03) M/mm3 Hgb (11.8-15.2) gm/dl Hct (35.5-45.6) % MCV (84-94) fl MCHC (32-34) % RDW (13.2-15.2) % Plt Count (140-440) K/mm3 Seg Neuts % (Manual) (40.0-70.0) % Lymphocytes % (Manual) (13.4-35.0) % Seg Neutrophils # Man (1.8-7.7) K/mm3 VBG pH (7.320-7.420) Sodium 152 H 151 H (137-145) mmol/L Chloride 107.8 H (98-107) mmol/L Carbon Dioxide 3 L* 5 L* (22-30) mmol/L BUN 51 H 50 H (9-20) mg/dL Glucose 670 H* 557 H* (75-100) mg/dL POC Glucose > 500 H (70-105) Hemoglobin A1c (4-6) % Lactic Acid (0.7-2.0) mmol/L Calcium 8.3 L (8.4-10.2) mg/dL Phosphorus (2.5-4.5) mg/dL Alkaline Phosphatase (35-129) units/L Albumin (3.9-5) g/dL 09/23/19 09/23/19 09/23/19 Range/Units 21:15 21:34 22:52 WBC (4.5-11.0) K/mm3 RBC (3.65-5.03) M/mm3 Hgb (11.8-15.2) gm/dl Hct (35.5-45.6) % MCV (84-94) fl MCHC (32-34) % RDW (13.2-15.2) % Plt Count (140-440) K/mm3 Seg Neuts % (Manual) (40.0-70.0) % Lymphocytes % (Manual) (13.4-35.0) % Seg Neutrophils # Man (1.8-7.7) K/mm3 VBG pH (7.320-7.420) Sodium (137-145) mmol/L Chloride (98-107) mmol/L Carbon Dioxide (22-30) mmol/L BUN (9-20) mg/dL Glucose (75-100) mg/dL POC Glucose > 500 H 490 H (70-105) Hemoglobin A1c (4-6) % Lactic Acid 2.20 H* (0.7-2.0) mmol/L Calcium (8.4-10.2) mg/dL Phosphorus (2.5-4.5) mg/dL Alkaline Phosphatase (35-129) units/L Albumin (3.9-5) g/dL 09/23/19 09/23/19 09/23/19 Range/Units 22:58 22:58 23:05 WBC (4.5-11.0) K/mm3 RBC (3.65-5.03) M/mm3 Hgb (11.8-15.2) gm/dl Hct (35.5-45.6) % MCV (84-94) fl MCHC (32-34) % RDW (13.2-15.2) % Plt Count (140-440) K/mm3 Seg Neuts % (Manual) (40.0-70.0) % Lymphocytes % (Manual) (13.4-35.0) % Seg Neutrophils # Man (1.8-7.7) K/mm3 VBG pH (7.320-7.420) Sodium 151 H (137-145) mmol/L Chloride 108.0 H (98-107) mmol/L Carbon Dioxide 5 L* (22-30) mmol/L BUN 49 H (9-20) mg/dL Glucose 510 H* (75-100) mg/dL POC Glucose (70-105) Hemoglobin A1c 14.0 H (4-6) % Lactic Acid (0.7-2.0) mmol/L Calcium 8.1 L (8.4-10.2) mg/dL Phosphorus 5.60 H (2.5-4.5) mg/dL Alkaline Phosphatase (35-129) units/L Albumin (3.9-5) g/dL 09/24/19 09/24/19 09/24/19 Range/Units 00:22 00:34 01:24 WBC (4.5-11.0) K/mm3 RBC (3.65-5.03) M/mm3 Hgb (11.8-15.2) gm/dl Hct (35.5-45.6) % MCV (84-94) fl MCHC (32-34) % RDW (13.2-15.2) % Plt Count (140-440) K/mm3 Seg Neuts % (Manual) (40.0-70.0) % Lymphocytes % (Manual) (13.4-35.0) % Seg Neutrophils # Man (1.8-7.7) K/mm3 VBG pH (7.320-7.420) Sodium 153 H (137-145) mmol/L Chloride 109.4 H (98-107) mmol/L Carbon Dioxide 7 L* (22-30) mmol/L BUN 48 H (9-20) mg/dL Glucose 461 H (75-100) mg/dL POC Glucose 453 H 418 H (70-105) Hemoglobin A1c (4-6) % Lactic Acid (0.7-2.0) mmol/L Calcium 8.2 L (8.4-10.2) mg/dL Phosphorus (2.5-4.5) mg/dL Alkaline Phosphatase (35-129) units/L Albumin (3.9-5) g/dL 09/24/19 09/24/19 09/24/19 Range/Units 02:54 03:02 04:04 WBC (4.5-11.0) K/mm3 RBC (3.65-5.03) M/mm3 Hgb (11.8-15.2) gm/dl Hct (35.5-45.6) % MCV (84-94) fl MCHC (32-34) % RDW (13.2-15.2) % Plt Count (140-440) K/mm3 Seg Neuts % (Manual) (40.0-70.0) % Lymphocytes % (Manual) (13.4-35.0) % Seg Neutrophils # Man (1.8-7.7) K/mm3 VBG pH (7.320-7.420) Sodium 155 H (137-145) mmol/L Chloride 114.8 H (98-107) mmol/L Carbon Dioxide 10 L (22-30) mmol/L BUN 47 H (9-20) mg/dL Glucose 337 H (75-100) mg/dL POC Glucose 357 H 380 H (70-105) Hemoglobin A1c (4-6) % Lactic Acid (0.7-2.0) mmol/L Calcium 7.8 L (8.4-10.2) mg/dL Phosphorus (2.5-4.5) mg/dL Alkaline Phosphatase (35-129) units/L Albumin (3.9-5) g/dL 09/24/19 09/24/19 09/24/19 Range/Units 05:25 05:34 07:00 WBC (4.5-11.0) K/mm3 RBC (3.65-5.03) M/mm3 Hgb (11.8-15.2) gm/dl Hct (35.5-45.6) % MCV (84-94) fl MCHC (32-34) % RDW (13.2-15.2) % Plt Count (140-440) K/mm3 Seg Neuts % (Manual) (40.0-70.0) % Lymphocytes % (Manual) (13.4-35.0) % Seg Neutrophils # Man (1.8-7.7) K/mm3 VBG pH (7.320-7.420) Sodium 156 H (137-145) mmol/L Chloride 119.5 H (98-107) mmol/L Carbon Dioxide 15 L (22-30) mmol/L BUN 45 H (9-20) mg/dL Glucose 275 H (75-100) mg/dL POC Glucose 296 H 257 H (70-105) Hemoglobin A1c (4-6) % Lactic Acid (0.7-2.0) mmol/L Calcium 7.8 L (8.4-10.2) mg/dL Phosphorus (2.5-4.5) mg/dL Alkaline Phosphatase (35-129) units/L Albumin (3.9-5) g/dL 09/24/19 09/24/19 09/24/19 Range/Units 08:11 09:18 10:47 WBC (4.5-11.0) K/mm3 RBC (3.65-5.03) M/mm3 Hgb (11.8-15.2) gm/dl Hct (35.5-45.6) % MCV (84-94) fl MCHC (32-34) % RDW (13.2-15.2) % Plt Count (140-440) K/mm3 Seg Neuts % (Manual) (40.0-70.0) % Lymphocytes % (Manual) (13.4-35.0) % Seg Neutrophils # Man (1.8-7.7) K/mm3 VBG pH (7.320-7.420) Sodium (137-145) mmol/L Chloride (98-107) mmol/L Carbon Dioxide (22-30) mmol/L BUN (9-20) mg/dL Glucose (75-100) mg/dL POC Glucose 199 H 212 H 149 H (70-105) Hemoglobin A1c (4-6) % Lactic Acid (0.7-2.0) mmol/L Calcium (8.4-10.2) mg/dL Phosphorus (2.5-4.5) mg/dL Alkaline Phosphatase (35-129) units/L Albumin (3.9-5) g/dL Assessment and Plan Cultures: Blood cultures 09/23/2019 no growth so far Assessment: 59 years old male with history of diabetes, peripheral artery disease and right foot gas gangrene, was recently admitted from 09/15/2021 - 09/21/2019 and left AMA after refusing amputation, readmitted on 09/23/2019 due to be found unresponsive on his bathroom: #Severe sepsis with septic shock: Present on admission with fever, hypotension, elevated lactate, ALFONSO and acute encephalopathy; likely due to right foot gas gangrene. #Right diabetic foot infection with gas gangrene with 3rd-4th toes osteomy elitis: This is most likely bacterial infection. Recent CTA of the legs show overall normal arteries. Blood cultures during previous admission were negative. #Diabetes mellitus: Uncontrolled. #Acute kidney injury: Likely due to sepsis #Acute encephalopathy: Likely due to severe sepsis Recommendations: Likely needs urgent right lower extremity amputation Follow-up blood cultures Continue with cefepime 2 g IV every 12 hours Continue clindamycin 900 g IV every 8 hours Continue vancomycin with PK consult, keep vancomycin trough 10-20 for now Prognosis guarded Will follow. Yanni Younger MD Infectious Diseases [employer] [facility], [place], [facility] M [phone] O [phone]
[2019-09-24 13:37] LABS: Hematocrit 24.5 % (35.5-45.6); Hemoglobin 7.6 gm/dl (11.8-15.2); Mean Corpuscular HGB Conc 31 % (32-34); Mean Corpuscular Volume 100 fl (84-94); Platelet Count 695 K/mm3 (140-440); Red Blood Count 2.46 M/mm3 (3.65-5.03); Red Cell Distribution Width 13.8 % (13.2-15.2)
[2019-09-24 13:52] LABS: BUN/Creatinine Ratio 45; Blood Urea Nitrogen 36 mg/dL (9-20); Calcium 7.6 mg/dL (8.4-10.2); Hemolysis Index 17
[2019-09-24] MEDS ORDERED: DEXTROSE 5% IN WATER 1,000 ML IV SCH (15:00)
[2019-09-24] MEDS: DEXTROSE 5% IN WATER 1,000 ML IV SCH (15:15)
[2019-09-24] MEDS: VANCOMYCIN/NS 1 GM/250 ML 1 GM/250 ML BAG IV SCH (15:42)
--- NOTE | 2019-09-24 17:36 | Vascular Lab Report ---
DUPLEX DOPPLER LOWER EXTREMITY ARTERIAL, BILATERAL INDICATION: gangrene. TECHNIQUE: Arterial duplex examination of both lower extremities performed using B-mode, color flow and spectral Doppler assessment. FINDINGS: RIGHT: Common Femoral Artery: PSV 90 cm/sec. Triphasic waveform. Proximal SFA: PSV 106 cm/sec. Triphasic waveform. Mid SFA: PSV 169 cm/sec. Triphasic waveform. Distal SFA: PSV 136 cm/sec. Triphasic waveform. Popliteal artery: PSV 127 cm/sec. Biphasic waveform. Posterior tibial artery: PSV 104 cm/sec. Biphasic waveform. Dorsalis Pedis Artery: PSV 63 cm/sec. Monophasic waveform. LEFT: Common Femoral Artery: PSV 104 cm/sec. Triphasic waveform. Proximal SFA: PSV 84 cm/sec. Triphasic waveform. Mid SFA: PSV 133 cm/sec. Triphasic waveform. Distal SFA: PSV 125 cm/sec. Triphasic waveform. Popliteal artery: PSV 65 cm/sec. Biphasic waveform. Posterior tibial artery: PSV 64 cm/sec. Triphasic waveform. Dorsalis Pedis Artery: PSV 41 cm/sec. Biphasic waveform. Right MIGUEL: 1.01. Left MIGUEL: 1.04. IMPRESSION: 1. Hemodynamically significant peripheral arterial disease in both calves based on Doppler waveform t ransition. 2. Normal MIGUEL values. Ankle-Brachial Index (MIGUEL): * Calcified arteries > 1.4 * Normal = 0.9-1.4 * Mild PAD = 0.7-0.89 * Moderate PAD = 0.51-0.69 * Severe PAD < 0.5 Doppler Waveform: * Triphasic is normal. * Biphasic is abnormal if clear transition from triphasic signal along vascular tree. * Monophasic is abnormal. Signer Name: Andres Rodarte MD Signed: 09/24/2019 5:32 PM Workstation Name: [email or web address]
[2019-09-24 18:52] LABS: BUN/Creatinine Ratio 46; Blood Urea Nitrogen 32 mg/dL (9-20); Hemolysis Index 2
--- NOTE | 2019-09-24 19:15 | Progress Note ---
Assessment and Plan The high probability OF a clinically significant sudden or life-threatening deterioration of the cardiorespiratory system and endocrine system required my full and direct attention, intervention and postoperative management. The aggregate critical care time was 40 minutes. The time is in addition to time spent performing reported procedures but includes the followin: Data review and interpretation 2: Patient assessment and monitoring of vital signs 3: Documentation 4:: Medication orders and management - Patient Problems (1) Sepsis Current Visit: Yes Status: Acute Qualifiers: Sepsis type: sepsis due to unspecified organism Plan to address problem: Sepsis as evidenced by fever tachycardia and hypotension and elevated lactic acid IV cefepime and vancomycin and IV clindamycin. (2) Gangrene of right foot Current Visit: Yes Status: Acute Plan to address problem: Patient is amputation below right knee. Patient refused amputation last time Continue IV antibiotics Peripheral arterial duplex scan had a good flow except soft tissue swelling from last visit Vascular surgery consulted (3) Diabetic ketoacidosis Current Visit: Yes Status: Acute Qualifiers: Diabetes mellitus type: type 2 Plan to address problem: DKA protocol Insulin drip IV fluids IV antibiotics (4) Hypernatremia Current Visit: Yes Status: Acute Plan to address problem: Continue half-normal saline and recheck sodium (5) DVT prophylaxis Current Visit: No Status: Acute Plan to address problem: Heparin subcu and GI prophylaxis Subjective Date of service: 09/24/19 Principal diagnosis: Sepsis, DKA, right foot gangrene Interval history: 59 years old male with history of severe peripheral artery disease right foot gangrene and diabetes admitted for altered mental status and decreased responsiveness. Patient was recently discharged on 09/21/2019. Patient refused right leg amputation. Patient left AMA. Patient being readmitted for found for being found unresponsive at home. Patient is very altered and lethargic and unable to provide history. With history of diabetes, peripheral artery disease and right foot gas gangrene, was recently admitted from 09/15/2021 - 09/21/2019 and left AMA after refusing amputation, readmitted on 09/23/2019 due to be found unresponsive on his bathroom. Police found the patient on the floor off the bathroom. Patient is currently very altered, lethargic, unable to provide any h istory. CT angiogram of the right leg showed normal arteries but abnormal soft tissue edema with gas as well as possible early osteomyelitis of the second third and fourth toes. Patient also has a high glucose of 102 and sodium of 151 at the time of admission. Patient is decreased responsive. Objective - Constitutional Vitals: Vital Signs - 12hr 09/24/19 09/24/19 09/24/19 07:39 07:50 08:00 Temperature 99.4 F Pulse Rate 113 H 115 H 115 H Respiratory 26 H 24 24 Rate Blood Pressure 107/77 118/71 Blood Pressure 113/71 [Right] O2 Sat by Pulse 100 100 100 Oximetry 09/24/19 09/24/19 09/24/19 08:10 08:20 08:30 Temperature Pulse Rate 114 H 112 H 111 H Respiratory 18 20 19 Rate Blood Pressure 118/71 116/72 114/71 Blood Pressure 118/71 [Right] O2 Sat by Pulse 100 98 100 Oximetry 09/24/19 09/24/19 09/24/19 08:40 08:50 09:00 Temperature Pulse Rate 112 H 111 H 110 H Respiratory 19 17 16 Rate Blood Pressure 114/71 114/71 119/74 Blood Pressure 118/74 [Right] O2 Sat by Pulse 100 100 100 Oximetry 09/24/19 09/24/19 09/24/19 09:10 09:20 09:30 Temperature Pulse Rate 111 H 111 H 113 H Respiratory 18 19 19 Rate Blood Pressure 119/74 118/74 94/57 Blood Pressure 94/57 [Right] O2 Sat by Pulse 100 100 100 Oximetry 09/24/19 09/24/19 09/24/19 09:40 09:50 10:00 Temperature Pulse Rate 117 H 114 H 115 H Respiratory 21 22 19 Rate Blood Pressure 94/57 89/61 107/71 Blood Pressure 107/71 [Right] O2 Sat by Pulse 100 100 100 Oximetry 09/24/19 09/24/19 09/24/19 10:10 10:20 10:30 Temperature Pulse Rate 112 H 110 H 109 H Respiratory 22 18 23 Rate Blood Pressure 122/77 128/79 120/75 Blood Pressure [Right] O2 Sat by Pulse 100 100 100 Oximetry 09/24/19 09/24/19 09/24/19 10:40 10:45 10:50 Temperature Pulse Rate 107 H 107 H 107 H Respiratory 21 16 17 Rate Blood Pressure 120/75 122/77 Blood Pressure 122/77 [Right] O2 Sat by Pulse 100 100 Oximetry 05/09/24/19 09/24/19 11:00 11:10 11:20 Temperature Pulse Rate 108 H 108 H 112 H Respiratory 18 18 20 Rate Blood Pressure 127/79 127/79 129/79 Blood Pressure [Right] O2 Sat by Pulse 99 100 100 Oximetry 09/24/19 09/24/19 09/24/19 11:30 11:40 11:50 Temperature Pulse Rate 110 H 114 H 108 H Respiratory 23 20 16 Rate Blood Pressure 127/77 127/77 127/79 Blood Pressure [Right] O2 Sat by Pulse 100 98 100 Oximetry 09/24/19 09/24/19 09/24/19 12:00 12:10 13:09 Temperature Pulse Rate 108 H 110 H 107 H Respiratory 14 16 16 Rate Blood Pressure 124/76 124/76 Blood Pressure [Right] O2 Sat by Pulse 100 100 99 Oximetry 09/24/19 09/24/19 09/24/19 13:10 13:20 13:30 Temperature Pulse Rate 107 H 107 H 107 H Respiratory 15 16 19 Rate Blood Pressure Blood Pressure [Right] O2 Sat by Pulse 100 98 98 Oximetry 09/24/19 09/24/19 09/24/19 13:40 13:50 14:00 Temperature Pulse Rate 107 H 106 H 105 H Respiratory 15 16 14 Rate Blood Pressure 121/78 Blood Pressure [Right] O2 Sat by Pulse 96 95 100 Oximetry 09/24/19 09/24/19 09/24/19 14:10 14:20 14:30 Temperature Pulse Rate 106 H 105 H 105 H Respiratory 16 12 18 Rate Blood Pressure 121/78 110/77 110/77 Blood Pressure [Right] O2 Sat by Pulse 99 96 100 Oximetry 09/24/19 09/24/19 09/24/19 14:40 14:50 15:00 Temperature Pulse Rate 107 H 107 H 104 H Respiratory 18 20 17 Rate Blood Pressure 110/77 110/77 114/75 Blood Pressure [Right] O2 Sat by Pulse 100 100 99 Oximetry 09/24/19 09/24/19 09/24/19 15:10 15:20 15:30 Temperature Pulse Rate 106 H 107 H 108 H Respiratory 17 17 16 Rate Blood Pressure 114/75 119/77 110/75 Blood Pressure [Right] O2 Sat by Pulse 100 100 100 Oximetry 09/24/19 09/24/19 09/24/19 15:40 15:50 16:00 Temperature Pulse Rate 109 H 108 H 109 H Respiratory 16 16 19 Rate Blood Pressure 110/75 104/68 104/68 Blood Pressure [Right] O2 Sat by Pulse 99 94 99 Oximetry 09/24/19 09/24/19 09/24/19 16:10 16:20 16:30 Temperature Pulse Rate 110 H 109 H 107 H Respiratory 15 19 18 Rate Blood Pressure 97/64 97/64 97/64 Blood Pressure [Right] O2 Sat by Pulse 100 100 95 Oximetry 09/24/19 09/24/19 09/24/19 16:40 16:50 17:00 Temperature Pulse Rate 109 H 107 H 109 H Respiratory 20 18 17 Rate Blood Pressure 97/64 104/67 107/68 Blood Pressure [Right] O2 Sat by Pulse 96 100 100 Oximetry 09/24/19 09/24/19 09/24/19 17:10 17:20 17:30 Temperature Pulse Rate 109 H 109 H 107 H Respiratory 16 15 15 Rate Blood Pressure 107/68 109/68 108/68 Blood Pressure [Right] O2 Sat by Pulse 99 93 91 Oximetry 09/24/19 09/24/19 09/24/19 17:40 17:50 18:00 Temperature Pulse Rate 107 H 107 H 109 H Respiratory 19 18 19 Rate Blood Pressure 108/68 113/72 111/75 Blood Pressure [Right] O2 Sat by Pulse 100 94 94 Oximetry 09/24/19 09/24/19 09/24/19 18:10 18:20 18:30 Temperature Pulse Rate 107 H 110 H 107 H Respiratory 17 20 18 Rate Blood Pressure 109/68 101/66 97/68 Blood Pressure [Right] O2 Sat by Pulse 91 92 91 Oximetry 09/24/19 18:40 Temperature Pulse Rate Respiratory Rate Blood Pressure 97/68 Blood Pressure [Right] O2 Sat by Pulse 89 Oximetry General appearance: Present: mild distress, well-nourished - EENT Eyes: PERRL, EOM intact ENT: hearing intact, clear oral mucosa Ears: bilateral: normal - Neck Neck: supple, normal ROM - Respiratory Respiratory effort: normal Respiratory: bilateral: CTA - Breasts Breasts: normal - Cardiovascular Heart rate: 98 Rhythm: regular Heart Sounds: Present: S1 & S2. Absent: gallop, rub Extremities: pulses intact, No edema, normal color, Full ROM, abnormal (Right foot gangrene present. Left foot discoloration present.) Extremity abnormal: other (Right foot gangrene) - Gastrointestinal General gastrointestinal: Present: soft, non-tender, non-distended, normal bowel sounds - Genitourinary Male genitourinary: normal - Integumentary Integumentary: clear, warm, dry - Musculoskeletal Musculoskeletal: 1, strength equal bilaterally - Neurologic Neurologic: moves all extremities - Psychiatric Psychiatric: memory intact, appropriate mood/affect, intact judgment & insight - Labs CBC & Chem 7: 09/24/19 13:28 09/24/19 17:59 Labs: Abnormal lab results 09/23/19 09/23/19 09/23/19 Range/Units 19:24 19:24 19:24 WBC (4.5-11.0) K/mm3 RBC (3.65-5.03) M/mm3 Hgb (11.8-15.2) gm/dl Hct (35.5-45.6) % MCV (84-94) fl MCHC (32-34) % Plt Count (140-440) K/mm3 Sodium 152 H (137-145) mmol/L Chloride 107.8 H (98-107) mmol/L Carbon Dioxide 3 L* (22-30) mmol/L BUN 51 H (9-20) mg/dL Creatinine (0.8-1.5) mg/dL Glucose 670 H* (75-100) mg/dL POC Glucose (70-105) Hemoglobin A1c (4-6) % Lactic Acid 2.10 H* (0.7-2.0) mmol/L Calcium (8.4-10.2) mg/dL Phosphorus 6.90 H (2.5-4.5) mg/dL 09/23/19 09/23/19 09/23/19 Range/Units 20:15 21:00 21:15 WBC (4.5-11.0) K/mm3 RBC (3.65-5.03) M/mm3 Hgb (11.8-15.2) gm/dl Hct (35.5-45.6) % MCV (84-94) fl MCHC (32-34) % Plt Count (140-440) K/mm3 Sodium 151 H (137-145) mmol/L Chloride (98-107) mmol/L Carbon Dioxide 5 L* (22-30) mmol/L BUN 50 H (9-20) mg/dL Creatinine (0.8-1.5) mg/dL Glucose 557 H* (75-100) mg/dL POC Glucose > 500 H (70-105) Hemoglobin A1c (4-6) % Lactic Acid 2.20 H* (0.7-2.0) mmol/L Calcium 8.3 L (8.4-10.2) mg/dL Phosphorus (2.5-4.5) mg/dL 09/23/19 09/23/19 09/23/19 Range/Units 21:34 22:52 22:58 WBC (4.5-11.0) K/mm3 RBC (3.65-5.03) M/mm3 Hgb (11.8-15.2) gm/dl Hct (35.5-45.6) % MCV (84-94) fl MCHC (32-34) % Plt Count (140-440) K/mm3 Sodium 151 H (137-145) mmol/L Chloride 108.0 H (98-107) mmol/L Carbon Dioxide 5 L* (22-30) mmol/L BUN 49 H (9-20) mg/dL Creatinine (0.8-1.5) mg/dL Glucose 510 H* (75-100) mg/dL POC Glucose > 500 H 490 H (70-105) Hemoglobin A1c (4-6) % Lactic Acid (0.7-2.0) mmol/L Calcium 8.1 L (8.4-10.2) mg/dL Phosphorus (2.5-4.5) mg/dL 09/23/19 09/23/19 09/24/19 Range/Units 22:58 23:05 00:22 WBC (4.5-11.0) K/mm3 RBC (3.65-5.03) M/mm3 Hgb (11.8-15.2) gm/dl Hct (35.5-45.6) % MCV (84-94) fl MCHC (32-34) % Plt Count (140-440) K/mm3 Sodium (137-145) mmol/L Chloride (98-107) mmol/L Carbon Dioxide (22-30) mmol/L BUN (9-20) mg/dL Creatinine (0.8-1.5) mg/dL Glucose (75-100) mg/dL POC Glucose 453 H (70-105) Hemoglobin A1c 14.0 H (4-6) % Lactic Acid (0.7-2.0) mmol/L Calcium (8.4-10.2) mg/dL Phosphorus 5.60 H (2.5-4.5) mg/dL 09/24/19 09/24/19 09/24/19 Range/Units 00:34 01:24 02:54 WBC (4.5-11.0) K/mm3 RBC (3.65-5.03) M/mm3 Hgb (11.8-15.2) gm/dl Hct (35.5-45.6) % MCV (84-94) fl MCHC (32-34) % Plt Count (140-440) K/mm3 Sodium 153 H (137-145) mmol/L Chloride 109.4 H (98-107) mmol/L Carbon Dioxide 7 L* (22-30) mmol/L BUN 48 H (9-20) mg/dL Creatinine (0.8-1.5) mg/dL Glucose 461 H (75-100) mg/dL POC Glucose 418 H 357 H (70-105) Hemoglobin A1c (4-6) % Lactic Acid (0.7-2.0) mmol/L Calcium 8.2 L (8.4-10.2) mg/dL Phosphorus (2.5-4.5) mg/dL 09/24/19 09/24/19 09/24/19 Range/Units 03:02 04:04 05:25 WBC (4.5-11.0) K/mm3 RBC (3.65-5.03) M/mm3 Hgb (11.8-15.2) gm/dl Hct (35.5-45.6) % MCV (84-94) fl MCHC (32-34) % Plt Count (140-440) K/mm3 Sodium 155 H 156 H (137-145) mmol/L Chloride 114.8 H 119.5 H (98-107) mmol/L Carbon Dioxide 10 L 15 L (22-30) mmol/L BUN 47 H 45 H (9-20) mg/dL Creatinine (0.8-1.5) mg/dL Glucose 337 H 275 H (75-100) mg/dL POC Glucose 380 H (70-105) Hemoglobin A1c (4-6) % Lactic Acid (0.7-2.0) mmol/L Calcium 7.8 L 7.8 L (8.4-10.2) mg/dL Phosphorus (2.5-4.5) mg/dL 09/24/19 09/24/19 09/24/19 Range/Units 05:34 07:00 08:11 WBC (4.5-11.0) K/mm3 RBC (3.65-5.03) M/mm3 Hgb (11.8-15.2) gm/dl Hct (35.5-45.6) % MCV (84-94) fl MCHC (32-34) % Plt Count (140-440) K/mm3 Sodium (137-145) mmol/L Chloride (98-107) mmol/L Carbon Dioxide (22-30) mmol/L BUN (9-20) mg/dL Creatinine (0.8-1.5) mg/dL Glucose (75-100) mg/dL POC Glucose 296 H 257 H 199 H (70-105) Hemoglobin A1c (4-6) % Lactic Acid (0.7-2.0) mmol/L Calcium (8.4-10.2) mg/dL Phosphorus (2.5-4.5) mg/dL 09/24/19 09/24/19 09/24/19 Range/Units 09:18 10:47 13:20 WBC (4.5-11.0) K/mm3 RBC (3.65-5.03) M/mm3 Hgb (11.8-15.2) gm/dl Hct (35.5-45.6) % MCV (84-94) fl MCHC (32-34) % Plt Count (140-440) K/mm3 Sodium (137-145) mmol/L Chloride (98-107) mmol/L Carbon Dioxide (22-30) mmol/L BUN (9-20) mg/dL Creatinine (0.8-1.5) mg/dL Glucose (75-100) mg/dL POC Glucose 212 H 149 H 248 H (70-105) Hemoglobin A1c (4-6) % Lactic Acid (0.7-2.0) mmol/L Calcium (8.4-10.2) mg/dL Phosphorus (2.5-4.5) mg/dL 09/24/19 09/24/19 09/24/19 Range/Units 13:28 13:28 14:27 WBC 24.8 H (4.5-11.0) K/mm3 RBC 2.46 L (3.65-5.03) M/mm3 Hgb 7.6 L (11.8-15.2) gm/dl Hct 24.5 L D (35.5-45.6) % MCV 100 H (84-94) fl MCHC 31 L (32-34) % Plt Count 695 H (140-440) K/mm3 Sodium 153 H (137-145) mmol/L Chloride 120.7 H (98-107) mmol/L Carbon Dioxide (22-30) mmol/L BUN 36 H (9-20) mg/dL Creatinine (0.8-1.5) mg/dL Glucose 324 H (75-100) mg/dL POC Glucose 229 H (70-105) Hemoglobin A1c (4-6) % Lactic Acid (0.7-2.0) mmol/L Calcium 7.6 L (8.4-10.2) mg/dL Phosphorus (2.5-4.5) mg/dL 09/24/19 09/24/19 09/24/19 Range/Units 15:10 15:25 16:28 WBC (4.5-11.0) K/mm3 RBC (3.65-5.03) M/mm3 Hgb (11.8-15.2) gm/dl Hct (35.5-45.6) % MCV (84-94) fl MCHC (32-34) % Plt Count (140-440) K/mm3 Sodium (137-145) mmol/L Chloride (98-107) mmol/L Carbon Dioxide (22-30) mmol/L BUN (9-20) mg/dL Creatinine (0.8-1.5) mg/dL Glucose (75-100) mg/dL POC Glucose > 500 H 321 H 329 H (70-105) Hemoglobin A1c (4-6) % Lactic Acid (0.7-2.0) mmol/L Calcium (8.4-10.2) mg/dL Phosphorus (2.5-4.5) mg/dL 09/24/19 09/24/19 Range/Units 17:49 17:59 WBC (4.5-11.0) K/mm3 RBC (3.65-5.03) M/mm3 Hgb (11.8-15.2) gm/dl Hct (35.5-45.6) % MCV (84-94) fl MCHC (32-34) % Plt Count (140-440) K/mm3 Sodium 157 H (137-145) mmol/L Chloride 120.2 H (98-107) mmol/L Carbon Dioxide (22-30) mmol/L BUN 32 H (9-20) mg/dL Creatinine 0.7 L (0.8-1.5) mg/dL Glucose (75-100) mg/dL POC Glucose 124 H (70-105) Hemoglobin A1c (4-6) % Lactic Acid (0.7-2.0) mmol/L Calcium 8.0 L (8.4-10.2) mg/dL Phosphorus (2.5-4.5) mg/dL HEART Score - HEART Score Troponin: Troponin T < 0.010 ng/mL (0.00-0.029) 09/23/19 17:32
--- NOTE | 2019-09-24 19:49 | Event Note ---
Date: 09/24/19 Attempted to contact the patient's emergency contact for consent for a right above the ankle guillotine amputation however there has been no answer at the number provided and the nurse stated that no one has been able to contact any family since his admission. Will hold off on the operation until family is contacted, the patient's mental status improves so the he can consent himself, or he becomes septic and requires emergent treatment that justifies proceeding without the consent of the patient or his family.
[2019-09-24] MEDS ORDERED: DEXTROSE 50% IN WATER (25GM) 50 ML SYRINGE IV ONE ×2 (20:19→20:29)
[2019-09-24] MEDS: INSULIN LISPRO 100 UNIT/ML SUB-Q SCH (22:35)
[2019-09-25 00:53] LABS: BUN/Creatinine Ratio 45; Blood Urea Nitrogen 27 mg/dL (9-20); Calcium 8.2 mg/dL (8.4-10.2); Hemolysis Index 3
[2019-09-25] MEDS: DEXTROSE 5% IN WATER 1,000 ML IV SCH (02:10)
[2019-09-25] MEDS: CEFEPIME/NS 2 GM/100 ML 2 GM/100 ML BAG IV SCH ×3 (02:11→17:04)
[2019-09-25] MEDS: INSULIN LISPRO 100 UNIT/ML SUB-Q SCH ×6 (02:11→22:24)
[2019-09-25] MEDS: VANCOMYCIN/NS 1 GM/250 ML 1 GM/250 ML BAG IV SCH ×2 (04:44→16:50)
[2019-09-25 06:50] LABS: Hematocrit 21.8 % (35.5-45.6); Hemoglobin 7.1 gm/dl (11.8-15.2); Mean Corpuscular HGB Conc 33 % (32-34); Mean Corpuscular Volume 98 fl (84-94); Platelet Count 511 K/mm3 (140-440); Red Blood Count 2.22 M/mm3 (3.65-5.03)
[2019-09-25 07:17] LABS: Alanine Aminotransferase 29 units/L (7-56); BUN/Creatinine Ratio 42; Blood Urea Nitrogen 21 mg/dL (9-20); Calcium 7.8 mg/dL (8.4-10.2); Hemolysis Index 3
[2019-09-25] MEDS ORDERED: POTASSIUM CHLORIDE ER 20 MEQ TAB PO NR (08:06)
--- NOTE | 2019-09-25 08:57 | Progress Note ---
Assessment and Plan Cultures: Blood cultures 09/23/2019 no growth so far Assessment: 59 years old male with history of diabetes, peripheral artery disease and right foot gas gangrene, was recently admitted from 09/15/2021 - 09/21/2019 and left AMA after refusing amputation, readmitted on 09/23/2019 due to be found unresponsive on his bathroom: #Severe sepsis with septic shock: off pressors today, leukocytosis better; likely due to right foot gas gangrene. 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 Recent CTA of the legs show overall normal arteries. Art US +PVD. #Diabetes mellitus: Uncontrolled. #Acute kidney injury: Likely due to sepsis #Acute encephalopathy: Likely due to severe sepsis Recommendations: Needs urgent right lower extremity amputation due to septic shock, vascular on board awaiting for consent Follow-up blood cultures Continue with cefepime 2 g IV every 12 hours Continue clindamycin 900 g IV every 8 hours Continue vancomycin with PK consult, keep vancomycin trough 10-20 for now Prognosis guarded I am covering the weekend Will follow. Yanni Younger MD Infectious Diseases [place] [facility] ([facility]) M [phone] O [phone] Subjective Date of service: 09/25/19 Principal diagnosis: Sepsis, DKA, right foot gangrene Interval history: Feels better, talking, tmax 101.3, off pressors. Objective - Exam Narrative Exam: General appearance: alert , in no acute distress Eyes: anicteric sclerae, moist conjunctivae; no lid-lag; PERRLA HENT: Atraumatic; oropharynx limited Lungs: CTA bilaterally CV: RRR Abdomen: Soft, non-tender Extremities: Right foot edema and Marked right foot discoloration with eschar there on fourth toes Skin: No rash. Psych: Nonagitated Neuro:alert oriented - Constitutional Vitals: Vital Signs Temp Pulse Resp BP Pulse Ox 97.6 F 112 H 17 101/68 91 09/25/19 03:30 09/25/19 07:15 09/25/19 07:15 09/25/19 07:15 09/25/19 07:15 Temperature -Last 24 Hours Temperature 97.6 F Temperature 98.4 F Temperature 98.1 F - Labs CBC & Chem 7: 09/25/19 06:00 09/25/19 06:00 Labs: Abnormal lab results 09/24/19 09/24/19 09/24/19 Range/Units 09:18 10:47 13:20 WBC (4.5-11.0) K/mm3 RBC (3.65-5.03) M/mm3 Hgb (11.8-15.2) gm/dl Hct (35.5-45.6) % MCV (84-94) fl MCHC (32-34) % Plt Count (140-440) K/mm3 Sodium (137-145) mmol/L Potassium (3.6-5.0) mmol/L Chloride (98-107) mmol/L BUN (9-20) mg/dL Creatinine (0.8-1.5) mg/dL Glucose (75-100) mg/dL POC Glucose 212 H 149 H 248 H (70-105) Calcium (8.4-10.2) mg/dL Total Bilirubin (0.1-1.2) mg/dL AST (5-40) units/L Alkaline Phosphatase (35-129) units/L Total Protein (6.3-8.2) g/dL Albumin (3.9-5) g/dL 09/24/19 09/24/19 09/24/19 Range/Units 13:28 13:28 14:27 WBC 24.8 H (4.5-11.0) K/mm3 RBC 2.46 L (3.65-5.03) M/mm3 Hgb 7.6 L (11.8-15.2) gm/dl Hct 24.5 L D (35.5-45.6) % MCV 100 H (84-94) fl MCHC 31 L (32-34) % Plt Count 695 H (140-440) K/mm3 Sodium 153 H (137-145) mmol/L Potassium (3.6-5.0) mmol/L Chloride 120.7 H (98-107) mmol/L BUN 36 H (9-20) mg/dL Creatinine (0.8-1.5) mg/dL Glucose 324 H (75-100) mg/dL POC Glucose 229 H (70-105) Calcium 7.6 L (8.4-10.2) mg/dL Total Bilirubin (0.1-1.2) mg/dL AST (5-40) units/L Alkaline Phosphatase (35-129) units/L Total Protein (6.3-8.2) g/dL Albumin (3.9-5) g/dL 09/24/19 09/24/19 09/24/19 Range/Units 15:10 15:25 16:28 WBC (4.5-11.0) K/mm3 RBC (3.65-5.03) M/mm3 Hgb (11.8-15.2) gm/dl Hct (35.5-45.6) % MCV (84-94) fl MCHC (32-34) % Plt Count (140-440) K/mm3 Sodium (137-145) mmol/L Potassium (3.6-5.0) mmol/L Chloride (98-107) mmol/L BUN (9-20) mg/dL Creatinine (0.8-1.5) mg/dL Glucose (75-100) mg/dL POC Glucose > 500 H 321 H 329 H (70-105) Calcium (8.4-10.2) mg/dL Total Bilirubin (0.1-1.2) mg/dL AST (5-40) units/L Alkaline Phosphatase (35-129) units/L Total Protein (6.3-8.2) g/dL Albumin (3.9-5) g/dL 09/24/19 09/24/19 09/24/19 Range/Units 17:49 17:59 20:29 WBC (4.5-11.0) K/mm3 RBC (3.65-5.03) M/mm3 Hgb (11.8-15.2) gm/dl Hct (35.5-45.6) % MCV (84-94) fl MCHC (32-34) % Plt Count (140-440) K/mm3 Sodium 157 H (137-145) mmol/L Potassium (3.6-5.0) mmol/L Chloride 120.2 H (98-107) mmol/L BUN 32 H (9-20) mg/dL Creatinine 0.7 L (0.8-1.5) mg/dL Glucose (75-100) mg/dL POC Glucose 124 H 50 L (70-105) Calcium 8.0 L (8.4-10.2) mg/dL Total Bilirubin (0.1-1.2) mg/dL AST (5-40) units/L Alkaline Phosphatase (35-129) units/L Total Protein (6.3-8.2) g/dL Albumin (3.9-5) g/dL 09/24/19 09/24/19 09/25/19 Range/Units 20:55 22:30 00:14 WBC (4.5-11.0) K/mm3 RBC (3.65-5.03) M/mm3 Hgb (11.8-15.2) gm/dl Hct (35.5-45.6) % MCV (84-94) fl MCHC (32-34) % Plt Count (140-440) K/mm3 Sodium 151 H (137-145) mmol/L Potassium 3.1 L (3.6-5.0) mmol/L Chloride 113.8 H (98-107) mmol/L BUN 27 H (9-20) mg/dL Creatinine 0.6 L (0.8-1.5) mg/dL Glucose 242 H (75-100) mg/dL POC Glucose 245 H 280 H (70-105) Calcium 8.2 L (8.4-10.2) mg/dL Total Bilirubin (0.1-1.2) mg/dL AST (5-40) units/L Alkaline Phosphatase (35-129) units/L Total Protein (6.3-8.2) g/dL Albumin (3.9-5) g/dL 09/25/19 09/25/19 09/25/19 Range/Units 02:10 06:00 06:00 WBC 23.6 H (4.5-11.0) K/mm3 RBC 2.22 L (3.65-5.03) M/mm3 Hgb 7.1 L (11.8-15.2) gm/dl Hct 21.8 L (35.5-45.6) % MCV 98 H (84-94) fl MCHC (32-34) % Plt Count 511 H (140-440) K/mm3 Sodium 152 H (137-145) mmol/L Potassium 3.0 L (3.6-5.0) mmol/L Chloride 116.0 H (98-107) mmol/L BUN 21 H (9-20) mg/dL Creatinine 0.5 L (0.8-1.5) mg/dL Glucose 203 H (75-100) mg/dL POC Glucose 261 H (70-105) Calcium 7.8 L (8.4-10.2) mg/dL Total Bilirubin 1.30 H (0.1-1.2) mg/dL AST 54 H (5-40) units/L Alkaline Phosphatase 231 H (35-129) units/L Total Protein 5.9 L D (6.3-8.2) g/dL Albumin 2.0 L (3.9-5) g/dL 09/25/19 Range/Units 06:14 WBC (4.5-11.0) K/mm3 RBC (3.65-5.03) M/mm3 Hgb (11.8-15.2) gm/dl Hct (35.5-45.6) % MCV (84-94) fl MCHC (32-34) % Plt Count (140-440) K/mm3 Sodium (137-145) mmol/L Potassium (3.6-5.0) mmol/L Chloride (98-107) mmol/L BUN (9-20) mg/dL Creatinine (0.8-1.5) mg/dL Glucose (75-100) mg/dL POC Glucose 234 H (70-105) Calcium (8.4-10.2) mg/dL Total Bilirubin (0.1-1.2) mg/dL AST (5-40) units/L Alkaline Phosphatase (35-129) units/L Total Protein (6.3-8.2) g/dL Albumin (3.9-5) g/dL
[2019-09-25] MEDS: POTASSIUM CHLORIDE 40 MEQ in DEXTROSE 5% IN WATER 1,000 ML IV SCH ×2 (09:48→22:13)
[2019-09-25] MEDS: PANTOPRAZOLE 40 MG TAB PO SCH (09:51)
[2019-09-25 09:58] LABS: Band Neutrophils # (Manual) 0.7 K/mm3; Basophils % (Manual) 0 % (0.0-1.8); Eosinophils % (Manual) 0 % (0.0-4.3); Total Cells Counted 100
[2019-09-25 09:59] LABS: RBC Morphology Normal
[2019-09-25 10:00] LABS: Platelet Estimate Consistent w Auto; Toxic Granulation 1+
--- NOTE | 2019-09-25 10:22 | Progress Note ---
Assessment and Plan 59 y/o male with sepsis from gangrenous foot, needing amputation and severe free water depletion. 1. Changed D5w to D5W with K 2. Gave oral K supplements 3. Reviewed ID note and appreciate their help 4. Await vascular surgery reassessment. Feel patient is oriented enough to have adequate judgement with proper information about procedure. If two physician consent is needed, I am willing to sign. Subjective Date of service: 09/25/19 Principal diagnosis: Sepsis, DKA, right foot gangrene Interval history: Sodium better, K is low. BUN is improving and mental state is better. Room reeks of his foot from the gangrene. Patient is estranged from all family members but is relatively coherent. Objective - Constitutional Vitals: Vital Signs - 12hr 09/24/19 09/24/19 09/24/19 22:30 22:45 23:00 Temperature Pulse Rate 108 H 109 H 107 H Pulse Rate [ From Monitor] Respiratory 14 18 15 Rate Blood Pressure 114/70 113/74 118/76 O2 Sat by Pulse 99 100 99 Oximetry 09/24/19 09/24/19 09/24/19 23:12 23:15 23:30 Temperature 98.4 F Pulse Rate 106 H 108 H Pulse Rate [ From Monitor] Respiratory 14 14 Rate Blood Pressure 120/72 113/70 O2 Sat by Pulse 90 100 Oximetry 09/24/19 09/25/19 09/25/19 23:45 00:00 00:16 Temperature Pulse Rate 109 H 109 H 108 H Pulse Rate [ 108 H From Monitor] Respiratory 14 15 15 Rate Blood Pressure 110/64 112/71 113/70 O2 Sat by Pulse 94 92 92 Oximetry 09/25/19 09/25/19 09/25/19 00:30 00:45 01:00 Temperature Pulse Rate 108 H 108 H 108 H Pulse Rate [ From Monitor] Respiratory 14 18 16 Rate Blood Pressure 118/72 111/74 112/71 O2 Sat by Pulse 92 94 92 Oximetry 09/25/19 09/25/19 09/25/19 01:15 01:30 01:45 Temperature Pulse Rate 108 H 111 H 108 H Pulse Rate [ From Monitor] Respiratory 16 18 20 Rate Blood Pressure 112/74 114/68 118/75 O2 Sat by Pulse 100 93 89 Oximetry 05/22/20 05/22/20 05/22/20 02:00 02:15 02:30 Temperature Pulse Rate 111 H 108 H 108 H Pulse Rate [ From Monitor] Respiratory 20 18 16 Rate Blood Pressure 118/71 109/71 O2 Sat by Pulse 100 100 97 Oximetry 09/25/19 09/25/19 09/25/19 02:45 03:00 03:15 Temperature Pulse Rate 108 H 110 H 106 H Pulse Rate [ From Monitor] Respiratory 20 20 17 Rate Blood Pressure 116/71 109/63 105/61 O2 Sat by Pulse 91 97 100 Oximetry 09/25/19 09/25/19 09/25/19 03:30 03:45 04:00 Temperature 97.6 F Pulse Rate 108 H 109 H 110 H Pulse Rate [ 111 H From Monitor] Respiratory 14 21 18 Rate Blood Pressure 113/62 114/72 115/71 O2 Sat by Pulse 92 94 100 Oximetry 09/25/19 09/25/19 09/25/19 04:15 04:30 04:45 Temperature Pulse Rate 110 H 110 H 108 H Pulse Rate [ From Monitor] Respiratory 17 14 17 Rate Blood Pressure 110/69 110/69 117/67 O2 Sat by Pulse 89 98 100 Oximetry 09/25/19 09/25/19 09/25/19 05:00 05:15 05:30 Temperature Pulse Rate 113 H 115 H 111 H Pulse Rate [ From Monitor] Respiratory 16 20 11 L Rate Blood Pressure 118/61 118/73 105/70 O2 Sat by Pulse 95 94 88 Oximetry 09/25/19 09/25/19 09/25/19 05:46 06:00 06:16 Temperature Pulse Rate 114 H 112 H 112 H Pulse Rate [ From Monitor] Respiratory 21 21 15 Rate Blood Pressure 124/80 125/81 115/79 O2 Sat by Pulse 97 87 91 Oximetry 09/25/19 09/25/19 09/25/19 06:30 06:45 07:00 Temperature Pulse Rate 113 H 113 H 111 H Pulse Rate [ From Monitor] Respiratory 14 22 17 Rate Blood Pressure 107/78 111/75 111/75 O2 Sat by Pulse 93 89 96 Oximetry 09/25/19 07:15 Temperature Pulse Rate 112 H Pulse Rate [ From Monitor] Respiratory 17 Rate Blood Pressure 101/68 O2 Sat by Pulse 91 Oximetry General appearance: Present: no acute distress, disheveled, other (thin and frail) - EENT Eyes: PERRL ENT: hearing intact, poor dentition, other (dry mucosa) - Respiratory Respiratory effort: normal Respiratory: bilateral: CTA - Cardiovascular Rhythm: other (sinus tach) Extremities: abnormal - Labs CBC & Chem 7: 09/25/19 06:00 09/25/19 06:00 Labs: Abnormal lab results 09/24/19 09/24/19 09/24/19 Range/Units 10:47 13:20 13:28 WBC (4.5-11.0) K/mm3 RBC (3.65-5.03) M/mm3 Hgb (11.8-15.2) gm/dl Hct (35.5-45.6) % MCV (84-94) fl MCHC (32-34) % Plt Count (140-440) K/mm3 Seg Neuts % (Manual) (40.0-70.0) % Lymphocytes % (Manual) (13.4-35.0) % Nucleated RBC % (0.0-0.9) % Seg Neutrophils # Man (1.8-7.7) K/mm3 Sodium 153 H (137-145) mmol/L Potassium (3.6-5.0) mmol/L Chloride 120.7 H (98-107) mmol/L BUN 36 H (9-20) mg/dL Creatinine (0.8-1.5) mg/dL Glucose 324 H (75-100) mg/dL POC Glucose 149 H 248 H (70-105) Calcium 7.6 L (8.4-10.2) mg/dL Total Bilirubin (0.1-1.2) mg/dL AST (5-40) units/L Alkaline Phosphatase (35-129) units/L Total Protein (6.3-8.2) g/dL Albumin (3.9-5) g/dL 09/24/19 09/24/19 09/24/19 Range/Units 13:28 14:27 15:10 WBC 24.8 H (4.5-11.0) K/mm3 RBC 2.46 L (3.65-5.03) M/mm3 Hgb 7.6 L (11.8-15.2) gm/dl Hct 24.5 L D (35.5-45.6) % MCV 100 H (84-94) fl MCHC 31 L (32-34) % Plt Count 695 H (140-440) K/mm3 Seg Neuts % (Manual) (40.0-70.0) % Lymphocytes % (Manual) (13.4-35.0) % Nucleated RBC % (0.0-0.9) % Seg Neutrophils # Man (1.8-7.7) K/mm3 Sodium (137-145) mmol/L Potassium (3.6-5.0) mmol/L Chloride (98-107) mmol/L BUN (9-20) mg/dL Creatinine (0.8-1.5) mg/dL Glucose (75-100) mg/dL POC Glucose 229 H > 500 H (70-105) Calcium (8.4-10.2) mg/dL Total Bilirubin (0.1-1.2) mg/dL AST (5-40) units/L Alkaline Phosphatase (35-129) units/L Total Protein (6.3-8.2) g/dL Albumin (3.9-5) g/dL 09/24/19 09/24/19 09/24/19 Range/Units 15:25 16:28 17:49 WBC (4.5-11.0) K/mm3 RBC (3.65-5.03) M/mm3 Hgb (11.8-15.2) gm/dl Hct (35.5-45.6) % MCV (84-94) fl MCHC (32-34) % Plt Count (140-440) K/mm3 Seg Neuts % (Manual) (40.0-70.0) % Lymphocytes % (Manual) (13.4-35.0) % Nucleated RBC % (0.0-0.9) % Seg Neutrophils # Man (1.8-7.7) K/mm3 Sodium (137-145) mmol/L Potassium (3.6-5.0) mmol/L Chloride (98-107) mmol/L BUN (9-20) mg/dL Creatinine (0.8-1.5) mg/dL Glucose (75-100) mg/dL POC Glucose 321 H 329 H 124 H (70-105) Calcium (8.4-10.2) mg/dL Total Bilirubin (0.1-1.2) mg/dL AST (5-40) units/L Alkaline Phosphatase (35-129) units/L Total Protein (6.3-8.2) g/dL Albumin (3.9-5) g/dL 09/24/19 09/24/19 09/24/19 Range/Units 17:59 20:29 20:55 WBC (4.5-11.0) K/mm3 RBC (3.65-5.03) M/mm3 Hgb (11.8-15.2) gm/dl Hct (35.5-45.6) % MCV (84-94) fl MCHC (32-34) % Plt Count (140-440) K/mm3 Seg Neuts % (Manual) (40.0-70.0) % Lymphocytes % (Manual) (13.4-35.0) % Nucleated RBC % (0.0-0.9) % Seg Neutrophils # Man (1.8-7.7) K/mm3 Sodium 157 H (137-145) mmol/L Potassium (3.6-5.0) mmol/L Chloride 120.2 H (98-107) mmol/L BUN 32 H (9-20) mg/dL Creatinine 0.7 L (0.8-1.5) mg/dL Glucose (75-100) mg/dL POC Glucose 50 L 245 H (70-105) Calcium 8.0 L (8.4-10.2) mg/dL Total Bilirubin (0.1-1.2) mg/dL AST (5-40) units/L Alkaline Phosphatase (35-129) units/L Total Protein (6.3-8.2) g/dL Albumin (3.9-5) g/dL 09/24/19 09/25/19 09/25/19 Range/Units 22:30 00:14 02:10 WBC (4.5-11.0) K/mm3 RBC (3.65-5.03) M/mm3 Hgb (11.8-15.2) gm/dl Hct (35.5-45.6) % MCV (84-94) fl MCHC (32-34) % Plt Count (140-440) K/mm3 Seg Neuts % (Manual) (40.0-70.0) % Lymphocytes % (Manual) (13.4-35.0) % Nucleated RBC % (0.0-0.9) % Seg Neutrophils # Man (1.8-7.7) K/mm3 Sodium 151 H (137-145) mmol/L Potassium 3.1 L (3.6-5.0) mmol/L Chloride 113.8 H (98-107) mmol/L BUN 27 H (9-20) mg/dL Creatinine 0.6 L (0.8-1.5) mg/dL Glucose 242 H (75-100) mg/dL POC Glucose 280 H 261 H (70-105) Calcium 8.2 L (8.4-10.2) mg/dL Total Bilirubin (0.1-1.2) mg/dL AST (5-40) units/L Alkaline Phosphatase (35-129) units/L Total Protein (6.3-8.2) g/dL Albumin (3.9-5) g/dL 09/25/19 09/25/19 09/25/19 Range/Units 06:00 06:00 06:14 WBC 23.6 H (4.5-11.0) K/mm3 RBC 2.22 L (3.65-5.03) M/mm3 Hgb 7.1 L (11.8-15.2) gm/dl Hct 21.8 L (35.5-45.6) % MCV 98 H (84-94) fl MCHC (32-34) % Plt Count 511 H (140-440) K/mm3 Seg Neuts % (Manual) 90.0 H (40.0-70.0) % Lymphocytes % (Manual) 5.0 L (13.4-35.0) % Nucleated RBC % 1.0 H (0.0-0.9) % Seg Neutrophils # Man 21.2 H (1.8-7.7) K/mm3 Sodium 152 H (137-145) mmol/L Potassium 3.0 L (3.6-5.0) mmol/L Chloride 116.0 H (98-107) mmol/L BUN 21 H (9-20) mg/dL Creatinine 0.5 L (0.8-1.5) mg/dL Glucose 203 H (75-100) mg/dL POC Glucose 234 H (70-105) Calcium 7.8 L (8.4-10.2) mg/dL Total Bilirubin 1.30 H (0.1-1.2) mg/dL AST 54 H (5-40) units/L Alkaline Phosphatase 231 H (35-129) units/L Total Protein 5.9 L D (6.3-8.2) g/dL Albumin 2.0 L (3.9-5) g/dL Medications & Allergies - Medications Allergies/Adverse Reactions: Allergies No Known Allergies Allergy (Verified 12/01/18 12:05) Home Medications: Home Medications Medication Instructions Recorded Confirmed Last Taken Type Aspirin EC [Halfprin EC] 81 mg PO QDAY #30 tablet.dr 04/26/17 09/24/19 Unknown Rx Insulin Glargine,Hum.rec.anlog 15 units SUB-Q QAM #3 insuln.pen 04/26/17 Unknown Rx [Lantus Solostar] Insulin Glargine [Lantus] 15 unit SUB-Q QHS #1 vial 12/01/18 09/24/19 Unknown Rx Ondansetron [Zofran Odt] 4 mg PO Q8HR PRN #10 tab.rapdis 02/25/19 09/24/19 Unknown Rx Pantoprazole [Protonix] 40 mg PO QDAY #30 tablet 02/25/19 09/24/19 Unknown Rx Active Medications: Generic Name Dose Route Start Last Admin Trade Name Freq PRN Reason Stop Dose Admin Acetaminophen 650 mg 09/23/19 22:51 Tylenol PO Q4H PRN Pain MILD(1-3)/Fever >100.5/CHRISTIANSON Hydromorphone HCl 0.5 mg 09/23/19 22:51 Dilaudid IV Q3H PRN Pain , Severe (7-10) Cefepime HCl 2 gm in 100 mls @ 200 mls/hr 09/23/19 17:32 09/25/19 02:11 Cefepime/Ns 2 Gm/100 Ml IV 200 mls/hr Q8H KATHY Administration Protocol Vancomycin HCl 1 gm in 250 mls @ 166.667 mls/hr 09/24/19 16:00 09/25/19 04:44 Vancomycin/Ns 1 Gm/250 Ml IV 166.667 mls/hr Q12H KATHY Administration Norepinephrine 4 mg in 250 mls @ 7.5 mls/hr 09/23/19 19:20 09/24/19 15:37 Levophed Drip 4 Mg/Ns 250 Ml IV 0 mcg/min TITR KATHY 0 mls/hr Titration Protocol 2 MCG/MIN Clindamycin HCl 900 mg in 50 mls @ 100 mls/hr 09/24/19 10:00 09/25/19 09:50 Cleocin 900 Mg/50 Ml IV 100 mls/hr Q8H KATHY Administration Protocol Potassium Chloride 40 meq/ 1,020 mls @ 125 mls/hr 09/25/19 09:00 09/25/19 09:48 Dextrose IV 125 mls/hr DIRECT KATHY Administration Insulin Human Isoph/Insulin Regular 15 unit 09/24/19 08:00 Humulin 70/30 SUB-Q BIDDIAB KATHY Insulin Human Lispro 0 unit 09/24/19 22:00 09/25/19 06:20 Humalog SUB-Q 3 unit Q4HR KATHY Administration Protocol Ondansetron HCl 4 mg 09/23/19 22:50 Zofran Odt PO Q8H PRN Vomiting Ondansetron HCl 4 mg 09/23/19 22:51 Zofran IV Q8H PRN Nausea And Vomiting Oxycodone/Acetaminophen 1 tab 09/23/19 22:51 Percocet 5/325 PO Q6H PRN Pain, Moderate (4-6) Pantoprazole Sodium 40 mg 09/24/19 10:00 09/25/19 09:51 Protonix PO 40 mg QDAY KATHY Administration Sodium Chloride 10 ml 09/24/19 10:00 09/24/19 22:36 Sodium Chloride Flush Syringe 10 Ml IV 10 ml BID KATHY Administration Sodium Chloride 10 ml 09/23/19 22:51 Sodium Chloride Flush Syringe 10 Ml IV PRN PRN LINE FLUSH HEART Score - HEART Score Troponin: Troponin T < 0.010 ng/mL (0.00-0.029) 09/23/19 17:32
[2019-09-25] MEDS ORDERED: SODIUM CHLORIDE 0.9% 500 ML 500 ML IV SCH (10:30)
--- NOTE | 2019-09-25 10:33 | Event Note ---
Date: 09/25/19 Patient's mental status has significantly improved today after antibiotics and fluid resuscitation. I explained his overall situation with him including his sepsis secondary to his diabetic foot infection. He stated that he was aware that his right foot was making him sick and that it was life over limb. He explained that he left the Emergency Department 1 week ago because "people" told him he needed to get a second opinion however he realizes that he now requires the amputation to save his life. I explained the risk, benefits, and alt ernatives of the guillotine amputation. He expressed understanding and wishes to proceed.
--- NOTE | 2019-09-25 11:15 | Anesthesia Consultation ---
Anesthesia Consult and Med Hx Date of service: 09/25/19 - Airway Anesthetic Teeth Evaluation: Edentulous ROM Head & Neck: Adequate Mental/Hyoid Distance: Adequate Mallampati Class: Class II Intubation Access Assessment: Probably Good - Pulmonary Exam CTA: Yes - Cardiac Exam Cardiac Exam: RRR - Pre-Operative Health Status ASA Pre-Surgery Classification: ASA3, Emergency Proposed Anesthetic Plan: General - Pulmonary Hx Pneumonia: No - Gastrointestinal Hx Gastroesophageal Reflux Disease: Yes - Endocrine Hx Insulin Dependent Diabetes: Yes - Additional Comments Anesthesia Medical History Comments: Pt obtunded yesterday. Now rehydrated, no pressors, ICU monitoring, septic foot, alert and oriented currently, understands high risk of anesthesia with current conditions but need for urgent need for amputation. electrolytes are not ideal but need for amputation to help correct lytes, hgb now 7.1, T and C for a unit at this point, will give in OR if not finished by the the time of OR.
--- NOTE | 2019-09-25 11:16 | Anesthesia Day of Surgery ---
Anesthesia Day of Surgery - Day of Surgery Patient Examined: Yes Patient H&P Reviewed: Yes Patient is NPO: Yes
[2019-09-25 11:58] LABS: BUN/Creatinine Ratio 53; Blood Urea Nitrogen 21 mg/dL (9-20); Calcium 8.1 mg/dL (8.4-10.2); Hemolysis Index 3
[2019-09-25] MEDS ORDERED: propofoL 200 MG/20 ML VIAL IV ONE (13:26)
[2019-09-25] MEDS ORDERED: fentaNYL 100 MCG/2 ML INJ ONE (13:26)
[2019-09-25] MEDS ORDERED: LIDOCAINE MPF (2%) 20 MG/1 ML VIAL 5 ML ONE (13:27)
[2019-09-25] MEDS ORDERED: BUPIVACAINE-EPINEPHRINE/PF 0.5%-1:200,000 (30 ML) VIAL INFILTRATI ONE ×2 (13:38→15:25)
[2019-09-25] MEDS ORDERED: ONDANSETRON 4 MG/2 ML INJ IV PRN (15:16)
[2019-09-25] MEDS ORDERED: HYDROmorphone 1 MG/1 ML INJ IV PRN ×2 (15:16)
[2019-09-25] MEDS ORDERED: SODIUM CHLORIDE 0.9% IRR 1,000 ML BOTTLE IR ONE (15:26)
[2019-09-25] MEDS ORDERED: PHENYLEPHRINE/NS 1,000 MCG/10 ML SYRINGE (OR USE) IV ONE (15:34)
[2019-09-25] MEDS ORDERED: ONDANSETRON 4 MG/2 ML INJ ONE (15:34)
--- NOTE | 2019-09-25 15:37 | Operative Report ---
Operative Report Operative Report: Date of Procedure: 09/25/2019 Pre-operative Diagnosis: Sepsis Secondary to Right Diabetic Foot Ulcer With Wet Gangrene Post-operative Diagnosis: Same Procedure(s): 1. Right above Ankle Guillotine Amputation Surgeon: Gerson Maloney M.D. Speech Writer: None Anesthesia: General Endotracheal Anesthesia EBL: Minimal Counts: Correct Complications: None Condition: Stable Findings: No evidence of purulence in the remaining tissue and all remaining tissue appeared viable and healthy. Specimen: Right foot was sent to pathology. Indication: The patient is a 59-year-old male with a history of diabetes who initially presented to the hospital approximately 1 week ago with a diabetic foot ulcer of his right foot with radiographic evidence of gas tracking in the soft tissue. An amputation was recommended at that time however the patient signed out AMA and said he was going to [facility] for second opinion. He was later found down at his home after police were called for a well check visit. He was brought here and found to be septic and in severe DKA secondary to worsening of his foot wound. He has since been started on antibiotics and resuscitated and was able to be stabilized from his initial severe septic presentation. He was given the risk, benefits, and alternative procedures of a guillotine amputation of his right foot and consented to the operation. Description of Procedure: The patient was brought to the operating room and after a timeout was performed his right leg was prepped and draped in normal sterile fashion. A tourniquet was applied to the right thigh and inflated to 300 mmHg and then a circumferential incision was created just above the ankle and carried down to the soft tissue using a 10 blade. Cautery was then used to divide all the muscle and soft tissue until the tibia and fibula were exposed. Periosteal elevators were then used to elevate the periosteum from the tibia and fibula. The oscillating saw was then used to divide the tibia and fibula and then cautery was used to divide the remainder of the muscle and soft tissue until the foot was completely amputated and was passed off as a specimen. All neurovascular bundles were identified and suture ligated. Once this was done the tourniquet was deflated with a total inflation time of 8 minutes. There was no significant bleeding identified so the wound was copiously irrigated and anesthetized with 0.5% Marcaine with epinephrine. The wound was then dressed with a Xeroform gauze, fluffs, and ABD pad, a Kerlix roll, and a 4 inch Jose Elias bandage. The patient tolerated the procedure well. All sponge, needle, and instrument counts were correct. The patient was taken to the recovery area in stable condition.
[2019-09-25] MEDS ORDERED: MORPHINE 4 MG/1 ML INJ IV PRN (15:38)
[2019-09-25] MEDS ORDERED: SODIUM CHLORIDE 0.9% 1000 ML 1,000 ML ONE ×2 (15:39)
--- NOTE | 2019-09-25 16:10 | Post Anesthesia Evaluation ---
- Post Anesthesia Evaluation Patient Participated: Yes Airway Patent: Yes Stable Respiratory Function: Yes Nausea/Vomiting: No Temp > 96.8F: Yes Pain Manageable: Yes Adequeate Hydration: Yes Anesthesia Complications: No
[2019-09-25] MEDS ORDERED: INSULIN LISPRO 100 UNIT/ML SUB-Q ONE (16:14)
[2019-09-26] MEDS: INSULIN LISPRO 100 UNIT/ML SUB-Q SCH ×7 (02:56→23:07)
[2019-09-26] MEDS: CEFEPIME/NS 2 GM/100 ML 2 GM/100 ML BAG IV SCH ×3 (03:07→17:56)
[2019-09-26] MEDS: VANCOMYCIN/NS 1 GM/250 ML 1 GM/250 ML BAG IV SCH ×2 (05:07→17:56)
[2019-09-26 06:38] LABS: Mean Corpuscular HGB Conc 33 % (32-34); Mean Corpuscular Volume 98 fl (84-94); Platelet Count 437 K/mm3 (140-440); Red Blood Count 1.81 M/mm3 (3.65-5.03); Red Cell Distribution Width 14.3 % (13.2-15.2)
[2019-09-26 06:49] LABS: BUN/Creatinine Ratio 55; Blood Urea Nitrogen 22 mg/dL (9-20); Calcium 7.5 mg/dL (8.4-10.2); Hemolysis Index 12
[2019-09-26 07:09] LABS: Hematocrit 17.7 % (35.5-45.6); Hemoglobin 5.8 gm/dl (11.8-15.2)
--- NOTE | 2019-09-26 10:20 | Progress Note ---
Assessment and Plan 59 y/o male with sepsis from gangrenous foot, needing amputation and severe free water depletion. 1. IV and oral k replacement 2. Stat Mag level 3. Encourage more oral intake 4. Na has improved greatly, agree with not needing D5 anymore. 5. let vascular see and after that should be stable for transfer to floor. Will repeat H/H stat. Subjective Date of service: 09/26/19 Principal diagnosis: Sepsis, DKA, right foot gangrene Interval history: had AKA done yesterday. Tolerated well. H/H low this am. K low at 2.7. IMS stopped fluids in the night but did not restart something with K. Secondary to elevated sugars per documentation. Objective - Constitutional Vitals: Vital Signs - 12hr 09/25/19 09/25/19 09/25/19 22:30 22:45 23:00 Temperature Pulse Rate 96 H 92 H 91 H Pulse Rate [ From Monitor] Respiratory 10 L 17 15 Rate Blood Pressure 107/70 104/66 111/67 O2 Sat by Pulse 94 100 100 Oximetry 09/25/19 09/25/19 09/25/19 23:10 23:15 23:30 Temperature 98.2 F Pulse Rate 94 H 96 H Pulse Rate [ From Monitor] Respiratory 11 L 18 Rate Blood Pressure 102/63 96/60 O2 Sat by Pulse 100 100 Oximetry 09/25/19 09/26/19 09/26/19 23:45 00:00 00:15 Temperature Pulse Rate 100 H 97 H 95 H Pulse Rate [ 98 H From Monitor] Respiratory 16 13 10 L Rate Blood Pressure 101/63 101/64 102/63 O2 Sat by Pulse 98 97 Oximetry 09/26/19 09/26/19 09/26/19 00:30 00:45 01:00 Temperature Pulse Rate 97 H 98 H 96 H Pulse Rate [ From Monitor] Respiratory 23 12 16 Rate Blood Pressure 102/66 99/61 97/61 O2 Sat by Pulse 89 82 L Oximetry 09/26/19 09/26/19 09/26/19 01:15 01:30 01:45 Temperature Pulse Rate 96 H 97 H 100 H Pulse Rate [ From Monitor] Respiratory 14 13 14 Rate Blood Pressure 97/63 97/58 93/49 O2 Sat by Pulse 96 58 L Oximetry 05/23/20 05/23/20 05/23/20 01:49 02:00 02:15 Temperature Pulse Rate 98 H 102 H 104 H Pulse Rate [ From Monitor] Respiratory 13 16 Rate Blood Pressure 99/68 99/68 O2 Sat by Pulse 83 L Oximetry 09/26/19 09/26/19 09/26/19 02:30 02:46 03:00 Temperature Pulse Rate 103 H 112 H 101 H Pulse Rate [ From Monitor] Respiratory 17 15 12 Rate Blood Pressure 92/68 98/64 O2 Sat by Pulse 83 L 85 93 Oximetry 09/26/19 09/26/19 09/26/19 03:15 03:21 03:30 Temperature 98.7 F Pulse Rate 96 H 100 H Pulse Rate [ From Monitor] Respiratory 13 15 Rate Blood Pressure 87/59 87/59 O2 Sat by Pulse 98 81 L Oximetry 09/26/19 09/26/19 09/26/19 03:45 04:00 04:15 Temperature Pulse Rate 95 H 95 H 96 H Pulse Rate [ 95 H From Monitor] Respiratory 13 14 15 Rate Blood Pressure 75/41 75/43 74/43 O2 Sat by Pulse 100 100 98 Oximetry 09/26/19 09/26/19 09/26/19 04:30 04:45 05:00 Temperature Pulse Rate 94 H 94 H 105 H Pulse Rate [ From Monitor] Respiratory 15 15 16 Rate Blood Pressure 86/41 70/39 74/43 O2 Sat by Pulse 100 100 93 Oximetry 09/26/19 09/26/19 09/26/19 05:15 05:30 05:45 Temperature Pulse Rate 97 H 97 H 93 H Pulse Rate [ From Monitor] Respiratory 15 17 11 L Rate Blood Pressure 89/55 85/53 84/49 O2 Sat by Pulse 95 89 95 Oximetry 09/26/19 09/26/19 09/26/19 06:00 06:15 06:30 Temperature Pulse Rate 93 H 96 H 94 H Pulse Rate [ From Monitor] Respiratory 16 13 17 Rate Blood Pressure 80/49 87/54 81/49 O2 Sat by Pulse 99 97 Oximetry 09/26/19 09/26/19 09/26/19 06:45 07:00 07:15 Temperature Pulse Rate 94 H 99 H 98 H Pulse Rate [ From Monitor] Respiratory 17 14 17 Rate Blood Pressure 81/48 84/54 82/51 O2 Sat by Pulse 100 100 Oximetry General appearance: Present: no acute distress, disheveled - EENT Eyes: EOM intact ENT: hearing intact - Neck Neck: supple, normal ROM - Respiratory Respiratory effort: normal Respiratory: bilateral: CTA - Cardiovascular Rhythm: regular Heart Sounds: Present: S1 & S2 - Gastrointestinal General gastrointestinal: Present: soft - Musculoskeletal Musculoskeletal: other (AKA) - Labs CBC & Chem 7: 09/26/19 05:00 09/26/19 05:00 Labs: Abnormal lab results 09/25/19 09/25/19 09/25/19 Range/Units 10:48 11:15 11:15 WBC (4.5-11.0) K/mm3 RBC (3.65-5.03) M/mm3 Hgb (11.8-15.2) gm/dl Hct (35.5-45.6) % MCV (84-94) fl Sodium 148 H (137-145) mmol/L Potassium 3.2 L (3.6-5.0) mmol/L Chloride 111.8 H (98-107) mmol/L BUN 21 H (9-20) mg/dL Creatinine 0.4 L (0.8-1.5) mg/dL Glucose 200 H (75-100) mg/dL POC Glucose 190 H (70-105) Calcium 8.1 L (8.4-10.2) mg/dL Crossmatch See Detail 09/25/19 09/25/19 09/25/19 Range/Units 14:19 16:18 17:48 WBC (4.5-11.0) K/mm3 RBC (3.65-5.03) M/mm3 Hgb (11.8-15.2) gm/dl Hct (35.5-45.6) % MCV (84-94) fl Sodium (137-145) mmol/L Potassium (3.6-5.0) mmol/L Chloride (98-107) mmol/L BUN (9-20) mg/dL Creatinine (0.8-1.5) mg/dL Glucose (75-100) mg/dL POC Glucose 250 H 267 H 267 H (70-105) Calcium (8.4-10.2) mg/dL Crossmatch 09/25/19 09/26/19 09/26/19 Range/Units 22:34 01:49 05:00 WBC (4.5-11.0) K/mm3 RBC (3.65-5.03) M/mm3 Hgb (11.8-15.2) gm/dl Hct (35.5-45.6) % MCV (84-94) fl Sodium (137-145) mmol/L Potassium 2.7 L* (3.6-5.0) mmol/L Chloride (98-107) mmol/L BUN 22 H (9-20) mg/dL Creatinine 0.4 L (0.8-1.5) mg/dL Glucose 217 H (75-100) mg/dL POC Glucose 377 H 278 H (70-105) Calcium 7.5 L (8.4-10.2) mg/dL Crossmatch 09/26/19 09/26/19 09/26/19 Range/Units 05:00 05:07 10:08 WBC 11.3 H (4.5-11.0) K/mm3 RBC 1.81 L (3.65-5.03) M/mm3 Hgb 5.8 L* (11.8-15.2) gm/dl Hct 17.7 L* (35.5-45.6) % MCV 98 H (84-94) fl Sodium (137-145) mmol/L Potassium (3.6-5.0) mmol/L Chloride (98-107) mmol/L BUN (9-20) mg/dL Creatinine (0.8-1.5) mg/dL Glucose (75-100) mg/dL POC Glucose 252 H 204 H (70-105) Calcium (8.4-10.2) mg/dL Crossmatch Medications & Allergies - Medications Allergies/Adverse Reactions: Allergies No Known Allergies Allergy (Verified 12/01/18 12:05) Home Medications: Home Medications Medication Instructions Recorded Confirmed Last Taken Type Aspirin EC [Halfprin EC] 81 mg PO QDAY #30 tablet. 04/26/17 09/24/19 Unknown Rx Insulin Glargine,Hum.rec.anlog 15 units SUB-Q QAM #3 insuln.pen 04/26/17 09/24/19 Unknown Rx [Lantus Solostar] Insulin Glargine [Lantus] 15 unit SUB-Q QHS #1 vial 12/01/18 09/24/19 Unknown Rx Ondansetron [Zofran Odt] 4 mg PO Q8HR PRN #10 tab.rapdis 02/25/19 09/24/19 Unknown Rx Pantoprazole [Protonix] 40 mg PO QDAY #30 tablet 02/25/19 09/24/19 Unknown Rx Active Medications: Generic Name Dose Route Start Last Admin Trade Name Freq PRN Reason Stop Dose Admin Acetaminophen 650 mg 09/23/19 22:51 Tylenol PO Q4H PRN Pain MILD(1-3)/Fever >100.5/CHRISTIANSON Hydromorphone HCl 0.5 mg 09/23/19 22:51 Dilaudid IV Q3H PRN Pain , Severe (7-10) Cefepime HCl 2 gm in 100 mls @ 200 mls/hr 09/23/19 17:32 09/26/19 03:07 Cefepime/Ns 2 Gm/100 Ml IV 200 mls/hr Q8H KATHY Administration Protocol Vancomycin HCl 1 gm in 250 mls @ 166.667 mls/hr 09/24/19 16:00 09/26/19 05:07 Vancomycin/Ns 1 Gm/250 Ml IV 166.7 mls/hr Q12H KATHY Administration Norepinephrine 4 mg in 250 mls @ 7.5 mls/hr 09/23/19 19:20 09/24/19 15:37 Levophed Drip 4 Mg/Ns 250 Ml IV 0 mcg/min TITR KATHY 0 mls/hr Titration Protocol 2 MCG/MIN Clindamycin HCl 900 mg in 50 mls @ 100 mls/hr 09/24/19 10:00 09/26/19 02:56 Cleocin 900 Mg/50 Ml IV 100 mls/hr Q8H KATHY Administration Protocol Potassium Chloride 10 meq in 100 mls @ 100 mls/hr 09/26/19 11:00 Kcl 10meq/100ml IV 09/26/19 14:59 Q1H KATHY Insulin Human Isoph/Insulin Regular 15 unit 09/24/19 08:00 Humulin 70/30 SUB-Q BIDDIAB KATHY Insulin Human Lispro 0 unit 09/24/19 22:00 09/26/19 02:56 Humalog SUB-Q 4 unit Q4HR AKTHY Administration Protocol Morphine Sulfate 3 mg 09/25/19 15:38 Morphine IV Q3H PRN Pain , Severe (7-10) Ondansetron HCl 4 mg 09/23/19 22:50 Zofran Odt PO Q8H PRN Vomiting Ondansetron HCl 4 mg 09/23/19 22:51 Zofran IV Q8H PRN Nausea And Vomiting Oxycodone/Acetaminophen 1 tab 09/23/19 22:51 Percocet 5/325 PO Q6H PRN Pain, Moderate (4-6) Pantoprazole Sodium 40 mg 09/24/19 10:00 09/25/19 09:51 Protonix PO 40 mg QDAY KATHY Administration Potassium Chloride 40 meq 09/26/19 10:14 K-Dur PO 09/26/19 10:15 ONCE ONE Sodium Chloride 10 ml 09/24/19 10:00 09/25/19 22:13 Sodium Chloride Flush Syringe 10 Ml IV 10 ml BID KATHY Administration Sodium Chloride 10 ml 09/23/19 22:51 Sodium Chloride Flush Syringe 10 Ml IV PRN PRN LINE FLUSH HEART Score - HEART Score Troponin: Troponin T < 0.010 ng/mL (0.00-0.029) 09/23/19 17:32
[2019-09-26 10:41] LABS: Band Neutrophils # (Manual) 0.2 K/mm3; Basophils % (Manual) 0 % (0.0-1.8); Eosinophils % (Manual) 0 % (0.0-4.3); Hypochromasia 1+; Large Platelets Few; Platelet Estimate Consistent w Auto; Target Cells 1+; Total Cells Counted 100
--- NOTE | 2019-09-26 10:55 | Progress Note ---
Assessment and Plan The high probability OF a clinically significant sudden or life-threatening deterioration of the cardiorespiratory system and endocrine system required my full and direct attention, intervention and postoperative management. The aggregate critical care time was 40 minutes. The time is in addition to time spent performing reported procedures but includes the followin: Data review and interpretation 2: Patient assessment and monitoring of vital signs 3: Documentation 4:: Medication orders and management - Patient Problems (1) Status post below knee amputation of right lower extremity Current Visit: Yes Status: Acute Plan to address problem: Rt BKA today (2) Sepsis Current Visit: Yes Status: Acute Qualifiers: Sepsis type: sepsis due to unspecified organism Plan to address problem: Sepsis as evidenced by fever tachycardia and hypotension and elevated lactic acid IV cefepime and vancomycin and IV clindamycin. (3) Gangrene of right foot Current Visit: Yes Status: Acute Plan to address problem: Patient is amputation below right knee. Patient refused amputation last time Continue IV antibiotics Peripheral arterial duplex scan had a good flow except soft tissue swelling from last visit Vascular surgery consulted Had Rt BKA today (4) Diabetic ketoacidosis Current Visit: Yes Status: Acute Qualifiers: Diabetes mellitus type: type 2 Plan to address problem: DKA protocol Insulin drip IV fluids IV antibiotics (5) Hypernatremia Current Visit: Yes Status: Acute Plan to address problem: Continue half-normal saline and recheck sodium (6) DVT prophylaxis Current Visit: No Status: Acute Plan to address problem: Heparin subcu and GI prophylaxis Subjective Date of service: 09/25/19 Principal diagnosis: Sepsis, DKA, right foot gangrene Interval history: 59 years old male with history of severe peripheral artery disease right foot gangrene and diabetes admitted for altered mental status and decreased responsiveness. Patient was recently discharged on 09/21/2019. Patient refused right leg amputation. Patient left AMA. Patient being readmitted for found for being found unresponsive at home. Patient is very altered and lethargic and unable to provide history. With history of diabetes, peripheral artery disease and right foot gas gangrene, was recently admitted from 09/15/2021 - 09/21/2019 and left AMA after refusing amputation, readmitted on 09/23/2019 due to be found unresponsive on his bathroom. Police found the patient on the floor off the bathroom. Patient is currently very altered, lethargic, unable to provide any history. CT angiogram of the right leg showed normal arteries but abnormal soft tissue edema with gas as well as possible early osteomyelitis of the second third and fourth toes. Patient also has a high glucose of 102 and sodium of 151 at the time of admission. Patient is decreased responsive. S/p Rt BKA today Objective - Constitutional Vitals: Vital Signs - 12hr 09/25/19 09/25/19 09/25/19 23:00 23:10 23:15 Temperature 98.2 F Pulse Rate 91 H 94 H Pulse Rate [ From Monitor] Respiratory 15 11 L Rate Blood Pressure 111/67 102/63 O2 Sat by Pulse 100 100 Oximetry 09/25/19 09/25/19 09/26/19 23:30 23:45 00:00 Temperature Pulse Rate 96 H 100 H 97 H Pulse Rate [ 98 H From Monitor] Respiratory 18 16 13 Rate Blood Pressure 96/60 101/63 101/64 O2 Sat by Pulse 100 98 97 Oximetry 09/26/19 09/26/19 09/26/19 00:15 00:30 00:45 Temperature Pulse Rate 95 H 97 H 98 H Pulse Rate [ From Monitor] Respiratory 10 L 23 12 Rate Blood Pressure 102/63 102/66 99/61 O2 Sat by Pulse 89 82 L Oximetry 09/26/19 09/26/19 09/26/19 01:00 01:15 01:30 Temperature Pulse Rate 96 H 96 H 97 H Pulse Rate [ From Monitor] Respiratory 16 14 13 Rate Blood Pressure 97/61 97/63 97/58 O2 Sat by Pulse 96 Oximetry 09/26/19 09/26/19 09/26/19 01:45 01:49 02:00 Temperature Pulse Rate 100 H 98 H 102 H Pulse Rate [ From Monitor] Respiratory 14 13 Rate Blood Pressure 93/49 99/68 O2 Sat by Pulse 58 L Oximetry 09/26/19 09/26/19 09/26/19 02:15 02:30 02:46 Temperature Pulse Rate 104 H 103 H 112 H Pulse Rate [ From Monitor] Respiratory 16 17 15 Rate Blood Pressure 99/68 92/68 O2 Sat by Pulse 83 L 83 L 85 Oximetry 09/26/19 09/26/19 09/26/19 03:00 03:15 03:21 Temperature 98.7 F Pulse Rate 101 H 96 H Pulse Rate [ From Monitor] Respiratory 12 13 Rate Blood Pressure 98/64 87/59 O2 Sat by Pulse 93 98 Oximetry 09/26/19 09/26/19 09/26/19 03:30 03:45 04:00 Temperature Pulse Rate 100 H 95 H 95 H Pulse Rate [ 95 H From Monitor] Respiratory 15 13 14 Rate Blood Pressure 87/59 75/41 75/43 O2 Sat by Pulse 81 L 100 100 Oximetry 09/26/19 09/26/19 09/26/19 04:15 04:30 04:45 Temperature Pulse Rate 96 H 94 H 94 H Pulse Rate [ From Monitor] Respiratory 15 15 15 Rate Blood Pressure 74/43 86/41 70/39 O2 Sat by Pulse 98 100 100 Oximetry 09/26/19 09/26/19 09/26/19 05:00 05:15 05:30 Temperature Pulse Rate 105 H 97 H 97 H Pulse Rate [ From Monitor] Respiratory 16 15 17 Rate Blood Pressure 74/43 89/55 85/53 O2 Sat by Pulse 93 95 89 Oximetry 09/26/19 09/26/19 09/26/19 05:45 06:00 06:15 Temperature Pulse Rate 93 H 93 H 96 H Pulse Rate [ From Monitor] Respiratory 11 L 16 13 Rate Blood Pressure 84/49 80/49 87/54 O2 Sat by Pulse 95 99 Oximetry 09/26/19 09/26/19 09/26/19 06:30 06:45 07:00 Temperature Pulse Rate 94 H 94 H 99 H Pulse Rate [ From Monitor] Respiratory 17 17 14 Rate Blood Pressure 81/49 81/48 84/54 O2 Sat by Pulse 97 100 Oximetry 09/26/19 09/26/19 09/26/19 07:15 07:30 07:45 Temperature Pulse Rate 98 H 101 H 97 H Pulse Rate [ From Monitor] Respiratory 17 14 14 Rate Blood Pressure 82/51 96/63 86/52 O2 Sat by Pulse 100 86 87 Oximetry 09/26/19 09/26/19 09/26/19 08:00 08:16 08:30 Temperature Pulse Rate 98 H 101 H 109 H Pulse Rate [ From Monitor] Respiratory 14 15 15 Rate Blood Pressure 84/51 90/54 96/63 O2 Sat by Pulse 88 Oximetry 09/26/19 09/26/19 09/26/19 08:46 09:00 09:16 Temperature Pulse Rate 110 H 114 H 113 H Pulse Rate [ From Monitor] Respiratory 15 14 12 Rate Blood Pressure 92/53 92/53 91/67 O2 Sat by Pulse 85 97 Oximetry 09/26/19 09/26/19 09/26/19 09:30 09:45 10:00 Temperature Pulse Rate 105 H 101 H 99 H Pulse Rate [ From Monitor] Respiratory 15 15 16 Rate Blood Pressure 80/53 85/56 82/47 O2 Sat by Pulse 71 L Oximetry 09/26/19 09/26/19 10:15 10:30 Temperature Pulse Rate 97 H 97 H Pulse Rate [ From Monitor] Respiratory 13 14 Rate Blood Pressure 80/48 80/47 O2 Sat by Pulse 100 Oximetry General appearance: Present: no acute distress, well-nourished - EENT Eyes: PERRL, EOM intact ENT: hearing intact, clear oral mucosa Ears: bilateral: normal - Neck Neck: supple, normal ROM - Respiratory Respiratory effort: normal Respiratory: bilateral: CTA - Breasts Breasts: normal - Cardiovascular Rhythm: regular Heart Sounds: Present: S1 & S2. Absent: gallop, rub Extremities: pulses intact, No edema, normal color, Full ROM, abnormal (S/p R BKA) - Gastrointestinal General gastrointestinal: Present: soft, non-tender, non-distended, normal bowel sounds - Genitourinary Male genitourinary: normal - Integumentary Integumentary: clear, warm, dry - Musculoskeletal Musculoskeletal: 1, strength equal bilaterally - Neurologic Neurologic: moves all extremities - Psychiatric Psychiatric: memory intact, appropriate mood/affect, intact judgment & insight - Labs CBC & Chem 7: 09/26/19 05:00 09/26/19 05:00 Labs: Abnormal lab results 09/25/19 09/25/19 09/25/19 Range/Units 10:48 11:15 11:15 WBC (4.5-11.0) K/mm3 RBC (3.65-5.03) M/mm3 Hgb (11.8-15.2) gm/dl Hct (35.5-45.6) % MCV (84-94) fl Seg Neuts % (Manual) (40.0-70.0) % Lymphocytes % (Manual) (13.4-35.0) % Nucleated RBC % (0.0-0.9) % Seg Neutrophils # Man (1.8-7.7) K/mm3 Lymphocytes # (Manual) (1.2-5.4) K/mm3 Sodium 148 H (137-145) mmol/L Potassium 3.2 L (3.6-5.0) mmol/L Chloride 111.8 H (98-107) mmol/L BUN 21 H (9-20) mg/dL Creatinine 0.4 L (0.8-1.5) mg/dL Glucose 200 H (75-100) mg/dL POC Glucose 190 H (70-105) Calcium 8.1 L (8.4-10.2) mg/dL Crossmatch See Detail 09/25/19 09/25/19 09/25/19 Range/Units 14:19 16:18 17:48 WBC (4.5-11.0) K/mm3 RBC (3.65-5.03) M/mm3 Hgb (11.8-15.2) gm/dl Hct (35.5-45.6) % MCV (84-94) fl Seg Neuts % (Manual) (40.0-70.0) % Lymphocytes % (Manual) (13.4-35.0) % Nucleated RBC % (0.0-0.9) % Seg Neutrophils # Man (1.8-7.7) K/mm3 Lymphocytes # (Manual) (1.2-5.4) K/mm3 Sodium (137-145) mmol/L Potassium (3.6-5.0) mmol/L Chloride (98-107) mmol/L BUN (9-20) mg/dL Creatinine (0.8-1.5) mg/dL Glucose (75-100) mg/dL POC Glucose 250 H 267 H 267 H (70-105) Calcium (8.4-10.2) mg/dL Crossmatch 09/25/19 09/26/19 09/26/19 Range/Units 22:34 01:49 05:00 WBC (4.5-11.0) K/mm3 RBC (3.65-5.03) M/mm3 Hgb (11.8-15.2) gm/dl Hct (35.5-45.6) % MCV (84-94) fl Seg Neuts % (Manual) (40.0-70.0) % Lymphocytes % (Manual) (13.4-35.0) % Nucleated RBC % (0.0-0.9) % Seg Neutrophils # Man (1.8-7.7) K/mm3 Lymphocytes # (Manual) (1.2-5.4) K/mm3 Sodium (137-145) mmol/L Potassium 2.7 L* (3.6-5.0) mmol/L Chloride (98-107) mmol/L BUN 22 H (9-20) mg/dL Creatinine 0.4 L (0.8-1.5) mg/dL Glucose 217 H (75-100) mg/dL POC Glucose 377 H 278 H (70-105) Calcium 7.5 L (8.4-10.2) mg/dL Crossmatch 09/26/19 09/26/19 09/26/19 Range/Units 05:00 05:07 10:08 WBC 11.3 H (4.5-11.0) K/mm3 RBC 1.81 L (3.65-5.03) M/mm3 Hgb 5.8 L* (11.8-15.2) gm/dl Hct 17.7 L* (35.5-45.6) % MCV 98 H (84-94) fl Seg Neuts % (Manual) 90.0 H (40.0-70.0) % Lymphocytes % (Manual) 5.0 L (13.4-35.0) % Nucleated RBC % 1.0 H (0.0-0.9) % Seg Neutrophils # Man 10.2 H (1.8-7.7) K/mm3 Lymphocytes # (Manual) 0.6 L (1.2-5.4) K/mm3 Sodium (137-145) mmol/L Potassium (3.6-5.0) mmol/L Chloride (98-107) mmol/L BUN (9-20) mg/dL Creatinine (0.8-1.5) mg/dL Glucose (75-100) mg/dL POC Glucose 252 H 204 H (70-105) Calcium (8.4-10.2) mg/dL Crossmatch HEART Score - HEART Score Troponin: Troponin T < 0.010 ng/mL (0.00-0.029) 09/23/19 17:32
[2019-09-26] MEDS: PANTOPRAZOLE 40 MG TAB PO SCH (10:57)
[2019-09-26] MEDS: POTASSIUM CHLORIDE 10 MEQ 10 MEQ/100 ML BAG IV SCH ×4 (10:59→17:51)
[2019-09-26] MEDS ORDERED: POTASSIUM CHLORIDE ER 20 MEQ TAB PO ONE (11:00)
--- NOTE | 2019-09-26 11:06 | Progress Note ---
Assessment and Plan The high probability OF a clinically significant sudden or life-threatening deterioration of the cardiorespiratory system and endocrine system required my full and direct attention, intervention and postoperative management. The aggregate critical care time was 40 minutes. The time is in addition to time spent performing reported procedures but includes the followin: Data review and interpretation 2: Patient assessment and monitoring of vital signs 3: Documentation 4:: Medication orders and management - Patient Problems (1) Status post below knee amputation of right lower extremity Current Visit: Yes Status: Acute Plan to address problem: Rt BKA today (2) Sepsis Current Visit: Yes Status: Acute Qualifiers: Sepsis type: sepsis due to unspecified organism Plan to address problem: Sepsis as evidenced by fever tachycardia and hypotension and elevated lactic acid IV cefepime and vancomycin and IV clindamycin. (3) Gangrene of right foot Current Visit: Yes Status: Acute Plan to address problem: Patient is amputation below right knee. Patient refused amputation last time Continue IV antibiotics Peripheral arterial duplex scan had a good flow except soft tissue swelling from last visit Vascular surgery consulted Had Rt BKA yesterday (4) Diabetic ketoacidosis Current Visit: Yes Status: Acute Qualifiers: Diabetes mellitus type: type 2 Plan to address problem: DKA protocol Insulin drip--discontinued IV fluids IV antibiotics DKA resolved (5) Hypernatremia Current Visit: Yes Status: Acute Plan to address problem: Continue half-normal saline and recheck sodium Sodium levels are improved (6) Postoperative anemia Current Visit: Yes Status: Acute Plan to address problem: Patient to be transfused 2 units of packed red blood cells (7) DVT prophylaxis Current Visit: No Status: Acute Plan to address problem: Heparin subcu and GI prophylaxis Subjective Date of service: 09/26/19 Principal diagnosis: Sepsis, DKA, right foot gangrene Interval history: 59 years old male with history of severe peripheral artery disease right foot gangrene and diabetes admitted for altered mental status and decreased responsiveness. Patient was recently discharged on 09/21/2019. Patient refused right leg amputation. Patient left AMA. Patient being readmitted for found for being found unresponsive at home. Patient is very altered and lethargic and unable to provide history. With history of diabetes, peripheral artery disease and right foot gas gangrene, was recently admitted from 09/15/2021 - 09/21/2019 and left AMA after refusing amputation, readmitted on 09/23/2019 due to be found unresponsive on his bathroom. Police found the patient on the floor off the bathroom. Patient is currently very altered, lethargic, unable to provide any history. CT angiogram of the right leg showed normal arteries but abnormal soft tissue edema with gas as well as possible early osteomyelitis of the second t hird and fourth toes. Patient also has a high glucose of 102 and sodium of 151 at the time of admission. Patient is decreased responsive. S/p Rt BKA today Objective - Constitutional Vitals: Vital Signs - 12hr 09/25/19 09/25/19 09/25/19 23:10 23:15 23:30 Temperature 98.2 F Pulse Rate 94 H 96 H Pulse Rate [ From Monitor] Respiratory 11 L 18 Rate Blood Pressure 102/63 96/60 O2 Sat by Pulse 100 100 Oximetry 09/25/19 09/26/19 09/26/19 23:45 00:00 00:15 Temperature Pulse Rate 100 H 97 H 95 H Pulse Rate [ 98 H From Monitor] Respiratory 16 13 10 L Rate Blood Pressure 101/63 101/64 102/63 O2 Sat by Pulse 98 97 Oximetry 09/26/19 09/26/19 09/26/19 00:30 00:45 01:00 Temperature Pulse Rate 97 H 98 H 96 H Pulse Rate [ From Monitor] Respiratory 23 12 16 Rate Blood Pressure 102/66 99/61 97/61 O2 Sat by Pulse 89 82 L Oximetry 09/26/19 09/26/19 09/26/19 01:15 01:30 01:45 Temperature Pulse Rate 96 H 97 H 100 H Pulse Rate [ From Monitor] Respiratory 14 13 14 Rate Blood Pressure 97/63 97/58 93/49 O2 Sat by Pulse 96 58 L Oximetry 09/26/19 09/26/19 09/26/19 01:49 02:00 02:15 Temperature Pulse Rate 98 H 102 H 104 H Pulse Rate [ From Monitor] Respiratory 13 16 Rate Blood Pressure 99/68 99/68 O2 Sat by Pulse 83 L Oximetry 09/26/19 09/26/19 09/26/19 02:30 02:46 03:00 Temperature Pulse Rate 103 H 112 H 101 H Pulse Rate [ From Monitor] Respiratory 17 15 12 Rate Blood Pressure 92/68 98/64 O2 Sat by Pulse 83 L 85 93 Oximetry 05/09/26/19 09/26/19 03:15 03:21 03:30 Temperature 98.7 F Pulse Rate 96 H 100 H Pulse Rate [ From Monitor] Respiratory 13 15 Rate Blood Pressure 87/59 87/59 O2 Sat by Pulse 98 81 L Oximetry 09/26/19 09/26/19 09/26/19 03:45 04:00 04:15 Temperature Pulse Rate 95 H 95 H 96 H Pulse Rate [ 95 H From Monitor] Respiratory 13 14 15 Rate Blood Pressure 75/41 75/43 74/43 O2 Sat by Pulse 100 100 98 Oximetry 09/26/19 09/26/19 09/26/19 04:30 04:45 05:00 Temperature Pulse Rate 94 H 94 H 105 H Pulse Rate [ From Monitor] Respiratory 15 15 16 Rate Blood Pressure 86/41 70/39 74/43 O2 Sat by Pulse 100 100 93 Oximetry 09/26/19 09/26/19 09/26/19 05:15 05:30 05:45 Temperature Pulse Rate 97 H 97 H 93 H Pulse Rate [ From Monitor] Respiratory 15 17 11 L Rate Blood Pressure 89/55 85/53 84/49 O2 Sat by Pulse 95 89 95 Oximetry 09/26/19 09/26/19 09/26/19 06:00 06:15 06:30 Temperature Pulse Rate 93 H 96 H 94 H Pulse Rate [ From Monitor] Respiratory 16 13 17 Rate Blood Pressure 80/49 87/54 81/49 O2 Sat by Pulse 99 97 Oximetry 09/26/19 09/26/19 09/26/19 06:45 07:00 07:15 Temperature Pulse Rate 94 H 99 H 98 H Pulse Rate [ From Monitor] Respiratory 17 14 17 Rate Blood Pressure 81/48 84/54 82/51 O2 Sat by Pulse 100 100 Oximetry 09/26/19 09/26/19 09/26/19 07:30 07:45 08:00 Temperature Pulse Rate 101 H 97 H 98 H Pulse Rate [ From Monitor] Respiratory 14 14 14 Rate Blood Pressure 96/63 86/52 84/51 O2 Sat by Pulse 86 87 88 Oximetry 09/26/19 09/26/19 09/26/19 08:16 08:30 08:46 Temperature Pulse Rate 101 H 109 H 110 H Pulse Rate [ From Monitor] Respiratory 15 15 15 Rate Blood Pressure 90/54 96/63 92/53 O2 Sat by Pulse 85 Oximetry 09/26/19 09/26/19 09/26/19 09:00 09:16 09:30 Temperature Pulse Rate 114 H 113 H 105 H Pulse Rate [ From Monitor] Respiratory 14 12 15 Rate Blood Pressure 92/53 91/67 80/53 O2 Sat by Pulse 97 71 L Oximetry 09/26/19 09/26/19 09/26/19 09:45 10:00 10:15 Temperature Pulse Rate 101 H 99 H 97 H Pulse Rate [ From Monitor] Respiratory 15 16 13 Rate Blood Pressure 85/56 82/47 80/48 O2 Sat by Pulse Oximetry 09/26/19 10:30 Temperature Pulse Rate 97 H Pulse Rate [ From Monitor] Respiratory 14 Rate Blood Pressure 80/47 O2 Sat by Pulse 100 Oximetry - Labs CBC & Chem 7: 09/26/19 10:50 09/26/19 10:50 Labs: Abnormal lab results 09/25/19 09/25/19 09/25/19 Range/Units 10:48 11:15 11:15 WBC (4.5-11.0) K/mm3 RBC (3.65-5.03) M/mm3 Hgb (11.8-15.2) gm/dl Hct (35.5-45.6) % MCV (84-94) fl Seg Neuts % (Manual) (40.0-70.0) % Lymphocytes % (Manual) (13.4-35.0) % Nucleated RBC % (0.0-0.9) % Seg Neutrophils # Man (1.8-7.7) K/mm3 Lymphocytes # (Manual) (1.2-5.4) K/mm3 Sodium 148 H (137-145) mmol/L Potassium 3.2 L (3.6-5.0) mmol/L Chloride 111.8 H (98-107) mmol/L BUN 21 H (9-20) mg/dL Creatinine 0.4 L (0.8-1.5) mg/dL Glucose 200 H (75-100) mg/dL POC Glucose 190 H (70-105) Calcium 8.1 L (8.4-10.2) mg/dL Crossmatch See Detail 09/25/19 09/25/19 09/25/19 Range/Units 14:19 16:18 17:48 WBC (4.5-11.0) K/mm3 RBC (3.65-5.03) M/mm3 Hgb (11.8-15.2) gm/dl Hct (35.5-45.6) % MCV (84-94) fl Seg Neuts % (Manual) (40.0-70.0) % Lymphocytes % (Manual) (13.4-35.0) % Nucleated RBC % (0.0-0.9) % Seg Neutrophils # Man (1.8-7.7) K/mm3 Lymphocytes # (Manual) (1.2-5.4) K/mm3 Sodium (137-145) mmol/L Potassium (3.6-5.0) mmol/L Chloride (98-107) mmol/L BUN (9-20) mg/dL Creatinine (0.8-1.5) mg/dL Glucose (75-100) mg/dL POC Glucose 250 H 267 H 267 H (70-105) Calcium (8.4-10.2) mg/dL Crossmatch 09/25/19 09/26/19 09/26/19 Range/Units 22:34 01:49 05:00 WBC (4.5-11.0) K/mm3 RBC (3.65-5.03) M/mm3 Hgb (11.8-15.2) gm/dl Hct (35.5-45.6) % MCV (84-94) fl Seg Neuts % (Manual) (40.0-70.0) % Lymphocytes % (Manual) (13.4-35.0) % Nucleated RBC % (0.0-0.9) % Seg Neutrophils # Man (1.8-7.7) K/mm3 Lymphocytes # (Manual) (1.2-5.4) K/mm3 Sodium (137-145) mmol/L Potassium 2.7 L* (3.6-5.0) mmol/L Chloride (98-107) mmol/L BUN 22 H (9-20) mg/dL Creatinine 0.4 L (0.8-1.5) mg/dL Glucose 217 H (75-100) mg/dL POC Glucose 377 H 278 H (70-105) Calcium 7.5 L (8.4-10.2) mg/dL Crossmatch 09/26/19 09/26/19 09/26/19 Range/Units 05:00 05:07 10:08 WBC 11.3 H (4.5-11.0) K/mm3 RBC 1.81 L (3.65-5.03) M/mm3 Hgb 5.8 L* (11.8-15.2) gm/dl Hct 17.7 L* (35.5-45.6) % MCV 98 H (84-94) fl Seg Neuts % (Manual) 90.0 H (40.0-70.0) % Lymphocytes % (Manual) 5.0 L (13.4-35.0) % Nucleated RBC % 1.0 H (0.0-0.9) % Seg Neutrophils # Man 10.2 H (1.8-7.7) K/mm3 Lymphocytes # (Manual) 0.6 L (1.2-5.4) K/mm3 Sodium (137-145) mmol/L Potassium (3.6-5.0) mmol/L Chloride (98-107) mmol/L BUN (9-20) mg/dL Creatinine (0.8-1.5) mg/dL Glucose (75-100) mg/dL POC Glucose 252 H 204 H (70-105) Calcium (8.4-10.2) mg/dL Crossmatch HEART Score - HEART Score Troponin: Troponin T < 0.010 ng/mL (0.00-0.029) 09/23/19 17:32
[2019-09-26] MEDS ORDERED: INSULIN NPH/REGULAR 70/30 INJ SUB-Q SCH (11:12)
[2019-09-26 11:29] LABS: Mean Corpuscular HGB Conc 34 % (32-34); Mean Corpuscular Volume 97 fl (84-94); Platelet Count 428 K/mm3 (140-440); Red Blood Count 1.76 M/mm3 (3.65-5.03)
[2019-09-26] MEDS ORDERED: SODIUM CHLORIDE 0.9% 1000 ML 1,000 ML IV ONE (11:47)
[2019-09-26 12:37] LABS: Hematocrit 17.2 % (35.5-45.6); Hemoglobin 5.9 gm/dl (11.8-15.2)
[2019-09-26 13:25] LABS: BUN/Creatinine Ratio 58; Blood Urea Nitrogen 23 mg/dL (9-20); Calcium 7.4 mg/dL (8.4-10.2); Hemolysis Index 3
--- NOTE | 2019-09-26 21:42 | Progress Note ---
Assessment and Plan s/p right leg guillotine amputation. Anemia, however the patient had little to no blood loss during the procedure, with the use of a tourniquet and his dressing is not saturated with blood. He refuses transfusion so I started Ferrous sulfate and Vit C. He is tachycardic but otherwise stable. 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 He is otherwise stable for transfer to Telemetry. Subjective Date of service: 09/26/19 Principal diagnosis: Sepsis, DKA, right foot gangrene Interval history: Sitting comfortably in bed. No complaints at this time. Objective - Constitutional Vitals: Vital Signs - 12hr 09/26/19 09/26/19 09/26/19 09:45 10:00 10:15 Temperature Pulse Rate 101 H 99 H 97 H Pulse Rate [ From Monitor] Respiratory 15 16 13 Rate Blood Pressure 85/56 82/47 80/48 O2 Sat by Pulse Oximetry 09/26/19 09/26/19 09/26/19 10:30 10:45 11:00 Temperature Pulse Rate 97 H 103 H 103 H Pulse Rate [ From Monitor] Respiratory 14 12 15 Rate Blood Pressure 80/47 79/47 88/50 O2 Sat by Pulse 100 89 98 Oximetry 09/26/19 09/26/19 09/26/19 11:15 11:30 11:45 Temperature Pulse Rate 102 H 101 H 101 H Pulse Rate [ From Monitor] Respiratory 19 15 13 Rate Blood Pressure 93/53 88/52 85/49 O2 Sat by Pulse 98 97 97 Oximetry 09/26/19 09/26/19 09/26/19 12:00 12:15 12:30 Temperature Pulse Rate 105 H 108 H 109 H Pulse Rate [ 105 H From Monitor] Respiratory 17 17 14 Rate Blood Pressure 90/51 87/50 87/52 O2 Sat by Pulse 96 98 99 Oximetry 09/26/19 09/26/19 09/26/19 12:45 13:00 13:16 Temperature Pulse Rate 117 H 118 H 116 H Pulse Rate [ From Monitor] Respiratory 12 19 13 Rate Blood Pressure 101/62 101/65 101/65 O2 Sat by Pulse 98 98 98 Oximetry 09/26/19 09/26/19 09/26/19 13:30 13:46 14:00 Temperature Pulse Rate 115 H 111 H 110 H Pulse Rate [ From Monitor] Respiratory 13 10 L 18 Rate Blood Pressure 101/65 82/49 100/58 O2 Sat by Pulse 96 99 99 Oximetry 09/26/19 09/26/19 09/26/19 14:15 14:30 14:45 Temperature Pulse Rate 109 H 101 H 100 H Pulse Rate [ From Monitor] Respiratory 17 15 20 Rate Blood Pressure 91/55 86/50 92/54 O2 Sat by Pulse 99 98 96 Oximetry 09/26/19 09/26/19 09/26/19 15:00 15:15 15:30 Temperature Pulse Rate 102 H 101 H 108 H Pulse Rate [ From Monitor] Respiratory 15 13 21 Rate Blood Pressure 92/55 90/53 93/60 O2 Sat by Pulse 99 99 99 Oximetry 09/26/19 09/26/19 09/26/19 15:45 16:00 16:15 Temperature Pulse Rate 101 H 104 H 105 H Pulse Rate [ 104 H From Monitor] Respiratory 12 16 17 Rate Blood Pressure 97/58 95/59 92/53 O2 Sat by Pulse 98 98 95 Oximetry 09/26/19 09/26/19 09/26/19 16:30 16:45 17:00 Temperature Pulse Rate 108 H 106 H 109 H Pulse Rate [ From Monitor] Respiratory 20 16 17 Rate Blood Pressure 92/53 86/49 91/55 O2 Sat by Pulse 94 99 99 Oximetry 09/26/19 09/26/19 09/26/19 17:15 17:30 17:45 Temperature Pulse Rate 105 H 102 H 107 H Pulse Rate [ From Monitor] Respiratory 14 16 15 Rate Blood Pressure 88/49 82/47 83/46 O2 Sat by Pulse 99 97 99 Oximetry 09/26/19 09/26/19 09/26/19 18:00 18:15 18:30 Temperature Pulse Rate 104 H 105 H 116 H Pulse Rate [ From Monitor] Respiratory 15 16 12 Rate Blood Pressure 83/46 94/61 94/61 O2 Sat by Pulse 98 100 99 Oximetry 09/26/19 09/26/19 09/26/19 18:46 19:00 19:16 Temperature Pulse Rate 120 H 120 H 118 H Pulse Rate [ From Monitor] Respiratory 12 18 13 Rate Blood Pressure 111/60 111/60 117/60 O2 Sat by Pulse 99 100 98 Oximetry 09/26/19 20:00 Temperature 98.4 F Pulse Rate Pulse Rate [ From Monitor] Respiratory Rate Blood Pressure O2 Sat by Pulse Oximetry General appearance: Present: no acute distress - Respiratory Respiratory effort: normal - Cardiovascular Heart rate: 106 Rhythm: regular Extremities: abnormal (right leg dressing clean without evidence of active bleeding) - Labs CBC & Chem 7: 09/26/19 10:50 09/26/19 10:50 Labs: Abnormal lab results 09/25/19 09/26/19 09/26/19 Range/Units 22:34 01:49 05:00 WBC (4.5-11.0) K/mm3 RBC (3.65-5.03) M/mm3 Hgb (11.8-15.2) gm/dl Hct (35.5-45.6) % MCV (84-94) fl MCH (28-32) pg Seg Neuts % (Manual) (40.0-70.0) % Lymphocytes % (Manual) (13.4-35.0) % Nucleated RBC % (0.0-0.9) % Seg Neutrophils # Man (1.8-7.7) K/mm3 Lymphocytes # (Manual) (1.2-5.4) K/mm3 Potassium 2.7 L* (3.6-5.0) mmol/L BUN 22 H (9-20) mg/dL Creatinine 0.4 L (0.8-1.5) mg/dL Glucose 217 H (75-100) mg/dL POC Glucose 377 H 278 H (70-105) Calcium 7.5 L (8.4-10.2) mg/dL Magnesium (1.7-2.3) mg/dL 09/26/19 09/26/19 09/26/19 Range/Units 05:00 05:07 10:08 WBC 11.3 H (4.5-11.0) K/mm3 RBC 1.81 L (3.65-5.03) M/mm3 Hgb 5.8 L* (11.8-15.2) gm/dl Hct 17.7 L* (35.5-45.6) % MCV 98 H (84-94) fl MCH (28-32) pg Seg Neuts % (Manual) 90.0 H (40.0-70.0) % Lymphocytes % (Manual) 5.0 L (13.4-35.0) % Nucleated RBC % 1.0 H (0.0-0.9) % Seg Neutrophils # Man 10.2 H (1.8-7.7) K/mm3 Lymphocytes # (Manual) 0.6 L (1.2-5.4) K/mm3 Potassium (3.6-5.0) mmol/L BUN (9-20) mg/dL Creatinine (0.8-1.5) mg/dL Glucose (75-100) mg/dL POC Glucose 252 H 204 H (70-105) Calcium (8.4-10.2) mg/dL Magnesium (1.7-2.3) mg/dL 09/26/19 09/26/19 09/26/19 Range/Units 10:50 10:50 10:50 WBC (4.5-11.0) K/mm3 RBC 1.76 L (3.65-5.03) M/mm3 Hgb 5.9 L* (11.8-15.2) gm/dl Hct 17.2 L* (35.5-45.6) % MCV 97 H (84-94) fl MCH 33 H (28-32) pg Seg Neuts % (Manual) (40.0-70.0) % Lymphocytes % (Manual) (13.4-35.0) % Nucleated RBC % (0.0-0.9) % Seg Neutrophils # Man (1.8-7.7) K/mm3 Lymphocytes # (Manual) (1.2-5.4) K/mm3 Potassium 3.4 L D (3.6-5.0) mmol/L BUN 23 H (9-20) mg/dL Creatinine 0.4 L (0.8-1.5) mg/dL Glucose 241 H (75-100) mg/dL POC Glucose (70-105) Calcium 7.4 L (8.4-10.2) mg/dL Magnesium 1.40 L (1.7-2.3) mg/dL Medications & Allergies - Medications Allergies/Adverse Reactions: Allergies No Known Allergies Allergy (Verified 12/01/18 12:05) Home Medications: Home Medications Medication Instructions Recorded Confirmed Last Taken Type Aspirin EC [Halfprin EC] 81 mg PO QDAY #30 tablet. 04/26/17 09/24/19 Unknown Rx Insulin Glargine,Hum.rec.anlog 15 units SUB-Q QAM #3 insuln.pen 04/26/17 09/24/19 Unknown Rx [Lantus Solostar] Insulin Glargine [Lantus] 15 unit SUB-Q QHS #1 vial 12/01/18 09/24/19 Unknown Rx Ondansetron [Zofran Odt] 4 mg PO Q8HR PRN #10 tab.rapdis 02/25/19 09/24/19 Unknown Rx Pantoprazole [Protonix] 40 mg PO QDAY #30 tablet 02/25/19 09/24/19 Unknown Rx Active Medications: Generic Name Dose Route Start Last Admin Trade Name Freq PRN Reason Stop Dose Admin Acetaminophen 650 mg 09/23/19 22:51 Tylenol PO Q4H PRN Pain MILD(1-3)/Fever >100.5/CHRISTIANSON Ascorbic Acid 1,000 mg 09/26/19 22:00 Vitamin C PO BID KATHY Ferrous Sulfate 325 mg 09/27/19 08:00 Feosol PO TID KATHY Hydromorphone HCl 0.5 mg 09/23/19 22:51 Dilaudid IV Q3H PRN Pain , Severe (7-10) Cefepime HCl 2 gm in 100 mls @ 200 mls/hr 09/23/19 17:32 09/26/19 17:56 Cefepime/Ns 2 Gm/100 Ml IV 200 mls/hr Q8H KATHY Administration Protocol Vancomycin HCl 1 gm in 250 mls @ 166.667 mls/hr 09/24/19 16:00 09/26/19 17:56 Vancomycin/Ns 1 Gm/250 Ml IV 166.7 mls/hr Q12H KATHY Administration Norepinephrine 4 mg in 250 mls @ 7.5 mls/hr 09/23/19 19:20 09/24/19 15:37 Levophed Drip 4 Mg/Ns 250 Ml IV 0 mcg/min TITR KATHY 0 mls/hr Titration Protocol 2 MCG/MIN Clindamycin HCl 900 mg in 50 mls @ 100 mls/hr 09/24/19 10:00 09/26/19 20:22 Cleocin 900 Mg/50 Ml IV 100 mls/hr Q8H KATHY Administration Protocol Insulin Human Isoph/Insulin Regular 22 unit 09/26/19 11:12 Humulin 70/30 SUB-Q BIDDIAB KATHY Insulin Human Lispro 0 unit 09/24/19 22:00 09/26/19 17:55 Humalog SUB-Q 8 unit Q4HR KATHY Administration Protocol Morphine Sulfate 3 mg 09/25/19 15:38 Morphine IV Q3H PRN Pain , Severe (7-10) Ondansetron HCl 4 mg 09/23/19 22:50 Zofran Odt PO Q8H PRN Vomiting Ondansetron HCl 4 mg 09/23/19 22:51 Zofran IV Q8H PRN Nausea And Vomiting Oxycodone/Acetaminophen 1 tab 09/23/19 22:51 Percocet 5/325 PO Q6H PRN Pain, Moderate (4-6) Pantoprazole Sodium 40 mg 09/24/19 10:00 09/26/19 10:57 Protonix PO 40 mg QDAY KATHY Administration Sodium Chloride 10 ml 09/24/19 10:00 09/26/19 10:05 Sodium Chloride Flush Syringe 10 Ml IV 10 ml BID KATHY Administration Sodium Chloride 10 ml 09/23/19 22:51 Sodium Chloride Flush Syringe 10 Ml IV PRN PRN LINE FLUSH HEART Score - HEART Score Troponin: Troponin T < 0.010 ng/mL (0.00-0.029) 09/23/19 17:32
[2019-09-26] MEDS: ASCORBIC ACID 500 MG TAB PO SCH (22:57)
[2019-09-27] MEDS: CEFEPIME/NS 2 GM/100 ML 2 GM/100 ML BAG IV SCH ×2 (02:30→09:47)
[2019-09-27] MEDS: INSULIN LISPRO 100 UNIT/ML SUB-Q SCH ×7 (02:48→22:02)
[2019-09-27] MEDS: VANCOMYCIN/NS 1 GM/250 ML 1 GM/250 ML BAG IV SCH (03:02)
[2019-09-27 03:30] LABS: Basophils # (Auto) 0.1 K/mm3 (0.0-0.1); Basophils % (Auto) 0.5 % (0.0-1.8); Eosinophils % (Auto) 0.4 % (0.0-4.3); Lymphocytes # (Auto) 1.2 K/mm3 (1.2-5.4); Lymphocytes % (Auto) 11.3 % (13.4-35.0); Mean Corpuscular HGB Conc 33 % (32-34); Mean Corpuscular Volume 98 fl (84-94); Monocytes # (Auto) 0.6 K/mm3 (0.0-0.8); Monocytes % (Auto) 5.7 % (0.0-7.3); Platelet Count 444 K/mm3 (140-440); Red Blood Count 1.77 M/mm3 (3.65-5.03); Red Cell Distribution Width 14.3 % (13.2-15.2)
[2019-09-27 03:52] LABS: Alanine Aminotransferase 24 units/L (7-56); BUN/Creatinine Ratio 44; Blood Urea Nitrogen 22 mg/dL (9-20); Calcium 7.8 mg/dL (8.4-10.2); Hemolysis Index 1
[2019-09-27 04:07] LABS: Hematocrit 17.3 % (35.5-45.6); Hemoglobin 5.8 gm/dl (11.8-15.2)
[2019-09-27] MEDS: FERROUS SULFATE 325 MG TAB PO SCH ×3 (08:14→20:09)
[2019-09-27] MEDS: PANTOPRAZOLE 40 MG TAB PO SCH (09:46)
[2019-09-27] MEDS: ASCORBIC ACID 500 MG TAB PO SCH ×2 (09:46→21:59)
--- NOTE | 2019-09-27 10:05 | Progress Note ---
Assessment and Plan 59 y/o male with sepsis from gangrenous foot, needing amputation and severe free water depletion. 1. stable for transfer 2. Will order more food. 3. Will sign off once out of unit. Subjective Date of service: 09/27/19 Principal diagnosis: Sepsis, DKA, right foot gangrene Interval history: No acute events. Wants food. BP stable. Objective - Constitutional Vitals: Vital Signs - 12hr 09/26/19 09/26/19 09/26/19 22:00 22:15 22:30 Temperature Pulse Rate 108 H 104 H 106 H Pulse Rate [ From Monitor] Respiratory 19 13 17 Rate Blood Pressure 100/68 90/60 97/67 O2 Sat by Pulse 89 70 L 80 L Oximetry 09/26/19 09/26/19 09/26/19 22:45 23:00 23:02 Temperature 98.8 F Pulse Rate 101 H 102 H Pulse Rate [ From Monitor] Respiratory 13 15 20 Rate Blood Pressure 97/64 93/63 O2 Sat by Pulse 88 Oximetry 09/26/19 09/26/19 09/26/19 23:15 23:30 23:45 Temperature Pulse Rate 99 H 99 H 111 H Pulse Rate [ From Monitor] Respiratory 13 16 18 Rate Blood Pressure 101/69 101/68 100/63 O2 Sat by Pulse 100 68 L Oximetry 09/27/19 09/27/19 09/27/19 00:00 00:02 00:15 Temperature Pulse Rate 109 H 105 H Pulse Rate [ 113 H From Monitor] Respiratory 16 20 19 Rate Blood Pressure 105/71 108/76 O2 Sat by Pulse 59 L 98 Oximetry 09/27/19 09/27/19 09/27/19 00:30 00:45 01:00 Temperature Pulse Rate 99 H 99 H 98 H Pulse Rate [ From Monitor] Respiratory 16 17 17 Rate Blood Pressure 86/60 96/66 93/65 O2 Sat by Pulse 100 100 100 Oximetry 09/27/19 09/27/19 09/27/19 01:15 01:30 01:45 Temperature Pulse Rate 100 H 97 H 96 H Pulse Rate [ From Monitor] Respiratory 20 16 17 Rate Blood Pressure 98/67 88/61 95/63 O2 Sat by Pulse 100 100 100 Oximetry 09/27/19 09/27/19 09/27/19 02:00 02:15 02:30 Temperature Pulse Rate 94 H 95 H 96 H Pulse Rate [ From Monitor] Respiratory 17 14 14 Rate Blood Pressure 95/63 99/67 100/69 O2 Sat by Pulse 100 100 100 Oximetry 09/27/19 09/27/19 09/27/19 02:45 03:00 03:15 Temperature Pulse Rate 95 H 97 H 104 H Pulse Rate [ From Monitor] Respiratory 13 16 14 Rate Blood Pressure 97/68 98/70 107/72 O2 Sat by Pulse 100 100 73 L Oximetry 09/27/19 09/27/19 09/27/19 03:29 03:30 03:45 Temperature 98.2 F Pulse Rate 102 H 93 H Pulse Rate [ From Monitor] Respiratory 16 11 L Rate Blood Pressure 110/78 95/66 O2 Sat by Pulse 100 100 Oximetry 09/27/19 09/27/19 09/27/19 04:00 04:15 04:30 Temperature Pulse Rate 97 H 100 H 98 H Pulse Rate [ 113 H From Monitor] Respiratory 18 13 12 Rate Blood Pressure 93/63 101/70 89/62 O2 Sat by Pulse 100 100 100 Oximetry 09/27/19 09/27/19 09/27/19 04:45 05:00 05:16 Temperature Pulse Rate 96 H 96 H 109 H Pulse Rate [ From Monitor] Respiratory 11 L 13 20 Rate Blood Pressure 86/58 88/60 88/60 O2 Sat by Pulse 99 100 Oximetry - Labs CBC & Chem 7: 09/27/19 02:25 09/27/19 02:25 Labs: Abnormal lab results 09/26/19 09/26/19 09/26/19 Range/Units 05:00 10:08 10:50 RBC (3.65-5.03) M/mm3 Hgb (11.8-15.2) gm/dl Hct (35.5-45.6) % MCV (84-94) fl MCH (28-32) pg Plt Count (140-440) K/mm3 Lymph % (Auto) (13.4-35.0) % Seg Neutrophils % (40.0-70.0) % Seg Neuts % (Manual) 90.0 H (40.0-70.0) % Lymphocytes % (Manual) 5.0 L (13.4-35.0) % Nucleated RBC % 1.0 H (0.0-0.9) % Seg Neutrophils # (1.8-7.7) K/mm3 Seg Neutrophils # Man 10.2 H (1.8-7.7) K/mm3 Lymphocytes # (Manual) 0.6 L (1.2-5.4) K/mm3 Potassium 3.4 L D (3.6-5.0) mmol/L Carbon Dioxide (22-30) mmol/L BUN 23 H (9-20) mg/dL Creatinine 0.4 L (0.8-1.5) mg/dL Glucose 241 H (75-100) mg/dL POC Glucose 204 H (70-105) Calcium 7.4 L (8.4-10.2) mg/dL Magnesium (1.7-2.3) mg/dL Alkaline Phosphatase (35-129) units/L Total Protein (6.3-8.2) g/dL Albumin (3.9-5) g/dL 09/26/19 09/26/19 09/26/19 Range/Units 10:50 10:50 14:22 RBC 1.76 L (3.65-5.03) M/mm3 Hgb 5.9 L* (11.8-15.2) gm/dl Hct 17.2 L* (35.5-45.6) % MCV 97 H (84-94) fl MCH 33 H (28-32) pg Plt Count (140-440) K/mm3 Lymph % (Auto) (13.4-35.0) % Seg Neutrophils % (40.0-70.0) % Seg Neuts % (Manual) (40.0-70.0) % Lymphocytes % (Manual) (13.4-35.0) % Nucleated RBC % (0.0-0.9) % Seg Neutrophils # (1.8-7.7) K/mm3 Seg Neutrophils # Man (1.8-7.7) K/mm3 Lymphocytes # (Manual) (1.2-5.4) K/mm3 Potassium (3.6-5.0) mmol/L Carbon Dioxide (22-30) mmol/L BUN (9-20) mg/dL Creatinine (0.8-1.5) mg/dL Glucose (75-100) mg/dL POC Glucose 360 H (70-105) Calcium (8.4-10.2) mg/dL Magnesium 1.40 L (1.7-2.3) mg/dL Alkaline Phosphatase (35-129) units/L Total Protein (6.3-8.2) g/dL Albumin (3.9-5) g/dL 09/26/19 09/26/19 09/27/19 Range/Units 17:13 22:32 02:17 RBC (3.65-5.03) M/mm3 Hgb (11.8-15.2) gm/dl Hct (35.5-45.6) % MCV (84-94) fl MCH (28-32) pg Plt Count (140-440) K/mm3 Lymph % (Auto) (13.4-35.0) % Seg Neutrophils % (40.0-70.0) % Seg Neuts % (Manual) (40.0-70.0) % Lymphocytes % (Manual) (13.4-35.0) % Nucleated RBC % (0.0-0.9) % Seg Neutrophils # (1.8-7.7) K/mm3 Seg Neutrophils # Man (1.8-7.7) K/mm3 Lymphocytes # (Manual) (1.2-5.4) K/mm3 Potassium (3.6-5.0) mmol/L Carbon Dioxide (22-30) mmol/L BUN (9-20) mg/dL Creatinine (0.8-1.5) mg/dL Glucose (75-100) mg/dL POC Glucose 328 H 221 H 176 H (70-105) Calcium (8.4-10.2) mg/dL Magnesium (1.7-2.3) mg/dL Alkaline Phosphatase (35-129) units/L Total Protein (6.3-8.2) g/dL Albumin (3.9-5) g/dL 09/27/19 09/27/19 09/27/19 Range/Units 02:25 02:25 05:43 RBC 1.77 L (3.65-5.03) M/mm3 Hgb 5.8 L* (11.8-15.2) gm/dl Hct 17.3 L* (35.5-45.6) % MCV 98 H (84-94) fl MCH 33 H (28-32) pg Plt Count 444 H (140-440) K/mm3 Lymph % (Auto) 11.3 L (13.4-35.0) % Seg Neutrophils % 82.1 H (40.0-70.0) % Seg Neuts % (Manual) (40.0-70.0) % Lymphocytes % (Manual) (13.4-35.0) % Nucleated RBC % (0.0-0.9) % Seg Neutrophils # 8.7 H (1.8-7.7) K/mm3 Seg Neutrophils # Man (1.8-7.7) K/mm3 Lymphocytes # (Manual) (1.2-5.4) K/mm3 Potassium (3.6-5.0) mmol/L Carbon Dioxide 31 H (22-30) mmol/L BUN 22 H (9-20) mg/dL Creatinine 0.5 L (0.8-1.5) mg/dL Glucose 144 H (75-100) mg/dL POC Glucose 262 H (70-105) Calcium 7.8 L (8.4-10.2) mg/dL Magnesium (1.7-2.3) mg/dL Alkaline Phosphatase 184 H (35-129) units/L Total Protein 6.0 L (6.3-8.2) g/dL Albumin 2.0 L (3.9-5) g/dL Medications & Allergies - Medications Allergies/Adverse Reactions: Allergies No Known Allergies Allergy (Verified 12/01/18 12:05) Home Medications: Home Medications Medication Instructions Recorded Confirmed Last Taken Type Aspirin EC [Halfprin EC] 81 mg PO QDAY #30 tablet. 04/26/17 09/24/19 Unknown Rx Insulin Glargine,Hum.rec.anlog 15 units SUB-Q QAM #3 insuln.pen 04/26/17 09/24/19 Unknown Rx [Lantus Solostar] Insulin Glargine [Lantus] 15 unit SUB-Q QHS #1 vial 12/01/18 09/24/19 Unknown Rx Ondansetron [Zofran Odt] 4 mg PO Q8HR PRN #10 tab.rapdis 02/25/19 09/24/19 Unknown Rx Pantoprazole [Protonix] 40 mg PO QDAY #30 tablet 02/25/19 09/24/19 Unknown Rx Active Medications: Generic Name Dose Route Start Last Admin Trade Name Freq PRN Reason Stop Dose Admin Acetaminophen 650 mg 09/23/19 22:51 09/26/19 23:02 Tylenol PO 650 mg Q4H PRN Administration Pain MILD(1-3)/Fever >100.5/CHRISTIANSON Ascorbic Acid 1,000 mg 09/26/19 22:00 09/27/19 09:46 Vitamin C PO 1,000 mg BID KATHY Administration Ferrous Sulfate 325 mg 09/27/19 08:00 09/27/19 08:14 Feosol PO 325 mg TID [facility] Administration Hydromorphone HCl 0.5 mg 09/23/19 22:51 Dilaudid IV Q3H PRN Pain , Severe (7-10) Cefepime HCl 2 gm in 100 mls @ 200 mls/hr 09/23/19 17:32 09/27/19 09:47 Cefepime/Ns 2 Gm/100 Ml IV 200 mls/hr Q8H [facility] Administration Protocol Vancomycin HCl 1 gm in 250 mls @ 166.667 mls/hr 09/24/19 16:00 09/27/19 03:02 Vancomycin/Ns 1 Gm/250 Ml IV 166.7 mls/hr Q12H [facility] Administration Norepinephrine 4 mg in 250 mls @ 7.5 mls/hr 09/23/19 19:20 09/24/19 15:37 Levophed Drip 4 Mg/Ns 250 Ml IV 0 mcg/min TITR KATHY 0 mls/hr Titration Protocol 2 MCG/MIN Clindamycin HCl 900 mg in 50 mls @ 100 mls/hr 09/24/19 10:00 09/27/19 09:47 Cleocin 900 Mg/50 Ml IV 100 mls/hr Q8H [facility] Administration Protocol Insulin Human Isoph/Insulin Regular 22 unit 09/26/19 11:12 Humulin 70/30 SUB-Q BIDDIAB [facility] Insulin Human Lispro 0 unit 09/24/19 22:00 09/27/19 06:01 Humalog SUB-Q 6 unit Q4HR [facility] Administration Protocol Morphine Sulfate 3 mg 09/25/19 15:38 Morphine IV Q3H PRN Pain , Severe (7-10) Ondansetron HCl 4 mg 09/23/19 22:50 Zofran Odt PO Q8H PRN Vomiting Ondansetron HCl 4 mg 09/23/19 22:51 Zofran IV Q8H PRN Nausea And Vomiting Oxycodone/Acetaminophen 1 tab 09/23/19 22:51 Percocet 5/325 PO Q6H PRN Pain, Moderate (4-6) Pantoprazole Sodium 40 mg 09/24/19 10:00 09/27/19 09:46 Protonix PO 40 mg QDAY KATHY Administration Sodium Chloride 10 ml 09/24/19 10:00 09/27/19 09:47 Sodium Chloride Flush Syringe 10 Ml IV 10 ml BID KATHY Administration Sodium Chloride 10 ml 09/23/19 22:51 Sodium Chloride Flush Syringe 10 Ml IV PRN PRN LINE FLUSH HEART Score - HEART Score Troponin: Troponin T < 0.010 ng/mL (0.00-0.029) 09/23/19 17:32
[2019-09-27] MEDS ORDERED: INSULIN NPH/REGULAR 70/30 INJ SUB-Q SCH (11:00)
--- NOTE | 2019-09-27 12:09 | Progress Note ---
Assessment and Plan Cultures: Blood cultures 09/23/2019 no growth so far Assessment: 59 years old male with history of diabetes, peripheral artery disease and right foot gas gangrene, was recently admitted from 09/15/2021 - 09/21/2019 and left AMA after refusing amputation, readmitted on 09/23/2019 due to be found unresponsive on his bathroom: #Severe sepsis with septic shock: off pressors today, leukocytosis better; likely due to right foot gas gangrene. 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 Recent CTA of the legs show overall normal arteries. Art US +PVD. S/p Right above Ankle Guillotine Amputation with dressings on 09/24 #Diabetes mellitus: Uncontrolled. #Acute kidney injury: Likely due to sepsis #Acute encephalopathy: Likely due to severe sepsis Recommendations: Needs urgent right lower extremity amputation due to septic shock, vascular on board awaiting for consent Stop cefepime, clindamycin and vancomycin Monitor off abx I am covering the weekend Will follow. Yanni Younger MD Infectious Diseases [employer] Developer [facility] ([facility]) M [phone] O [phone] Subjective Date of service: 09/27/19 Principal diagnosis: Sepsis, DKA, right foot gangrene Interval history: Feels better, no fever, no pressors Objective - Exam Narrative Exam: General appearance: alert , in no acute distress Eyes: anicteric sclerae, moist conjunctivae; no lid-lag; PERRLA HENT: Atraumatic; oropharynx limited Lungs: CTA bilaterally CV: RRR Abdomen: Soft, non-tender Extremities: Right above Ankle Guillotine Amputation with dressings Skin: No rash. Psych: Nonagitated Neuro:alert oriented - Constitutional Vitals: Vital Signs Temp Pulse Resp BP Pulse Ox 98.2 F 108 H 13 84/63 100 09/27/19 03:29 09/27/19 11:30 09/27/19 11:30 09/27/19 11:30 09/27/19 11:15 Temperature -Last 24 Hours Temperature 98.2 F Temperature 98.8 F Temperature 98.4 F - Labs CBC & Chem 7: 09/27/19 02:25 09/27/19 02:25 Labs: Abnormal lab results 09/26/19 09/26/19 09/26/19 Range/Units 10:50 10:50 14:22 RBC 1.76 L (3.65-5.03) M/mm3 Hgb 5.9 L* (11.8-15.2) gm/dl Hct 17.2 L* (35.5-45.6) % MCV (84-94) fl MCH (28-32) pg Plt Count (140-440) K/mm3 Lymph % (Auto) (13.4-35.0) % Seg Neutrophils % (40.0-70.0) % Seg Neutrophils # (1.8-7.7) K/mm3 Potassium 3.4 L D (3.6-5.0) mmol/L Carbon Dioxide (22-30) mmol/L BUN 23 H (9-20) mg/dL Creatinine 0.4 L (0.8-1.5) mg/dL Glucose 241 H (75-100) mg/dL POC Glucose 360 H (70-105) Calcium 7.4 L (8.4-10.2) mg/dL Alkaline Phosphatase (35-129) units/L Total Protein (6.3-8.2) g/dL Albumin (3.9-5) g/dL 09/26/19 09/26/19 09/27/19 Range/Units 17:13 22:32 02:17 RBC (3.65-5.03) M/mm3 Hgb (11.8-15.2) gm/dl Hct (35.5-45.6) % MCV (84-94) fl MCH (28-32) pg Plt Count (140-440) K/mm3 Lymph % (Auto) (13.4-35.0) % Seg Neutrophils % (40.0-70.0) % Seg Neutrophils # (1.8-7.7) K/mm3 Potassium (3.6-5.0) mmol/L Carbon Dioxide (22-30) mmol/L BUN (9-20) mg/dL Creatinine (0.8-1.5) mg/dL Glucose (75-100) mg/dL POC Glucose 328 H 221 H 176 H (70-105) Calcium (8.4-10.2) mg/dL Alkaline Phosphatase (35-129) units/L Total Protein (6.3-8.2) g/dL Albumin (3.9-5) g/dL 09/27/19 09/27/19 09/27/19 Range/Units 02:25 02:25 05:43 RBC 1.77 L (3.65-5.03) M/mm3 Hgb 5.8 L* (11.8-15.2) gm/dl Hct 17.3 L* (35.5-45.6) % MCV 98 H (84-94) fl MCH 33 H (28-32) pg Plt Count 444 H (140-440) K/mm3 Lymph % (Auto) 11.3 L (13.4-35.0) % Seg Neutrophils % 82.1 H (40.0-70.0) % Seg Neutrophils # 8.7 H (1.8-7.7) K/mm3 Potassium (3.6-5.0) mmol/L Carbon Dioxide 31 H (22-30) mmol/L BUN 22 H (9-20) mg/dL Creatinine 0.5 L (0.8-1.5) mg/dL Glucose 144 H (75-100) mg/dL POC Glucose 262 H (70-105) Calcium 7.8 L (8.4-10.2) mg/dL Alkaline Phosphatase 184 H (35-129) units/L Total Protein 6.0 L (6.3-8.2) g/dL Albumin 2.0 L (3.9-5) g/dL
[2019-09-27] MEDS: INSULIN NPH/REGULAR 70/30 INJ SUB-Q SCH ×2 (17:34→19:22)
[2019-09-27] MEDS: DOCUSATE SODIUM 100 MG CAP PO SCH ×2 (19:22→21:59)
--- NOTE | 2019-09-27 19:56 | Progress Note ---
Assessment and Plan The high probability OF a clinically significant sudden or life-threatening deterioration of the cardiorespiratory system and endocrine system required my full and direct attention, intervention and postoperative management. The aggregate critical care time was 40 minutes. The time is in addition to time spent performing reported procedures but includes the followin: Data review and interpretation 2: Patient assessment and monitoring of vital signs 3: Documentation 4:: Medication orders and management - Patient Problems (1) Status post below knee amputation of right lower extremity Current Visit: Yes Status: Acute Plan to address problem: Rt BKA today (2) Sepsis Current Visit: Yes Status: Acute Qualifiers: Sepsis type: sepsis due to unspecified organism Plan to address problem: Sepsis as evidenced by fever tachycardia and hypotension and elevated lactic acid IV cefepime and vancomycin and IV clindamycin. (3) Gangrene of right foot Current Visit: Yes Status: Acute Plan to address problem: Patient is amputation below right knee. Patient refused amputation last time Continue IV antibiotics Peripheral arterial duplex scan had a good flow except soft tissue swelling from last visit Vascular surgery consulted Had Rt BKA yesterday (4) Diabetic ketoacidosis Current Visit: Yes Status: Acute Qualifiers: Diabetes mellitus type: type 2 Plan to address problem: DKA protocol Insulin drip--discontinued IV fluids IV antibiotics DKA resolved (5) Hypernatremia Current Visit: Yes Status: Acute Plan to address problem: Continue half-normal saline and recheck sodium Sodium levels are improved (6) Postoperative anemia Current Visit: Yes Status: Acute Plan to address problem: Patient to be transfused 2 units of packed red blood cells Refuses blood transfusion b/c of being a Jehav's witness (7) DVT prophylaxis Current Visit: No Status: Acute Plan to address problem: Heparin subcu and GI prophylaxis Subjective Date of service: 09/27/19 Principal diagnosis: Sepsis, DKA, right foot gangrene Interval history: 59 years old male with history of severe peripheral artery disease right foot gangrene and diabetes admitted for altered mental status and decreased responsiveness. Patient was recently discharged on 09/21/2019. Patient refused right leg amputation. Patient left AMA. Patient being readmitted for found for being found unresponsive at home. Patient is very altered and lethargic and unable to provide history. With history of diabetes, peripheral artery disease and right foot gas gangrene, was recently admitted from 09/15/2021 - 09/21/2019 and left AMA after refusing amputation, readmitted on 09/23/2019 due to be found unresponsive on his bathroom. Police found the patient on the floor off the bathroom. Patient is currently very altered, lethargic, unable to provide any h istory. CT angiogram of the right leg showed normal arteries but abnormal soft tissue edema with gas as well as possible early osteomyelitis of the second third and fourth toes. Patient also has a high glucose of 102 and sodium of 151 at the time of admission. Patient is decreased responsive. S/p Rt BKA today Objective - Constitutional Vitals: Vital Signs - 12hr 09/27/19 09/27/19 09/27/19 08:00 08:15 08:30 Temperature Pulse Rate 97 H 104 H 112 H Pulse Rate [ 97 H From Monitor] Respiratory 15 11 L 19 Rate Blood Pressure 78/49 93/66 101/74 O2 Sat by Pulse 100 100 100 Oximetry 09/27/19 09/27/19 09/27/19 08:45 09:00 09:15 Temperature Pulse Rate 112 H 108 H 110 H Pulse Rate [ From Monitor] Respiratory 13 19 18 Rate Blood Pressure 101/74 97/64 95/61 O2 Sat by Pulse 98 Oximetry 09/27/19 09/27/19 09/27/19 09:30 09:45 10:00 Temperature Pulse Rate 109 H 105 H 109 H Pulse Rate [ From Monitor] Respiratory 20 19 15 Rate Blood Pressure 86/66 91/62 93/63 O2 Sat by Pulse 91 100 92 Oximetry 09/27/19 09/27/19 09/27/19 10:15 10:30 10:45 Temperature Pulse Rate 110 H 108 H 105 H Pulse Rate [ From Monitor] Respiratory 19 18 17 Rate Blood Pressure 111/72 104/70 95/60 O2 Sat by Pulse 100 87 100 Oximetry 09/27/19 09/27/19 09/27/19 11:00 11:15 11:30 Temperature Pulse Rate 99 H 100 H 108 H Pulse Rate [ From Monitor] Respiratory 15 14 13 Rate Blood Pressure 72/46 81/53 84/63 O2 Sat by Pulse 100 100 Oximetry 09/27/19 09/27/19 09/27/19 11:41 11:51 12:00 Temperature Pulse Rate 102 H 102 H 107 H Pulse Rate [ From Monitor] Respiratory 15 19 18 Rate Blood Pressure 84/63 87/57 91/59 O2 Sat by Pulse Oximetry 09/27/19 09/27/19 09/27/19 12:11 12:21 12:30 Temperature Pulse Rate 100 H 99 H 98 H Pulse Rate [ From Monitor] Respiratory 13 12 15 Rate Blood Pressure 91/59 86/56 85/56 O2 Sat by Pulse Oximetry 09/27/19 09/27/19 09/27/19 12:40 12:51 13:00 Temperature Pulse Rate 115 H 110 H 110 H Pulse Rate [ From Monitor] Respiratory 25 H 15 16 Rate Blood Pressure 85/56 106/72 110/72 O2 Sat by Pulse Oximetry 09/27/19 09/27/19 09/27/19 13:11 13:21 16:13 Temperature 99.4 F Pulse Rate 108 H 109 H 107 H Pulse Rate [ From Monitor] Respiratory 11 L 18 20 Rate Blood Pressure 110/72 110/76 70/40 O2 Sat by Pulse 98 Oximetry General appearance: Present: no acute distress, well-nourished - EENT Eyes: PERRL, EOM intact ENT: hearing intact, clear oral mucosa Ears: bilateral: normal - Neck Neck: supple, normal ROM - Respiratory Respiratory effort: normal Respiratory: bilateral: CTA - Breasts Breasts: normal - Cardiovascular Rhythm: regular Heart Sounds: Present: S1 & S2. Absent: gallop, rub Extremities: pulses intact, No edema, normal color, Full ROM - Gastrointestinal General gastrointestinal: Present: soft, non-tender, non-distended, normal bowel sounds - Genitourinary Male genitourinary: normal - Integumentary Integumentary: clear, warm, dry - Musculoskeletal Musculoskeletal: 1, strength equal bilaterally - Neurologic Neurologic: moves all extremities - Psychiatric Psychiatric: memory intact, appropriate mood/affect, intact judgment & insight - Labs CBC & Chem 7: 09/27/19 02:25 09/27/19 02:25 Labs: Abnormal lab results 09/26/19 09/26/19 09/26/19 Range/Units 14:22 17:13 22:32 RBC (3.65-5.03) M/mm3 Hgb (11.8-15.2) gm/dl Hct (35.5-45.6) % MCV (84-94) fl MCH (28-32) pg Plt Count (140-440) K/mm3 Lymph % (Auto) (13.4-35.0) % Seg Neutrophils % (40.0-70.0) % Seg Neutrophils # (1.8-7.7) K/mm3 Carbon Dioxide (22-30) mmol/L BUN (9-20) mg/dL Creatinine (0.8-1.5) mg/dL Glucose (75-100) mg/dL POC Glucose 360 H 328 H 221 H (70-105) Calcium (8.4-10.2) mg/dL Alkaline Phosphatase (35-129) units/L Total Protein (6.3-8.2) g/dL Albumin (3.9-5) g/dL 09/27/19 09/27/19 09/27/19 Range/Units 02:17 02:25 02:25 RBC 1.77 L (3.65-5.03) M/mm3 Hgb 5.8 L* (11.8-15.2) gm/dl Hct 17.3 L* (35.5-45.6) % MCV 98 H (84-94) fl MCH 33 H (28-32) pg Plt Count 444 H (140-440) K/mm3 Lymph % (Auto) 11.3 L (13.4-35.0) % Seg Neutrophils % 82.1 H (40.0-70.0) % Seg Neutrophils # 8.7 H (1.8-7.7) K/mm3 Carbon Dioxide 31 H (22-30) mmol/L BUN 22 H (9-20) mg/dL Creatinine 0.5 L (0.8-1.5) mg/dL Glucose 144 H (75-100) mg/dL POC Glucose 176 H (70-105) Calcium 7.8 L (8.4-10.2) mg/dL Alkaline Phosphatase 184 H (35-129) units/L Total Protein 6.0 L (6.3-8.2) g/dL Albumin 2.0 L (3.9-5) g/dL 09/27/19 09/27/19 09/27/19 Range/Units 05:43 10:04 11:50 RBC (3.65-5.03) M/mm3 Hgb (11.8-15.2) gm/dl Hct (35.5-45.6) % MCV (84-94) fl MCH (28-32) pg Plt Count (140-440) K/mm3 Lymph % (Auto) (13.4-35.0) % Seg Neutrophils % (40.0-70.0) % Seg Neutrophils # (1.8-7.7) K/mm3 Carbon Dioxide (22-30) mmol/L BUN (9-20) mg/dL Creatinine (0.8-1.5) mg/dL Glucose (75-100) mg/dL POC Glucose 262 H 123 H 224 H (70-105) Calcium (8.4-10.2) mg/dL Alkaline Phosphatase (35-129) units/L Total Protein (6.3-8.2) g/dL Albumin (3.9-5) g/dL 09/27/19 Range/Units 16:44 RBC (3.65-5.03) M/mm3 Hgb (11.8-15.2) gm/dl Hct (35.5-45.6) % MCV (84-94) fl MCH (28-32) pg Plt Count (140-440) K/mm3 Lymph % (Auto) (13.4-35.0) % Seg Neutrophils % (40.0-70.0) % Seg Neutrophils # (1.8-7.7) K/mm3 Carbon Dioxide (22-30) mmol/L BUN (9-20) mg/dL Creatinine (0.8-1.5) mg/dL Glucose (75-100) mg/dL POC Glucose 401 H (70-105) Calcium (8.4-10.2) mg/dL Alkaline Phosphatase (35-129) units/L Total Protein (6.3-8.2) g/dL Albumin (3.9-5) g/dL HEART Score - HEART Score Troponin: Troponin T < 0.010 ng/mL (0.00-0.029) 09/23/19 17:32
[2019-09-27] MEDS ORDERED: SODIUM CHLORIDE 0.9% 1000 ML 1,000 ML IV ONE (20:00)
[2019-09-27] MEDS ORDERED: INSULIN NPH/REGULAR 70/30 INJ SUB-Q ONE (22:00)
[2019-09-28] MEDS: INSULIN LISPRO 100 UNIT/ML SUB-Q SCH ×4 (08:38→21:33)
[2019-09-28] MEDS: INSULIN NPH/REGULAR 70/30 INJ SUB-Q SCH (08:38)
[2019-09-28] MEDS: ASCORBIC ACID 500 MG TAB PO SCH ×2 (09:02→21:32)
[2019-09-28] MEDS: DOCUSATE SODIUM 100 MG CAP PO SCH ×2 (09:02→21:32)
[2019-09-28] MEDS: PANTOPRAZOLE 40 MG TAB PO SCH (09:03)
[2019-09-28] MEDS: FERROUS SULFATE 325 MG TAB PO SCH ×3 (09:03→21:33)
[2019-09-29] MEDS: INSULIN NPH/REGULAR 70/30 INJ SUB-Q SCH ×3 (07:29→16:39)
--- NOTE | 2019-09-29 07:44 | Progress Note ---
Assessment and Plan The high probability OF a clinically significant sudden or life-threatening deterioration of the cardiorespiratory system and endocrine system required my full and direct attention, intervention and postoperative management. The aggregate critical care time was 40 minutes. The time is in addition to time spent performing reported procedures but includes the followin: Data review and interpretation 2: Patient assessment and monitoring of vital signs 3: Documentation 4:: Medication orders and management - Patient Problems (1) Status post below knee amputation of right lower extremity Current Visit: Yes Status: Acute Plan to address problem: Rt BKA today (2) Sepsis Current Visit: Yes Status: Acute Qualifiers: Sepsis type: sepsis due to unspecified organism Plan to address problem: Sepsis as evidenced by fever tachycardia and hypotension and elevated lactic acid IV cefepime and vancomycin and IV clindamycin. (3) Gangrene of right foot Current Visit: Yes Status: Acute Plan to address problem: Patient is amputation below right knee. Patient refused amputation last time Continue IV antibiotics Peripheral arterial duplex scan had a good flow except soft tissue swelling from last visit Vascular surgery consulted Had Rt BKA yesterday (4) Diabetic ketoacidosis Current Visit: Yes Status: Acute Qualifiers: Diabetes mellitus type: type 2 Plan to address problem: DKA protocol Insulin drip--discontinued IV fluids IV antibiotics DKA resolved (5) Hypernatremia Current Visit: Yes Status: Acute Plan to address problem: Continue half-normal saline and recheck sodium Sodium levels are improved (6) Postoperative anemia Current Visit: Yes Status: Acute Plan to address problem: Patient to be transfused 2 units of packed red blood cells Refuses blood transfusion b/c of being a Jehav's witness (7) DVT prophylaxis Current Visit: No Status: Acute Plan to address problem: Heparin subcu and GI prophylaxis (8) Discharge planning issues Current Visit: Yes Status: Acute Plan to address problem: Probable discharge tomorrow with home health for PT and wound care Subjective Date of service: 09/28/19 Principal diagnosis: Sepsis, DKA, right foot gangrene Interval history: 59 years old male with history of severe peripheral artery disease right foot gangrene and diabetes admitted for altered mental status and decreased responsiveness. Patient was recently discharged on 09/21/2019. Patient refused right leg amputation. Patient left AMA. Patient being readmitted for found for being found unresponsive at home. Patient is very altered and lethargic and unable to provide history. With history of diabetes, peripheral artery disease and right foot gas gangrene, was recently admitted from 09/15/2021 - 09/21/2019 and left AMA after refusing amputation, readmitted on 09/23/2019 due to be found unresponsive on his bathroom. Police found the patient on the floor off the bathroom. Patient is currently very altered, lethargic, unable to provide any history. CT angiogram of the right leg showed normal arteries but abnormal soft tissue edema with gas as well as possible early osteomyelitis of the second third and fourth toes. Patient also has a high glucose of 102 and sodium of 151 at the time of admission. Patient is decreased responsive. S/p Rt BKA Alert and oriented Able to make decisions Refuses Blood transfusion Objective - Constitutional Vitals: Vital Signs - 12hr 09/28/19 09/28/19 09/28/19 19:47 19:54 22:00 Temperature 98.5 F Pulse Rate 107 H 104 H Pulse Rate [ 107 H Apical] Pulse Rate [ 107 H From Monitor] Respiratory 18 18 Rate Blood Pressure 100/59 O2 Sat by Pulse 91 98 Oximetry 09/28/19 09/29/19 09/29/19 23:08 03:35 07:30 Temperature 99.3 F 99.1 F Pulse Rate 25 L 103 H Pulse Rate [ 107 H Apical] Pulse Rate [ 107 H From Monitor] Respiratory 16 18 18 Rate Blood Pressure 106/65 119/64 O2 Sat by Pulse 80 L 100 98 Oximetry General appearance: Present: no acute distress, well-nourished - EENT Eyes: PERRL, EOM intact ENT: hearing intact, clear oral mucosa Ears: bilateral: normal - Neck Neck: supple, normal ROM - Respiratory Respiratory effort: normal Respiratory: bilateral: CTA - Breasts Breasts: normal - Cardiovascular Heart rate: 78 Rhythm: regular Heart Sounds: Present: S1 & S2. Absent: gallop, rub Extremities: pulses intact, No edema, normal color, Full ROM, abnormal (Rt BKA) Extremity abnormal: other (Rt BKA) - Gastrointestinal General gastrointestinal: Present: deferred, soft, non-tender, non-distended, normal bowel sounds - Genitourinary Male genitourinary: normal - Integumentary Integumentary: clear, warm, dry - Musculoskeletal Musculoskeletal: 1, strength equal bilaterally - Neurologic Neurologic: moves all extremities - Psychiatric Psychiatric: memory intact, appropriate mood/affect, intact judgment & insight - Labs CBC & Chem 7: 09/27/19 02:25 09/27/19 02:25 Labs: Abnormal lab results 09/25/19 09/28/19 09/28/19 Range/Units 11:15 07:58 11:41 POC Glucose 243 H 383 H (70-105) Crossmatch See Detail 09/28/19 09/28/19 Range/Units 16:47 21:33 POC Glucose 153 H 312 H (70-105) Crossmatch HEART Score - HEART Score Troponin: Troponin T < 0.010 ng/mL (0.00-0.029) 09/23/19 17:32
[2019-09-29] MEDS: INSULIN LISPRO 100 UNIT/ML SUB-Q SCH ×4 (08:30→22:03)
[2019-09-29] MEDS: FERROUS SULFATE 325 MG TAB PO SCH ×3 (08:31→22:04)
[2019-09-29 09:02] LABS: Mean Corpuscular HGB Conc 32 % (32-34); Mean Corpuscular Volume 102 fl (84-94); Platelet Count 504 K/mm3 (140-440); Red Blood Count 1.78 M/mm3 (3.65-5.03); Red Cell Distribution Width 14.7 % (13.2-15.2)
[2019-09-29 09:06] LABS: Hematocrit 18.2 % (35.5-45.6); Hemoglobin 5.8 gm/dl (11.8-15.2)
[2019-09-29 09:13] LABS: Alanine Aminotransferase 21 units/L (7-56); Albumin 2.2 g/dL (3.9-5); BUN/Creatinine Ratio 50; Blood Urea Nitrogen 25 mg/dL (9-20); Hemolysis Index 1
[2019-09-29 10:09] LABS: Anisocytosis 1+; Band Neutrophils # (Manual) 0.2 K/mm3; Basophils % (Manual) 0 % (0.0-1.8); Macrocytosis 1+; Total Cells Counted 100
[2019-09-29 10:10] LABS: Hypochromasia 1+; Platelet Estimate Consistent w Auto; Poikilocytosis 1+; Target Cells 1+
[2019-09-29] MEDS: PANTOPRAZOLE 40 MG TAB PO SCH (10:50)
[2019-09-29] MEDS: ASCORBIC ACID 500 MG TAB PO SCH ×2 (10:50→22:03)
[2019-09-29] MEDS: DOCUSATE SODIUM 100 MG CAP PO SCH ×2 (10:50→22:04)
--- NOTE | 2019-09-29 13:48 | Progress Note ---
Assessment and Plan 59-year-old male with history of septic foot requiring right guillotine amputation for resolution of sepsis. Patient will need a definitive right below-knee amputation. However, his hemoglobin is too low to proceed with below-knee amputation at this time. He is a Yarsanism. I discussed with him that I recommend blood transfusions, but he has declined them at this time. He wants time to think about it. He understands there is a risk of morbidity and mortality if he does not proceed with transfusions given his low hemoglobin, and need for further operative procedures. Recommend hematology consult for iron infusions to increase his hemoglobin. He will need a hemoglobin of at least 7-8 prior to definitive right BKA as he will lose blood in the operation. Subjective Date of service: 09/29/19 Principal diagnosis: Sepsis, DKA, right foot gangrene Interval history: Status post right ankle guillotine amputation for infection control. Patient appears hemodynamically improved with improvement of white count. Hemoglobin is still low. Objective - Constitutional Vitals: Vital Signs - 12hr 09/29/19 09/29/19 09/29/19 03:35 07:25 07:30 Temperature 99.1 F 98.2 F Pulse Rate 103 H Pulse Rate [ 107 H Apical] Pulse Rate [ 107 H From Monitor] Respiratory 18 18 18 Rate Blood Pressure 119/64 102/61 O2 Sat by Pulse 100 98 Oximetry 09/29/19 10:00 Temperature Pulse Rate 105 H Pulse Rate [ Apical] Pulse Rate [ From Monitor] Respiratory Rate Blood Pressure O2 Sat by Pulse Oximetry General appearance: Present: no acute distress - EENT Eyes: EOM intact ENT: hearing intact - Respiratory Respiratory effort: normal Extremities: normal temperature, normal color, abnormal (Right BKA guillotine amputation. No strikethrough bleeding on Jose Elias wrap.) - Psychiatric Psychiatric: appropriate mood/affect, cooperative - Labs CBC & Chem 7: 09/29/19 08:49 09/29/19 08:49 Labs: Abnormal lab results 09/28/19 09/28/19 09/28/19 Range/Units 07:58 11:41 16:47 RBC (3.65-5.03) M/mm3 Hgb (11.8-15.2) gm/dl Hct (35.5-45.6) % MCV (84-94) fl MCH (28-32) pg Plt Count (140-440) K/mm3 Seg Neuts % (Manual) (40.0-70.0) % Potassium (3.6-5.0) mmol/L BUN (9-20) mg/dL Creatinine (0.8-1.5) mg/dL Glucose (75-100) mg/dL POC Glucose 243 H 383 H 153 H (70-105) Calcium (8.4-10.2) mg/dL Alkaline Phosphatase (35-129) units/L Albumin (3.9-5) g/dL 09/28/19 09/29/19 09/29/19 Range/Units 21:33 08:49 08:49 RBC 1.78 L (3.65-5.03) M/mm3 Hgb 5.8 L* (11.8-15.2) gm/dl Hct 18.2 L* (35.5-45.6) % MCV 102 H (84-94) fl MCH 33 H (28-32) pg Plt Count 504 H (140-440) K/mm3 Seg Neuts % (Manual) 74.0 H (40.0-70.0) % Potassium 3.4 L (3.6-5.0) mmol/L BUN 25 H (9-20) mg/dL Creatinine 0.5 L (0.8-1.5) mg/dL Glucose 286 H (75-100) mg/dL POC Glucose 312 H (70-105) Calcium 8.0 L (8.4-10.2) mg/dL Alkaline Phosphatase 185 H (35-129) units/L Albumin 2.2 L (3.9-5) g/dL Medications & Allergies - Medications Allergies/Adverse Reactions: Allergies No Known Allergies Allergy (Verified 12/01/18 12:05) Home Medications: Home Medications Medication Instructions Recorded Confirmed Last Taken Type Aspirin EC [Halfprin EC] 81 mg PO QDAY #30 tablet. 04/26/17 09/24/19 Unknown Rx Insulin Glargine,Hum.rec.anlog 15 units SUB-Q QAM #3 insuln.pen 04/26/17 09/24/19 Unknown Rx [Lantus Solostar] Insulin Glargine [Lantus] 15 unit SUB-Q QHS #1 vial 12/01/18 09/24/19 Unknown Rx Ondansetron [Zofran Odt] 4 mg PO Q8HR PRN #10 tab.rapdis 02/25/19 09/24/19 Unknown Rx Pantoprazole [Protonix] 40 mg PO QDAY #30 tablet 02/25/19 09/24/19 Unknown Rx Active Medications: Generic Name Dose Route Start Last Admin Trade Name Freq PRN Reason Stop Dose Admin Acetaminophen 650 mg 09/23/19 22:51 09/26/19 23:02 Tylenol PO 650 mg Q4H PRN Administration Pain MILD(1-3)/Fever >100.5/CHRISTIANSON Ascorbic Acid 1,000 mg 09/26/19 22:00 09/29/19 10:50 Vitamin C PO 1,000 mg BID KATHY Administration Docusate Sodium 100 mg 09/27/19 13:00 09/29/19 10:50 Colace PO 100 mg BID KATHY Administration Ferrous Sulfate 325 mg 09/27/19 08:00 09/29/19 08:31 Feosol PO 325 mg TID KATHY Administration Hydromorphone HCl 0.5 mg 09/23/19 22:51 Dilaudid IV Q3H PRN Pain , Severe (7-10) Insulin Human Isoph/Insulin Regular 22 unit 09/27/19 11:00 09/29/19 08:31 Humulin 70/30 SUB-Q 22 unit BIDDIAB KATHY Administration Insulin Human Lispro 0 unit 09/27/19 11:30 09/29/19 11:45 Humalog SUB-Q 10 unit ACHS KATHY Administration Protocol Morphine Sulfate 3 mg 09/25/19 15:38 Morphine IV Q3H PRN Pain , Severe (7-10) Ondansetron HCl 4 mg 09/23/19 22:50 Zofran Odt PO Q8H PRN Vomiting Ondansetron HCl 4 mg 09/23/19 22:51 Zofran IV Q8H PRN Nausea And Vomiting Oxycodone/Acetaminophen 1 tab 09/23/19 22:51 Percocet 5/325 PO Q6H PRN Pain, Moderate (4-6) Pantoprazole Sodium 40 mg 09/24/19 10:00 09/29/19 10:50 Protonix PO 40 mg QDAY KATHY Administration Sodium Chloride 10 ml 09/24/19 10:00 09/29/19 10:52 Sodium Chloride Flush Syringe 10 Ml IV 10 ml BID KATHY Administration Sodium Chloride 10 ml 09/23/19 22:51 09/28/19 21:33 Sodium Chloride Flush Syringe 10 Ml IV 10 ml PRN PRN Administration LINE FLUSH HEART Score - HEART Score Troponin: Troponin T < 0.010 ng/mL (0.00-0.029) 09/23/19 17:32
--- NOTE | 2019-09-29 14:14 | Progress Note ---
Assessment and Plan Cultures: Blood cultures 09/23/2019 no growth so far Assessment: 59 years old male with history of diabetes, peripheral artery disease and right foot gas gangrene, was recently admitted from 09/15/2021 - 09/21/2019 and left AMA after refusing amputation, readmitted on 09/23/2019 due to be found unresponsive on his bathroom: #Severe sepsis with septic shock: resolved; likely due to right foot gas gangrene. #Right diabetic foot infection with gas gangrene with 3rd-4th toes osteomyelit is: This is most likely bacterial infection. Recent CTA of the legs show overall normal arteries. Art US +PVD. S/p Right above Ankle Guillotine Amputation with dressings on 09/24 #Diabetes mellitus: Uncontrolled. #Acute kidney injury: Likely due to sepsis #Acute encephalopathy: Likely due to severe sepsis Recommendations: Needs a definitive right below-knee amputation, needs blood transfusion but Taoist. vascular discussed with him but he has declined them at this time. Monitor fever off abx Will follow. Yanni Younger MD Infectious Diseases [employer] Dispatcher [facility], [place], [facility] ([facility]) M [phone] O [phone] Subjective Date of service: 09/29/19 Principal diagnosis: Sepsis, DKA, right foot gangrene Interval history: Feels better, tmax 100.5 yesterday, no pressors Objective - Exam Narrative Exam: General appearance: alert , in no acute distress Eyes: anicteric sclerae, moist conjunctivae; no lid-lag; PERRLA HENT: Atraumatic; oropharynx limited Lungs: CTA bilaterally CV: RRR Abdomen: Soft, non-tender Extremities: Right above Ankle Guillotine Amputation with dressings Skin: No rash. Psych: Nonagitated Neuro:alert oriented - Constitutional Vitals: Vital Signs Temp Pulse Resp BP Pulse Ox 98.2 F 105 H 18 102/61 98 09/29/19 07:25 09/29/19 10:00 09/29/19 07:30 09/29/19 07:25 09/29/19 07:30 Temperature -Last 24 Hours Temperature 98.2 F Temperature 99.1 F Temperature 99.3 F Temperature 98.5 F Temperature 98.2 F - Labs CBC & Chem 7: 09/29/19 08:49 09/29/19 08:49 Labs: Abnormal lab results 09/28/19 09/28/19 09/28/19 Range/Units 07:58 11:41 16:47 RBC (3.65-5.03) M/mm3 Hgb (11.8-15.2) gm/dl Hct (35.5-45.6) % MCV (84-94) fl MCH (28-32) pg Plt Count (140-440) K/mm3 Seg Neuts % (Manual) (40.0-70.0) % Potassium (3.6-5.0) mmol/L BUN (9-20) mg/dL Creatinine (0.8-1.5) mg/dL Glucose (75-100) mg/dL POC Glucose 243 H 383 H 153 H (70-105) Calcium (8.4-10.2) mg/dL Alkaline Phosphatase (35-129) units/L Albumin (3.9-5) g/dL 09/28/19 09/29/19 09/29/19 Range/Units 21:33 08:49 08:49 RBC 1.78 L (3.65-5.03) M/mm3 Hgb 5.8 L* (11.8-15.2) gm/dl Hct 18.2 L* (35.5-45.6) % MCV 102 H (84-94) fl MCH 33 H (28-32) pg Plt Count 504 H (140-440) K/mm3 Seg Neuts % (Manual) 74.0 H (40.0-70.0) % Potassium 3.4 L (3.6-5.0) mmol/L BUN 25 H (9-20) mg/dL Creatinine 0.5 L (0.8-1.5) mg/dL Glucose 286 H (75-100) mg/dL POC Glucose 312 H (70-105) Calcium 8.0 L (8.4-10.2) mg/dL Alkaline Phosphatase 185 H (35-129) units/L Albumin 2.2 L (3.9-5) g/dL
--- NOTE | 2019-09-29 18:31 | Progress Note ---
Assessment and Plan Day # 7 Alert and oriented Able to make decisions efuses Blood transfusions - Patient Problems (1) Status post below knee amputation of right lower extremity Current Visit: Yes Status: Acute Plan to address problem: S/p Rt BKA septic foot requiring right guillotine amputation for resolution of sepsis. Patient will need a definitive right below-knee amputation. However, his hemoglobin is too low to proceed with below-knee amputation at this time. He is a [employer]ian[employer]. Recommended blood transfusions, but he has declined them at this time. He wants time to think about it. He understands there is a risk of morbidity and mortality if he does not proceed with transfusions given his low hemoglobin, and need for further operative procedures. Will arrange hematology consult for iron infusions to increase his hemoglobin. He will need a hemoglobin of at least 7-8 prior to definitive right BKA as he will lose blood in the operation. Will refer to [place] [facility] (2) Sepsis Current Visit: Yes Status: Acute Qualifiers: Sepsis type: sepsis due to unspecified organism Plan to address problem: Sepsis as evidenced by fever tachycardia and hypotension and elevated lactic acid IV cefepime and vancomycin and IV clindamycin. (3) Gangrene of right foot Current Visit: Yes Status: Acute Plan to address problem: Patient is amputation below right knee. Patient refused amputation last time Continue IV antibiotics Peripheral arterial duplex scan had a good flow except soft tissue swelling from last visit Vascular surgery consulted Had Rt BKA yesterday (4) Diabetic ketoacidosis Current Visit: Yes Status: Acute Qualifiers: Diabetes mellitus type: type 2 Plan to address problem: DKA protocol Insulin drip--discontinued IV fluids IV antibiotics DKA resolved (5) Hypernatremia Current Visit: Yes Status: Acute Plan to address problem: Continue half-normal saline and recheck sodium Sodium levels are improved (6) Postoperative anemia Current Visit: Yes Status: Acute Plan to address problem: Patient to be transfused 2 units of packed red blood cells Refuses blood transfusion b/c of being a Jehovas witness (7) DVT prophylaxis Current Visit: No Status: Acute Plan to address problem: Heparin subcu and GI prophylaxis (8) Discharge planning issues Current Visit: Yes Status: Acute Plan to address problem: Probable discharge tomorrow with home health for PT and wound care Subjective Date of service: 09/29/19 Principal diagnosis: Sepsis, DKA, right foot gangrene Interval history: 59 years old male with history of severe peripheral artery disease right foot gangrene and diabetes admitted for altered mental status and decreased responsiveness. Patient was recently discharged on 09/21/2019. Patient refused right leg amputation. Patient left AMA. Patient being readmitted for found for being found unresponsive at home. Patient is very altered and lethargic and unable to provide history. With history of diabetes, peripheral artery disease and right foot gas gangrene, was recently admitted from 09/15/2021 - 09/21/2019 and left AMA after refusing amputation, readmitted on 09/23/2019 due to be found unresponsive on his bathroom. Police found the patient on the floor off the bathroom. Patient is currently very altered, lethargic, unable to provide any history. CT angiogram of the right leg showed normal arteries but abnormal soft tissue edema with gas as well as possible early osteomyelitis of the second third and fourth toes. Patient also has a high glucose of 102 and sodium of 151 at the time of admission. Patient is decreased responsive. S/p Rt BKA Alert and oriented Able to make decisions Refuses Blood transfusion Objective - Constitutional Vitals: Vital Signs - 12hr 09/29/19 09/29/19 09/29/19 07:25 07:30 10:00 Temperature 98.2 F Pulse Rate 105 H Pulse Rate [ 107 H Apical] Pulse Rate [ 107 H From Monitor] Respiratory 18 18 Rate Blood Pressure 102/61 O2 Sat by Pulse 98 Oximetry General appearance: Present: no acute distress, well-nourished - EENT Eyes: PERRL, EOM intact ENT: hearing intact, clear oral mucosa Ears: bilateral: normal - Neck Neck: supple, normal ROM - Respiratory Respiratory effort: normal Respiratory: bilateral: CTA - Breasts Breasts: normal - Cardiovascular Rhythm: regular Heart Sounds: Present: S1 & S2. Absent: gallop, rub Extremities: pulses intact, No edema, normal color, Full ROM, abnormal (Rt BKA) - Gastrointestinal General gastrointestinal: Present: soft, non-tender, non-distended, normal bowel sounds - Genitourinary Male genitourinary: normal - Integumentary Integumentary: clear, warm, dry - Musculoskeletal Musculoskeletal: 1, strength equal bilaterally - Neurologic Neurologic: moves all extremities - Psychiatric Psychiatric: memory intact, appropriate mood/affect, intact judgment & insight - Labs CBC & Chem 7: 09/29/19 08:49 09/29/19 08:49 Labs: Abnormal lab results 09/28/19 09/28/19 09/28/19 Range/Units 07:58 11:41 16:47 RBC (3.65-5.03) M/mm3 Hgb (11.8-15.2) gm/dl Hct (35.5-45.6) % MCV (84-94) fl MCH (28-32) pg Plt Count (140-440) K/mm3 Seg Neuts % (Manual) (40.0-70.0) % Potassium (3.6-5.0) mmol/L BUN (9-20) mg/dL Creatinine (0.8-1.5) mg/dL Glucose (75-100) mg/dL POC Glucose 243 H 383 H 153 H (70-105) Calcium (8.4-10.2) mg/dL Alkaline Phosphatase (35-129) units/L Albumin (3.9-5) g/dL 09/28/19 09/29/19 09/29/19 Range/Units 21:33 07:38 08:49 RBC 1.78 L (3.65-5.03) M/mm3 Hgb 5.8 L* (11.8-15.2) gm/dl Hct 18.2 L* (35.5-45.6) % MCV 102 H (84-94) fl MCH 33 H (28-32) pg Plt Count 504 H (140-440) K/mm3 Seg Neuts % (Manual) 74.0 H (40.0-70.0) % Potassium (3.6-5.0) mmol/L BUN (9-20) mg/dL Creatinine (0.8-1.5) mg/dL Glucose (75-100) mg/dL POC Glucose 312 H 356 H (70-105) Calcium (8.4-10.2) mg/dL Alkaline Phosphatase (35-129) units/L Albumin (3.9-5) g/dL 09/29/19 09/29/19 09/29/19 Range/Units 08:49 11:35 16:38 RBC (3.65-5.03) M/mm3 Hgb (11.8-15.2) gm/dl Hct (35.5-45.6) % MCV (84-94) fl MCH (28-32) pg Plt Count (140-440) K/mm3 Seg Neuts % (Manual) (40.0-70.0) % Potassium 3.4 L (3.6-5.0) mmol/L BUN 25 H (9-20) mg/dL Creatinine 0.5 L (0.8-1.5) mg/dL Glucose 286 H (75-100) mg/dL POC Glucose 364 H 185 H (70-105) Calcium 8.0 L (8.4-10.2) mg/dL Alkaline Phosphatase 185 H (35-129) units/L Albumin 2.2 L (3.9-5) g/dL HEART Score - HEART Score Troponin: Troponin T < 0.010 ng/mL (0.00-0.029) 09/23/19 17:32
[2019-09-30] MEDS: INSULIN NPH/REGULAR 70/30 INJ SUB-Q SCH ×2 (08:49→18:04)
[2019-09-30] MEDS: FERROUS SULFATE 325 MG TAB PO SCH ×3 (08:49→21:39)
[2019-09-30] MEDS: INSULIN LISPRO 100 UNIT/ML SUB-Q SCH ×4 (08:50→23:00)
[2019-09-30] MEDS: DOCUSATE SODIUM 100 MG CAP PO SCH ×2 (09:38→21:40)
[2019-09-30] MEDS: ASCORBIC ACID 500 MG TAB PO SCH ×2 (09:38→21:39)
[2019-09-30] MEDS: PANTOPRAZOLE 40 MG TAB PO SCH (09:38)
--- NOTE | 2019-09-30 15:57 | Discharge Summary ---
Providers - Providers Date of Admission: 09/23/19 22:51 Date of discharge: 09/30/19 Attending physician: SEMAJ MUÑIZ 09/23/19 22:57 Consult to Physician [CONS] Routine Comment: Consulting Provider: CHARLEEN GALVAN Physician Instructions: Reason For Exam: Gangrene and PAD 09/24/19 09:19 Consult to Physician [CONS] Routine Comment: Consulting Provider: KIANA SCHMITT Physician Instructions: Reason For Exam: Rt foot gangrene--Abx choice 09/24/19 17:54 Consult to Wound/ET Nurse [CONS] Stat Reason For Exam: wound eval right leg gangrene 09/28/19 12:37 Consult to Wound/ET Nurse [CONS] Stat Reason For Exam: sacral ulcer Primary care physician: WOODS RIDER Hospitalization Condition: Stable Hospital course: Day #8 Patient is a 59-year-old F [place] male who has a past medical history of diabetes who is presenting with altered mental status. Police found the patient in his home lying in the bathroom. They went there on a well check. Paramedics were called and he was transported to our hospital. Patient is moaning not responding purposefully. He is moving all extremities. No other history is known. Hospital course: Patient was admitted for sepsis and gangrene of right foot. Vascular surgery consult was requested and patient was treated for DKA hypernatremia sepsis and right foot gangrene. DKA and sodium are controlled. Patient went in for good guillotine right BKA. Postop patient was persistently with low hemoglobin and hematocrit but patient continued to refuse blood transfusions. Patient is a Restorationist. Today's hemoglobin is 5.8 and hematocrit 18.2.. Patient still refused blood transfusions. Patient is otherwise alert and oriented and knows his limitations. Patient says he will go home to a friend's place. Apparently the friend will come in late evening and pick him up. Patient needs a final BKA revision so that stump can be made and patient can fit for orthotics. (1) Status post below knee amputation of right lower extremity Current Visit: Yes Status: Acute Plan to address problem: S/p Rt BKA septic foot requiring right guillotine amputation for resolution of sepsis. Patient will need a definitive right below-knee amputation. However, his hemoglobin is too low to proceed with below-knee amputation at this time. He is a Restorationist. Recommended blood transfusions, but he has declined them at this time. He wants time to think about it. He understands there is a risk of morbidity and mortality if he does not proceed with transfusions given his low hemoglobin, and need for further operative procedures. Will arrange hematology consult for iron infusions as outpatient to increase his hemoglobin. He will need a hemoglobin of at least 7-8 prior to definitive right BKA as he will lose blood in the operation. Will refer to [place] [facility] (2) Sepsis Current Visit: Yes Status: Acute Qualifiers: Sepsis type: sepsis due to unspecified organism Plan to address problem: Sepsis as evidenced by fever tachycardia and hypotension and elevated lactic acid IV cefepime and vancomycin and IV clindamycin. (3) Gangrene of right foot Current Visit: Yes Status: Acute Plan to address problem: Patient is amputation below right knee. Patient refused amputation last time Continue IV antibiotics Peripheral arterial duplex scan had a good flow except soft tissue swelling from last visit Vascular surgery consulted Had Rt BKA yesterday (4) Diabetic ketoacidosis and insulin-dependent diabetes Current Visit: Yes Status: Acute Qualifiers: Diabetes mellitus type: type 2 Plan to address problem: DKA protocol Insulin drip--discontinued IV fluids IV antibiotics DKA resolved Insulin dosage adjusted at the time of discharge. (5) Hypernatremia Current Visit: Yes Status: Acute Plan to address problem: Continue half-normal saline and recheck sodium Sodium levels are improved (6) Postoperative anemia Current Visit: Yes Status: Acute Plan to address problem: Patient to be transfused 2 units of packed red blood cells Refuses blood transfusion b/c of being a Jehovas witness Disposition: DC-01 TO HOME OR SELFCARE Time spent for discharge: 40 minutes - Discharge Diagnoses (1) Status post below knee amputation of right lower extremity Status: Acute (2) Sepsis Status: Acute Qualifiers: Sepsis type: sepsis due to unspecified organism (3) Gangrene of right foot Status: Acute (4) Diabetic ketoacidosis Status: Acute Qualifiers: Diabetes mellitus type: type 2 (5) Hypernatremia Status: Acute (6) Postoperative anemia Status: Acute (7) DVT prophylaxis Status: Acute (8) Discharge planning issues Status: Acute Core Measure Documentation - Palliative Care Palliative Care/ Comfort Measures: Not Applicable - Core Measures Any of the following diagnoses?: none Exam - Constitutional Vitals: Temp Pulse Resp BP Pulse Ox 98.0 F 99 H 20 120/72 100 09/30/19 11:35 09/30/19 11:36 09/30/19 11:35 09/30/19 11:35 09/30/19 11:36 General appearance: Present: no acute distress, well-nourished - EENT Eyes: Present: PERRL ENT: hearing intact, clear oral mucosa - Neck Neck: Present: supple, normal ROM - Respiratory Respiratory effort: normal Respiratory: bilateral: CTA - Cardiovascular Heart rate: 78 Rhythm: regular Heart Sounds: Present: S1 & S2. Absent: rub, click - Extremities Extremities: pulses symmetrical, No edema, abnormal (Right BKA) Extremity abnormal: other (Right BKA) Peripheral Pulses: within normal limits - Abdominal General gastrointestinal: Present: deferred, soft, non-tender, non-distended, normal bowel sounds Male genitourinary: Present: normal - Rectal Rectal Exam: deferred - Integumentary Integumentary: Present: clear, warm, dry - Musculoskeletal Musculoskeletal: gait normal, strength equal bilaterally - Psychiatric Psychiatric: appropriate mood/affect, intact judgment & insight - Neurologic Neurologic: CNII-XII intact, moves all extremities - Allied Health Allied health notes reviewed: nursing, case management Plan Weight Bearing Status: Weight Bear as Tolerated Diet: diabetic Follow up with: SERA YOUSIF MD [Primary Care Provider] - 3-5 Days PLACIDO GÓMEZ MD [Staff Physician] - 7 Days
--- NOTE | 2019-09-30 16:30 | Progress Note ---
Assessment and Plan Cultures: Blood cultures 09/23/2019 no growth so far Assessment: 59 years old male with history of diabetes, peripheral artery disease and right foot gas gangrene, was recently admitted from 09/15/2021 - 09/21/2019 and left AMA after refusing amputation, readmitted on 09/23/2019 due to be found unresponsive on his bathroom: #Severe sepsis with septic shock: resolved; likely due to right foot gas gangrene. #Right diabetic foot infection with gas gangrene with 3rd-4th toes osteomyelit is: This is most likely bacterial infection. Recent CTA of the legs show overall normal arteries. Art US +PVD. S/p Right above Ankle Guillotine Amputation with dressings on 09/24 #Diabetes mellitus: Uncontrolled. #Acute kidney injury: Likely due to sepsis #Acute encephalopathy: Likely due to severe sepsis Recommendations: Needs a definitive right below-knee amputation, needs blood transfusion but Islam. Vascular discussed with him but he has declined them at this time. Monitor fever off abx Severe anemia, Hg at a dangerous level, educated, refused transfusion Will follow. Yanni Younger MD Infectious Diseases Trade Manager [facility] ([facility]) M [phone] O [phone] Subjective Date of service: 09/30/19 Principal diagnosis: Sepsis, DKA, right foot gangrene Interval history: Feels better, no fever Objective - Exam Narrative Exam: General appearance: alert , in no acute distress Eyes: anicteric sclerae, moist conjunctivae; no lid-lag; PERRLA HENT: Atraumatic; oropharynx limited Lungs: CTA bilaterally CV: RRR Abdomen: Soft, non-tender Extremities: Right above Ankle Guillotine Amputation with dressings Skin: No rash. Psych: Nonagitated Neuro:alert oriented - Constitutional Vitals: Vital Signs Temp Pulse Resp BP Pulse Ox 98.0 F 99 H 20 120/72 100 09/30/19 11:35 09/30/19 11:36 09/30/19 11:35 09/30/19 11:35 09/30/19 11:36 Temperature -Last 24 Hours Temperature 98.0 F Temperature 98.1 F Temperature 98.4 F Temperature 98.4 F Temperature 99.0 F Temperature 98.0 F - Labs CBC & Chem 7: 09/29/19 08:49 09/29/19 08:49 Labs: Abnormal lab results 09/29/19 09/29/19 09/29/19 Range/Units 07:38 11:35 16:38 POC Glucose 356 H 364 H 185 H (70-105) 09/29/19 09/30/19 Range/Units 21:06 11:50 POC Glucose 112 H 443 H (70-105)
[2019-10-01] MEDS: INSULIN LISPRO 100 UNIT/ML SUB-Q SCH ×4 (07:30→21:38)
[2019-10-01 10:23] LABS: ABG Base Excess 5.1 mmol/L (-2.0-3.0); ABG HCO3 29.2 mmol/L (20.0-26.0); ABG Methemoglobin 0.4 % (0.0-1.5); ABG Oxygen Saturation 97.9 % (95.0-99.0); ABG PCO2 41.2 mm Hg; ABG PH 7.468 pH Units (7.350-7.450); ABG PO2 103.7 mm Hg (80.0-90.0)
--- NOTE | 2019-10-01 10:49 | Progress Note ---
Assessment and Plan Assessment and plan: Acute hypoxemic respiratory failure. Pulmonary consultation. F/U CXR and ABG. Toxic metabolic encephalopathy. Continue to treat underlying causes. Patient has been transferred to ICU for closer monitoring. Follow-up labs. Sepsis. Etiology secondary to right foot gas gangrene. Right diabetic foot infection with gas gangrene third/fourth toes/osteomyelitis. Patient is s/p right above ankle guillotine amputation. PVD. As above. Vascular following. Diabetes mellitus type 2. Continue Accu-Cheks and sliding scale insulin. Acute kidney injury. Etiology secondary to sepsis. Severe anemia. Patient is a [employer] and refusing blood transfusion. Patient per chart has been educated. I discussed the issue with next of kin listed--Mrs. Schmitz who stated she could not authorize administering blood. The high probability of a clinically significant, sudden or life threatening deterioration of the [neurological] system(s) required my full and direct attention, intervention and personal management. The aggregate critical care time was [32] minutes. This time is in addition to time spent performing reported procedures but includes the following: [x] Data Review and interpretation [x] Patient assessment and monitoring of vital signs [x] Documentation [x] Medication orders and management History Interval history: Patient was noted to be hyper responsive this morning. Patient responded to painful stimuli/sternal rub. Patient transferred to ICU. Hospitalist Physical - Constitutional Vitals: Temp Pulse Resp BP Pulse Ox 97.5 F L 59 L 20 102/55 100 10/01/19 05:17 10/01/19 05:17 10/01/19 05:17 10/01/19 05:17 10/01/19 05:17 General appearance: Present: no acute distress, well-nourished - EENT Eyes: Present: PERRL, EOM intact ENT: hearing intact, clear oral mucosa, dentition normal - Neck Neck: Present: supple, normal ROM - Respiratory Respiratory effort: normal Respiratory: bilateral: CTA - Cardiovascular Rhythm: regular Heart Sounds: Present: S1 & S2. Absent: gallop, rub - Extremities Extremity abnormal: other (Right BKA dressing clean dry and intact) - Abdominal General gastrointestinal: soft, non-tender, non-distended, normal bowel sounds - Integumentary Integumentary: Present: clear, warm, dry - Neurologic Neurologic: other (Lethargic and hyper responsive.) HEART Score - HEART Score Troponin: Troponin T < 0.010 ng/mL (0.00-0.029) 09/23/19 17:32 Results - Labs CBC & Chem 7: 10/01/19 10:38 10/01/19 10:38 Labs: Laboratory Last Values WBC 10.3 K/mm3 (4.5-11.0) 09/29/19 08:49 RBC 1.78 M/mm3 (3.65-5.03) L 09/29/19 08:49 Hgb 5.8 gm/dl (11.8-15.2) L* 09/29/19 08:49 Hct 18.2 % (35.5-45.6) L* 09/29/19 08:49 MCV 102 fl (84-94) H 09/29/19 08:49 MCH 33 pg (28-32) H 09/29/19 08:49 MCHC 32 % (32-34) 09/29/19 08:49 RDW 14.7 % (13.2-15.2) 09/29/19 08:49 Plt Count 504 K/mm3 (140-440) H 09/29/19 08:49 Lymph % (Auto) 11.3 % (13.4-35.0) L 09/27/19 02:25 [place] % (Auto) 5.7 % (0.0-7.3) 09/27/19 02:25 Eos % (Auto) 0.4 % (0.0-4.3) 09/27/19 02:25 Baso % (Auto) 0.5 % (0.0-1.8) 09/27/19 02:25 Lymph # 1.2 K/mm3 (1.2-5.4) 09/27/19 02:25 [place] # 0.6 K/mm3 (0.0-0.8) 09/27/19 02:25 Eos # 0.0 K/mm3 (0.0-0.4) 09/27/19 02:25 Baso # 0.1 K/mm3 (0.0-0.1) 09/27/19 02:25 Add Manual Diff Complete 09/29/19 08:49 Total Counted 100 09/29/19 08:49 Seg Neutrophils % 82.1 % (40.0-70.0) H 09/27/19 02:25 Seg Neuts % (Manual) 74.0 % (40.0-70.0) H 09/29/19 08:49 Band Neutrophils % 2.0 % 09/29/19 08:49 Lymphocytes % (Manual) 18.0 % (13.4-35.0) 09/29/19 08:49 Reactive Lymphs % (Man) 0 % 09/29/19 08:49 Monocytes % (Manual) 4.0 % (0.0-7.3) 09/29/19 08:49 Eosinophils % (Manual) 1.0 % (0.0-4.3) 09/29/19 08:49 Basophils % (Manual) 0 % (0.0-1.8) 09/29/19 08:49 Metamyelocytes % 1.0 % 09/29/19 08:49 Myelocytes % 0 % 09/29/19 08:49 Promyelocytes % 0 % 09/29/19 08:49 Blast Cells % 0 % 09/29/19 08:49 Nucleated RBC % Not Reportable 09/29/19 08:49 Seg Neutrophils # 8.7 K/mm3 (1.8-7.7) H 09/27/19 02:25 Seg Neutrophils # Man 7.6 K/mm3 (1.8-7.7) 09/29/19 08:49 Band Neutrophils # 0.2 K/mm3 09/29/19 08:49 Lymphocytes # (Manual) 1.9 K/mm3 (1.2-5.4) 09/29/19 08:49 Abs React Lymphs (Man) 0.0 K/mm3 09/29/19 08:49 Monocytes # (Manual) 0.4 K/mm3 (0.0-0.8) 09/29/19 08:49 Eosinophils # (Manual) 0.1 K/mm3 (0.0-0.4) 09/29/19 08:49 Basophils # (Manual) 0.0 K/mm3 (0.0-0.1) 09/29/19 08:49 Metamyelocytes # 0.1 K/mm3 09/29/19 08:49 Myelocytes # 0.0 K/mm3 09/29/19 08:49 Promyelocytes # 0.0 K/mm3 09/29/19 08:49 Blast Cells # 0.0 K/mm3 09/29/19 08:49 WBC Morphology Not Reportable 09/29/19 08:49 Hypersegmented Neuts Not Reportable 09/29/19 08:49 Hyposegmented Neuts Not Reportable 09/29/19 08:49 Hypogranular Neuts Not Reportable 09/29/19 08:49 Smudge Cells Not Reportable 09/29/19 08:49 Toxic Granulation Not Reportable 09/29/19 08:49 Toxic Vacuolation Not Reportable 09/29/19 08:49 Dohle Bodies Not Reportable 09/29/19 08:49 Pelger-Huet Anomaly Not Reportable 09/29/19 08:49 Narcisa Rods Not Reportable 09/29/19 08:49 Platelet Estimate Consistent w auto 09/29/19 08:49 Clumped Platelets Not Reportable 09/29/19 08:49 Plt Clumps, EDTA Not Reportable 09/29/19 08:49 Large Platelets Not Reportable 09/29/19 08:49 Giant Platelets Not Reportable 09/29/19 08:49 Platelet Satelliting Not Reportable 09/29/19 08:49 Plt Morphology Comment Not Reportable 09/29/19 08:49 RBC Morphology Not Reportable 09/29/19 08:49 Dimorphic RBCs Not Reportable 09/29/19 08:49 Polychromasia Few 09/29/19 08:49 Hypochromasia 1+ 09/29/19 08:49 Poikilocytosis 1+ 09/29/19 08:49 Anisocytosis 1+ 09/29/19 08:49 Microcytosis Not Reportable 09/29/19 08:49 Macrocytosis 1+ 09/29/19 08:49 Spherocytes Not Reportable 09/29/19 08:49 Pappenheimer Bodies Not Reportable 09/29/19 08:49 Sickle Cells Not Reportable 09/29/19 08:49 Target Cells 1+ 09/29/19 08:49 Tear Drop Cells Not Reportable 09/29/19 08:49 Ovalocytes Not Reportable 09/29/19 08:49 Helmet Cells Not Reportable 09/29/19 08:49 [place] Bodies Not Reportable 09/29/19 08:49 [place] Rings Not Reportable 09/29/19 08:49 [place] Cells Not Reportable 09/29/19 08:49 Bite Cells Not Reportable 09/29/19 08:49 Crenated Cell Not Reportable 09/29/19 08:49 Elliptocytes Not Reportable 09/29/19 08:49 Acanthocytes (Spur) Not Reportable 09/29/19 08:49 Rouleaux Not Reportable 09/29/19 08:49 Hemoglobin C Crystals Not Reportable 09/29/19 08:49 Schistocytes Not Reportable 09/29/19 08:49 Malaria parasites Not Reportable 09/29/19 08:49 Kyle Bodies Not Reportable 09/29/19 08:49 Hem Pathologist Commnt No 09/29/19 08:49 APTT 33.7 Sec. (24.2-36.6) 09/23/19 17:32 ABG pH 7.468 pH Units (7.350-7.450) H 10/01/19 10:14 ABG pCO2 41.2 mm Hg 10/01/19 10:14 ABG pO2 103.7 mm Hg (80.0-90.0) H 10/01/19 10:14 ABG HCO3 29.2 mmol/L (20.0-26.0) H 10/01/19 10:14 ABG O2 Saturation 97.9 % (95.0-99.0) 10/01/19 10:14 ABG O2 Content 7.7 (0.0-44) 10/01/19 10:14 ABG Base Excess 5.1 mmol/L (-2.0-3.0) H 10/01/19 10:14 ABG Hemoglobin 5.5 gm/dl (14.0-18.0) L 10/01/19 10:14 ABG Carboxyhemoglobin 2.1 % (0.0-5.0) 10/01/19 10:14 ABG Methemoglobin 0.4 % (0.0-1.5) 10/01/19 10:14 VBG pH 6.931 (7.320-7.420) L* 09/23/19 17:57 Oxyhemoglobin 95.5 % (95.0-99.0) 10/01/19 10:14 FiO2 100 % 10/01/19 10:14 Sodium 141 mmol/L (137-145) 09/29/19 08:49 Potassium 3.4 mmol/L (3.6-5.0) L 09/29/19 08:49 Chloride 103.9 mmol/L (98-107) 09/29/19 08:49 Carbon Dioxide 27 mmol/L (22-30) 09/29/19 08:49 Anion Gap 14 mmol/L 09/29/19 08:49 BUN 25 mg/dL (9-20) H 09/29/19 08:49 Creatinine 0.5 mg/dL (0.8-1.5) L 09/29/19 08:49 Estimated GFR > 60 ml/min 09/29/19 08:49 BUN/Creatinine Ratio 50 % 09/29/19 08:49 Glucose 286 mg/dL (75-100) H 09/29/19 08:49 POC Glucose 198 (70-105) H 10/01/19 09:32 Hemoglobin A1c 14.0 % (4-6) H 09/23/19 22:58 Lactic Acid 1.80 mmol/L (0.7-2.0) 09/24/19 00:34 Calcium 8.0 mg/dL (8.4-10.2) L 09/29/19 08:49 Phosphorus 5.60 mg/dL (2.5-4.5) H 09/23/19 23:05 Magnesium 1.40 mg/dL (1.7-2.3) L 09/26/19 10:50 Total Bilirubin 0.30 mg/dL (0.1-1.2) 09/29/19 08:49 AST 21 units/L (5-40) 09/29/19 08:49 ALT 21 units/L (7-56) 09/29/19 08:49 Alkaline Phosphatase 185 units/L (35-129) H 09/29/19 08:49 Troponin T < 0.010 ng/mL (0.00-0.029) 09/23/19 17:32 Total Protein 6.6 g/dL (6.3-8.2) 09/29/19 08:49 Albumin 2.2 g/dL (3.9-5) L 09/29/19 08:49 Albumin/Globulin Ratio 0.5 % 09/29/19 08:49 Urine Color Yellow (Yellow) 09/23/19 17:32 Urine Turbidity Clear (Clear) 09/23/19 17:32 Urine pH 5.0 (5.0-7.0) 09/23/19 17:32 Ur Specific [place] 1.018 (1.003-1.030) 09/23/19 17:32 Urine Protein 30 mg/dl mg/dL (Negative) 09/23/19 17:32 Urine Glucose (UA) >=500 mg/dL (Negative) 09/23/19 17:32 Urine Ketones 80 mg/dL (Negative) 09/23/19 17:32 Urine Blood Mod (Negative) 09/23/19 17:32 Urine Nitrite Neg (Negative) 09/23/19 17:32 Urine Bilirubin Neg (Negative) 09/23/19 17: Urine Urobilinogen 2.0 mg/dL (<2.0) 09/23/19 17:32 Ur Leukocyte Esterase Neg (Negative) 09/23/19 17:32 Urine WBC (Auto) 1.0 /HPF (0.0-6.0) 09/23/19 17:32 Urine RBC (Auto) 3.0 /HPF (0.0-6.0) 09/23/19 17:32 U Epithel Cells (Auto) 1.0 /HPF (0-13.0) 09/23/19 17:32 Hyaline Casts 2 /LPF 09/23/19 17:32 Urine Mucus Few /HPF 09/23/19 17:32 Vancomycin Trough 13.1 ug/mL (5.0-20.0) 09/27/19 02:25 Blood Type B POSITIVE 09/25/19 11:15 Antibody Screen Negative 09/25/19 11:15 Crossmatch See Detail 09/25/19 11:15 Ramirez/IV: Voiding Method Condom Catheter IV Catheter Type [Right Peripheral IV Forearm] IV Catheter Type [Left Forearm Peripheral IV ] IV Catheter Type [Left Femoral Triple Lumen Cath ] Active Medications - Current Medications Current Medications: Generic Name Dose Route Start Last Admin Trade Name Freq PRN Reason Stop Dose Admin Acetaminophen 650 mg 09/23/19 22:51 09/26/19 23:02 Tylenol PO 650 mg Q4H PRN Administration Pain MILD(1-3)/Fever >100.5/CHRISTIANSON Ascorbic Acid 1,000 mg 09/26/19 22:00 09/30/19 21:39 Vitamin C PO 1,000 mg BID KATHY Administration Docusate Sodium 100 mg 09/27/19 13:00 09/30/19 21:40 Colace PO 100 mg BID KATHY Administration Ferrous Sulfate 325 mg 09/27/19 08:00 09/30/19 21:39 Feosol PO 325 mg TID KATHY Administration Hydromorphone HCl 0.5 mg 09/23/19 22:51 Dilaudid IV Q3H PRN Pain , Severe (7-10) Insulin Human Isoph/Insulin Regular 22 unit 09/27/19 11:00 09/30/19 18:04 Humulin 70/30 SUB-Q 22 unit BIDDIAB KATHY Administration Insulin Human Lispro 0 unit 09/27/19 11:30 10/01/19 07:30 Humalog SUB-Q Not Given ACHS [facility] Protocol Morphine Sulfate 3 mg 09/25/19 15:38 Morphine IV Q3H PRN Pain , Severe (7-10) Ondansetron HCl 4 mg 09/23/19 22:50 Zofran Odt PO Q8H PRN Vomiting Ondansetron HCl 4 mg 09/23/19 22:51 Zofran IV Q8H PRN Nausea And Vomiting Oxycodone/Acetaminophen 1 tab 09/23/19 22:51 Percocet 5/325 PO Q6H PRN Pain, Moderate (4-6) Pantoprazole Sodium 40 mg 09/24/19 10:00 09/30/19 09:38 Protonix PO 40 mg QDAY KATHY Administration Sodium Chloride 10 ml 09/24/19 10:00 10/01/19 00:37 Sodium Chloride Flush Syringe 10 Ml IV 10 ml BID KATHY Administration Sodium Chloride 10 ml 09/23/19 22:51 09/28/19 21:33 Sodium Chloride Flush Syringe 10 Ml IV 10 ml PRN PRN Administration LINE FLUSH Nutrition/Malnutrition Assess - Dietary Evaluation Nutrition/Malnutrition Findings: Nutrition Notes Start: 09/24/19 08:29 Freq: Status: Active Protocol: Document 09/30/19 12:06 LM (Rec: 09/30/19 12:15 LM [id number]) Nutrition Notes Initial or Follow up Reassessment Current Diagnosis Acute Kidney Injury,Diabetes, Sepsis Other Pertinent Diagnosis S/P L BKA Current Diet consistent CHO Labs/Tests Reviewed Pertinent Medications Reviewed Height 5 ft 8 in Weight 69.4 kg [place] Body Weight (kg) 70.00 BMI 23.2 Weight Status Appropriate Subjective/Other Information Pt ate most of breakfast tray this AM. Percent of energy/protein needs met: 88%/78% Burn Absent Current % PO Good (75-100%) Minimum of two criteria Yes Interpretation of Weight Loss (severe) >5% in 1 month Body Fat Depletion Moderate depletion (severe) Muscle Mass Moderate Depletion (severe) Reduced [employer]ent [employer]st Strength Measurably Reduced (severe) #3 Nutrition Diagnosis Malnutrition Diagnosis Progress(for reassessment Continues documentation) #2 Nutrition Diagnosis Increased nutrient needs ( specify in comment below) Diagnosis Progress(for reassessment Continues documentation) #1 Nutrition Diagnosis Inadequate oral intake As Evidenced by Signs and Symptoms Pt eating 75% Diagnosis Progress(for reassessment Resolved documentation) Is patient on ventilator? No Is Patient Ambulatory and/or Out of Bed No REE-([facility]-confined to bed) 2876.132 Calculation Used for Recommendations [facility] Additional Notes Protein needs are 87-104g (1. 25-1.5g/kg) Fluid needs are 1ml/kcal Nutrition Intervention Change Diet Order: Continue Add Supplement/Snack (indicate name/kcal Glucerna TID vanilla /protein ) Provides kCal: 660 Provides Protein (gm) 60 Goal #1 Meet at least 80% of kcal and protein needs Goal #2 Wound healing Goal #3 Weight gain/ maintenance Anticipated Discharge Needs: Consistent CHO with ONS BID Follow-Up By: 10/06/19 Additional Comments F/U for stable intakes
[2019-10-01 11:25] LABS: Mean Corpuscular HGB Conc 31 % (32-34); Mean Corpuscular Volume 107 fl (84-94); Platelet Count 556 K/mm3 (140-440); Red Blood Count 1.75 M/mm3 (3.65-5.03)
[2019-10-01 11:35] LABS: Hematocrit 18.6 % (35.5-45.6); Hemoglobin 5.8 gm/dl (11.8-15.2)
[2019-10-01 11:50] LABS: BUN/Creatinine Ratio 50; Blood Urea Nitrogen 30 mg/dL (9-20); Hemolysis Index 10
[2019-10-01 12:39] LABS: Anisocytosis 1+; Band Neutrophils # (Manual) 0.7 K/mm3; Basophils % (Manual) 0 % (0.0-1.8); Eosinophils % (Manual) 0 % (0.0-4.3); Hypochromasia 1+; Macrocytosis 1+; Myelocytes # (Manual) 0.1 K/mm3; Platelet Estimate Consistent w Auto; Total Cells Counted 100
[2019-10-01] MEDS: ASCORBIC ACID 500 MG TAB PO SCH ×2 (13:11→22:16)
[2019-10-01] MEDS: DOCUSATE SODIUM 100 MG CAP PO SCH ×2 (13:11→22:16)
[2019-10-01] MEDS: PANTOPRAZOLE 40 MG TAB PO SCH (13:11)
--- NOTE | 2019-10-01 14:35 | Progress Note ---
Assessment and Plan Cultures: Blood cultures 09/23/2019 no growth so far Assessment: 59 years old male with history of diabetes, peripheral artery disease and right foot gas gangrene, was recently admitted from 09/15/2021 - 09/21/2019 and left AMA after refusing amputation, readmitted on 09/23/2019 due to be found unresponsive on his bathroom: #Severe sepsis with septic shock: resolved; likely due to right foot gas gangrene. #Right diabetic foot infection with gas gangrene with 3rd-4th toes osteomyelit is: This is most likely bacterial infection. Recent CTA of the legs show overall normal arteries. Art US +PVD. S/p Right above Ankle Guillotine Amputation with dressings on 09/24 #Diabetes mellitus: Uncontrolled. #Acute kidney injury: Likely due to sepsis #Acute encephalopathy: Likely due to severe sepsis, worsening #Acute respiratory failure: now on NR mask: likely relate to severe anemia Recommendations: CXR x 1 Pulmonary consult Needs a definitive right below-knee amputation, needs blood transfusion but Christianity. Vascular discussed with him but he has declined them at this time. Monitor fever off abx Severe anemia, Hg at a dangerous level, educated, refused transfusion Will follow. Yanni Younger MD Infectious Diseases [facility] M [phone] O [phone] Subjective Date of service: 10/01/19 Principal diagnosis: Sepsis, DKA, right foot gangrene Interval history: Patient is somnolent non verbal, NR mask, no fever Objective - Exam Narrative Exam: General appearance: somnolent in no acute distress on NR mask Eyes: anicteric sclerae, moist conjunctivae; no lid-lag; PERRLA HENT: Atraumatic; oropharynx limited Lungs: CTA bilaterally CV: RRR Abdomen: Soft, non-tender Extremities: Right above Ankle Guillotine Amputation with dressings Skin: No rash. Psych: Nonagitated Neuro:alert oriented - Constitutional Vitals: Vital Signs Temp Pulse Resp BP Pulse Ox 97.9 F 105 H 19 107/64 100 10/01/19 12:00 10/01/19 12:21 10/01/19 12:21 10/01/19 12:21 10/01/19 12:21 Temperature -Last 24 Hours Temperature 97.9 F Temperature 98.0 F Temperature 97.5 F Temperature 98.6 F Temperature 98.5 F Temperature 98.4 F - Labs CBC & Chem 7: 10/01/19 10:38 10/01/19 10:38 Labs: Abnormal lab results 09/30/19 09/30/19 10/01/19 Range/Units 17:58 23:09 08:10 RBC (3.65-5.03) M/mm3 Hgb (11.8-15.2) gm/dl Hct (35.5-45.6) % MCV (84-94) fl MCH (28-32) pg MCHC (32-34) % RDW (13.2-15.2) % Plt Count (140-440) K/mm3 Seg Neuts % (Manual) (40.0-70.0) % Nucleated RBC % (0.0-0.9) % ABG pH (7.350-7.450) pH Units ABG pO2 (80.0-90.0) mm Hg ABG HCO3 (20.0-26.0) mmol/L ABG Base Excess (-2.0-3.0) mmol/L ABG Hemoglobin (14.0-18.0) gm/dl BUN (9-20) mg/dL Creatinine (0.8-1.5) mg/dL Glucose (75-100) mg/dL POC Glucose 433 H 230 H 130 H (70-105) Calcium (8.4-10.2) mg/dL 10/01/19 10/01/19 10/01/19 Range/Units 09:32 10:14 10:38 RBC 1.75 L (3.65-5.03) M/mm3 Hgb 5.8 L* (11.8-15.2) gm/dl Hct 18.6 L* (35.5-45.6) % MCV 107 H (84-94) fl MCH 33 H (28-32) pg MCHC 31 L (32-34) % RDW 18.0 H (13.2-15.2) % Plt Count 556 H (140-440) K/mm3 Seg Neuts % (Manual) 72.0 H (40.0-70.0) % Nucleated RBC % 1.0 H (0.0-0.9) % ABG pH 7.468 H (7.350-7.450) pH Units ABG pO2 103.7 H (80.0-90.0) mm Hg ABG HCO3 29.2 H (20.0-26.0) mmol/L ABG Base Excess 5.1 H (-2.0-3.0) mmol/L ABG Hemoglobin 5.5 L (14.0-18.0) gm/dl BUN (9-20) mg/dL Creatinine (0.8-1.5) mg/dL Glucose (75-100) mg/dL POC Glucose 198 H (70-105) Calcium (8.4-10.2) mg/dL 10/01/19 10/01/19 Range/Units 10:38 12:00 RBC (3.65-5.03) M/mm3 Hgb (11.8-15.2) gm/dl Hct (35.5-45.6) % MCV (84-94) fl MCH (28-32) pg MCHC (32-34) % RDW (13.2-15.2) % Plt Count (140-440) K/mm3 Seg Neuts % (Manual) (40.0-70.0) % Nucleated RBC % (0.0-0.9) % ABG pH (7.350-7.450) pH Units ABG pO2 (80.0-90.0) mm Hg ABG HCO3 (20.0-26.0) mmol/L ABG Base Excess (-2.0-3.0) mmol/L ABG Hemoglobin (14.0-18.0) gm/dl BUN 30 H (9-20) mg/dL Creatinine 0.6 L (0.8-1.5) mg/dL Glucose 198 H (75-100) mg/dL POC Glucose 275 H (70-105) Calcium 8.0 L (8.4-10.2) mg/dL
--- NOTE | 2019-10-01 15:20 | XRay Report ---
CHEST 1 VIEW 10/01/2019 2:13 PM INDICATION / CLINICAL INFORMATION: hypoxia. COMPARISON: 09/23/2019 FINDINGS: SUPPORT DEVICES: None. HEART / MEDIASTINUM: No significant abnormality. LUNGS / PLEURA: There has been development of bilateral perihilar and lower lung parenchymal opacific ation. No pneumothorax. ADDITIONAL FINDINGS: No significant additional findings. IMPRESSION: 1. Interval development of bilateral perihilar and lower lung parenchymal opacification that could re present infection or developing edema. Signer Name: Andres Rodarte MD Signed: 10/01/2019 3:16 PM Workstation Name: [id number]
[2019-10-01] MEDS: INSULIN NPH/REGULAR 70/30 INJ SUB-Q SCH (18:49)
[2019-10-01] MEDS: FERROUS SULFATE 325 MG TAB PO SCH ×2 (18:57→21:56)
[2019-10-01] MEDS ORDERED: DEXTROSE 50% IN WATER (25GM) 50 ML SYRINGE IV ONE (21:47)
[2019-10-01] MEDS ORDERED: SODIUM CHLORIDE 0.9% 500 ML IVPB IV ONE (21:52)
[2019-10-02] MEDS: SODIUM CHLORIDE 0.9% 1000 ML 1,000 ML IV SCH ×2 (01:01→21:00)
[2019-10-02] MEDS ORDERED: DEXTROSE 50% IN WATER (25GM) 50 ML SYRINGE IV ONE ×2 (04:24→22:04)
[2019-10-02] MEDS: INSULIN LISPRO 100 UNIT/ML SUB-Q SCH ×3 (07:50→23:43)
[2019-10-02] MEDS: INSULIN NPH/REGULAR 70/30 INJ SUB-Q SCH ×2 (10:49→22:10)
[2019-10-02] MEDS: PANTOPRAZOLE 40 MG TAB PO SCH (10:51)
[2019-10-02] MEDS: DOCUSATE SODIUM 100 MG CAP PO SCH ×2 (10:51→21:52)
[2019-10-02] MEDS: ASCORBIC ACID 500 MG TAB PO SCH ×2 (10:51→21:52)
[2019-10-02] MEDS: FERROUS SULFATE 325 MG TAB PO SCH ×3 (10:51→21:52)
[2019-10-02] MEDS ORDERED: SODIUM CHLORIDE 0.9% 500 ML 500 ML IV NR (10:53)
--- NOTE | 2019-10-02 12:17 | Progress Note ---
Assessment and Plan Assessment and plan: Acute hypoxemic respiratory failure. Pulmonary consultation. F/U CXR and ABG. Toxic metabolic encephalopathy. Continue to treat underlying causes. Patient has been transferred to ICU for closer monitoring. Follow-up labs. Sepsis. Etiology secondary to right foot gas gangrene. Right diabetic foot infection with gas gangrene third/fourth toes/osteomyelitis. Patient is s/p right above ankle guillotine amputation. PVD. As above. Vascular following. Diabetes mellitus type 2. Continue Accu-Cheks and sliding scale insulin. Acute kidney injury. Etiology secondary to sepsis. Severe anemia. Patient is a [employer] and refusing blood transfusion. Patient per chart has been educated. 10/02/2019. Despite patient being a Jehovah witness, patient is now agreeable to PRBC. 3 units PRBCs ordered. ID to monitor patient off antibiotics. Patient with significant hypotension. The high probability of a clinically significant, sudden or life threatening deterioration of the [neurological] system(s) required my full and direct attention, intervention and personal management. The aggregate critical care time was [31] minutes. This time is in addition to time spent performing rep orted procedures but includes the following: [x] Data Review and interpretation [x] Patient assessment and monitoring of vital signs [x] Documentation [x] Medication orders and management History Interval history: Patient was noted to be hyporesponsive yesterday morning. Patient is much more responsive today. Patient also reports to me that he is agreeable to blood transfusion despite his Episcopal status. Hospitalist Physical - Constitutional Vitals: Temp Pulse Resp BP Pulse Ox 97.6 F 95 H 16 104/71 93 10/02/19 08:00 10/02/19 07:15 10/02/19 07:15 10/02/19 07:15 10/02/19 10:45 General appearance: Present: no acute distress, well-nourished - EENT Eyes: Present: PERRL, EOM intact ENT: hearing intact, clear oral mucosa, dentition normal - Neck Neck: Present: supple, normal ROM - Respiratory Respiratory effort: normal Respiratory: bilateral: CTA - Cardiovascular Rhythm: regular Heart Sounds: Present: S1 & S2. Absent: gallop, rub - Extremities Extremities: no ischemia, No edema, Full ROM - Abdominal General gastrointestinal: soft, non-tender, non-distended, normal bowel sounds - Integumentary Integumentary: Present: clear, warm, dry - Neurologic Neurologic: CNII-XII intact, moves all extremities HEART Score - HEART Score Troponin: Troponin T < 0.010 ng/mL (0.00-0.029) 09/23/19 17:32 Results - Labs CBC & Chem 7: 10/01/19 10:38 10/01/19 10:38 Labs: Laboratory Last Values WBC 9.3 K/mm3 (4.5-11.0) 10/01/19 10:38 RBC 1.75 M/mm3 (3.65-5.03) L 10/01/19 10:38 Hgb 5.8 gm/dl (11.8-15.2) L* 10/01/19 10:38 Hct 18.6 % (35.5-45.6) L* 10/01/19 10:38 MCV 107 fl (84-94) H 10/01/19 10:38 MCH 33 pg (28-32) H 10/01/19 10:38 MCHC 31 % (32-34) L 10/01/19 10:38 RDW 18.0 % (13.2-15.2) H 10/01/19 10:38 Plt Count 556 K/mm3 (140-440) H 10/01/19 10:38 Lymph % (Auto) 11.3 % (13.4-35.0) L 09/27/19 02:25 [place] % (Auto) 5.7 % (0.0-7.3) 09/27/19 02:25 Eos % (Auto) 0.4 % (0.0-4.3) 09/27/19 02:25 Baso % (Auto) 0.5 % (0.0-1.8) 09/27/19 02:25 Lymph # 1.2 K/mm3 (1.2-5.4) 09/27/19 02:25 [place] # 0.6 K/mm3 (0.0-0.8) 09/27/19 02:25 Eos # 0.0 K/mm3 (0.0-0.4) 09/27/19 02:25 Baso # 0.1 K/mm3 (0.0-0.1) 09/27/19 02:25 Add Manual Diff Complete 10/01/19 10:38 Total Counted 100 10/01/19 10:38 Seg Neutrophils % 82.1 % (40.0-70.0) H 09/27/19 02:25 Seg Neuts % (Manual) 72.0 % (40.0-70.0) H 10/01/19 10:38 Band Neutrophils % 8.0 % 10/01/19 10:38 Lymphocytes % (Manual) 16.0 % (13.4-35.0) 10/01/19 10:38 Reactive Lymphs % (Man) 0 % 10/01/19 10:38 Monocytes % (Manual) 1.0 % (0.0-7.3) 10/01/19 10:38 Eosinophils % (Manual) 0 % (0.0-4.3) 10/01/19 10:38 Basophils % (Manual) 0 % (0.0-1.8) 10/01/19 10:38 Metamyelocytes % 2.0 % 10/01/19 10:38 Myelocytes % 1.0 % 10/01/19 10:38 Promyelocytes % 0 % 10/01/19 10:38 Blast Cells % 0 % 10/01/19 10:38 Nucleated RBC % 1.0 % (0.0-0.9) H 10/01/19 10:38 Seg Neutrophils # 8.7 K/mm3 (1.8-7.7) H 09/27/19 02:25 Seg Neutrophils # Man 6.7 K/mm3 (1.8-7.7) 10/01/19 10:38 Band Neutrophils # 0.7 K/mm3 10/01/19 10:38 Lymphocytes # (Manual) 1.5 K/mm3 (1.2-5.4) 10/01/19 10:38 Abs React Lymphs (Man) 0.0 K/mm3 10/01/19 10:38 Monocytes # (Manual) 0.1 K/mm3 (0.0-0.8) 10/01/19 10:38 Eosinophils # (Manual) 0.0 K/mm3 (0.0-0.4) 10/01/19 10:38 Basophils # (Manual) 0.0 K/mm3 (0.0-0.1) 10/01/19 10:38 Metamyelocytes # 0.2 K/mm3 10/01/19 10:38 Myelocytes # 0.1 K/mm3 10/01/19 10:38 Promyelocytes # 0.0 K/mm3 10/01/19 10:38 Blast Cells # 0.0 K/mm3 10/01/19 10:38 WBC Morphology Not Reportable 10/01/19 10:38 Hypersegmented Neuts Not Reportable 10/01/19 10:38 Hyposegmented Neuts Not Reportable 10/01/19 10:38 Hypogranular Neuts Not Reportable 10/01/19 10:38 Smudge Cells Not Reportable 10/01/19 10:38 Toxic Granulation Not Reportable 10/01/19 10:38 Toxic Vacuolation Not Reportable 10/01/19 10:38 Dohle Bodies Not Reportable 10/01/19 10:38 Pelger-Huet Anomaly Not Reportable 10/01/19 10:38 Narcisa Rods Not Reportable 10/01/19 10:38 Platelet Estimate Consistent w auto 10/01/19 10:38 Clumped Platelets Not Reportable 10/01/19 10:38 Plt Clumps, EDTA Not Reportable 10/01/19 10:38 Large Platelets Not Reportable 10/01/19 10:38 Giant Platelets Not Reportable 10/01/19 10:38 Platelet Satelliting Not Reportable 10/01/19 10:38 Plt Morphology Comment Not Reportable 10/01/19 10:38 RBC Morphology Not Reportable 10/01/19 10:38 Dimorphic RBCs Not Reportable 10/01/19 10:38 Polychromasia 1+ 10/01/19 10:38 Hypochromasia 1+ 10/01/19 10:38 Poikilocytosis Not Reportable 10/01/19 10:38 Anisocytosis 1+ 10/01/19 10:38 Microcytosis Not Reportable 10/01/19 10:38 Macrocytosis 1+ 10/01/19 10:38 Spherocytes Not Reportable 10/01/19 10:38 Pappenheimer Bodies Not Reportable 10/01/19 10:38 Sickle Cells Not Reportable 10/01/19 10:38 Target Cells Not Reportable 10/01/19 10:38 Tear Drop Cells Not Reportable 10/01/19 10:38 Ovalocytes Not Reportable 10/01/19 10:38 Helmet Cells Not Reportable 10/01/19 10:38 [place] Bodies Not Reportable 10/01/19 10:38 Brokaw Rings Not Reportable 10/01/19 10:38 Aylin Cells Not Reportable 10/01/19 10:38 Bite Cells Not Reportable 10/01/19 10:38 Crenated Cell Not Reportable 10/01/19 10:38 Elliptocytes Not Reportable 10/01/19 10:38 Acanthocytes (Spur) Not Reportable 10/01/19 10:38 Rouleaux Not Reportable 10/01/19 10:38 Hemoglobin C Crystals Not Reportable 10/01/19 10:38 Schistocytes Not Reportable 10/01/19 10:38 Malaria parasites Not Reportable 10/01/19 10:38 Kyle Bodies Not Reportable 10/01/19 10:38 Hem Pathologist Commnt No 10/01/19 10:38 APTT 33.7 Sec. (24.2-36.6) 09/23/19 17:32 D-Dimer 4919.49 ng/mlDDU (0-234) H 10/01/19 14:52 ABG pH 7.468 pH Units (7.350-7.450) H 10/01/19 10:14 ABG pCO2 41.2 mm Hg 10/01/19 10:14 ABG pO2 103.7 mm Hg (80.0-90.0) H 10/01/19 10:14 ABG HCO3 29.2 mmol/L (20.0-26.0) H 10/01/19 10:14 ABG O2 Saturation 97.9 % (95.0-99.0) 10/01/19 10:14 ABG O2 Content 7.7 (0.0-44) 10/01/19 10:14 ABG Base Excess 5.1 mmol/L (-2.0-3.0) H 10/01/19 10:14 ABG Hemoglobin 5.5 gm/dl (14.0-18.0) L 10/01/19 10:14 ABG Carboxyhemoglobin 2.1 % (0.0-5.0) 10/01/19 10:14 ABG Methemoglobin 0.4 % (0.0-1.5) 10/01/19 10:14 VBG pH 6.931 (7.320-7.420) L* 09/23/19 17:57 Oxyhemoglobin 95.5 % (95.0-99.0) 10/01/19 10:14 FiO2 100 % 10/01/19 10:14 Sodium 141 mmol/L (137-145) 10/01/19 10:38 Potassium 4.3 mmol/L (3.6-5.0) D 10/01/19 10:38 Chloride 104.4 mmol/L (98-107) 10/01/19 10:38 Carbon Dioxide 28 mmol/L (22-30) 10/01/19 10:38 Anion Gap 13 mmol/L 10/01/19 10:38 BUN 30 mg/dL (9-20) H 10/01/19 10:38 Creatinine 0.6 mg/dL (0.8-1.5) L 10/01/19 10:38 Estimated GFR > 60 ml/min 10/01/19 10:38 BUN/Creatinine Ratio 50 % 10/01/19 10:38 Glucose 198 mg/dL (75-100) H 10/01/19 10:38 POC Glucose 171 (70-105) H 10/02/19 09:16 Hemoglobin A1c 14.0 % (4-6) H 09/23/19 22:58 Lactic Acid 1.80 mmol/L (0.7-2.0) 09/24/19 00:34 Calcium 8.0 mg/dL (8.4-10.2) L 10/01/19 10:38 Phosphorus 5.60 mg/dL (2.5-4.5) H 09/23/19 23:05 Magnesium 1.40 mg/dL (1.7-2.3) L 09/26/19 10:50 Ferritin 748.7 ng/mL (13.0-400.0) H 10/01/19 14:52 Total Bilirubin 0.30 mg/dL (0.1-1.2) 09/29/19 08:49 AST 21 units/L (5-40) 09/29/19 08:49 ALT 21 units/L (7-56) 09/29/19 08:49 Alkaline Phosphatase 185 units/L (35-129) H 09/29/19 08:49 Lactate Dehydrogenase 345 units/L (91-180) H 10/01/19 14:52 Troponin T < 0.010 ng/mL (0.00-0.029) 09/23/19 17:32 C-Reactive Protein 4.10 mg/dL (0.00-1.30) H 10/01/19 14:52 Total Protein 6.6 g/dL (6.3-8.2) 09/29/19 08:49 Albumin 2.2 g/dL (3.9-5) L 09/29/19 08:49 Albumin/Globulin Ratio 0.5 % 09/29/19 08:49 Urine Color Yellow (Yellow) 09/23/19 17:32 Urine Turbidity Clear (Clear) 09/23/19 17: Urine pH 5.0 (5.0-7.0) 09/23/19 17:32 Ur Specific [place] 1.018 (1.003-1.030) 09/23/19 17: Urine Protein 30 mg/dl mg/dL (Negative) 09/23/19 17:32 Urine Glucose (UA) >=500 mg/dL (Negative) 09/23/19 17:32 Urine Ketones 80 mg/dL (Negative) 09/23/19 17:32 Urine Blood Mod (Negative) 09/23/19 17: Urine Nitrite Neg (Negative) 09/23/19 17:32 Urine Bilirubin Neg (Negative) 09/23/19 17:32 Urine Urobilinogen 2.0 mg/dL (<2.0) 09/23/19 17:32 Ur Leukocyte Esterase Neg (Negative) 09/23/19 17:32 Urine WBC (Auto) 1.0 /HPF (0.0-6.0) 09/23/19 17:32 Urine RBC (Auto) 3.0 /HPF (0.0-6.0) 09/23/19 17:32 U Epithel Cells (Auto) 1.0 /HPF (0-13.0) 09/23/19 17:32 Hyaline Casts 2 /LPF 09/23/19 17:32 Urine Mucus Few /HPF 09/23/19 17:32 Vancomycin Trough 13.1 ug/mL (5.0-20.0) 09/27/19 02:25 Blood Type B POSITIVE 10/02/19 09:23 Antibody Screen Negative 10/02/19 09:23 Crossmatch See Detail 10/02/19 09:23 Ramirez/IV: Voiding Method Condom Catheter IV Catheter Type [Right Peripheral IV Forearm] IV Catheter Type [Left Forearm Peripheral IV ] IV Catheter Type [Left Femoral Triple Lumen Cath ] Active Medications - Current Medications Current Medications: Generic Name Dose Route Start Last Admin Trade Name Freq PRN Reason Stop Dose Admin Acetaminophen 650 mg 09/23/19 22:51 09/26/19 23:02 Tylenol PO 650 mg Q4H PRN Administration Pain MILD(1-3)/Fever >100.5/CHRISTIANSON Ascorbic Acid 1,000 mg 09/26/19 22:00 10/02/19 10:51 Vitamin C PO 1,000 mg BID KATHY Administration Docusate Sodium 100 mg 09/27/19 13:00 10/02/19 10:51 Colace PO 100 mg BID KATHY Administration Ferrous Sulfate 325 mg 09/27/19 08:00 10/02/19 10:51 Feosol PO 325 mg TID KATHY Administration Hydromorphone HCl 0.5 mg 09/23/19 22:51 Dilaudid IV Q3H PRN Pain , Severe (7-10) Sodium Chloride 1,000 mls @ 125 mls/hr 10/02/19 00:45 10/02/19 01:01 Nacl 0.9% 1000 Ml IV 125 mls/hr DIRECT KATHY Administration Sodium Chloride 500 mls @ 0 mls/hr 10/02/19 10:53 Nacl 0.9% 500 Ml IV 10/02/19 23:59 ONCE NR As Directed Insulin Human Isoph/Insulin Regular 22 unit 09/27/19 11:00 10/02/19 10:49 Humulin 70/30 SUB-Q 22 unit BIDDIAB KATHY Administration Insulin Human Lispro 0 unit 09/27/19 11:30 10/01/19 21:38 Humalog SUB-Q Not Given ACHS [facility] Protocol Morphine Sulfate 3 mg 09/25/19 15:38 Morphine IV Q3H PRN Pain , Severe (7-10) Ondansetron HCl 4 mg 09/23/19 22:50 Zofran Odt PO Q8H PRN Vomiting Ondansetron HCl 4 mg 09/23/19 22:51 Zofran IV Q8H PRN Nausea And Vomiting Oxycodone/Acetaminophen 1 tab 09/23/19 22:51 Percocet 5/325 PO Q6H PRN Pain, Moderate (4-6) Pantoprazole Sodium 40 mg 09/24/19 10:00 10/02/19 10:51 Protonix PO 40 mg QDAY KATHY Administration Sodium Chloride 10 ml 09/24/19 10:00 10/02/19 10:50 Sodium Chloride Flush Syringe 10 Ml IV 10 ml BID KATHY Administration Sodium Chloride 10 ml 09/23/19 22:51 09/28/19 21:33 Sodium Chloride Flush Syringe 10 Ml IV 10 ml PRN PRN Administration LINE FLUSH Nutrition/Malnutrition Assess - Dietary Evaluation Nutrition/Malnutrition Findings: Nutrition Notes Start: 09/24/19 08:29 Freq: Status: Active Protocol: Document 09/30/19 12:06 LM (Rec: 09/30/19 12:15 LM [id number]) Nutrition Notes Initial or Follow up Reassessment Current Diagnosis Acute Kidney Injury,Diabetes, Sepsis Other Pertinent Diagnosis S/P L BKA Current Diet consistent CHO Labs/Tests Reviewed Pertinent Medications Reviewed Height 5 ft 8 in Weight 69.4 kg [place] Body Weight (kg) 70.00 BMI 23.2 Weight Status Appropriate Subjective/Other Information Pt ate most of breakfast tray this AM. Percent of energy/protein needs met: 88%/78% Burn Absent Current % PO Good (75-100%) Minimum of two criteria Yes Interpretation of Weight Loss (severe) >5% in 1 month Body Fat Depletion Moderate depletion (severe) Muscle Mass Moderate Depletion (severe) Reduced Salsa Dance Instructor Strength Measurably Reduced (severe) #3 Nutrition Diagnosis Malnutrition Diagnosis Progress(for reassessment Continues documentation) #2 Nutrition Diagnosis Increased nutrient needs ( specify in comment below) Diagnosis Progress(for reassessment Continues documentation) #1 Nutrition Diagnosis Inadequate oral intake As Evidenced by Signs and Symptoms Pt eating 75% Diagnosis Progress(for reassessment Resolved documentation) Is patient on ventilator? No Is Patient Ambulatory and/or Out of Bed No REE-([facility]-confined to bed) [phone] Calculation Used for Recommendations [facility] Additional Notes Protein needs are 87-104g (1. 25-1.5g/kg) Fluid needs are 1ml/kcal Nutrition Intervention Change Diet Order: Continue Add Supplement/Snack (indicate name/kcal Glucerna TID vanilla /protein ) Provides kCal: 660 Provides Protein (gm) 60 Goal #1 Meet at least 80% of kcal and protein needs Goal #2 Wound healing Goal #3 Weight gain/ maintenance Anticipated Discharge Needs: Consistent CHO with ONS BID Follow-Up By: 10/06/19 Additional Comments F/U for stable intakes
--- NOTE | 2019-10-02 15:51 | Progress Note ---
Assessment and Plan Cultures: Blood cultures 09/23/2019 no growth so far Assessment: 59 years old male with history of diabetes, peripheral artery disease and right foot gas gangrene, was recently admitted from 09/15/2021 - 09/21/2019 and left AMA after refusing amputation, readmitted on 09/23/2019 due to be found unresponsive on his bathroom: #Severe sepsis with septic shock: resolved; likely due to right foot gas gangrene, Now with hypotension from acute blood loss due to severe anemia refusing transfusion. Doubt sepsis #Right diabetic foot infection with gas gangrene with 3rd-4th toes osteomyeliti s: This is most likely bacterial infection. Recent CTA of the legs show overall normal arteries. Art US +PVD. S/p Right above Ankle Guillotine Amputation with dressings on 09/24 #Diabetes mellitus: Uncontrolled. #Acute kidney injury: Likely due to sepsis #Acute encephalopathy: Likely due to severe sepsis, worsening #Acute respiratory failure: now on NR mask: likely relate to severe anemia, CXR with pulmonary edema Recommendations: now accepted blood transfusion check procal (CXR likely pulmonary edema) add cefepime 2 g iv q12h - doubt sepsis Needs a definitive right below-knee amputation, needs blood transfusion but Je[employer]ah's Witness. Severe anemia, Hg at a dangerous level, educated, refused transfusion multiple time Will follow. Yanni Younger MD Infectious Diseases [employer] St[employer] Operator [facility] ([facility]) M [phone] O [phone] Subjective Date of service: 10/02/19 Principal diagnosis: Sepsis, DKA, right foot gangrene Interval history: Patient is alert feels some better NC o2, no fever Objective - Exam Narrative Exam: General appearance: somnolent in no acute distress on NR mask Eyes: anicteric sclerae, moist conjunctivae; no lid-lag; PERRLA HENT: Atraumatic; oropharynx limited Lungs: CTA bilaterally CV: RRR Abdomen: Soft, non-tender Extremities: Right above Ankle Guillotine Amputation with dressings Skin: No rash. Psych: Nonagitated Neuro:alert oriented - Constitutional Vitals: Vital Signs Temp Pulse Resp BP Pulse Ox 97.7 F 104 H 18 83/57 100 10/02/19 15:08 10/02/19 15:08 10/02/19 15:08 10/02/19 15:08 10/02/19 15:08 Temperature -Last 24 Hours Temperature 97.7 F Temperature 97.6 F Temperature 96.7 F Temperature 96.7 F Temperature 97.3 F Temperature 97.2 F Temperature 97.3 F Temperature 97.3 F Temperature 97.6 F Temperature 98.9 F Temperature 98.7 F Temperature 97.6 F - Labs CBC & Chem 7: 10/01/19 10:38 10/01/19 10:38 Labs: Abnormal lab results 10/01/19 10/01/19 10/01/19 Range/Units 14:52 14:52 14:52 D-Dimer 4919.49 H (0-234) ng/mlDDU POC Glucose (70-105) Ferritin 748.7 H (13.0-400.0) ng/mL Lactate Dehydrogenase (91-180) units/L C-Reactive Protein 4.10 H (0.00-1.30) mg/dL Crossmatch 10/01/19 10/01/19 10/02/19 Range/Units 14:52 16:17 09:16 D-Dimer (0-234) ng/mlDDU POC Glucose 239 H 171 H (70-105) Ferritin (13.0-400.0) ng/mL Lactate Dehydrogenase 345 H (91-180) units/L C-Reactive Protein (0.00-1.30) mg/dL Crossmatch 10/02/19 10/02/19 Range/Units 09:23 11:50 D-Dimer (0-234) ng/mlDDU POC Glucose 174 H (70-105) Ferritin (13.0-400.0) ng/mL Lactate Dehydrogenase (91-180) units/L C-Reactive Protein (0.00-1.30) mg/dL Crossmatch See Detail
[2019-10-02 21:30] LABS: Hemoglobin 7.3 gm/dl (11.8-15.2)
[2019-10-02] MEDS: CEFEPIME/NS 2 GM/100 ML 2 GM/100 ML BAG IV SCH ×2 (22:09→23:44)
[2019-10-03] MEDS ORDERED: ATROPINE 0.1% (1 MG/10 ML) CARDIAC SYRINGE ONE ×2 (07:27→12:17)
[2019-10-03] MEDS ORDERED: NORepinephrine/NS 4 MG-250 ML 4 MG/250 ML BAG IV SCH (07:45)
[2019-10-03] MEDS ORDERED: NORepinephrine/NS 4 MG-250 ML 4 MG/250 ML BAG IV ONE (07:47)
--- NOTE | 2019-10-03 07:54 | Event Note ---
Date: 10/03/19 Called in response to cardiac arrest: This is a patient in the IMCU: Assessment: 59 years old male with history of diabetes, peripheral artery disease and right foot gas gangrene, was recently admitted from 09/15/2021 - 09/21/2019 and left AMA after refusing amputation, readmitted on 09/23/2019 due to be found unresponsive on his bathroom: #Severe sepsis with septic shock: resolved; likely due to right foot gas gangrene, Now with hypotension from acute blood loss due to severe anemia refusing transfusion. Doubt sepsis #Right diabetic foot infection with gas gangrene with 3rd-4th toes osteomyelitis: This is most likely bacterial infection. Recent CTA of the legs show overall normal arteries. Art US +PVD. S/p Right above Ankle Guillotine Amputation with dressings on 09/24 #Diabetes mellitus: Uncontrolled. #Acute kidney injury: Likely due to sepsis #Acute encephalopathy: Likely due to severe sepsis, worsening Patient family no signs of life. The nurses state that he became hypoxic and bradycardic. He was not intubated. He has been treated for severe sepsis. I verified that he was not hypoglycemic. Respiratory was at the head of the bed attempting to intubate and CPR in progress. The first respiratory therapist was unsuccessful with intubation. Ambu bag assist continued. I assisted the second respiratory therapist with intubation which was successful via direct laryngoscopy. CPR continued. The patient was given epi several doses and bicarb empirically. Endotracheal tube placement resulted in clear breath sounds in bilateral lung north and no breath sounds and the gastric area. However the CO2 detector was only mildly positive for CO2. I believe this is indicative of a substantial lack of metabolism. A Doppler exam was performed. We did achieve return of complexes. However there was no Doppler signal consistent with PEA. CPR is continued by Dr. Conrad/hospitalist staff.
--- NOTE | 2019-10-03 08:01 | Death Note ---
Note Date of : 10/03/19 Time of : 07:55 Time Pronounced: 07:55 - Preliminary Cause of (problem) (1) Acute renal failure Preliminary cause of (2) Gangrene of right foot Preliminary cause of (3) Septic shock Preliminary cause of (4) Diabetes mellitus type 2 in obese Preliminary cause of
--- NOTE | 2019-10-03 10:24 | Death Summary ---
Summary - Providers Date of service: 10/03/19 Consults: 09/23/19 22:57 Consult to Physician [CONS] Routine Comment: Consulting Provider: CHARLEEN GALVAN Physician Instructions: Reason For Exam: Gangrene and PAD 09/24/19 09:19 Consult to Physician [CONS] Routine Comment: Consulting Provider: KIANA SCHMITT Physician Instructions: Reason For Exam: Rt foot gangrene--Abx choice 09/24/19 17:54 Consult to Wound/ET Nurse [CONS] Stat Reason For Exam: wound eval right leg gangrene 09/28/19 12:37 Consult to Wound/ET Nurse [CONS] Stat Reason For Exam: sacral ulcer 09/30/19 21:33 Consult to Case Management [CONS] Routine Services Needed at Discharge: Other Notified:: case picker Comment:: need wound care followup before dc 09/30/19 21:37 Consult to Case Management [CONS] Routine Services Needed at Discharge: Other Notified:: case picker Comment:: followup with dr bloom @ [facility] in 2 weeks Additional Physician Instructions: needs oupatient followup for anemia with heme onc 10/01/19 14:38 Consult to Physician [CONS] Routine Comment: Consulting Provider: JED SINGER Physician Instructions: Reason For Exam: hypoxia Attending: PRASANNA TITUS - summary Date of admission: 09/23/19 22:51 Date of : 10/03/19 Disposition: 59 years old male with history of diabetes, peripheral artery disease and right foot gas gangrene, was recently admitted from 09/15/2021 - 09/21/2019 and left AMA after refusing amputation, readmitted on 09/23/2019 due to be found unresponsive on his bathroom floor. The patient was admitted with diagnosis of severe sepsis with septic shock secondary to right diabetic foot infection and gas gangrene both third/fourth toe osteomyelitis. Recent CTA of the legs show over all normal arteries. Art US +PVD. On this admission, patient was agreeable to amputation. The patient had s/p Right above Ankle Guillotine Amputation with dressings on 09/24. Other complications during hospital stay included diabetes mellitus type 2 uncontrolled, acute kidney injury secondary to sepsis, toxic metabolic encephalopathy, severe anemia and acute hypoxemic respiratory failure. On the morning of 09/23/2019, patient was noted to have decompensated with lethargy and hyper responsiveness along with hypoxic respiratory failure. Patient was noted to have severe anemia and refused blood transfusion due to being a Yarsani. The patient eventually agreed to blood transfusion but continued to deteriorate. On the morning of 10/03/2019 patient was noted to be hypoxic and bradycardic. ACLS protocol was initiated. Please see code note for details. Patient was later pronounced at 7:55 AM.
[2019-10-03 11:54] VITALS: BP 78/49
[2019-10-03] MEDS ORDERED: CALCIUM CHLORIDE 1,000 MG/10 ML SYRINGE IV ONE (12:17)
[2019-10-03] MEDS ORDERED: EPINEPHrine 30 MG/30 ML INJ IV ONE (12:17)
== END 2019-10-03 07:55 | DRG 853 ==
LOC: ED 17:13 → CC1 22:51 → 4A 09-27 13:52 → IMCU 10-01 09:25
PROVIDERS: ADMIT Internal Medicine; ATTEND Hospitalist
PROC: 06HY33Z Insertion of Infusion Device into Lower Vein, Percutaneous Approach (ICD-10-PCS; 2019-09-23)
PROC: 0Y6M0Z0 Detachment at Right Foot, Complete, Open Approach (ICD-10-PCS; principal; 2019-09-25)
PROC: 4A033R1 Measurement of Arterial Saturation, Peripheral, Percutaneous Approach (ICD-10-PCS; 2019-10-01)
PROC: 30233N1 Transfusion of Nonautologous Red Blood Cells into Peripheral Vein, Percutaneous Approach (ICD-10-PCS; 2019-10-02)
DX: A41.9 Sepsis, unspecified organism (principal); E11.10 Type 2 diabetes mellitus with ketoacidosis without coma; R65.21 Severe sepsis with septic shock; J96.01 Acute respiratory failure with hypoxia; G92 Toxic encephalopathy; E43 Unspecified severe protein-calorie malnutrition; N17.9 Acute kidney failure, unspecified; E11.52 Type 2 diabetes mellitus with diabetic peripheral angiopathy with gangrene; E87.1 Hypo-osmolality and hyponatremia; I96 Gangrene, not elsewhere classified; L97.419 Non-pressure chronic ulcer of right heel and midfoot with unspecified severity; D62 Acute posthemorrhagic anemia; M86.171 Other acute osteomyelitis, right ankle and foot; E11.69 Type 2 diabetes mellitus with other specified complication; K21.9 Gastro-esophageal reflux disease without esophagitis; I95.9 Hypotension, unspecified; E11.621 Type 2 diabetes mellitus with foot ulcer; Z79.4 Long term (current) use of insulin; Z68.22 Body mass index [BMI] 22.0-22.9, adult; Z82.49 Family history of ischemic heart disease and other diseases of the circulatory system
CPT/HCPCS: 36415; 36600; 71045; 80048; 80053; 80202; 81001; 82140; 82728; 82803; 82805; 82962; 83036; 83615; 83735; 84100; 84145; 84484; 85007; 85014; 85018; 85025; 85027; 85379; 85730; 86140; 86850; 86900; 86901; 86920; 87040; 88307; 88309; 88311; 93005; 93922; 93925; 94760; G0378; J0171; J0461; J0692; J1815; J2370; J2405; J2704; J3010; J3370; J3480; J7030; J7040; J7070; P9016